=== PATIENT | female | born 1955 | race Caucasian/White ===

== ENCOUNTER 2019-05-09 07:06 | Emergency (ER) | payer MEDICARE, MEDICAID, SELFPAY ==
[2019-05-09 07:07] VITALS: BP 166/85; PULSE 83; RESP 18; TEMP 36.4; O2SAT 100; BMI 28.1
--- NOTE | 2019-05-09 07:08 | W.ED.DIZZY ---
HPI - Dizziness General: Chief Complaint: Abdominal Pain Stated Complaint: NAUSEA, VOMITING VERTIGO Time Seen by Provider: 05/09/19 07:08 Source: patient Mode of arrival: ambulatory Limitations: no limitations History of Present Illness: HPI Narrative: Patient is a 64-year-old female who presents to ED today with complaints of dizziness/vertigo that began this morning when she awoke; patient tells me that she has had intermittent vertigo since the age of 10 when she was accidentally dropped on her head; patient states she does not take any medications for the vertigo due to unwanted side effects and normally just suffers through it ; patient tells me it is not uncommon for her vertigo to cause her to fall; patient tells me this morning she also awoke with right upper quadrant pain and nausea; she states this is not abnormal for her as she is currently undergoing evaluation for possible gallbladder issue; she has a HIDA scan scheduled at 10 AM today; patient reports she sought emergency evaluation this morning because she felt like her vertigo was somehow different in nature-reports when she stood up this morning she about ran into a door and was glued there ; she states she laid back down in bed, closed her eyes, and felt weightless MD elicited complaint: dizziness and vertigo Pertinent past history: other (reports vertigo since the age of 10) Onset (ago): hour(s) Timing: awoke with symptoms Description: sense of movement, room spinning , off-balance and difficulty walking Exacerbating factors: movement/ambulation, change in body position and standing Relieving factors: remaining still and keeping eyes closed Associated symptoms: Reports nausea; Denies chest pain, chills, headache(s), palpitations, syncope or vomiting Associated neuro symptoms: Deny confusion or numbness in extremities Review of Systems Const: Denies: fever, chills or body aches Eyes: Denies: change in vision, blurry vision, blind spots or photophobia ENMT: Denies: enlarged tonsils or painful swallowing Card: Denies: chest pain, palpitations, irregular heart rhythm, lightheadedness, syncope or shortness of breath on exertion Resp: Denies: shortness of breath, productive cough or pain on inspiration GI: Reports: abdominal pain (earlier this AM but this has subsided now) and nausea; Denies: vomiting, heartburn/indigestion or diarrhea : Denies: flank pain, difficulty urinating, painful urination, urinary frequency or urinary urgency Musc: Denies: neck pain, back pain, extremity pain, extremity swelling or joint pain Skin/Breast: Denies: rash Neuro: Reports: difficulty walking (secondary to vertigo this AM), dizziness and vertigo; Denies: headache, numbness in extremities, weakness in extremities, changes in sensation, confusion, slurred speech, difficulty communicating thoughts, seizure-like activity or involuntary movements PFSH ED PFSH: Statuses (acute, chronic, etc) shown below reflect problem list status as previously entered and may not be historically accurate Social History Smoking and tobacco status: former smoker Physical Exam Const: COMMON NORMALS: no apparent distress, oriented x3, no limitations, alert and well nourished GENERAL APPEARANCE: cooperative NUTRITIONAL APPEARANCE: obese ORIENTATION/CONSCIOUSNESS: Yes oriented to person, Yes oriented to place and Yes oriented to time HENMT: COMMON NORMALS: normocephalic, head/scalp atraumatic, EAC's normal and TM's normal bilaterally HEAD & SCALP: normocephalic and atraumatic FACE & SINUS: normal facial exam and face symmetric EXTERNAL AUDITORY CANAL: EAC's normal TYMPANIC MEMBRANE: TM's normal bilaterally Eye: COMMON NORMALS: PERRL, EOMs intact bilaterally and conjunctivae normal GENERAL EYE: normal appearance of both eyes and normal light reflex VISUAL R[place]: No peripheral vision loss and No central vision loss CONJUNCTIVA: Yes conjunctivae normal PUPIL: Yes PERRL and Yes accommodation reflex normal DIRECT OPHTHALMOSCOPY: Yes normal light reflex OTHER: no nystagmus noted; neg head thrust test Neck/C-Spine: COMMON NORMALS: full ROM, no lymphadenopathy, supple and no meningeal signs Chest: COMMONS NORMALS: inspection of chest normal Resp: COMMON NORMALS: normal respiratory effort and clear to auscultation bilaterally AUSCULTATION: clear to auscultation bilaterally Cardio: COMMON NORMALS: regular rate and regular rhythm RATE: regular rate RHYTHM: regular rhythm GI: COMMON NORMALS: normal to inspection, nondistended, normoactive bowel sounds, soft to palpation, non-tender, no hepatosplenomegaly and no masses PALPATION: Yes soft and Yes no hepatosplenomegaly : COMMON NORMALS: Yes no CVA tenderness BLADDER/KIDNEY EXAM: Yes no CVA tenderness Back/Pelvis: COMMON NORMALS: no CVA tenderness and thoracic and lumbar spine normal to inspection Extremity: COMMON NORMALS: normal to inspection Neuro: TRUONG COMA SCALE: document GCS findings Truong coma scale eye opening: Spontaneous Truong coma scale verbal response: Orientated Truong coma scale motor response: Obey commands Truong coma scale total score: 15 COMMON NORMALS: oriented x3, CN's II-XII intact bilaterally, moves all extremities, no focal motor deficits and no sensory deficits noted SENSORIUM/ORIENTATION: Yes alert, Yes oriented to person, Yes oriented to place and Yes oriented to time MENINGEAL SIGNS: Yes no meningeal signs CRANIAL NERVES: Yes CN normal except as noted and Yes HiNTS SPEECH: speech normal MOTOR EXAM: no pronator drift Skin: COMMON NORMALS: no rashes or lesions noted GENERAL SKIN EXAM: no rashes or lesions noted Course Vital Signs: Vital signs: Vital Signs Temperature 97.5 F L 05/09/19 07:07 Pulse Rate 73 05/09/19 09:53 Respiratory Rate 16 05/09/19 09:53 Blood Pressure 124/97 05/09/19 09:53 Pulse Oximetry 96 05/09/19 09:53 MDM - Dizziness MDM Narrative: Medical decision making narrative: Patient is a 64-year-old female who presents to ED today with a variant of her chronic intermittent vertigo; on exam she has no nystagmus, slurred speech, sensory or motor abnormalities, limb ataxia, ocular/pupil abnormalities, and has a normal head thrust test; she does not report any dysphagia, headache; she was able to get up within her room and ambulate to a bedside commode without difficulties; at this point I have no concern for a cerebellar infarct/hemorrhage based on her history and physical examination; return to ED precautions given; labs did show elevated LFTs-I did not have previous so gallbladder US was ordered and found to be negative; after speaking to pt she does tell me she has had this finding previously. Lab Data: Labs: Lab Results 05/09/19 05/09/19 Range/Units 07:35 07:35 WBC 4.7 (4.0-10.0) 10^3/ uL RBC 4.26 (4.1-5.3) 10^6/u L Hgb 12.9 (11.5-15.3) g/dL Hct 39.3 (37.0-47.0) % MCV 92.3 (81-99) fL MCH 30.3 (28.0-34.0) pg MCHC 32.8 (30.0-36.0) g/dL RDW 12.2 (12.1-15.1) % Plt Count 304 (130-400) 10^3/c mm MPV 8.8 (7.4-10.4) fL Neut % (Auto) 48.0 % Lymph % (Auto) 40.6 % [place] % (Auto) 6.6 % Eos % (Auto) 3.8 % Baso % (Auto) 0.6 % Neut # (Auto) 2.3 (1.8-7.7) 10^3/u L Lymph # (Auto) 1.9 (0.8-4.8) 10^3/u L [place] # (Auto) 0.3 (0.2-0.9) 10^3/u L Eos # (Auto) 0.2 (0.0-0.8) 10^3/u L Baso # (Auto) 0.0 (0.0-0.1) 10^3/u L Nucleated RBC % (a uto) 0 % Nucleated RBCs # 0.0 /100WBC Sodium 137 (136-145) mmol/L Potassium 4.2 (3.5-5.1) mmol/L Chloride 100 (98-107) mmol/L Carbon Dioxide 25 (22-29) mmol/L Anion Gap 16.2 (5-19) BUN 13 (8-23) mg/dL Creatinine 0.8 (0.5-0.9) mg/dL GFR Calculation 72.7 L (90-130) mL/min Glucose 131 H (74-106) mg/dL Calcium 9.9 (8.8-10.2) mg/Dl Total Bilirubin 0.2 (0.15-1.2) mg/dL AST 42 H (0-32) U/L ALT 62 H (0-33) U/L Alkaline Phosphata se 186 H (35-105) IU/L Total Protein 7.9 (6.6-8.7) g/dL Albumin 4.4 (3.5-5.2) g/dL Globulin 3.5 (1.3-4.6) g/dL Discharge Plan Discharge Patient Disposition: Home, Self-Care Clinical Impression: Vertigo Condition: Stable Prescriptions: New meclizine 25 mg tablet 25 mg PO TID PRN (Reason: vertigo) Qty: 20 RF: 0 Zofran 4 mg tablet 4 mg PO Q8H PRN (Reason: nausea and vomiting) Qty: 14 RF: 0 No Action Vitamin C 1,000 mg Tablet 2,000 mg PO DAILY RF: 0 pantoprazole 20 mg tablet,delayed release (DR/EC) 20 mg PO DAILY RF: 0 albuterol sulfate 90 mcg/actuation HFA aerosol inhaler 2 puff INHALATION Q4H PRN (Reason: Shortness Of Breath) RF: 0 Vitamin D3 1,000 unit Capsule 2,000 unit PO DAILY RF: 0 Discharge Orders: Discharge Order (Routine); Ordered 05/09/19 Ordered By: Latesha Walters Referrals: Aditi Hankins [Primary Care Provider] - Discharge Diet: Advance as tolerated Discharge Activity: Increase activity as tolerated Activity Restrictions/Additional Instructions: Return to the emergency department for worsening or prolonged vertigo, headache, numbness or altered sensation to your face or extremities, inability to ambulate, slurred speech, difficulty swallowing, or any other concerns she may have. Discharge Date/Time: 05/09/19 10:04 Coding Level of Care Code ED Lockstitch Hemmer for Lizetteg Fwd Exam Problem Focused
[2019-05-09] MEDS: meclizine 25 mg tablet PO ×2 (07:44→09:04)
[2019-05-09] MEDS: metoclopramide 5 mg/mL SDV 2 mL IVP (07:44)
[2019-05-09 07:45] LABS: Basophils % 0.6 %; Eosinophils # 0.2 10^3/uL (0.0-0.8); Eosinophils % 3.8 %; Hematocrit 39.3 % (37.0-47.0); Hemoglobin 12.9 g/dL (11.5-15.3); Lymphocytes # 1.9 10^3/uL (0.8-4.8); Lymphocytes % 40.6 %; Mean Corpuscular HGB Conc 32.8 g/dL (30.0-36.0); Mean Corpuscular Hemoglobin 30.3 pg (28.0-34.0); Mean Corpuscular Volume 92.3 fL (81-99); Mean Platelet Volume 8.8 fL (7.4-10.4); Monocytes # 0.3 10^3/uL (0.2-0.9); Monocytes % 6.6 %; Neutrophils # 2.3 10^3/uL (1.8-7.7); Nucleated Red Blood Cells % 0 %; Platelet Count 304 10^3/cmm (130-400); Red Blood Count 4.26 10^6/uL (4.1-5.3); Red Cell Distribution Width 12.2 % (12.1-15.1); White Blood Count 4.7 10^3/uL (4.0-10.0)
[2019-05-09] MEDS: sodium chloride 0.9% 1,000 ML 999 ML IV (07:45)
[2019-05-09 08:00] LABS: Alanine Aminotransferase 62 U/L (0-33); Albumin Level 4.4 g/dL (3.5-5.2); Alkaline Phosphatase 186 IU/L (35-105); Anion Gap 16.2 (5-19); Aspartate Amino Transferase 42 U/L (0-32); Blood Urea Nitrogen 13 mg/dL (8-23); Calcium 9.9 mg/Dl (8.8-10.2); Carbon Dioxide 25 mmol/L (22-29); Chloride 100 mmol/L (98-107); Globulin 3.5 g/dL (1.3-4.6); Glomerular Filtration Rate 72.7 mL/min (90-130); Glucose 131 mg/dL (74-106); Potassium 4.2 mmol/L (3.5-5.1); Sodium 137 mmol/L (136-145); Total Bilirubin 0.2 mg/dL (0.15-1.2); Total Protein 7.9 g/dL (6.6-8.7)
--- NOTE | 2019-05-09 08:14 | US_ITS ---
WS: [id number] ULTRASOUND ABDOMEN LIMITED CLINICAL INFORMATION: pain, elevated LFTs COMPARISON: None. FINDINGS: Liver Size: Enlarged Craniocaudal length: 16.2 cm. Echogenicity: Coarse with fatty infiltration Surface nodularity: None. Mass (size and location): None. Bile ducts Intrahepatic ducts: Normal. Common bile duct diameter: 4.2 mm. Gallbladder Normal. Gallstones: None. Gallbladder sludge: None. Gallbladder wall thickening: None. Pericholecystic fluid: None. Sonographic More sign: Absent. Pancreas Normal as visualized. Right kidney: Normal. Hydronephrosis: None. Size: 10.8 cm x 4.5 cm x 4.5 cm. Abdominal aorta and IVC Visualized portions are normal. Ascites: None. US/US gall bladder [id number] IMPRESSION: 1. Hepatomegaly with diffuse fatty infiltration. 2. Normal gallbladder. 3. No hydronephrosis in right kidney.
[2019-05-09 09:45] VITALS: BP 124/97; PULSE 71; RESP 16; O2SAT 98
[2019-05-09 09:53] VITALS: BP 124/97; PULSE 73; RESP 16; O2SAT 96
== END 2019-05-09 10:04 | disposition home or self-care (01) ==
PROVIDERS: Emergency Provider Physician Assistant; Family Provider Nurse Practitioner Family; PCP Nurse Practitioner Family
DX: R42 Dizziness and giddiness (principal); Z87.891 Personal history of nicotine dependence
CPT/HCPCS: 36415; 76705; 80053; 85025; 96360; 96374; 99281; G8984; J2765; J7030; J8597

== ENCOUNTER 2019-05-21 09:50 | Outpatient (CLI) | payer MEDICARE, MEDICAID, SELFPAY ==
--- NOTE | 2019-05-21 09:55 | NM_ITS ---
WS: [id number] NUCLEAR MEDICINE HIDA SCAN CLINICAL INFORMATION: R UPPER QUADRANT PAIN TECHNIQUE: Following intravenous administration of 7.6 mCi of technetium 99m mebrofenin, images of th e abdomen were obtained over the course of 60 minutes. Next, gallbladder ejection fraction was determ ined by obtaining preprandial and one-hour postprandial images of the gallbladder following oral anya stion of Ensure. COMPARISON: Ultrasound gallbladder May 09, 2019 FINDINGS: Normal hepatic uptake at 5 minutes. Normal common bile duct. Gallbladder is visualized by 15 to 20 mi nutes. No evidence of acute cholecystitis. No evidence of choledocholithiasis. Normal small bowel act ivity. Normal gallbladder ejection fraction 74% within normal limits. No evidence of chronic cholecystitis. NM/NM hepatobiliary w phar* [id number] IMPRESSION: 1. No evidence of acute or chronic cholecystitis. 2. Normal ejection fraction 74%.
== END 2019-05-21 09:51 | disposition home or self-care (01) ==
LOC: RAD 09:53
PROVIDERS: Family Provider Nurse Practitioner Family; PCP Nurse Practitioner Family; Visit Provider Nurse Practitioner Family
DX: R10.11 Right upper quadrant pain (principal)
CPT/HCPCS: 78227; A9537

== ENCOUNTER 2020-05-23 10:21 | Outpatient (CLI) | payer MEDICARE, MEDICAID, SELFPAY ==
--- NOTE | 2020-05-23 10:31 | XR_ITS ---
WS: [id number] Temporal mandibular joints, open and closed position bilaterally, AP mandible open and closed, 05/23/19 Clinical Data: OTALGIA RIGHT EAR Comparison: None. Findings: The patient is edentulous. Normal movement is seen of the temporomandibular joints on opening and olimpia sing. No erosion, sclerosis or fracture is noted. XR/[place] [id number] Impression: Negative bilateral temporal mandibular joints.
== END 2020-05-23 10:22 | disposition home or self-care (01) ==
LOC: RAD 10:25
PROVIDERS: PCP Nurse Practitioner Family; Visit Provider Otolaryngology
DX: H92.01 Otalgia, right ear (principal)
CPT/HCPCS: 70330

== ENCOUNTER → 2020-08-07 12:20 | Outpatient (BNVA) | payer MEDICARE, MEDICAID, SELFPAY | PROVIDERS: PCP Nurse Practitioner Family; Visit Provider Obstetrics & Gynecology | DX: N90.89 Other specified noninflammatory disorders of vulva and perineum (principal) | CPT/HCPCS: 88305 ==

== ENCOUNTER 2020-11-11 09:53 | Outpatient (CLI) | payer MEDICARE, MEDICAID, SELFPAY ==
--- NOTE | 2020-11-11 10:08 | CT_ITS ---
WS: [id number] LDCT LUNG CANCER SCREENING TECHNIQUE: Noncontrast CT of the chest with coronal and sagittal reformatted images. CLINICAL INFORMATION: HX OF TOBACCO USE COMPARISON: CT chest 7 29,016 DLP: 54.19 mGy.cm DIvol: 1.[address] scans at [facility] use at least one of these dose optimization techniques: automat ed exposure control; mA and/or kV adjustment per patient size (includes targeted exams where dose is matched to clinical indication); or iterative reconstruction. FINDINGS: Mild chronic emphysematous changes. No acute pulmonary infiltrates. Slight atelectasis in the lung ba ses. No suspicious pulmonary parenchymal abnormalities. Normal caliber thoracic aorta. No mediastinal or hilar lymphadenopathy. Aortic calcification. Small esophageal hiatal hernia. Adrenal glands are n ormal. Normal thoracic spine. CT/CT lung screening [id number] IMPRESSION: LUNG-RADS: 1-Negative FOLLOW UP: 12 Month: Continue annual screening with LDCT
== END 2020-11-11 09:54 | disposition home or self-care (01) ==
LOC: CT 09:56
PROVIDERS: PCP Nurse Practitioner Family; Visit Provider Nurse Practitioner Family
DX: Z12.2 Encounter for screening for malignant neoplasm of respiratory organs (principal); Z87.891 Personal history of nicotine dependence; J98.11 Atelectasis
CPT/HCPCS: 71271

== ENCOUNTER 2020-11-14 10:13 | Outpatient (CLI) | payer MEDICARE, MEDICAID, SELFPAY ==
[2020-11-14 10:45] LABS: Basophils # 0.1 10^3/uL (0.0-0.1); Basophils % 0.9 %; Eosinophils # 0.3 10^3/uL (0.0-0.8); Eosinophils % 3.8 %; Hematocrit 42.9 % (37.0-47.0); Hemoglobin 13.9 g/dL (11.5-15.3); Lymphocytes # 2.1 10^3/uL (0.8-4.8); Lymphocytes % 31.9 %; Mean Corpuscular HGB Conc 32.4 g/dL (30.0-36.0); Mean Corpuscular Hemoglobin 30.3 pg (28.0-34.0); Mean Corpuscular Volume 93.5 fL (81-99); Mean Platelet Volume 8.9 fL (7.4-10.4); Monocytes # 0.5 10^3/uL (0.2-0.9); Monocytes % 6.8 %; Neutrophils # 3.72 10^3/uL (1.8-7.7); Neutrophils % 56.4 %; Nucleated Red Blood Cells % 0 %; Platelet Count 367 10^3/cmm (130-400); Red Blood Count 4.59 10^6/uL (4.1-5.3); Red Cell Distribution Width 12.4 % (12.1-15.1); White Blood Count 6.6 10^3/uL (4.0-10.0)
[2020-11-17 16:32] LABS: Alternaria Alternata (M6) Ige <0.10 kU/L; Alternaria Class 0; Bermuda Class 0; Bermuda Grass (G2) Ige <0.10 kU/L; Cat Dander (E1) Ige <0.10 kU/L; Cat Dander Class 0; Common Ragweed (Short) (W1) Ig <0.10 kU/L; D. Farinae Class 0/1; Dermatophagoides Class 0/1; Dermatophagoides Farinae (D2) 0.11 kU/L; Dermatophagoides Pteronyssinus 0.15 kU/L; Dog Dander (E5) Ige <0.10 kU/L; Dog Dander Class 0; Elm (T8) Ige <0.10 kU/L; Elm Class 0; English Plantain (W9) Ige <0.10 kU/L; English Plantain Class 0; House Dust (Greer) (H1) Ige <0.10 kU/L; House Dust (Hollister- Stier) <0.10 kU/L; House Dust Class 0; Johnson Grass (G10) Ige <0.10 kU/L; Johnson Grass Cl 0; June Grass Class 0; June Grass(Kentucky Blue) (G8) <0.10 kU/L; Lamb'S Quarters (Goose Foot) <0.10 kU/L; Lamb'S Quarters Class 0; Maple (Box Elder) (T1) Ige <0.10 kU/L; Maple Class 0; Meadow Fescue (G4) Ige <0.10 kU/L; Meadow Fescue Class 0; Mucor Racemosus Class 0; Oak (T7) Ige <0.10 kU/L; Oak Class 0; Orchard Grass (Cocksfoot) (G3) <0.10 kU/L; Penicillium Class 0; Penicillium Notatum (M1) Ige <0.10 kU/L; Perennial Rye Grass (G5) Ige <0.10 kU/L; Perennial Rye Grass Class 0; Ragweeed Class 0; Rough Marsh Elder (W16) Ige <0.10 kU/L; Rough Marsh Elder Class 0; Sweet Vernal Class 0; Sweet Vernal Grass (G1) Ige <0.10 kU/L; Timothy Grass (G6) Ige <0.10 kU/L; Timothy Grass Class 0
[2020-11-18 16:17] LABS: Immunoglobulin E 92 kU/L (<OR=114)
[2020-11-19 15:17] LABS: Aspergillus Fumigatus, Igg Ab, 33.1 mg/L (<=102)
[2020-11-20 16:57] LABS: Immunoglobulin E 89 kU/L (<OR=114)
== END 2020-11-14 10:14 | disposition home or self-care (01) ==
PROVIDERS: PCP Nurse Practitioner Family; Visit Provider Internal Medicine Critical Care Medicine
DX: J45.909 Unspecified asthma, uncomplicated (principal); R06.02 Shortness of breath
CPT/HCPCS: 82785; 85025; 86003

== ENCOUNTER → 2020-12-31 11:20 | Outpatient (BNVA) | payer MEDICARE, MEDICAID, SELFPAY | PROVIDERS: PCP Nurse Practitioner Family; Visit Provider Internal Medicine Critical Care Medicine | DX: J45.909 Unspecified asthma, uncomplicated (principal) | CPT/HCPCS: 87635 ==

== ENCOUNTER → 2021-01-04 11:36 | Outpatient (BNVA) | payer MEDICARE, MEDICAID, SELFPAY | PROVIDERS: PCP Nurse Practitioner Family; Visit Provider Registered Nurse Neonatal Intensive Care | DX: Z20.822 Contact with and (suspected) exposure to COVID-19 (principal) | CPT/HCPCS: 87635 ==

== ENCOUNTER → 2021-01-07 11:00 | Outpatient (BNVA) | payer MEDICARE, MEDICAID, SELFPAY | PROVIDERS: PCP Nurse Practitioner Family; Visit Provider Surgery | DX: Z01.812 Encounter for preprocedural laboratory examination (principal); Z20.822 Contact with and (suspected) exposure to COVID-19 | CPT/HCPCS: 87635 ==

== ENCOUNTER 2021-01-13 09:00 | Outpatient (CLI) | payer MEDICARE, MEDICAID, SELFPAY ==
--- NOTE | 2021-01-13 13:01 | PFTS_ITS ---
Date of Study:01/13/21 Date of Dictation: 01/14/2021 MECHANICS: Postbronchodilator forced vital capacity (FVC) is normal. Postbronchodilator forced expiratory volume in one second (FEV1) is normal. FEV1/FVC is normal. There is no significant broncho-dilator response FLOW VOLUME LOOP: Normal . LUNG VOLUMES: Total lung capacity (TLC) is normal. Residual volume (RV) is normal . DIFFUSING CAPACITY FOR CARBON MONOXIDE: Normal . INTERPRETATION: The pulmonary function tests are normal. MTDD
== END 2021-01-13 09:01 | disposition home or self-care (01) ==
LOC: RT 09:03
PROVIDERS: PCP Nurse Practitioner Family; Visit Provider Internal Medicine Critical Care Medicine
DX: J45.909 Unspecified asthma, uncomplicated (principal)
CPT/HCPCS: 94060; 94726; 94729; J7611

== ENCOUNTER 2021-04-13 07:16 | Outpatient (CLI) | payer MEDICARE, MEDICAID, SELFPAY ==
--- NOTE | 2021-04-13 | MM_ITS ---
WS: [id number] Bilateral screening digital mammogram, 04/13/2021 Clinical Data: SCREEN Comparison: None. Findings: The breast parenchymal pattern shows fat replacement. No spiculated masses or clustered calcification s are seen. There are no secondary signs of carcinoma. MM/[place] [id number] Impression: 1. Negative bilateral mammogram with no prior exam for review. 2. Recommend annual screening mammograms. BIRADS: 1-Negative FOLLOW UP: 1 Year Follow-up The CAD stock checker was used.
== END 2021-04-13 07:17 | disposition home or self-care (01) ==
LOC: RADSHAW 07:19
PROVIDERS: PCP Nurse Practitioner Family; Visit Provider Nurse Practitioner Family
DX: Z12.31 Encounter for screening mammogram for malignant neoplasm of breast (principal)
CPT/HCPCS: 77067

== ENCOUNTER → 2021-06-19 08:58 | Outpatient (BNVA) | payer MEDICARE, MEDICAID, SELFPAY | PROVIDERS: PCP Nurse Practitioner Family; Visit Provider Surgery | DX: Z11.52 Encounter for screening for COVID-19 (principal) | CPT/HCPCS: 87635 ==

== ENCOUNTER 2021-06-24 06:44 | Day surgery (SDC) | payer MEDICARE, MEDICAID, SELFPAY ==
[2021-06-22 12:32] VITALS: BMI 30.7
--- NOTE | 2021-06-24 07:02 | P.ANESASSM_ITS ---
Pre-Anesthetic Assessment Height/Weight: Height 1.7 m Weight 88.904 kg Preop Diagnosis: diagnostic Operation Date: 06/24/21 08:00 Proposed Procedures p Colonoscopy [id number]/k21.9/r10.9(Not Applicable) - Lukas Reina MD s EGD(Not Applicable) - Lukas Reina MD Familial anesthetic complications: None Last intake: 06/23/2021 Social No alcohol and No tobacco Exam alert, oriented x 3, clear to auscultation bilaterally and regular rate & rhythm Airway Submandibular: within normal limits Cervical ROM: within normal limits Mallampati: Class I Dentition: false Pulmonary Asthma, Exertional Dyspnea and Shortness of Breath Recent increase in SOB patient associates with GERD and GERD medication CV/HEM None reported Hepatic None reported GI GERD symptomatic on empty stomach Metabolic None reported Musc/skel None reported Neuropsych None reported Anesthetic Plan ASA status: 2 Anesthesia: Anesthesia Evaluation, General and MAC Other: I discussed with the patient risks, goals, and benefits of MAC and general anesthesia. We discussed spectrum of MAC anesthesia including conversion to general as well as possibility of recall of intraoperative stimuli including discomfort/pain. Patient agrees to proceed with MAC. Risk of > 500 ml blood loss (7ml/kg in children): No Medications/Allergies Home Medications Medication Instructions Recorded Confirmed Last Taken Type cholecalciferol (vitamin D3) 25 10,000 unit PO DAILY 05/09/19 06/22/21 05/08/19 History mcg (1,000 unit) capsule (Vitamin D3) pantoprazole 20 mg tablet,delayed 20 mg PO DAILY 05/09/19 06/22/21 05/08/19 History release Lactobacillus combo no.23 14 14 cell PO DAILY cap 12/18/20 06/22/21 Unknown H istory billion cell capsule (Surya Probiotic) zinc sulfate [Zinc-15] 1 cap PO .WEEKLY 12/30/20 06/22/21 Unknown History vitamin [id number] B1 oral liquid 0.5 ea PO DAILY 06/22/21 06/22/21 Unknown History Allergies Allergy/AdvReac Type Severity Reaction Status Date / Time ibuprofen Allergy Hives Verified 05/25/21 11:18 codeine AdvReac ADR-Vomitin Verified 05/25/21 11:18 g PFSH Anesthesia Medical History Asthma Vertigo Vulvar cancer Surgical History H/O esophagogastroduodenoscopy Dilation History of bladder surgery 2007-had bladder lift surgery performed and states that about 3 months after surgery her bladder fell down again and she has not done anything about this. S/P hysterectomy 1991----?vaginal hysterectomy for heavy bleeding and pain. Status post laparotomy X 2 Thinks that she has had 2 open surgeries for cysts and problems with cysts and feels that this was before her hysterectomy but does not remember. Status post surgery partial vulvectomy Family History Family/Other Breast cancer maternal aunt, diagnosed in her 50s or 60s Mother Hypertension Aortic aneurysm Hyperlipidemia Father Hypertension Brother Hypertension Sister Hypertension Denies family history of Colon cancer Ovarian cancer Diabetes Heart disease Uterine cancer Thyroid condition Stroke Social History Smoking and tobacco status: former smoker Quit status (tobacco): has quit using tobacco Year quit tobacco: 1997 Former quit date comment: Hx of 0.5 PPD x 8 Years Second hand smoke exposure: No Smoking risk assessment/counseling performed?: No Alcohol intake: never Counseling given: No Counseling given: No Lives independently: Yes Household members: none Marital status: Current occupational status: disabled History of recent travel: No Current gender identity: Female Data Anesthesia Cardiac Studies: No Data to Display
[2021-06-24 07:10] VITALS: BP 150/88; PULSE 88; RESP 18; TEMP 36.1; O2SAT 96
[2021-06-24] MEDS: sodium chloride 0.9% 1,000 ML 30 ML IV (07:19)
--- NOTE | 2021-06-24 07:34 | W.PM.OPSFHP ---
Same Day Surgery H&P Indication for Procedure/HPI DATE OF PROCEDURE: June 24, 2021 CHIEF COMPLAINT/INDICATIONFOR SURGICAL PROCEDURE: egd/colon PREOP DIAGNOSIS: diagnostic PLANNED PROCEDURE: Operation Date: 06/24/21 08:00 Proposed Procedures p Colonoscopy [id number]/k21.9/r10.9(Not Applicable) - Lukas Reina MD s EGD(Not Applicable) - Lukas Reina MD Medications/Allergies* Home Medications Medication Instructions Recorded Confirmed Type cholecalciferol (vitamin D3) 25 10,000 unit PO DAILY 05/09/19 06/24/21 History mcg (1,000 unit) capsule (Vitamin D3) pantoprazole 20 mg tablet,delayed 20 mg PO DAILY 05/09/19 06/24/21 History release Lactobacillus combo no.23 14 14 cell PO DAILY cap 12/18/20 06/24/21 History billion cell capsule (Surya Probiotic) zinc sulfate [Zinc-15] 1 cap PO .WEEKLY 12/30/20 06/24/21 History vitamin Z49-qiympbl B1 oral liquid 0.5 ea PO DAILY 06/22/21 06/24/21 History Allergies/Adverse Reactions Allergy/AdvReac Type Severity Reaction Status Date / Time ibuprofen Allergy Hives Verified 06/24/21 07:08 codeine AdvReac ADR-Vomitin Verified 06/24/21 07:08 g Current Medications: Generic Name Dose Route Start Last Admin Trade Name Freq PRN Reason Stop Dose Admin Sodium Chloride 1,000 mls @ 30 mls/hr 06/24/21 07:15 06/24/21 07:19 Sodium Chloride 0.9% IV 06/25/21 07:14 30 mls/hr .Q24H JULEE Administration Pertinent History/Comorbid Conditions* Medical History (Updated 12/30/20 @ 12:05 by Lukas Reina MD) Asthma Vertigo Vulvar cancer Surgical History (Updated 12/30/20 @ 17:34 by Lukas Reina MD) H/O esophagogastroduodenoscopy Dilation History of bladder surgery 2007-had bladder lift surgery performed and states that about 3 months after surgery her bladder fell down again and she has not done anything about this. S/P hysterectomy 1991----?vaginal hysterectomy for heavy bleeding and pain. Status post laparotomy X 2 Thinks that she has had 2 open surgeries for cysts and problems with cysts and feels that this was before her hysterectomy but does not remember. Status post surgery partial vulvectomy Family History (Updated 08/06/20 @ 15:19 by Lala Moran RN) Aortic aneurysm Mother Hyperlipidemia Mother Breast cancer Family/Other maternal aunt, diagnosed in her 50s or 60s Hypertension Mother Father Brother Sister Denies family history of Colon cancer Ovarian cancer Diabetes Heart disease Uterine cancer Thyroid condition Stroke Social History Smoking and tobacco status: former smoker Quit status (tobacco): has quit using tobacco Year quit tobacco: 1997 Former quit date comment: Hx of 0.5 PPD x 8 Years Second hand smoke exposure: No Smoking risk assessment/counseling performed?: No Alcohol intake: never Counseling given: No Counseling given: No Lives independently: Yes Household members: none Marital status: Current occupational status: disabled History of recent travel: No Current gender identity: Female Pertinent Exam Findings alert, oriented x 3 and regular rate & rhythm Recommendations Surgery/Procedure today Coding Level of Care Code Acute Sld Teacher for Angeyl López
[2021-06-24 08:14] VITALS: BP 120/69; PULSE 81; RESP 16; TEMP 36.6; O2SAT 97
--- NOTE | 2021-06-24 08:17 | ANE.PACU2 ---
Inpatient post-anesthesia follow up: Airway intact: Yes Vital signs: Temperature 97.0 F Pulse Rate 88 Respiratory Rate 18 Blood Pressure 150/88 Pulse Oximetry 96 Oxygen Delivery Me thod Room Air Oxygen Flow Rate Fraction of Inspir ed Oxygen Hydration adequate: Yes Nausea and vomiting: No Pain level: 1 Mental status: Baseline
[2021-06-24 08:30] VITALS: BP 136/78; PULSE 76; RESP 16; O2SAT 96
[2021-06-24 08:45] VITALS: BP 153/84; PULSE 80; RESP 18; TEMP 36.6; O2SAT 99
== END 2021-06-24 08:50 | disposition home or self-care (01) ==
PROVIDERS: PCP Nurse Practitioner Family; Visit Provider Surgery
PROC: 0DJD8ZZ Inspection of Lower Intestinal Tract, Via Natural or Artificial Opening Endoscopic (ICD-10-PCS; CPT 45378; principal; 2021-06-24 08:00)
PROC: 0DJ08ZZ Inspection of Upper Intestinal Tract, Via Natural or Artificial Opening Endoscopic (ICD-10-PCS; CPT 43235; 2021-06-24 08:00)
DX: R10.9 Unspecified abdominal pain (principal); K21.9 Gastro-esophageal reflux disease without esophagitis; K44.9 Diaphragmatic hernia without obstruction or gangrene; K29.70 Gastritis, unspecified, without bleeding; K22.2 Esophageal obstruction; J45.909 Unspecified asthma, uncomplicated; Z87.891 Personal history of nicotine dependence; K64.8 Other hemorrhoids; D12.4 Benign neoplasm of descending colon; D12.5 Benign neoplasm of sigmoid colon
CPT/HCPCS: 43239; 45380; 88305; 88342; J2704; J7030

== ENCOUNTER → 2021-06-26 09:09 | Outpatient (BNVA) | payer MEDICARE, MEDICAID, SELFPAY | PROVIDERS: PCP Nurse Practitioner Family; Visit Provider Internal Medicine Critical Care Medicine | DX: J45.909 Unspecified asthma, uncomplicated (principal); K21.9 Gastro-esophageal reflux disease without esophagitis; J43.9 Emphysema, unspecified; R07.9 Chest pain, unspecified | CPT/HCPCS: 99214 ==

== ENCOUNTER → 2021-07-01 10:26 | Outpatient (BNVA) | payer MEDICARE, MEDICAID, SELFPAY | PROVIDERS: PCP Nurse Practitioner Family; Visit Provider Podiatrist Foot & Ankle Surgery | DX: M79.671 Pain in right foot (principal); M79.672 Pain in left foot; M19.071 Primary osteoarthritis, right ankle and foot | CPT/HCPCS: 73630 ==

== ENCOUNTER → 2021-08-20 15:17 | Outpatient (BNVA) | payer MEDICARE, MEDICAID, SELFPAY | PROVIDERS: PCP Nurse Practitioner Family; Visit Provider Internal Medicine Cardiovascular Disease | DX: R07.9 Chest pain, unspecified (principal); R06.02 Shortness of breath; I10 Essential (primary) hypertension; G47.33 Obstructive sleep apnea (adult) (pediatric); Z87.891 Personal history of nicotine dependence | CPT/HCPCS: 93005; 99204 ==

== ENCOUNTER 2021-09-10 09:07 | Outpatient (CLI) | payer MEDICARE, MEDICAID, SELFPAY ==
--- NOTE | 2021-09-10 09:15 | USCV_ITS ---
Chelsey Adams Age: 66 Gender: F : 1955 Exam Date: 09/10/2021 09:25 Ordering Phys: Jada Jimenez MD ([email or web address]) Technologist: Exam Location: [facility] [place] Indication: new murmur BP: 130 / 80 HR: 75 Rhythm: Sinus Technical Quality: Adequate MEASUREMENTS (Male / Female) Normal Values 2D ECHO LV Diastolic Diameter PLAX 4.1 cm 4.2 - 5.9 / 3.9 - 5.3 cm LV Systolic Diameter PLAX 2.2 cm IVS Diastolic Thickness 1.1 cm 0.6 - 1.0 / 0.6 - 0.9 cm IVS Systolic Thickness 1.2 cm LVPW Diastolic Thickness 1.0 cm 0.6 - 1.0 / 0.6 - 0.9 cm LVPW Systolic Thickness 1.3 cm LVOT Diameter 2.0 cm LV Ejection Fraction 2D Teich 77.8 % LV Ejection Fraction MOD 2C 74.4 % LV Ejection Fraction 2C AL 75.5 % LA Diameter 3.8 cm IVC Diameter 1.8 cm M-MODE Aortic Annulus Diameter 2.9 cm LA Ao Ratio MM 1.5 MV E Point Septal Separation 0.5 cm DOPPLER AV Peak Velocity 158.7 cm/s LVOT Peak Velocity 106.0 cm/s AV Area Cont Eq vti 2.0 cm squared AV Area Cont Eq pk 2.1 cm squared MV Area PHT 2.7 cm squared Mitral E to A Ratio 0.8 MV E' Velocity 51.0 cm/s Mitral E to MV E' Ratio 16.0 Mitral E to LV E' Lateral Ratio 13.9 Mitral E to LV E' Septal Ratio 18.9 TR Peak Velocity 139.7 cm/s TR Peak Gradient 7.8 mmHg TV Peak E Velocity 101.0 cm/s Right Atrial Pressure 3.0 mmHg Pulmonary Artery Systolic Pressu 10.8 mmHg PV Peak Velocity 103.0 cm/s FINDINGS Left Ventricle Normal left ventricular size and systolic function, EF 72 %. Grade I/IV diastolic dysfunction (abnormal relaxation filling pattern), normal to mildly elevated filling pressures. Mild left ventricular hypertrophy. Right Ventricle The right ventricle is normal in size and function. Right Atrium The right atrium is normal in size. Left Atrium Mildly increased left atrial size. Mitral Valve Thickened mitral valve. Aortic Valve Thickened aortic valve. Tricuspid Valve No gross abnormalities noted Pulmonic Valve Pulmonic valve not well visualized. Pericardium Normal pericardium without effusion. Aorta Normal ascending aorta dimension. IVC Normal IVC size CONCLUSIONS Normal left ventricular size and systolic function, EF 72 %. Grade I/IV diastolic dysfunction (abnormal relaxation filling pattern), normal to mildly elevated filling pressures. Mild left ventricular hypertrophy. Mildly increased left atrial size. Minimally thickened aortic and mitral valves. There is no pericardial effusion. There are no intracardiac masses. Compared to the study from 03/12/2016, there is development of LV diastolic dysfunction. Dr Jada Jimenez MD FACC (Electronically Signed) Final Date: 10 Sep 2021 21:18 S
== END 2021-09-10 09:08 | disposition home or self-care (01) ==
LOC: RAD 09:08
PROVIDERS: PCP Nurse Practitioner Family; Visit Provider Internal Medicine Cardiovascular Disease
DX: R06.00 Dyspnea, unspecified (principal); R06.02 Shortness of breath
CPT/HCPCS: 93306

== ENCOUNTER 2021-09-15 07:34 | Outpatient (CLI) | payer MEDICARE, MEDICAID, SELFPAY ==
[2021-09-15 08:10] VITALS: BMI 31.3
--- NOTE | 2021-09-15 08:12 | ECG_ITS ---
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 Interpretive Statements NAME OF STUDY: LEXISCAN SESTAMIBI STRESS TEST INDICATION: Chest Pain, PROCEDURE: At the baseline, the EKG revealed normal sinus rhythm with normal ST Ts. The baseline blood pressure was 148/84 mm Hg with a heart rate of 71 beats/min. Lexiscan was infused over a period of 20 seconds. A total of 0.4 milligrams of Lexiscan was infused. The stress phase was continued for a total of 5 minutes. Heart rate at the end of the stress phase was 96 with a blood pressure 157/74. The EKG at the peak infusion revealed no significant changes. Sestamibi was injected 20 seconds after the Lexiscan infusion. Blood pressure at the end of the recovery phase was 140/68 with a heart rate of 93 per minute. CONCLUSION: 1. No significant EKG changes with the LexiScan infusion 2. No LexiScan induced no significant changes Chest Pain,chest pain or cardiac arrhythmia 3. Normal blood pressure and heart rate response 4. Sestamibi/sestamibi perfusion scan pending; see separate report. Electronically Signed On 09-18-2021 12:10:19 CDT by Jada Jimenez M.D. [email or web address]
--- NOTE | 2021-09-15 08:12 | NMCV_ITS ---
NM [place] perf SPECT r/s* [id number] Chelsey Adams Age: 66 Gender: F : 1955 Exam Date: 09/15/2021 08:12 Ordering Phys: Celia Fields MD Technologist: PATRICK Mo Exam Location: [facility] Indications: CHEST PAIN STRESS TEST Please see separate stress test report in [facility] for full findings IMAGE PROTOCOL Rest/Stress 1 Lexiscan Day Radiopharmaceutical Dose (mCi) Administration Site Administered by Rest: Tc-99m 10.7 IV PATRICK Lynne Sestamibi Stress:Tc-99m 32.6 IV PATRICK Mo Sestamimalgorzata Rest: 15-Sep-2021 60 Discovery 630 Stress: 15-Sep-2021 30 Discovery 630 0.4mg Lexiscan. Images obtained in supine and prone position. SPECT RESULTS Technical Quality: Excellent Raw Data Analysis: Normal Image Corrections: No attenuation or motion correction applied Summed Stress Score: 0 Summed Rest Score: 0 Summed Difference Score: 0 PERFUSION FINDINGS Fairly uniform myocardial tracer uptake. No significant perfusion abnormalities. FUNCTIONAL RESULTS (calculated via Gated SPECT) Stress Image LV EF (%): 80 Stress EDV (mL):65 TID: 1.1 Stress ESV (mL):13 FUNCTIONAL FINDINGS: Segmental wall motion analysis revealing no gross wall motion abnormalities IMPRESSIONS 1. Myocardial perfusion imaging revealing no significant perfusion normalities. 2. Normal LV ejection fraction of 80%. 3. LV wall motion analysis revealing no gross wall motion abnormalities. 4. Normal LV volume 5. Low probability for coronary ischemia, based on the above findings Dr Jada Jimenez MD FAC (Electronically Signed) Final Date: 15 Sep 2021 13:24 S
[2021-09-15] MEDS: regadenoson 0.4 Mg/5 ml Syringe IVP (09:50)
[2021-09-15 09:59] VITALS: BP 140/68; PULSE 95
== END 2021-09-15 07:35 | disposition home or self-care (01) ==
LOC: CDL 07:35
PROVIDERS: PCP Nurse Practitioner Family; Visit Provider Internal Medicine Critical Care Medicine
DX: R07.9 Chest pain, unspecified (principal)
CPT/HCPCS: 78452; 93017; A9500; J2785

== ENCOUNTER → 2021-09-25 08:19 | Outpatient (BNVA) | payer MEDICARE, MEDICAID, SELFPAY | PROVIDERS: PCP Nurse Practitioner Family; Visit Provider Surgery | DX: Z09 Encounter for follow-up examination after completed treatment for conditions other than malignant neoplasm (principal); R10.10 Upper abdominal pain, unspecified; R10.9 Unspecified abdominal pain | CPT/HCPCS: 99214 ==

== ENCOUNTER 2021-11-06 07:22 | Outpatient (CLI) | payer MEDICARE, MEDICAID, SELFPAY ==
[2021-11-06] MEDS: barium sulfate 450 mL Oral Susp PO (08:31)
[2021-11-06 08:54] LABS: Blood Urea Nitrogen 12 mg/dL (8-23); Glomerular Filtration Rate 55.8 mL/min (90-130)
--- NOTE | 2021-11-06 09:00 | CT_ITS ---
WS: [id number] CT ABDOMEN PELVIS TECHNIQUE: Contrast-enhanced CT of the abdomen and pelvis with coronal and sagittal reformatted image s. CLINICAL INFORMATION: upper abd pain COMPARISON: None. DLP: 1188.[address] scans at [facility] use at least one of these dose optimization techniques: automated e xposure control; mA and/or kV adjustment per patient size (includes targeted exams where dose is matc hed to clinical indication); or iterative reconstruction. FINDINGS: Heterogeneously enhancing suspicious RIGHT inguinal lymph nodes the largest measuring 3.0 x 2.5 x 1.7 cm. These are suspicious appearance and recommend further evaluation with ultrasound-guided biopsy. Partially evaluated diffuse enhancing soft tissue thickening at the base of the bladder involving th e lower one third of the urethra just posterior to the pubic bone. This measures approximately 3.2 x 3.5 cm suspicious for residual or recurrent disease. Recommend correlation with clinical history. Thi s can be further evaluated with PET/CT Slight atelectasis in the lung bases. Fibrosis or small nodule in the lingula unchanged since October measuring 6 mm. Diffuse fatty infiltration liver. Hepatomegaly. Moderate esophageal hiatal her carol. Normal portal vein and splenic vein. Normal spleen. Gallbladder is contracted. Normal pancreatic parenchymal enhancement. Adrenal glands are normal. Normal renal parenchymal enhancement. No hydronephrosis. Tiny bilateral re nal cysts. Celiac and SMA are patent. Normal caliber abdominal aorta. Mild aortic calcification. No p eriaortic lymphadenopathy. Normal sigmoid colon. No evidence of high-grade small or large bowel obstr uction. CT/CT abdomen pelvis w con* [id number] IMPRESSION: 1. Heterogeneously enhancing suspicious enlarged RIGHT inguinal nodes suspicio us for metastatic disease. The largest measures 2.4 x 1.7 x 3.0 CM. This can be further evaluated ultrasound guided biopsy. 2. Diffuse enhancing soft tissue thickening involving the base of the bladder and lower one third of the urethra at the edge of the [id number] just boarding specialist ior to the pubic bone. Findings suspicious for residual or recurrent disease. R ecommend correlation with clinical history. Consider PET CT in further evaluati on. 3. Diffuse fatty infiltration of the liver. 4. Moderate esophageal hiatal hernia. 5. Gallbladder is contracted but otherwise appears normal. 6. Small cystocele. 7. Prior hysterectomy. 8. No other acute findings.
[2021-11-06] MEDS: iohexol 350 mg/mL 100 mL Btl IV (09:13)
== END 2021-11-06 07:23 | disposition home or self-care (01) ==
PROVIDERS: PCP Nurse Practitioner Family; Visit Provider Surgery
DX: R10.10 Upper abdominal pain, unspecified (principal); K44.9 Diaphragmatic hernia without obstruction or gangrene; N81.10 Cystocele, unspecified; R59.0 Localized enlarged lymph nodes
CPT/HCPCS: 74177; 82565; 84520

== ENCOUNTER → 2021-11-24 10:03 | Outpatient (BNVA) | payer MEDICARE, MEDICAID, SELFPAY | PROVIDERS: PCP Nurse Practitioner Family; Visit Provider Surgery | DX: R59.0 Localized enlarged lymph nodes (principal) | CPT/HCPCS: 99213 ==

== ENCOUNTER → 2021-12-24 11:21 | Outpatient (BNVA) | payer MEDICARE, MEDICAID, SELFPAY | PROVIDERS: PCP Nurse Practitioner Family; Visit Provider Internal Medicine Critical Care Medicine | DX: J45.909 Unspecified asthma, uncomplicated (principal); K21.9 Gastro-esophageal reflux disease without esophagitis; R07.9 Chest pain, unspecified; J43.9 Emphysema, unspecified; R68.84 Jaw pain; Z87.891 Personal history of nicotine dependence | CPT/HCPCS: 99214 ==

== ENCOUNTER 2022-01-26 07:53 | Oncology outpatient (recurring) (ONCR) | payer MEDICARE, MEDICAID, SELFPAY | END 2022-02-15 23:59 | disposition home or self-care (01) | PROVIDERS: PCP Nurse Practitioner Family; Visit Provider Internal Medicine Medical Oncology | DX: C51.9 Malignant neoplasm of vulva, unspecified (principal); C77.5 Secondary and unspecified malignant neoplasm of intrapelvic lymph nodes; Z90.79 Acquired absence of other genital organ(s); Z90.89 Acquired absence of other organs; Z87.891 Personal history of nicotine dependence | CPT/HCPCS: 99205 ==

== ENCOUNTER 2022-02-11 22:11 | Emergency (ER) | payer MEDICARE, MEDICAID, SELFPAY ==
[2022-02-11 22:13] VITALS: BP 126/100; PULSE 78; RESP 18; TEMP 36.7; O2SAT 96; BMI 29.7
[2022-02-11 22:18] VITALS: BP 140/73; PULSE 79; RESP 17; O2SAT 94
[2022-02-11] MEDS: ondansetron 2 mg/ML SDV 2 mL 4 MG IVP (22:25)
[2022-02-11 22:26] VITALS: RESP 17; O2SAT 95
[2022-02-11] MEDS: morphine 4 mg/mL SDV 1 mL IVP (22:26)
[2022-02-11 22:37] LABS: Basophils % 0.7 %; Eosinophils # 0.3 10^3/uL (0.0-0.8); Eosinophils % 4.9 %; Hematocrit 38.6 % (37.0-47.0); Hemoglobin 12.5 g/dL (11.5-15.3); Lymphocytes # 2.7 10^3/uL (0.8-4.8); Lymphocytes % 44.2 %; Mean Corpuscular HGB Conc 32.4 g/dL (30.0-36.0); Mean Corpuscular Hemoglobin 31.1 pg (28.0-34.0); Monocytes # 0.6 10^3/uL (0.2-0.9); Monocytes % 9.6 %; Neutrophils # 2.46 10^3/uL (1.8-7.7); Neutrophils % 40.4 %; Nucleated Red Blood Cells % 0 %; Platelet Count 361 10^3/cmm (130-400); Red Blood Count 4.02 10^6/uL (4.1-5.3); Red Cell Distribution Width 13.2 % (12.1-15.1); White Blood Count 6.1 10^3/uL (4.0-10.0)
--- NOTE | 2022-02-11 22:53 | ED_ITS ---
HPI - Female Genitourinary General: Chief complaint: Vaginal Bleeding Stated complaint: HEMORRHAGE Time Seen by Provider: 02/11/22 22:13 Source: patient and EMS Mode of arrival: EMS Limitations: no limitations History of Present Illness: 66-year-old female. Had a vulvectomy at [place] last week. She states today when she was getting off the toilet started having bleeding from her vulva and was concerned that she had ripped a stitch. She has been having pain to since the surgery she rates her pain a 5 out of 10 denies any worsening proving factors denies any vomiting or diarrhea. Associated symptoms: Deny abdominal pain, headache(s) or nausea Review of Systems Const: Denies: fever(s), chills, body aches or change in appetite Eyes: Denies: blurry vision or eye discomfort ENMT: Denies: throat pain or dental pain Card: Denies: chest pain Resp: Denies: dyspnea GI: Denies: abdominal pain, nausea, vomiting or diarrhea : Denies: dysuria Musc: Denies: neck pain or back pain Skin/Breast: Denies: rash Neuro: Denies: headache(s) Psych: Denies: depression José Luis/Lymph: Denies: easy bruising All/Imm: Denies: urticaria PFSH ED PFSH: Medical History Asthma Chronic migraine GERD (gastroesophageal reflux disease) HTN (hypertension) Lichen sclerosus of female genitalia Diagnosed in 2017 or 2018-states she was told that she just needs to use the clobetasol if needed so she uses it very rarely. Obstructive sleep apnea Rosacea Vertigo Vulvar cancer Surgical History H/O esophagogastroduodenoscopy Dilation H/O esophagogastroduodenoscopy (06/24/21) History of bladder surgery 2007-had bladder lift surgery performed and states that about 3 months after surgery her bladder fell down again and she has not done anything about this. S/P hysterectomy 1991----?vaginal hysterectomy for heavy bleeding and pain. Status post arthroscopic surgery of left knee Status post colonoscopy with polypectomy (06/24/21) Status post laparotomy X 2 Thinks that she has had 2 open surgeries for cysts and problems with cysts and feels that this was before her hysterectomy but does not remember. Status post surgery (09/10/20) radical partial vulvectomy, right inguinofemoral lymphadenectomy, and left inguinofemoral sentinel lymph node biopsy Status post surgical removal of malignant neoplasm of skin (07/15/21) Squamous cell carcinoma in situ Family History Family/Other Breast cancer maternal aunt, diagnosed in her 50s or 60s Mother Hypertension Aortic aneurysm Hyperlipidemia Lung disease Father Hypertension Cancer Brother Hypertension Anesthesia complication during surgery d/t too much anesthesia Sister Hypertension Denies family history of Colon cancer Ovarian cancer Diabetes CAD (coronary artery disease) Clotting disorder Dementia Heart disease Chronic kidney disease (CKD) Suicide Bleeding disorder Uterine cancer Thyroid condition Stroke Social History Smoking and tobacco status: former smoker (smoked x 11 years) Quit status (tobacco): has quit using tobacco Year quit tobacco: 1997 Former quit date comment: Hx of 0.5 PPD x 8 Years Second hand smoke exposure: No Smoking risk assessment/counseling performed?: No Alcohol intake: never Counseling given: No Counseling given: No Lives independently: Yes Household members: none Marital status: Current occupational status: disabled History of recent travel: No Current gender identity: Female Physical Exam Const: COMMON NORMALS: no acute distress, patient oriented x3 and healthy appearing HENMT: COMMON NORMALS: normocephalic and atraumatic HEAD & SCALP: normocephalic and atraumatic Eye: COMMON NORMALS: Equal, round and reactive pupils present and EOMs intact bilaterally PUPIL: Yes Equal, round and reactive pupils present Neck/C-Spine: COMMON NORMALS: full ROM and supple Chest: COMMONS NORMALS: normal inspection of the chest and normal palpation of entire chest wall Resp: COMMON NORMALS: normal respiratory effort, No retractions, No use of accessory muscles and clear to auscultation bilaterally AUSCULTATION: clear to auscultation bilaterally Cardio: COMMON NORMALS: regular rate, regular rhythm and No murmurs present (Cardio) RATE: regular rate RHYTHM: regular rhythm GI: COMMON NORMALS: Normal to inspection, nondistended, normoactive bowel sounds present, Soft to palpation, non-tender and no masses PALPATION: Yes Soft to palpation : OTHER: Stitches are intact clean dry no signs of infection she has no bleeding at all at this time. Extremity: COMMON NORMALS: normal to inspection and full ROM Neuro: COMMON NORMALS: patient oriented x3, moves all extremities and no focal motor deficits Psych: COMMON NORMALS: mental status grossly normal, Normal thought process present and cooperative THOUGHT PROCESS: Normal thought process present Skin: COMMON NORMALS: no rashes or lesions noted and no wounds GENERAL SKIN EXAM: no rashes or lesions noted Course Vital Signs: Vital signs: Vital Signs Temperature 98.1 F 02/11/22 22:13 Pulse Rate 74 02/11/22 23:25 Respiratory Rate 17 02/11/22 23:25 Blood Pressure 128/66 02/11/22 23:25 Pulse Oximetry 95 02/11/22 23:25 Oxygen Delivery Me thod 02/11/22 22:18 MDM - Female Medical Decision Making Patient presents with postop bleeding from her vulvectomy. Exam here shows no bleeding at this time incisions are clean dry and intact she has no blood light dried blood she is well-appearing here. Blood works normal hemoglobin is normal she is stable for discharge she is to follow-up with her surgeon in 2 to 4 days return if worsening she understands agrees to plan. Lab Data : 02/11/22 22:32 02/11/22 22:32 Laboratory Results WBC 6.1 10^3/uL (4.0-10.0) 02/11/22 22: RBC 4.02 10^6/uL (4.1-5.3) L 02/11/22 22: Hgb 12.5 g/dL (11.5-15.3) 02/11/22 22:32 Hct 38.6 % (37.0-47.0) 02/11/22 22: MCV 96.0 fl (81-99) 02/11/22 22: MCH 31.1 pg (28.0-34.0) 02/11/22 22: MCHC 32.4 g/dL (30.0-36.0) 02/11/22 22: RDW 13.2 % (12.1-15.1) 02/11/22 22: Plt Count 361 10^3/cmm (130-400) 02/11/22 22: MPV 9.0 fL (7.4-10.4) 02/11/22 22: Neut % (Auto) 40.4 % 02/11/22 22: Lymph % (Auto) 44.2 % 02/11/22 22: Burt % (Auto) 9.6 % 02/11/22: Eos % (Auto) 4.9 % 02/11/22: Baso % (Auto) 0.7 % 02/11/22: Neut # (Auto) 2.46 10^3/uL (1.8-7.7) 02/11/22: Lymph # (Auto) 2.7 10^3/uL (0.8-4.8) 02/11/22: Burt # (Auto) 0.6 10^3/uL (0.2-0.9) 02/11/22: Eos # (Auto) 0.3 10^3/uL (0.0-0.8) 02/11/22: Baso # (Auto) 0.0 10^3/uL (0.0-0.1) 02/11/22: Nucleated RBC % (auto) 0 % 02/11/22: Nucleated RBCs # 0.0 /100WBC 02/11/22 22:32 Sodium 137 mmol/L (136-145) 02/11/22 22: Potassium 3.7 mmol/L (3.5-5.1) 02/11/22: Chloride 100 mmol/L (98-107) 02/11/22: Carbon Dioxide 26 mmol/L (22-29) 02/11/22 22: Anion Gap 14.7 (5-19) 02/11/22 22:32 BUN 13 mg/dL (8-23) 02/11/22: Creatinine 0.8 mg/dL (0.5-0.9) 02/11/22 22: GFR Calculation 72.2 mL/min (90-130) L 02/11/22 22: Glucose 106 mg/dL (65-115) 02/11/22 22: Calculated Osmolality 285 mOsm/kg (285-295) 10/27/22 22:32 Calcium 9.3 mg/dL (8.5-10.5) 02/11/22 22:32 Total Bilirubin 0.4 mg/dL (0.15-1.2) 02/11/22 22:32 AST 69 U/L (0-32) H 02/11/22 22:32 ALT 78 U/L (0-33) H 02/11/22 22:32 Alkaline Phosphatase 137 U/L (35-105) H 02/11/22 22:32 Total Protein 7.2 g/dL (6.6-8.7) 02/11/22 22:32 Albumin 4.1 g/dL (3.5-5.2) 02/11/22 22:32 Globulin 3.1 g/dL (1.3-4.6) 02/11/22 22:32 Discharge Plan Discharge Patient Disposition: Home Clinical Impression: Post-op bleeding Condition: Stable Prescriptions: No Action metronidazole 0.75 % gel 1 applic topical BID Qty: 45 6RF Rx Instructions: Apply thin layer to entire face twice daily. imiquimod 5 % cream in packet 1 applic topical ONCE Qty: 24 1RF Rx Instructions: Apply thin film to Tuesday-Tuesday (off weekends) for 6 weeks ipratropium-albuterol 0.5 mg-3 mg(2.5 mg base)/3 mL solution for nebulization 3 ml inhalation .every 12 hours Qty: 180 3RF budesonide 0.5 mg/2 mL suspension for nebulization 0.5 mg inhalation BID Qty: 120 3RF albuterol sulfate 90 mcg/actuation HFA aerosol inhaler 2 puff INHALATION Q4H PRN (Reason: Shortness Of Breath) Qty: 8.5 0RF pantoprazole 40 mg tablet,delayed release (DR/EC) 20 mg PO DAILY montelukast 10 mg tablet 10 mg PO DAILY Qty: 30 6RF Pulmicort Flexhaler 90 mcg/actuation aerosol powdr breath activated 1 inh inhalation BID Qty: 1 3RF cholecalciferol (vitamin D3) [Vitamin D3] 1,000 unit Capsule 10,000 unit PO DAILY vitamin [id number] B1 Liquid 0.5 ea PO DAILY Discharge Orders: Discharge ED (Routine); Ordered 02/11/22 Ordered By: Beau Marquez Referrals: Aditi Hankins FNP [Primary Care Provider] - Discharge Diet: Advance as tolerated Discharge Activity: Resume usual activity Patient Instructions: Post Operative Pain Coding Level of Care Code ED Sales Representative Groceries for Angely Fwd Exam Comprehensive
[2022-02-11 23:03] LABS: Alanine Aminotransferase 78 U/L (0-33); Albumin Level 4.1 g/dL (3.5-5.2); Alkaline Phosphatase 137 U/L (35-105); Anion Gap 14.7 (5-19); Aspartate Amino Transferase 69 U/L (0-32); Blood Urea Nitrogen 13 mg/dL (8-23); Calcium 9.3 mg/dL (8.5-10.5); Carbon Dioxide 26 mmol/L (22-29); Chloride 100 mmol/L (98-107); Globulin 3.1 g/dL (1.3-4.6); Glomerular Filtration Rate 72.2 mL/min (90-130); Glucose 106 mg/dL (65-115); Osmolality Calculated 285 mOsm/kg (285-295); Potassium 3.7 mmol/L (3.5-5.1); Sodium 137 mmol/L (136-145); Total Bilirubin 0.4 mg/dL (0.15-1.2); Total Protein 7.2 g/dL (6.6-8.7)
[2022-02-11 23:25] VITALS: BP 128/66; PULSE 74; RESP 17; O2SAT 95
== END 2022-02-11 23:28 | disposition home or self-care (01) ==
PROVIDERS: Emergency Provider Emergency Medicine; PCP Nurse Practitioner Family
DX: L76.22 Postprocedural hemorrhage of skin and subcutaneous tissue following other procedure (principal); Z87.891 Personal history of nicotine dependence; Z98.890 Other specified postprocedural states; I10 Essential (primary) hypertension; Z85.89 Personal history of malignant neoplasm of other organs and systems
CPT/HCPCS: 80053; 85025; 96374; 96375; 99284; J2270; J2405

== ENCOUNTER 2022-04-16 09:56 | Oncology outpatient (recurring) (ONCR) | payer MEDICARE, MEDICAID, SELFPAY ==
--- NOTE | 2022-04-01 10:02 | N.ONRAD NP_ITS ---
Radiation Oncology Consultation Patient Name: Chelsey Adams Date of : 1955 Date of Service: 04/01/2022 Attending Physician: Vasiliy Ko M.D. Chelsey Adams was seen in consultation this morning at the request of the patient for transferal of care in the management of recurrent vulvar cancer. She was evaluated by her roof service technician in July of 2020 for a vulvar lesion. An examination described lichen sclerosus and a 1 cm raised abnormality with central ulceration located on the right labia majora at the 11 o'clock position. A vulvar punch biopsy diagnosed a moderately-differentiated squamous cell carcinoma. A partial vulvectomy with right inguinofemoral lymphadenectomy and left inguinofemoral sentinel lymph node biopsy was performed by Lacy Yanez M.D. September 10, 2020. A 2 cm well-differentiated keratinizing squamous cell carcinoma was resected with a depth of invasion of 3.3 mm. All surgical margins were negative for invasive carcinoma. There was no lymphovascular invasion present. The lymphadenectomy specimens did not contain lymph nodes (FIGO IB). During routine follow-up, a vulvar abnormality was noted. A punch biopsy obtained on July 21, 2021 revealed high-grade squamous intraepithelial lesion (VIN2). She was assessed at the [facility]'s General Surgery Department in September for abdominal pain. An abdominopelvic CT scan (independently reviewed in [facility]) obtained on November 06, 2021 identified a 3 cm x 2.5 cm x 1.7 cm enhancing right inguinal lymph node and soft tissue thickening at the bladder base. A cystoscopy completed on December 07, 2021 did not identify any bladder mucosal abnormalities. An ultrasound-guided biopsy of the right inguinal lymph node was completed on January 08, 2022. The pathology report confirmed a moderately-differentiated keratinizing squamous cell carcinoma. A PET scan ordered on January 18, 2022 revealed enlarged right inguinal and external iliac lymph nodes (SUV 14.5). A partial vulvectomy with advancement flap and right inguinofemoral lymphadenectomy was completed February 03, [address] Yanez. The histological analysis did not identify visual squamous cell carcinoma in the vulvectomy specimen. A total of 3 right inguinofemoral and 1 right femoral lymph nodes were harvested. All lymph nodes harbored malignancy demonstrated extracapsular extension. The largest lymph node measured 4 cm. The patient requested transferal of treatment for pelvic radiotherapy. I discussed The National Comprehensive Cancer Network Guidelines recommending surgical resection and pelvic external beam radiotherapy with or without concurrent chemotherapy for isolated inguinofemoral or pelvic lymph node recurrence in patients who are na???ve to external beam radiotherapy I would endorse a 6 week course of pelvic radiotherapy .prior to implementing treatment, A computed tomographic radiotherapy planning scan with contrast in the treatment position will be acquired to identify the clinical target volumes. The potential toxicities of pelvic radiation therapy were reviewed. The patient has verbalized understanding would like to proceed as recommended. The patient's medical treatment plan was discussed with Ja Mackay M.D. Signed by: Dr. Vasiliy Ko 04/01/2022 10:32:13 AM
[2022-04-01 11:27] LABS: Basophils % 0.4 %; Eosinophils # 0.2 10^3/uL (0.0-0.8); Eosinophils % 3.1 %; Hematocrit 39.6 % (37.0-47.0); Hemoglobin 12.7 g/dL (11.5-15.3); Lymphocytes # 2.1 10^3/uL (0.8-4.8); Lymphocytes % 39.7 %; Mean Corpuscular HGB Conc 32.1 g/dL (30.0-36.0); Mean Corpuscular Hemoglobin 30.5 pg (28.0-34.0); Mean Corpuscular Volume 95.2 fl (81-99); Mean Platelet Volume 8.8 fL (7.4-10.4); Monocytes # 0.6 10^3/uL (0.2-0.9); Monocytes % 10.6 %; Nucleated Red Blood Cells % 0 %; Platelet Count 263 10^3/cmm (130-400); Red Blood Count 4.16 10^6/uL (4.1-5.3); Red Cell Distribution Width 12.7 % (12.1-15.1); White Blood Count 5.2 10^3/uL (4.0-10.0)
[2022-04-01 11:34] LABS: Bilirubin Urine Neg (Negative); Blood Urine Neg (Negative); Glucose Urine UA Norm (Normal); Ketones Urine Negative (Negative); Leukocyte Esterase Urine Negative (Negative); Nitrate Urine Negative (Negative); Protein Urine Neg (Negative); Specific Gravity, Urine 1.015 (1.005-1.030); Urine Appearance Clear (CLEAR); Urine Color Yellow (Yellow); Urobilinogen Urine Neg (Negative); pH Urine 7 (5-7)
[2022-04-01 11:47] LABS: Add Urine Culture? No; Amorphous Sediment Urine 1+ /hpf; Bacteria Urine TRACE /hpf; Mucus Urine 1+ /hpf; RBC Urine RARE /hpf (0-2); WBC Urine RARE /hpf (0-5)
[2022-04-01 12:03] LABS: 25 Hydroxy Vitamin D 48 ng/mL (30-100); Alanine Aminotransferase 61 U/L (0-33); Albumin Level 3.9 g/dL (3.5-5.2); Alkaline Phosphatase 174 U/L (35-105); Aspartate Amino Transferase 53 U/L (0-32); Blood Urea Nitrogen 12 mg/dL (8-23); Calcium 9.2 mg/dL (8.5-10.5); Carbon Dioxide 28 mmol/L (22-29); Chloride 104 mmol/L (98-107); Globulin 3.4 g/dL (1.3-4.6); Glucose 105 mg/dL (65-115); Osmolality Calculated 290 mOsm/kg (285-295); Sodium 140 mmol/L (136-145); Thyroid Stimulating Hormone 2.69 uIU/mL (0.27-4.20); Total Bilirubin 0.3 mg/dL (0.15-1.2); Total Protein 7.3 g/dL (6.6-8.7); Vitamin B12 1328 pg/mL (232-1245)
--- NOTE | 2022-04-06 | CT_ITS ---
Radiation Therapy Planning CT images; total exam DLP: 1618.90 mGy-cm MTDD
[2022-04-06] MEDS: iohexol 350 mg/mL 100 mL Btl IV (08:43)
[2022-04-14 08:58] LABS: Basophils % 0.5 %; Eosinophils # 0.1 10^3/uL (0.0-0.8); Eosinophils % 2.5 %; Hemoglobin 12.7 g/dL (11.5-15.3); Lymphocytes # 2.2 10^3/uL (0.8-4.8); Lymphocytes % 39.7 %; Mean Corpuscular HGB Conc 32.6 g/dL (30.0-36.0); Mean Corpuscular Hemoglobin 30.7 pg (28.0-34.0); Mean Corpuscular Volume 94.2 fl (81-99); Mean Platelet Volume 8.7 fL (7.4-10.4); Monocytes # 0.5 10^3/uL (0.2-0.9); Monocytes % 8.3 %; Neutrophils # 2.72 10^3/uL (1.8-7.7); Neutrophils % 48.8 %; Nucleated Red Blood Cells % 0 %; Platelet Count 289 10^3/cmm (130-400); Red Blood Count 4.14 10^6/uL (4.1-5.3); Red Cell Distribution Width 12.6 % (12.1-15.1); White Blood Count 5.6 10^3/uL (4.0-10.0)
[2022-04-14 09:15] LABS: Alanine Aminotransferase 71 U/L (0-33); Albumin Level 4.2 g/dL (3.5-5.2); Alkaline Phosphatase 166 U/L (35-105); Anion Gap 13.7 (5-19); Aspartate Amino Transferase 56 U/L (0-32); Blood Urea Nitrogen 14 mg/dL (8-23); Calcium 8.8 mg/dL (8.5-10.5); Carbon Dioxide 23 mmol/L (22-29); Chloride 102 mmol/L (98-107); Globulin 2.9 g/dL (1.3-4.6); Glomerular Filtration Rate 84.2 mL/min (90-130); Glucose 137 mg/dL (65-115); Osmolality Calculated 283 mOsm/kg (285-295); Potassium 3.7 mmol/L (3.5-5.1); Sodium 135 mmol/L (136-145); Total Bilirubin 0.3 mg/dL (0.15-1.2); Total Protein 7.1 g/dL (6.6-8.7)
[2022-04-14] MEDS: famotidine 20 mg/2 mL INJ IVP (11:00)
[2022-04-14] MEDS: diphenhydrAMINE 50 mg/mL SDV 1mL 25 MG IVP (11:02)
[2022-04-14] MEDS: OLANZapine 5 mg TABLET PO (11:06)
[2022-04-14] MEDS: fosaprepitant 150 MG in sodium chloride 0.9% 150 ML 300 MG IV (11:07)
[2022-04-14] MEDS: potassium chloride 20 MEQ in sodium chloride 0.9% 500 ML 500 MEQ IV (13:24)
[2022-04-14] MEDS: FUROsemide 10 mg/mL SDV 2mL 20 MG IVP (13:24)
[2022-04-14 14:21] VITALS: BP 141/82; PULSE 78; RESP 16; TEMP 36.8; O2SAT 95
== END 2022-04-17 23:59 | disposition home or self-care (01) ==
PROVIDERS: PCP Nurse Practitioner Family; Visit Provider Internal Medicine Medical Oncology
DX: Z51.0 Encounter for antineoplastic radiation therapy (principal); C51.8 Malignant neoplasm of overlapping sites of vulva; C77.8 Secondary and unspecified malignant neoplasm of lymph nodes of multiple regions
CPT/HCPCS: 36415; 77300; 77301; 77334; 77338; 77386; 77470; 80053; 81001; 82306; 82607; 84443; 85025; 96367; 96375; 96413; 99205; 99215; J1100; J1200; J1453; J1940; J3480; J3490; J7040; J9060; Q9967

== ENCOUNTER → 2022-04-28 09:20 | Outpatient (BNVA) | payer MEDICARE, MEDICAID, SELFPAY | PROVIDERS: PCP Nurse Practitioner Family; Visit Provider Nurse Practitioner | DX: C51.8 Malignant neoplasm of overlapping sites of vulva (principal) | CPT/HCPCS: 99214 ==

== ENCOUNTER 2022-05-10 08:00 | Oncology outpatient (recurring) (ONCR) | payer MEDICARE, MEDICAID, SELFPAY ==
[2022-04-21 08:27] VITALS: BMI 31.6
[2022-04-21 08:35] LABS: Basophils % 0.4 %; Eosinophils # 0.1 10^3/uL (0.0-0.8); Eosinophils % 2.5 %; Hematocrit 38.2 % (37.0-47.0); Hemoglobin 12.2 g/dL (11.5-15.3); Lymphocytes # 1.2 10^3/uL (0.8-4.8); Lymphocytes % 25.3 %; Mean Corpuscular HGB Conc 31.9 g/dL (30.0-36.0); Mean Corpuscular Hemoglobin 30.2 pg (28.0-34.0); Mean Corpuscular Volume 94.6 fl (81-99); Mean Platelet Volume 8.6 fL (7.4-10.4); Monocytes # 0.5 10^3/uL (0.2-0.9); Monocytes % 10.6 %; Neutrophils # 2.92 10^3/uL (1.8-7.7); Neutrophils % 60.4 %; Nucleated Red Blood Cells % 0 %; Platelet Count 282 10^3/cmm (130-400); Red Blood Count 4.04 10^6/uL (4.1-5.3); Red Cell Distribution Width 12.3 % (12.1-15.1); White Blood Count 4.8 10^3/uL (4.0-10.0)
[2022-04-21 08:54] LABS: Alanine Aminotransferase 70 U/L (0-33); Albumin Level 4.1 g/dL (3.5-5.2); Alkaline Phosphatase 172 U/L (35-105); Anion Gap 16.2 (5-19); Aspartate Amino Transferase 59 U/L (0-32); Blood Urea Nitrogen 14 mg/dL (8-23); Carbon Dioxide 24 mmol/L (22-29); Chloride 100 mmol/L (98-107); Glomerular Filtration Rate 100.3 mL/min (90-130); Glucose 118 mg/dL (65-115); Osmolality Calculated 284 mOsm/kg (285-295); Potassium 4.2 mmol/L (3.5-5.1); Sodium 136 mmol/L (136-145); Total Bilirubin 0.3 mg/dL (0.15-1.2); Total Protein 7.1 g/dL (6.6-8.7)
--- NOTE | 2022-04-21 09:57 | ONCRAD TMN_ITS ---
Radiation Oncology Treatment Management Note Patient Name: Chelsey Adams Date of : 1955 Date of Service: 04/21/2022 Attending Physician: Vasiliy Ko M.D. Chelsey Adams is a 66 year old white female diagnosed with a recurrent vulvar cancer. She was evaluated by her rolling mill operator helper in July of 2020 for a vulvar lesion. An examination described lichen sclerosus and a 1 cm raised abnormality with central ulceration located on the right labia majora at the 11 o'clock position. A vulvar punch biopsy diagnosed a moderately-differentiated squamous cell carcinoma. A partial vulvectomy with right inguinofemoral lymphadenectomy and left inguinofemoral sentinel lymph node biopsy was performed by Lacy Yanez M.D. September 10, 2020. A 2 cm well-differentiated keratinizing squamous cell carcinoma was resected with a depth of invasion of 3.3 mm. All surgical margins were negative for invasive carcinoma. There was no lymphovascular invasion present. The lymphadenectomy specimens did not contain lymph nodes (FIGO IB). During routine follow-up, a vulvar abnormality was noted. A punch biopsy obtained on July 21, 2021 revealed high-grade squamous intraepithelial lesion (VIN2). She was assessed at the [facility]'s General Surgery Department in September for abdominal pain. An abdominopelvic CT scan obtained on November 06, 2021 identified a 3 cm x 2.5 cm x 1.7 cm enhancing right inguinal lymph node and soft tissue thickening at the bladder base. A cystoscopy completed on December 07, 2021 did not identify any bladder mucosal abnormalities. An ultrasound-guided biopsy of the right inguinal lymph node was completed on January 08, 2022. The pathology report confirmed a moderately-differentiated keratinizing squamous cell carcinoma. A PET scan ordered on January 18, 2022 revealed enlarged right inguinal and external iliac lymph nodes (SUV 14.5). A partial vulvectomy with advancement flap and right inguinofemoral lymphadenectomy was completed February 03, [address] Yanez. The histological analysis did not identify visual squamous cell carcinoma in the vulvectomy specimen. A total of 3 right inguinofemoral and 1 right femoral lymph nodes were harvested. All lymph nodes harbored malignancy demonstrated extracapsular extension. The largest lymph node measured 4 cm. The patient has received 10 Gy of a prescribed 50 Flores with an intensity modulated radiotherapy plan utilizing a step and shoot treatment technique. An additional 10 Gy will be delivered to the high-risk inguinal lymph nodes subsequent to the initial treatment plan. She has been prescribed cisplatin (40 mg/m2) weekly during radiotherapy. Upon review of systems, she denied any gastrointestinal complaints related to radiotherapy. On physical examination, the patient weighed 202 lbs. Her temperature was 97.9 ???F and the blood pressure was 164/88 mmHg. Her pulse was 88 bpm and her respiratory rate was 16. No erythema within the treatment [place]. Continue pelvic radiotherapy as prescribed. Signed by: Dr. Vasiliy Ko 04/21/2022 9:56:05 AM
[2022-04-21] MEDS: sodium chloride 0.9% 250 ML 100 ML IV (10:38)
[2022-04-21] MEDS: OLANZapine 5 mg TABLET PO (10:39)
[2022-04-21] MEDS: famotidine 20 mg/2 mL INJ IVP (10:45)
[2022-04-21] MEDS: diphenhydrAMINE 50 mg/mL SDV 1mL 12.5 MG IVP (10:45)
[2022-04-21] MEDS: fosaprepitant 150 MG in sodium chloride 0.9% 150 ML 300 MG IV (10:52)
[2022-04-21] MEDS: palonosetron 0.25 mg/5 mL SDV IVP (11:26)
[2022-04-21] MEDS: FUROsemide 10 mg/mL SDV 2mL 20 MG IVP (13:08)
[2022-04-21] MEDS: potassium chloride 20 MEQ in sodium chloride 0.9% 500 ML 500 MEQ IV (13:11)
[2022-04-21 13:53] VITALS: RESP 18
[2022-04-21] MEDS: oxyCODONE 5 mg IR Tab/Cap PO (13:53)
[2022-04-21 14:46] VITALS: BP 132/79; PULSE 87; TEMP 36.6; O2SAT 97
[2022-04-27 12:11] VITALS: BP 150/84; PULSE 89; RESP 16; TEMP 36.4; O2SAT 95
[2022-04-27 12:36] LABS: Basophils % 0.2 %; Eosinophils # 0.1 10^3/uL (0.0-0.8); Eosinophils % 2.2 %; Hematocrit 36.9 % (37.0-47.0); Hemoglobin 11.9 g/dL (11.5-15.3); Lymphocytes # 0.9 10^3/uL (0.8-4.8); Lymphocytes % 18.6 %; Mean Corpuscular HGB Conc 32.2 g/dL (30.0-36.0); Mean Corpuscular Volume 92.9 fl (81-99); Mean Platelet Volume 8.6 fL (7.4-10.4); Monocytes # 0.5 10^3/uL (0.2-0.9); Monocytes % 9.8 %; Neutrophils # 3.16 10^3/uL (1.8-7.7); Nucleated Red Blood Cells % 0 %; Platelet Count 190 10^3/cmm (130-400); Red Blood Count 3.97 10^6/uL (4.1-5.3); Red Cell Distribution Width 12.3 % (12.1-15.1); White Blood Count 4.6 10^3/uL (4.0-10.0)
[2022-04-27 13:20] LABS: Alanine Aminotransferase 82 U/L (0-33); Albumin Level 4.3 g/dL (3.5-5.2); Alkaline Phosphatase 163 U/L (35-105); Aspartate Amino Transferase 72 U/L (0-32); Blood Urea Nitrogen 8 mg/dL (8-23); Calcium 8.8 mg/dL (8.5-10.5); Carbon Dioxide 23 mmol/L (22-29); Chloride 98 mmol/L (98-107); Glomerular Filtration Rate 123.8 mL/min (90-130); Glucose 99 mg/dL (65-115); Osmolality Calculated 276 mOsm/kg (285-295); Sodium 134 mmol/L (136-145); Total Bilirubin 0.4 mg/dL (0.15-1.2); Total Protein 7.3 g/dL (6.6-8.7)
--- NOTE | 2022-04-27 13:34 | ONCRAD TMN_ITS ---
Radiation Oncology Treatment Management Note Patient Name: Chelsey Adams Date of : 1955 Date of Service: 04/27/2022 Attending Physician: Vasiliy Ko M.D. Chelsey Adams is a 66 year old white female diagnosed with a recurrent vulvar cancer. She was evaluated by her temporary staff accountant in July of 2020 for a vulvar lesion. An examination described lichen sclerosus and a 1 cm raised abnormality with central ulceration located on the right labia majora at the 11 o'clock position. A vulvar punch biopsy diagnosed a moderately-differentiated squamous cell carcinoma. A partial vulvectomy with right inguinofemoral lymphadenectomy and left inguinofemoral sentinel lymph node biopsy was performed by Lacy Yanez M.D. September 10, 2020. A 2 cm well-differentiated keratinizing squamous cell carcinoma was resected with a depth of invasion of 3.3 mm. All surgical margins were negative for invasive carcinoma. There was no lymphovascular invasion present. The lymphadenectomy specimens did not contain lymph nodes (FIGO IB). During routine follow-up, a vulvar abnormality was noted. A punch biopsy obtained on July 21, 2021 revealed high-grade squamous intraepithelial lesion (VIN2). She was assessed at the [facility]'s General Surgery Department in September for abdominal pain. An abdominopelvic CT scan obtained on November 06, 2021 identified a 3 cm x 2.5 cm x 1.7 cm enhancing right inguinal lymph node and soft tissue thickening at the bladder base. A cystoscopy completed on December 07, 2021 did not identify any bladder mucosal abnormalities. An ultrasound-guided biopsy of the right inguinal lymph node was completed on January 08, 2022. The pathology report confirmed a moderately-differentiated keratinizing squamous cell carcinoma. A PET scan ordered on January 18, 2022 revealed enlarged right inguinal and external iliac lymph nodes (SUV 14.5). A partial vulvectomy with advancement flap and right inguinofemoral lymphadenectomy was completed February 03, [address] Yanez. The histological analysis did not identify visual squamous cell carcinoma in the vulvectomy specimen. A total of 3 right inguinofemoral and 1 right femoral lymph nodes were harvested. All lymph nodes harbored malignancy demonstrated extracapsular extension. The largest lymph node measured 4 cm. The patient has received 16 Gy of a prescribed 50 Flores with an intensity modulated radiotherapy plan utilizing a step and shoot treatment technique. An additional 10 Gy will be delivered to the high-risk inguinal lymph nodes subsequent to the initial treatment plan. She has been prescribed cisplatin (40 mg/m2) weekly during radiotherapy. Upon review of systems, she described diarrhea. On physical examination, the patient weighed 202 lbs. Her temperature was 98.7 ???F and the blood pressure was 168/77 mmHg. Her pulse was 80 bpm and her respiratory rate was 16. No erythema within the treatment [place]. Continue pelvic radiotherapy as planned. I will prescribe Lomotil for her GI symptoms. Signed by: Dr. Vasiliy Ko 04/27/2022 1:33:08 PM
--- NOTE | 2022-04-27 14:43 | PC.NURSE ---
Pt stated she has been having several loose stools and is taking Immodium. Pt denies having loose stools today.
[2022-04-28] MEDS: pantoprazole 40 mg SDV IVP (11:00)
[2022-04-28] MEDS: OLANZapine 5 mg TABLET PO (11:02)
[2022-04-28] MEDS: diphenhydrAMINE 50 mg/mL SDV 1mL 25 MG IVP (11:06)
[2022-04-28] MEDS: sodium chloride 0.9% 250 ML 75 ML IV (11:13)
[2022-04-28] MEDS: famotidine 20 mg/2 mL INJ IVP (11:33)
[2022-04-28] MEDS: palonosetron 0.25 mg/5 mL SDV IVP (11:39)
[2022-04-28] MEDS: fosaprepitant 150 MG in sodium chloride 0.9% 150 ML 300 MG IV (11:55)
[2022-04-28] MEDS: FUROsemide 10 mg/mL SDV 2mL 20 MG IVP (13:39)
[2022-04-28] MEDS: potassium chloride 20 MEQ in sodium chloride 0.9% 500 ML 500 MEQ IV (13:44)
[2022-04-28 15:33] VITALS: BP 133/83; PULSE 79; TEMP 36.8; O2SAT 95
[2022-04-30 08:14] LABS: Immunoglobulin A 335 mg/dL (70-320); Tissue Transglutaminase AB IGA <1.0 U/mL
[2022-05-05 12:40] LABS: Basophils % 0.3 %; Eosinophils # 0.1 10^3/uL (0.0-0.8); Eosinophils % 1.7 %; Hematocrit 37.3 % (37.0-47.0); Hemoglobin 12.1 g/dL (11.5-15.3); Lymphocytes # 0.7 10^3/uL (0.8-4.8); Lymphocytes % 23.8 %; Mean Corpuscular HGB Conc 32.4 g/dL (30.0-36.0); Mean Corpuscular Volume 92.6 fl (81-99); Mean Platelet Volume 8.3 fL (7.4-10.4); Monocytes # 0.3 10^3/uL (0.2-0.9); Monocytes % 11.6 %; Neutrophils # 1.82 10^3/uL (1.8-7.7); Neutrophils % 61.9 %; Nucleated Red Blood Cells % 0 %; Platelet Count 195 10^3/cmm (130-400); Red Blood Count 4.03 10^6/uL (4.1-5.3); Red Cell Distribution Width 12.7 % (12.1-15.1); White Blood Count 2.9 10^3/uL (4.0-10.0)
[2022-05-05 13:11] LABS: Alanine Aminotransferase 91 U/L (0-33); Albumin Level 4.2 g/dL (3.5-5.2); Alkaline Phosphatase 164 U/L (35-105); Anion Gap 13.1 (5-19); Aspartate Amino Transferase 87 U/L (0-32); Blood Urea Nitrogen 9 mg/dL (8-23); Calcium 9.5 mg/dL (8.5-10.5); Carbon Dioxide 26 mmol/L (22-29); Chloride 99 mmol/L (98-107); Glucose 96 mg/dL (65-115); Osmolality Calculated 277 mOsm/kg (285-295); Potassium 4.1 mmol/L (3.5-5.1); Sodium 134 mmol/L (136-145); Total Bilirubin 0.3 mg/dL (0.15-1.2); Total Protein 7.2 g/dL (6.6-8.7)
[2022-05-05] MEDS: sodium chloride 0.9% 1,000 ML 999 ML IV (13:25)
[2022-05-05 14:54] VITALS: BP 147/76; PULSE 94; RESP 16; TEMP 36.2; O2SAT 96
[2022-05-10 08:34] LABS: Basophils % 0.4 %; Eosinophils # 0.1 10^3/uL (0.0-0.8); Hematocrit 35.6 % (37.0-47.0); Hemoglobin 11.5 g/dL (11.5-15.3); Lymphocytes # 0.5 10^3/uL (0.8-4.8); Lymphocytes % 21.1 %; Mean Corpuscular HGB Conc 32.3 g/dL (30.0-36.0); Mean Corpuscular Hemoglobin 30.3 pg (28.0-34.0); Mean Corpuscular Volume 93.7 fl (81-99); Mean Platelet Volume 7.8 fL (7.4-10.4); Monocytes # 0.4 10^3/uL (0.2-0.9); Neutrophils # 1.51 10^3/uL (1.8-7.7); Neutrophils % 61.1 %; Nucleated Red Blood Cells % 0 %; Platelet Count 152 10^3/cmm (130-400); Red Cell Distribution Width 13.4 % (12.1-15.1); White Blood Count 2.5 10^3/uL (4.0-10.0)
[2022-05-10 08:54] LABS: Alanine Aminotransferase 72 U/L (0-33); Albumin Level 3.9 g/dL (3.5-5.2); Alkaline Phosphatase 160 U/L (35-105); Anion Gap 10.8 (5-19); Aspartate Amino Transferase 53 U/L (0-32); Blood Urea Nitrogen 7 mg/dL (8-23); Carbon Dioxide 28 mmol/L (22-29); Chloride 97 mmol/L (98-107); Glomerular Filtration Rate 100.3 mL/min (90-130); Glucose 101 mg/dL (65-115); Osmolality Calculated 272 mOsm/kg (285-295); Potassium 3.8 mmol/L (3.5-5.1); Sodium 132 mmol/L (136-145); Total Bilirubin 0.2 mg/dL (0.15-1.2); Total Protein 6.9 g/dL (6.6-8.7)
[2022-05-10] MEDS: sodium chloride 0.9% 1,000 ML 999 ML IV (09:12)
== END 2022-05-18 23:59 | disposition home or self-care (01) ==
PROVIDERS: Nurse Practitioner; PCP Nurse Practitioner Family; Visit Provider Internal Medicine Medical Oncology
DX: C51.8 Malignant neoplasm of overlapping sites of vulva; C77.8 Secondary and unspecified malignant neoplasm of lymph nodes of multiple regions; K52.89 Other specified noninfective gastroenteritis and colitis; Z79.899 Other long term (current) drug therapy; Z87.891 Personal history of nicotine dependence; Z90.79 Acquired absence of other genital organ(s); Z92.3 Personal history of irradiation
CPT/HCPCS: 36591; 77336; 77386; 80053; 82784; 83516; 83630; 85025; 87177; 87209; 87493; 87506; 96365; 96366; 96367; 96375; 96413; 99024; 99213; 99214; C9113; J1100; J1200; J1453; J1940; J2469; J3475; J3480; J3490; J7030; J7040; J7050; J9060

== ENCOUNTER → 2022-05-19 08:09 | Outpatient (BNVA) | payer MEDICARE, MEDICAID, SELFPAY ==
--- NOTE | 2022-06-09 13:11 | ONCRAD TMN_ITS ---
Radiation Oncology Weekly Treatment Management Patient: Bryan Solis MR#: [id number] : 1955> Attending Physician: Rajesh Jensen Date of Service: 06/09/2022 Referring Physician(s) : Diagnosis: C51.9 - Malignant neoplasm of vulva, unspecified, Diagnosed 01/08/2022 (Active) Radiotherapy to date: Course: Vulvar 2021, Treatment Site: Vulvar Ca, Ref. ID: [id number], Energy: 15X, Dose/Fx (cGy): 200, #Fx: 20 / 25, Dose Correction (cGy): 0, Total Dose (cGy): 4,000, Start Date: 04/14/2022, Elapsed Days: 47 Reason for visit: The patient is being seen today as part of their regularly scheduled weekly on treatment visits to assess for acute toxicities from radiotherapy. She has continued to have sporadic, unpredictable diarrhea. She has had variable results from low-dose Imodium A-D and Lomotil. She has no bladder complaints. Performance status is stable. No skin complaints. Review of Systems: Diarrhea has been the main problem throughout treatment. She has taken both Imodium A-D and Lomotil 4 times a day individually. The diarrhea persists and is unpredictable. Vital Signs: Performed on 06/09/2022 8:53 AM Height - 67 in, Weight - 194.5 lbs, Temperature - 96.6 f, Pulse - 76 /min, Respiration - 16 /min, O2 Sat - 98 %, Pain - 0, Fatigue - 0 and BP - 135/ 63 mm(hg)(/low). Physical Exam: Alert, oriented, no acute distress. Ambulatory without assistance. Breathing unlabored. Imaging: Radiation therapy imaging related to accurate target localization (i.e. KV, MV and CBCT) was reviewed. Appropriate changes, if any, were made to ensure treatment accuracy. Plan: Resume radiation. Although a bland diet has not been helpful in the patient's judgment, I recommended that she try to stick with a bland diet for at least a few days. Also discussed alternating Imodium A-D and Lomotil. I told her she could go above the maximum doses that are recommended. I discussed that I have had patients who have taken up to 16/day before. For now I am recommending that she alternate the Imodium A-D and Lomotil as she develops diarrhea Signed by: Rajesh Jensen 06/09/2022 1:10:23 PM
== END ==
PROVIDERS: PCP Nurse Practitioner Family; Visit Provider Nurse Practitioner
DX: C51.8 Malignant neoplasm of overlapping sites of vulva (principal)
CPT/HCPCS: 77336; 99214

== ENCOUNTER 2022-05-22 04:40 | Emergency (ER) | payer MEDICARE, MEDICAID, SELFPAY ==
[2022-05-22 04:42] VITALS: BP 161/83; PULSE 82; RESP 18; TEMP 36.8; O2SAT 97; BMI 30.5
--- NOTE | 2022-05-22 04:48 | ED_ITS ---
HPI - Back Pain/Injury General: Chief Complaint: Back Pain/Injury Stated Complaint: BACK PAIN Time Seen by Provider: 05/22/22 04:41 Source: patient and EMS Mode of arrival: EMS Limitations: no limitations History of Present Illness: 67-year-old female with a history of vulvar cancer she is currently on radiation states her white count was getting low so she received a dose of Neupogen and Tuesday states that she did woke up tonight with some pain in her neck and her back said it was a throbbing type pain states originally it was 7 out of 10 she states it is worsened currently to 3 out of 10 she denies any fever denies any injuries. Associated symptoms: Deny abdominal pain, chills, dysuria, fever(s), nausea or vomiting Review of Systems Const: Denies: fever(s), chills, body aches or change in appetite Eyes: Denies: blurry vision or eye discomfort ENMT: Denies: throat pain or dental pain Card: Denies: chest pain Resp: Denies: dyspnea GI: Denies: abdominal pain, nausea, vomiting or diarrhea : Denies: dysuria Musc: Reports: neck pain and back pain Skin/Breast: Denies: rash Neuro: Denies: headache(s) Psych: Denies: depression José Luis/Lymph: Denies: easy bruising All/Imm: Denies: urticaria PFSH ED PFSH: Medical History Asthma Chronic migraine GERD (gastroesophageal reflux disease) HTN (hypertension) Lichen sclerosus of female genitalia Diagnosed in 2017 or 2018-states she was told that she just needs to use the clobetasol if needed so she uses it very rarely. Obstructive sleep apnea Rosacea Vertigo Vitamin D deficiency Vulvar cancer Surgical History H/O esophagogastroduodenoscopy Dilation H/O esophagogastroduodenoscopy (06/24/21) History of bladder surgery 2007-had bladder lift surgery performed and states that about 3 months after surgery her bladder fell down again and she has not done anything about this. S/P hysterectomy 1991----?vaginal hysterectomy for heavy bleeding and pain. Status post arthroscopic surgery of left knee Status post colonoscopy with polypectomy (06/24/21) Status post laparotomy X 2 Thinks that she has had 2 open surgeries for cysts and problems with cysts and feels that this was before her hysterectomy but does not remember. Status post surgery (09/10/20) radical partial vulvectomy, right inguinofemoral lymphadenectomy, and left inguinofemoral sentinel lymph node biopsy Status post surgical removal of malignant neoplasm of skin (07/15/21) Squamous cell carcinoma in situ Family History Family/Other Breast cancer maternal aunt, diagnosed in her 50s or 60s Mother Hypertension Aortic aneurysm Hyperlipidemia Lung disease Father Hypertension Cancer Brother Hypertension Anesthesia complication during surgery d/t too much anesthesia Sister Hypertension Denies family history of Colon cancer Ovarian cancer Diabetes CAD (coronary artery disease) Clotting disorder Dementia Heart disease Chronic kidney disease (CKD) Suicide Bleeding disorder Uterine cancer Thyroid condition Stroke Social History Smoking and tobacco status: former smoker (smoked x 11 years) Quit status (tobacco): has quit using tobacco Year quit tobacco: 1997 Former quit date comment: Hx of 0.5 PPD x 8 Years Second hand smoke exposure: No Smoking risk assessment/counseling performed?: No Alcohol intake: never Counseling given: No Counseling given: No Lives independently: Yes Household members: none Marital status: Current occupational status: disabled History of recent travel: No Current gender identity: Female Physical Exam Const: COMMON NORMALS: no acute distress, patient oriented x3 and healthy appearing HENMT: COMMON NORMALS: normocephalic and atraumatic HEAD & SCALP: normocephalic and atraumatic Eye: COMMON NORMALS: Equal, round and reactive pupils present and EOMs intact bilaterally PUPIL: Yes Equal, round and reactive pupils present Neck/C-Spine: COMMON NORMALS: full ROM and supple Chest: COMMONS NORMALS: normal inspection of the chest and normal palpation of entire chest wall Resp: COMMON NORMALS: normal respiratory effort, No retractions, No use of accessory muscles and clear to auscultation bilaterally AUSCULTATION: clear to auscultation bilaterally Cardio: COMMON NORMALS: regular rate, regular rhythm and No murmurs present (Cardio) RATE: regular rate RHYTHM: regular rhythm GI: COMMON NORMALS: Normal to inspection, nondistended, normoactive bowel sounds present, Soft to palpation, non-tender and no masses PALPATION: Yes Soft to palpation Extremity: COMMON NORMALS: normal to inspection and full ROM Neuro: COMMON NORMALS: patient oriented x3, moves all extremities and no focal motor deficits Psych: COMMON NORMALS: mental status grossly normal, Normal thought process present and cooperative THOUGHT PROCESS: Normal thought process present Skin: COMMON NORMALS: no rashes or lesions noted and no wounds GENERAL SKIN EXAM: no rashes or lesions noted Course Vital Signs: Vital signs: Vital Signs Temperature 98.3 F 05/22/22 04:42 Pulse Rate 82 05/22/22 04:42 Respiratory Rate 18 05/22/22 04:42 Blood Pressure 161/83 05/22/22 04:42 Pulse Oximetry 97 05/22/22 04:42 Oxygen Delivery Me thod 05/22/22 04:42 MDM - Back Pain/Injury Medical Decision Making Patient presents with neck and back pain is likely caused from her Neupogen pain is improved here no injuries patient's blood work is normal she is stable for discharge she is to follow-up with PCP and return if worsening. Labs 05/22/22 04:47 05/22/22 04:47 Laboratory Results WBC 8.1 10^3/uL (4.0-10.0) 05/22/22 04:47 RBC 4.19 10^6/uL (4.1-5.3) 05/22/22 04:47 Hgb 12.6 g/dL (11.5-15.3) 05/22/22 04:47 Hct 39.1 % (37.0-47.0) 05/22/22 04:47 MCV 93.3 fl (81-99) 05/22/22 04:47 MCH 30.1 pg (28.0-34.0) 05/22/22 04:47 MCHC 32.2 g/dL (30.0-36.0) 05/22/22 04:47 RDW 15.2 % (12.1-15.1) H 05/22/22 04:47 Plt Count 298 10^3/cmm (130-400) 05/22/22 04:47 MPV 8.4 fL (7.4-10.4) 05/22/22 04:47 Neut % (Auto) 61.1 % 05/22/22 04:47 Lymph % (Auto) 16.5 % 05/22/22 04:47 [place] % (Auto) 11.0 % 05/22/22 04:47 Eos % (Auto) 1.6 % 05/22/22 04:47 Baso % (Auto) 0.7 % 05/22/22 04:47 Neut # (Auto) 4.94 10^3/uL (1.8-7.7) 05/22/22 04:47 Lymph # (Auto) 1.3 10^3/uL (0.8-4.8) 05/22/22 04:47 [place] # (Auto) 0.9 10^3/uL (0.2-0.9) 05/22/22 04:47 Eos # (Auto) 0.1 10^3/uL (0.0-0.8) 05/22/22 04:47 Baso # (Auto) 0.1 10^3/uL (0.0-0.1) 05/22/22 04:47 Nucleated RBC % (auto) 0 % 05/22/22 04:47 Nucleated RBCs # 0.0 /100WBC 05/22/22 04:47 Sodium 139 mmol/L (136-145) 05/22/22 04:47 Potassium 3.8 mmol/L (3.5-5.1) 05/22/22 04:47 Chloride 102 mmol/L (98-107) 05/22/22 04:47 Carbon Dioxide 22 mmol/L (22-29) 05/22/22 04:47 Anion Gap 18.8 (5-19) 05/22/22 04:47 BUN 21 mg/dL (8-23) 05/22/22 04:47 Creatinine 0.8 mg/dL (0.5-0.9) 05/22/22 04:47 GFR Calculation 72.0 mL/min (90-130) L 05/22/22 04:47 Glucose 95 mg/dL (65-115) 05/22/22 04:47 Calculated Osmolality 291 mOsm/kg (285-295) 05/22/22 04:47 Calcium 9.0 mg/dL (8.5-10.5) 05/22/22 04:47 Total Bilirubin 0.3 mg/dL (0.15-1.2) 05/22/22 04:47 AST 30 U/L (0-32) 05/22/22 04:47 ALT 47 U/L (0-33) H 05/22/22 04:47 Alkaline Phosphatase 199 U/L (35-105) H 05/22/22 04:47 Total Protein 7.2 g/dL (6.6-8.7) 05/22/22 04:47 Albumin 4.4 g/dL (3.5-5.2) 05/22/22 04:47 Globulin 2.8 g/dL (1.3-4.6) 05/22/22 04:47 Discharge Plan Discharge Patient Disposition: Home Clinical Impression: Neck pain, Back pain Condition: Stable Prescriptions: New hydrocodone-acetaminophen 5-325 mg tablet 1 tab PO Q6H PRN (Reason: pain) Qty: 14 0RF No Action multivitamin Tablet 1 tab PO DAILY colestipol 1 gram tablet 1 g PO .COMPLEX MDD 4 tablets PRN (Reason: diarrhea) Qty: 120 0RF Rx Instructions: 1 g orally 2-4 tablets PRN; pantoprazole 40 mg tablet,delayed release (DR/EC) 20 mg PO DAILY Hold Instructions: Medication Not Effective gabapentin 300 mg capsule 300 mg PO BID PRN diphenoxylate-atropine [Lomotil] 2.5-0.025 mg tablet 1 tab PO QID PRN (Reason: diarrhea) Qty: 60 2RF Rx Instructions: 1 tab every 1-2 hrs until diarrhea stops, call Dr if use more than 8 tablets per day prochlorperazine maleate [Compazine] 10 mg tablet 10 mg PO Q4H PRN (Reason: Mild Nausea) Qty: 30 3RF lidocaine-prilocaine 2.5-2.5 % Cream See Rx Instructions .ROUTE .COMPLEX Qty: 60 6RF Rx Instructions: Place quarter size amount over port area 1 hour prior to being accessed. Cover with plastic dressing Discharge Orders: Discharge ED (Routine); Ordered 05/22/22 Ordered By: Beau Marquez Referrals: Aditi Hankins, ASSOCIATE VETERINARIAN [Primary Care Provider] - 1-3 days Discharge Diet: Advance as tolerated Discharge Activity: Resume usual activity Patient Instructions: Back Pain (ED), Neck Pain (ED), Opioid Safety Coding Level of Care Code ED Range Ecologist for Chg Fwd Exam Comprehensive
[2022-05-22] MEDS: morphine 4 mg/mL SDV 1 mL IM (04:49)
[2022-05-22] MEDS: ondansetron 2 mg/ML SDV 2 mL 4 MG IVP (04:49)
[2022-05-22 04:54] LABS: Basophils # 0.1 10^3/uL (0.0-0.1); Basophils % 0.7 %; Eosinophils # 0.1 10^3/uL (0.0-0.8); Eosinophils % 1.6 %; Hematocrit 39.1 % (37.0-47.0); Hemoglobin 12.6 g/dL (11.5-15.3); Lymphocytes # 1.3 10^3/uL (0.8-4.8); Lymphocytes % 16.5 %; Mean Corpuscular HGB Conc 32.2 g/dL (30.0-36.0); Mean Corpuscular Hemoglobin 30.1 pg (28.0-34.0); Mean Corpuscular Volume 93.3 fl (81-99); Mean Platelet Volume 8.4 fL (7.4-10.4); Monocytes # 0.9 10^3/uL (0.2-0.9); Neutrophils # 4.94 10^3/uL (1.8-7.7); Neutrophils % 61.1 %; Nucleated Red Blood Cells % 0 %; Platelet Count 298 10^3/cmm (130-400); Red Blood Count 4.19 10^6/uL (4.1-5.3); Red Cell Distribution Width 15.2 % (12.1-15.1); White Blood Count 8.1 10^3/uL (4.0-10.0)
[2022-05-22 05:16] LABS: Alanine Aminotransferase 47 U/L (0-33); Albumin Level 4.4 g/dL (3.5-5.2); Alkaline Phosphatase 199 U/L (35-105); Anion Gap 18.8 (5-19); Aspartate Amino Transferase 30 U/L (0-32); Blood Urea Nitrogen 21 mg/dL (8-23); Carbon Dioxide 22 mmol/L (22-29); Chloride 102 mmol/L (98-107); Creatinine Clr Calc Pharmacy 80.0642; Globulin 2.8 g/dL (1.3-4.6); Glucose 95 mg/dL (65-115); Osmolality Calculated 291 mOsm/kg (285-295); Potassium 3.8 mmol/L (3.5-5.1); Sodium 139 mmol/L (136-145); Total Bilirubin 0.3 mg/dL (0.15-1.2); Total Protein 7.2 g/dL (6.6-8.7)
[2022-05-22 05:32] LABS: Slide Review Slide Review Perform
[2022-05-22] MEDS: HYDROcodone-acetaminophen 5-325 mg Tablet 1 TAB PO (06:09)
== END 2022-05-22 06:39 | disposition home or self-care (01) ==
PROVIDERS: Emergency Provider Emergency Medicine; PCP Nurse Practitioner Family
DX: M54.9 Dorsalgia, unspecified (principal); M54.2 Cervicalgia; Z87.891 Personal history of nicotine dependence; I10 Essential (primary) hypertension; Z85.89 Personal history of malignant neoplasm of other organs and systems
CPT/HCPCS: 80053; 85025; 96372; 96374; 99284; J2270; J2405

== ENCOUNTER → 2022-05-26 07:44 | Outpatient (BNVA) | payer MEDICARE, MEDICAID, SELFPAY | PROVIDERS: PCP Nurse Practitioner Family; Visit Provider Nurse Practitioner | DX: Z51.0 Encounter for antineoplastic radiation therapy (principal); C51.8 Malignant neoplasm of overlapping sites of vulva; C77.8 Secondary and unspecified malignant neoplasm of lymph nodes of multiple regions | CPT/HCPCS: 77014; 77386; 99214 ==

== ENCOUNTER → 2022-06-09 07:48 | Outpatient (BNVA) | payer MEDICARE, MEDICAID, SELFPAY | PROVIDERS: PCP Nurse Practitioner Family; Visit Provider Internal Medicine Medical Oncology | DX: C51.8 Malignant neoplasm of overlapping sites of vulva (principal) | CPT/HCPCS: 99214 ==

== ENCOUNTER 2022-06-15 08:50 | Oncology outpatient (recurring) (ONCR) | payer MEDICARE, MEDICAID, SELFPAY ==
[2022-05-19 08:38] LABS: Basophils % 0.7 %; Eosinophils # 0.2 10^3/uL (0.0-0.8); Eosinophils % 5.2 %; Hematocrit 37.7 % (37.0-47.0); Hemoglobin 12.3 g/dL (11.5-15.3); Lymphocytes # 0.9 10^3/uL (0.8-4.8); Lymphocytes % 30.3 %; Mean Corpuscular HGB Conc 32.6 g/dL (30.0-36.0); Mean Corpuscular Hemoglobin 30.2 pg (28.0-34.0); Mean Corpuscular Volume 92.6 fl (81-99); Mean Platelet Volume 8.1 fL (7.4-10.4); Monocytes # 0.6 10^3/uL (0.2-0.9); Monocytes % 18.6 %; Neutrophils # 1.38 10^3/uL (1.8-7.7); Neutrophils % 44.9 %; Nucleated Red Blood Cells % 0 %; Platelet Count 202 10^3/cmm (130-400); Red Blood Count 4.07 10^6/uL (4.1-5.3); Red Cell Distribution Width 14.6 % (12.1-15.1); White Blood Count 3.1 10^3/uL (4.0-10.0)
[2022-05-19 09:01] LABS: Alanine Aminotransferase 66 U/L (0-33); Albumin Level 4.2 g/dL (3.5-5.2); Alkaline Phosphatase 193 U/L (35-105); Anion Gap 15.2 (5-19); Aspartate Amino Transferase 72 U/L (0-32); Blood Urea Nitrogen 11 mg/dL (8-23); Calcium 9.4 mg/dL (8.5-10.5); Carbon Dioxide 25 mmol/L (22-29); Chloride 100 mmol/L (98-107); Globulin 3.2 g/dL (1.3-4.6); Glomerular Filtration Rate 100.3 mL/min (90-130); Glucose 110 mg/dL (65-115); Osmolality Calculated 282 mOsm/kg (285-295); Potassium 4.2 mmol/L (3.5-5.1); Sodium 136 mmol/L (136-145); Total Bilirubin 0.3 mg/dL (0.15-1.2); Total Protein 7.4 g/dL (6.6-8.7)
--- NOTE | 2022-05-19 10:04 | ONCRAD TMN_ITS ---
Radiation Oncology Treatment Management Note Patient Name: Chelsey Adams Date of : 1955 Date of Service: 05/19/2022 Attending Physician: Vasiliy Ko M.D. Chelsey Adams is a 66 year old white female diagnosed with a recurrent vulvar cancer. She was evaluated by her resident assistant in July of 2020 for a vulvar lesion. An examination described lichen sclerosus and a 1 cm raised abnormality with central ulceration located on the right labia majora at the 11 o'clock position. A vulvar punch biopsy diagnosed a moderately-differentiated squamous cell carcinoma. A partial vulvectomy with right inguinofemoral lymphadenectomy and left inguinofemoral sentinel lymph node biopsy was performed by Lacy Yanez M.D. September 10, 2020. A 2 cm well-differentiated keratinizing squamous cell carcinoma was resected with a depth of invasion of 3.3 mm. All surgical margins were negative for invasive carcinoma. There was no lymphovascular invasion present. The lymphadenectomy specimens did not contain lymph nodes (FIGO IB). During routine follow-up, a vulvar abnormality was noted. A punch biopsy obtained on July 21, 2021 revealed high-grade squamous intraepithelial lesion (VIN2). She was assessed at the [facility]'s General Surgery Department in September for abdominal pain. An abdominopelvic CT scan obtained on November 06, 2021 identified a 3 cm x 2.5 cm x 1.7 cm enhancing right inguinal lymph node and soft tissue thickening at the bladder base. A cystoscopy completed on December 07, 2021 did not identify any bladder mucosal abnormalities. An ultrasound-guided biopsy of the right inguinal lymph node was completed on January 08, 2022. The pathology report confirmed a moderately-differentiated keratinizing squamous cell carcinoma. A PET scan ordered on January 18, 2022 revealed enlarged right inguinal and external iliac lymph nodes (SUV 14.5). A partial vulvectomy with advancement flap and right inguinofemoral lymphadenectomy was completed February 03, [address] Yanez. The histological analysis did not identify visual squamous cell carcinoma in the vulvectomy specimen. A total of 3 right inguinofemoral and 1 right femoral lymph nodes were harvested. All lymph nodes harbored malignancy demonstrated extracapsular extension. The largest lymph node measured 4 cm. The patient has received 24 Gy of a prescribed 50 Flores with an intensity modulated radiotherapy plan utilizing a step and shoot treatment technique. An additional 10 Gy will be delivered to the high-risk inguinal lymph nodes subsequent to the initial treatment plan. She has been prescribed cisplatin (40 mg/m2) weekly during radiotherapy. Upon review of systems, the diarrhea has improved. She described tenderness in her left labia majora. On physical examination, the patient weighed 197 lbs. Her temperature was 97.7 ???F and the blood pressure was 142/84 mmHg. Her pulse was 84 bpm and her respiratory rate was 16. A vaginal exam revealed mild edema of the labia majora (left). There were no palpable nodules. A speculum examination was unremarkable. There was no erythema within the treatment [place]. Continue pelvic radiotherapy as prescribed. She will contact her gynecologic oncologist for additional assessment. Signed by: Dr. Vasiliy Ko 05/19/2022 10:03:17 AM
[2022-05-19] MEDS: sodium chloride 0.9% 250 ML 100 ML IV (12:16)
[2022-05-19] MEDS: diphenhydrAMINE 50 mg/mL SDV 1mL 25 MG IVP (12:16)
[2022-05-19] MEDS: ondansetron 2 mg/ML SDV 2 mL 8 MG IVP (12:17)
[2022-05-19] MEDS: famotidine 20 mg/2 mL INJ IVP (12:17)
[2022-05-19] MEDS: fosaprepitant 150 MG in sodium chloride 0.9% 150 ML 300 MG IV (12:23)
[2022-05-19] MEDS: OLANZapine 5 mg TABLET PO (12:56)
[2022-05-19] MEDS: pantoprazole 40 mg SDV IVP (12:57)
[2022-05-19] MEDS: FUROsemide 10 mg/mL SDV 2mL 20 MG IVP (15:00)
[2022-05-19] MEDS: potassium chloride 20 MEQ in sodium chloride 0.9% 500 ML 500 MEQ IV (15:00)
[2022-05-19 16:16] VITALS: BP 119/64; PULSE 73; TEMP 36.4; O2SAT 95
[2022-05-20] MEDS: filgrastim-sndz 480 mcg/0.8 mL Syringe SUBCUT (14:13)
[2022-05-20 14:21] VITALS: BP 145/81; PULSE 76; RESP 18; TEMP 36.7; O2SAT 98
[2022-05-21] MEDS: filgrastim-sndz 480 mcg/0.8 mL Syringe SUBCUT (09:07)
--- NOTE | 2022-05-25 13:58 | ONCRAD TMN_ITS ---
Radiation Oncology Treatment Management Note Patient Name: Chelsey Adams Date of : 1955 Date of Service: 05/25/2022 Attending Physician: Vasiliy Ko M.D. Chelsey Adams is a 66 year old white female diagnosed with a recurrent vulvar cancer. She was evaluated by her administrative medical director in July of 2020 for a vulvar lesion. An examination described lichen sclerosus and a 1 cm raised abnormality with central ulceration located on the right labia majora at the 11 o'clock position. A vulvar punch biopsy diagnosed a moderately-differentiated squamous cell carcinoma. A partial vulvectomy with right inguinofemoral lymphadenectomy and left inguinofemoral sentinel lymph node biopsy was performed by Lacy Yanez M.D. September 10, 2020. A 2 cm well-differentiated keratinizing squamous cell carcinoma was resected with a depth of invasion of 3.3 mm. All surgical margins were negative for invasive carcinoma. There was no lymphovascular invasion present. The lymphadenectomy specimens did not contain lymph nodes (FIGO IB). During routine follow-up, a vulvar abnormality was noted. A punch biopsy obtained on July 21, 2021 revealed high-grade squamous intraepithelial lesion (VIN2). She was assessed at the [facility]'s General Surgery Department in September for abdominal pain. An abdominopelvic CT scan obtained on November 06, 2021 identified a 3 cm x 2.5 cm x 1.7 cm enhancing right inguinal lymph node and soft tissue thickening at the bladder base. A cystoscopy completed on December 07, 2021 did not identify any bladder mucosal abnormalities. An ultrasound-guided biopsy of the right inguinal lymph node was completed on January 08, 2022. The pathology report confirmed a moderately-differentiated keratinizing squamous cell carcinoma. A PET scan ordered on January 18, 2022 revealed enlarged right inguinal and external iliac lymph nodes (SUV 14.5). A partial vulvectomy with advancement flap and right inguinofemoral lymphadenectomy was completed February 03, [address] Yanez. The histological analysis did not identify visual squamous cell carcinoma in the vulvectomy specimen. A total of 3 right inguinofemoral and 1 right femoral lymph nodes were harvested. All lymph nodes harbored malignancy demonstrated extracapsular extension. The largest lymph node measured 4 cm. The patient has received 32 Gy of a prescribed 50 Flores with an intensity modulated radiotherapy plan utilizing a step and shoot treatment technique. An additional 10 Gy will be delivered to the high-risk inguinal lymph nodes subsequent to the initial treatment plan. She has been prescribed cisplatin (40 mg/m2) weekly during radiotherapy. Upon review of systems, she did not report any complaints. On physical examination, the patient weighed 196 lbs. Her temperature was 97.4 ???F and the blood pressure was 134/84 mmHg. Her pulse was 90 bpm and her respiratory rate was 16. There was no erythema within the treatment [place]. Continue pelvic radiotherapy as planned. Signed by: Dr. Vasiliy Ko 05/25/2022 1:57:37 PM
[2022-05-26 08:45] LABS: Basophils # 0.1 10^3/uL (0.0-0.1); Basophils % 0.9 %; Eosinophils # 0.1 10^3/uL (0.0-0.8); Eosinophils % 1.7 %; Hematocrit 34.5 % (37.0-47.0); Hemoglobin 11.5 g/dL (11.5-15.3); Lymphocytes # 0.8 10^3/uL (0.8-4.8); Lymphocytes % 15.7 %; Mean Corpuscular HGB Conc 33.3 g/dL (30.0-36.0); Mean Corpuscular Hemoglobin 30.7 pg (28.0-34.0); Mean Corpuscular Volume 92.2 fl (81-99); Mean Platelet Volume 8.6 fL (7.4-10.4); Monocytes % 18.3 %; Neutrophils # 3.19 10^3/uL (1.8-7.7); Neutrophils % 59.5 %; Nucleated Red Blood Cells % 0 %; Platelet Count 237 10^3/cmm (130-400); Red Blood Count 3.74 10^6/uL (4.1-5.3); Red Cell Distribution Width 14.8 % (12.1-15.1); White Blood Count 5.4 10^3/uL (4.0-10.0)
[2022-05-26 09:04] LABS: Alanine Aminotransferase 54 U/L (0-33); Albumin Level 4.2 g/dL (3.5-5.2); Alkaline Phosphatase 194 U/L (35-105); Anion Gap 15.9 (5-19); Aspartate Amino Transferase 43 U/L (0-32); Blood Urea Nitrogen 9 mg/dL (8-23); Carbon Dioxide 24 mmol/L (22-29); Chloride 102 mmol/L (98-107); Globulin 2.7 g/dL (1.3-4.6); Glomerular Filtration Rate 100.3 mL/min (90-130); Glucose 119 mg/dL (65-115); Osmolality Calculated 286 mOsm/kg (285-295); Potassium 3.9 mmol/L (3.5-5.1); Sodium 138 mmol/L (136-145); Total Bilirubin 0.2 mg/dL (0.15-1.2); Total Protein 6.9 g/dL (6.6-8.7)
[2022-05-26] MEDS: sodium chloride 0.9% 250 ML 100 ML IV (09:11)
[2022-05-26] MEDS: famotidine 20 mg/2 mL INJ IVP (09:12)
[2022-05-26] MEDS: ondansetron 2 mg/ML SDV 2 mL 8 MG IVP (09:12)
[2022-05-26] MEDS: pantoprazole 40 mg SDV IVP (09:12)
[2022-05-26] MEDS: diphenhydrAMINE 50 mg/mL SDV 1mL 12.5 MG IVP (09:13)
[2022-05-26] MEDS: OLANZapine 5 mg TABLET PO (09:14)
[2022-05-26] MEDS: fosaprepitant 150 MG in sodium chloride 0.9% 150 ML 300 MG IV (10:21)
[2022-05-26] MEDS: HYDROcodone-acetaminophen 5-325 mg Tablet 1 TAB PO (10:28)
[2022-05-26] MEDS: potassium chloride 20 MEQ in sodium chloride 0.9% 500 ML 500 MEQ IV (13:43)
[2022-05-26] MEDS: FUROsemide 10 mg/mL SDV 2mL 20 MG IVP (13:43)
[2022-05-26 14:58] VITALS: BP 120/77; PULSE 71; TEMP 35.9; O2SAT 95
--- NOTE | 2022-05-31 09:16 | PC.NURSE ---
lab drawn via LAC x1 attempt tolerated well, pressure dressing applied.
[2022-05-31 09:23] LABS: Basophils % 0.3 %; Eosinophils % 1.1 %; Hematocrit 36.2 % (37.0-47.0); Hemoglobin 11.6 g/dL (11.5-15.3); Lymphocytes # 0.5 10^3/uL (0.8-4.8); Lymphocytes % 15.5 %; Mean Corpuscular Hemoglobin 29.8 pg (28.0-34.0); Mean Corpuscular Volume 93.1 fl (81-99); Mean Platelet Volume 8.2 fL (7.4-10.4); Monocytes # 0.4 10^3/uL (0.2-0.9); Monocytes % 10.9 %; Neutrophils % 71.9 %; Nucleated Red Blood Cells % 0 %; Platelet Count 197 10^3/cmm (130-400); Red Blood Count 3.89 10^6/uL (4.1-5.3); Red Cell Distribution Width 15.2 % (12.1-15.1); White Blood Count 3.5 10^3/uL (4.0-10.0)
[2022-05-31 09:40] LABS: Alanine Aminotransferase 49 U/L (0-33); Albumin Level 4.2 g/dL (3.5-5.2); Alkaline Phosphatase 181 U/L (35-105); Aspartate Amino Transferase 48 U/L (0-32); Blood Urea Nitrogen 13 mg/dL (8-23); Calcium 9.4 mg/dL (8.5-10.5); Carbon Dioxide 26 mmol/L (22-29); Chloride 97 mmol/L (98-107); Globulin 2.6 g/dL (1.3-4.6); Glucose 112 mg/dL (65-115); Osmolality Calculated 279 mOsm/kg (285-295); Sodium 134 mmol/L (136-145); Total Bilirubin 0.5 mg/dL (0.15-1.2); Total Protein 6.8 g/dL (6.6-8.7)
--- NOTE | 2022-05-31 09:52 | ONCRAD TMN_ITS ---
Radiation Oncology Treatment Management Note Patient Name: Chelsey Adams Date of : 1955 Date of Service: 05/31/2022 Attending Physician: Vasiliy Ko M.D. Chelsey Adams is a 66 year old white female diagnosed with a recurrent vulvar cancer. She was evaluated by her car painter in July of 2020 for a vulvar lesion. An examination described lichen sclerosus and a 1 cm raised abnormality with central ulceration located on the right labia majora at the 11 o'clock position. A vulvar punch biopsy diagnosed a moderately-differentiated squamous cell carcinoma. A partial vulvectomy with right inguinofemoral lymphadenectomy and left inguinofemoral sentinel lymph node biopsy was performed by Lacy Yanez M.D. September 10, 2020. A 2 cm well-differentiated keratinizing squamous cell carcinoma was resected with a depth of invasion of 3.3 mm. All surgical margins were negative for invasive carcinoma. There was no lymphovascular invasion present. The lymphadenectomy specimens did not contain lymph nodes (FIGO IB). During routine follow-up, a vulvar abnormality was noted. A punch biopsy obtained on July 21, 2021 revealed high-grade squamous intraepithelial lesion (VIN2). She was assessed at the [facility]'s General Surgery Department in September for abdominal pain. An abdominopelvic CT scan obtained on November 06, 2021 identified a 3 cm x 2.5 cm x 1.7 cm enhancing right inguinal lymph node and soft tissue thickening at the bladder base. A cystoscopy completed on December 07, 2021 did not identify any bladder mucosal abnormalities. An ultrasound-guided biopsy of the right inguinal lymph node was completed on January 08, 2022. The pathology report confirmed a moderately-differentiated keratinizing squamous cell carcinoma. A PET scan ordered on January 18, 2022 revealed enlarged right inguinal and external iliac lymph nodes (SUV 14.5). A partial vulvectomy with advancement flap and right inguinofemoral lymphadenectomy was completed February 03, [address] Yanez. The histological analysis did not identify visual squamous cell carcinoma in the vulvectomy specimen. A total of 3 right inguinofemoral and 1 right femoral lymph nodes were harvested. All lymph nodes harbored malignancy demonstrated extracapsular extension. The largest lymph node measured 4 cm. The patient has received 40 Gy of a prescribed 50 Flores with an intensity modulated radiotherapy plan utilizing a step and shoot treatment technique. An additional 10 Gy will be delivered to the high-risk inguinal lymph nodes subsequent to the initial treatment plan. She has been prescribed cisplatin (40 mg/m2) weekly during radiotherapy. Upon review of systems, she described diarrhea this past weekend. On physical examination, the patient weighed 195 lbs. Her temperature was 97 ???F and the blood pressure was 142/79 mmHg. Her pulse was 86 bpm and her respiratory rate was 18. There was no erythema within the treatment [place]. Continue pelvic radiotherapy as prescribed. Signed by: Dr. Vasiliy Ko 05/31/2022 9:51:37 AM
[2022-05-31] MEDS: filgrastim-sndz 480 mcg/0.8 mL Syringe SUBCUT (10:03)
[2022-06-01] MEDS: sodium chloride 0.9% 1,000 ML 999 ML IV (09:13)
[2022-06-01 09:23] LABS: Basophils # 0.1 10^3/uL (0.0-0.1); Basophils % 0.3 %; Eosinophils % 0.1 %; Hematocrit 33.1 % (37.0-47.0); Hemoglobin 10.8 g/dL (11.5-15.3); Lymphocytes # 0.8 10^3/uL (0.8-4.8); Lymphocytes % 5.6 %; Mean Corpuscular HGB Conc 32.6 g/dL (30.0-36.0); Mean Corpuscular Hemoglobin 30.3 pg (28.0-34.0); Mean Platelet Volume 8.7 fL (7.4-10.4); Monocytes # 0.7 10^3/uL (0.2-0.9); Monocytes % 4.6 %; Neutrophils # 12.35 10^3/uL (1.8-7.7); Neutrophils % 85.2 %; Nucleated Red Blood Cells % 0 %; Platelet Count 187 10^3/cmm (130-400); Red Blood Count 3.56 10^6/uL (4.1-5.3); Red Cell Distribution Width 15.1 % (12.1-15.1); White Blood Count 14.5 10^3/uL (4.0-10.0)
[2022-06-01 09:52] LABS: Alanine Aminotransferase 54 U/L (0-33); Albumin Level 4.1 g/dL (3.5-5.2); Alkaline Phosphatase 181 U/L (35-105); Anion Gap 17.9 (5-19); Aspartate Amino Transferase 43 U/L (0-32); Blood Urea Nitrogen 9 mg/dL (8-23); Calcium 8.9 mg/dL (8.5-10.5); Carbon Dioxide 22 mmol/L (22-29); Chloride 101 mmol/L (98-107); Globulin 2.7 g/dL (1.3-4.6); Glomerular Filtration Rate 100.3 mL/min (90-130); Glucose 97 mg/dL (65-115); Osmolality Calculated 283 mOsm/kg (285-295); Potassium 3.9 mmol/L (3.5-5.1); Sodium 137 mmol/L (136-145); Total Bilirubin 0.3 mg/dL (0.15-1.2); Total Protein 6.8 g/dL (6.6-8.7)
[2022-06-01 10:28] VITALS: BP 129/69; PULSE 80; TEMP 36.7; O2SAT 99
[2022-06-09 08:39] LABS: Basophils % 0.7 %; Hematocrit 33.5 % (37.0-47.0); Lymphocytes % 31.1 %; Mean Corpuscular HGB Conc 32.8 g/dL (30.0-36.0); Mean Corpuscular Volume 94.4 fl (81-99); Mean Platelet Volume 8.2 fL (7.4-10.4); Monocytes # 0.6 10^3/uL (0.2-0.9); Monocytes % 18.4 %; Neutrophils # 1.47 10^3/uL (1.8-7.7); Neutrophils % 48.1 %; Nucleated Red Blood Cells % 0 %; Platelet Count 171 10^3/cmm (130-400); Red Blood Count 3.55 10^6/uL (4.1-5.3); Red Cell Distribution Width 16.3 % (12.1-15.1); White Blood Count 3.1 10^3/uL (4.0-10.0)
[2022-06-09 09:03] LABS: Alanine Aminotransferase 50 U/L (0-33); Albumin Level 3.8 g/dL (3.5-5.2); Alkaline Phosphatase 180 U/L (35-105); Aspartate Amino Transferase 49 U/L (0-32); Blood Urea Nitrogen 11 mg/dL (8-23); Calcium 9.1 mg/dL (8.5-10.5); Carbon Dioxide 25 mmol/L (22-29); Chloride 100 mmol/L (98-107); Globulin 2.9 g/dL (1.3-4.6); Glomerular Filtration Rate 100.3 mL/min (90-130); Glucose 101 mg/dL (65-115); Osmolality Calculated 280 mOsm/kg (285-295); Sodium 135 mmol/L (136-145); Total Bilirubin 0.4 mg/dL (0.15-1.2); Total Protein 6.7 g/dL (6.6-8.7)
[2022-06-09] MEDS: sodium chloride 0.9% 250 ML 100 ML IV (10:28)
[2022-06-09] MEDS: pantoprazole 40 mg SDV IVP (10:29)
[2022-06-09] MEDS: ondansetron 2 mg/ML SDV 2 mL 8 MG IVP (10:31)
[2022-06-09] MEDS: diphenhydrAMINE 50 mg/mL SDV 1mL 12.5 MG IVP (10:39)
[2022-06-09] MEDS: OLANZapine 5 mg TABLET PO (10:40)
[2022-06-09] MEDS: famotidine 20 mg/2 mL INJ IVP (10:40)
[2022-06-09] MEDS: fosaprepitant 150 MG in sodium chloride 0.9% 150 ML 300 MG IV (11:12)
[2022-06-09] MEDS: FUROsemide 10 mg/mL SDV 2mL 20 MG IVP (13:46)
[2022-06-09] MEDS: potassium chloride 20 MEQ in sodium chloride 0.9% 500 ML 500 MEQ IV (13:50)
[2022-06-09 14:51] VITALS: BP 144/72; PULSE 68; TEMP 36.5; O2SAT 94
--- NOTE | 2022-06-14 09:41 | ONCRAD TMN_ITS ---
Radiation Oncology Treatment Management Note Patient Name: Chelsey Adams Date of : 1955 Date of Service: 06/14/2022 Attending Physician: Vasiliy Ko M.D. Chelsey Adams is a 66 year old white female diagnosed with a recurrent vulvar cancer. She was evaluated by her seating and mobility technologist in July of 2020 for a vulvar lesion. An examination described lichen sclerosus and a 1 cm raised abnormality with central ulceration located on the right labia majora at the 11 o'clock position. A vulvar punch biopsy diagnosed a moderately-differentiated squamous cell carcinoma. A partial vulvectomy with right inguinofemoral lymphadenectomy and left inguinofemoral sentinel lymph node biopsy was performed by Lacy Yanez M.D. September 10, 2020. A 2 cm well-differentiated keratinizing squamous cell carcinoma was resected with a depth of invasion of 3.3 mm. All surgical margins were negative for invasive carcinoma. There was no lymphovascular invasion present. The lymphadenectomy specimens did not contain lymph nodes (FIGO IB). During routine follow-up, a vulvar abnormality was noted. A punch biopsy obtained on July 21, 2021 revealed high-grade squamous intraepithelial lesion (VIN2). She was assessed at the [facility]'s General Surgery Department in September for abdominal pain. An abdominopelvic CT scan obtained on November 06, 2021 identified a 3 cm x 2.5 cm x 1.7 cm enhancing right inguinal lymph node and soft tissue thickening at the bladder base. A cystoscopy completed on December 07, 2021 did not identify any bladder mucosal abnormalities. An ultrasound-guided biopsy of the right inguinal lymph node was completed on January 08, 2022. The pathology report confirmed a moderately-differentiated keratinizing squamous cell carcinoma. A PET scan ordered on January 18, 2022 revealed enlarged right inguinal and external iliac lymph nodes (SUV 14.5). A partial vulvectomy with advancement flap and right inguinofemoral lymphadenectomy was completed February 03, [address] Yanez. The histological analysis did not identify visual squamous cell carcinoma in the vulvectomy specimen. A total of 3 right inguinofemoral and 1 right femoral lymph nodes were harvested. All lymph nodes harbored malignancy demonstrated extracapsular extension. The largest lymph node measured 4 cm. The patient has received 48 Gy of a prescribed 50 Flores with an intensity modulated radiotherapy plan utilizing a step and shoot treatment technique. An additional 10 Gy will be delivered to the high-risk inguinal lymph nodes subsequent to the initial treatment plan. She has been prescribed cisplatin (40 mg/m2) weekly during radiotherapy. Upon review of systems, she continues to have relapsing diarrhea. On physical examination, the patient weighed 194 lbs. Her temperature was 96.7 ???F and the blood pressure was 142/74 mmHg. Her pulse was 80 bpm and her respiratory rate was 16. There was no erythema within the treatment [place]. Continue pelvic radiotherapy as planned. Signed by: Vasiliy Ko 06/14/2022 9:40:02 AM
== END 2022-06-15 23:59 | disposition home or self-care (01) ==
PROVIDERS: Internal Medicine Medical Oncology; Nurse Practitioner; PCP Nurse Practitioner Family; Visit Provider Nurse Practitioner Family
DX: C51.8 Malignant neoplasm of overlapping sites of vulva (principal)
CPT/HCPCS: 36415; 77014; 77300; 77336; 77338; 77386; 80053; 85025; 87493; 96366; 96367; 96372; 96375; 96401; 96413; 99024; 99213; 99214; C9113; J1100; J1200; J1453; J1940; J2405; J3475; J3480; J3490; J7030; J7040; J7050; J9060; Q5101

== ENCOUNTER → 2022-06-16 07:49 | Outpatient (BNVA) | payer MEDICARE, MEDICAID, SELFPAY | PROVIDERS: PCP Nurse Practitioner Family; Visit Provider Nurse Practitioner Family | DX: C51.8 Malignant neoplasm of overlapping sites of vulva (principal) | CPT/HCPCS: 99214 ==

== ENCOUNTER 2022-06-30 11:00 | Oncology outpatient (recurring) (ONCR) | payer MEDICARE, MEDICAID, SELFPAY ==
[2022-06-16 08:19] LABS: Basophils % 0.4 %; Eosinophils % 0.8 %; Hematocrit 31.5 % (37.0-47.0); Hemoglobin 10.5 g/dL (11.5-15.3); Lymphocytes # 0.6 10^3/uL (0.8-4.8); Lymphocytes % 24.6 %; Mean Corpuscular HGB Conc 33.3 g/dL (30.0-36.0); Mean Corpuscular Hemoglobin 31.1 pg (28.0-34.0); Mean Corpuscular Volume 93.2 fl (81-99); Monocytes # 0.4 10^3/uL (0.2-0.9); Monocytes % 16.4 %; Neutrophils % 57.4 %; Nucleated Red Blood Cells % 0 %; Platelet Count 126 10^3/cmm (130-400); Red Blood Count 3.38 10^6/uL (4.1-5.3); Red Cell Distribution Width 16.5 % (12.1-15.1); White Blood Count 2.4 10^3/uL (4.0-10.0)
[2022-06-16 08:40] LABS: Alanine Aminotransferase 50 U/L (0-33); Albumin Level 4.2 g/dL (3.5-5.2); Alkaline Phosphatase 174 U/L (35-105); Aspartate Amino Transferase 44 U/L (0-32); Blood Urea Nitrogen 11 mg/dL (8-23); Carbon Dioxide 25 mmol/L (22-29); Chloride 100 mmol/L (98-107); Globulin 2.7 g/dL (1.3-4.6); Glomerular Filtration Rate 100.3 mL/min (90-130); Glucose 110 mg/dL (65-115); Osmolality Calculated 284 mOsm/kg (285-295); Sodium 137 mmol/L (136-145); Total Bilirubin 0.4 mg/dL (0.15-1.2); Total Protein 6.9 g/dL (6.6-8.7)
--- NOTE | 2022-06-16 09:27 | PC.PHAR ---
spoke with [facility] and Dr.M. Mackay wants to add one more cycle (received 6 cycles, wants one more). Tx plan limited to 6 treatments, therefore stopped current plan then added new tx plan limiting to one cycle. [facility] to approve.
[2022-06-16] MEDS: OLANZapine 5 mg TABLET PO (11:03)
[2022-06-16] MEDS: sodium chloride 0.9% 250 ML 100 ML IV (11:04)
[2022-06-16] MEDS: diphenhydrAMINE 50 mg/mL SDV 1mL 12.5 MG IVP (11:10)
[2022-06-16] MEDS: famotidine 20 mg/2 mL INJ IVP (11:11)
[2022-06-16] MEDS: fosaprepitant 150 MG in sodium chloride 0.9% 150 ML 300 MG IV (11:16)
[2022-06-16] MEDS: palonosetron 0.25 mg/5 mL SDV IVP (11:57)
[2022-06-16] MEDS: FUROsemide 10 mg/mL SDV 2mL 20 MG IVP (13:35)
[2022-06-16] MEDS: potassium chloride 20 MEQ in sodium chloride 0.9% 500 ML 500 MEQ IV (13:36)
[2022-06-16 15:25] VITALS: BP 120/68; PULSE 74; TEMP 36.4; O2SAT 96
--- NOTE | 2022-06-21 09:42 | ONCRAD TMN_ITS ---
Radiation Oncology Treatment Management Note Patient Name: Chelsey Adams Date of : 1955 Date of Service: 06/21/2022 Attending Physician: Vasiliy Ko M.D. Chelsey Adams is a 66 year old white female diagnosed with a recurrent vulvar cancer. She was evaluated by her ordnance truck installation supervisor in July of 2020 for a vulvar lesion. An examination described lichen sclerosus and a 1 cm raised abnormality with central ulceration located on the right labia majora at the 11 o'clock position. A vulvar punch biopsy diagnosed a moderately-differentiated squamous cell carcinoma. A partial vulvectomy with right inguinofemoral lymphadenectomy and left inguinofemoral sentinel lymph node biopsy was performed by Lacy Yanez M.D. September 10, 2020. A 2 cm well-differentiated keratinizing squamous cell carcinoma was resected with a depth of invasion of 3.3 mm. All surgical margins were negative for invasive carcinoma. There was no lymphovascular invasion present. The lymphadenectomy specimens did not contain lymph nodes (FIGO IB). During routine follow-up, a vulvar abnormality was noted. A punch biopsy obtained on July 21, 2021 revealed high-grade squamous intraepithelial lesion (VIN2). She was assessed at the [facility]'s General Surgery Department in September for abdominal pain. An abdominopelvic CT scan obtained on November 06, 2021 identified a 3 cm x 2.5 cm x 1.7 cm enhancing right inguinal lymph node and soft tissue thickening at the bladder base. A cystoscopy completed on December 07, 2021 did not identify any bladder mucosal abnormalities. An ultrasound-guided biopsy of the right inguinal lymph node was completed on January 08, 2022. The pathology report confirmed a moderately-differentiated keratinizing squamous cell carcinoma. A PET scan ordered on January 18, 2022 revealed enlarged right inguinal and external iliac lymph nodes (SUV 14.5). A partial vulvectomy with advancement flap and right inguinofemoral lymphadenectomy was completed February 03, [address] Yanez. The histological analysis did not identify visual squamous cell carcinoma in the vulvectomy specimen. A total of 3 right inguinofemoral and 1 right femoral lymph nodes were harvested. All lymph nodes harbored malignancy demonstrated extracapsular extension. The largest lymph node measured 4 cm. The patient has received 58 Gy of a prescribed 60 Flores with an intensity modulated radiotherapy plan utilizing a step and shoot treatment technique. She has been prescribed cisplatin (40 mg/m2) weekly during radiotherapy. Upon review of systems, she continues to have diarrhea. On physical examination, the patient weighed 195 lbs. Her temperature was 97.2 ???F and the blood pressure was 152/92 mmHg. Her pulse was 83 bpm and her respiratory rate was 18. Continue pelvic radiotherapy as prescribed. Signed by: Vasiliy Ko 06/21/2022 9:41:33 AM
--- NOTE | 2022-06-21 09:42 | ONCRAD TMN_ITS ---
Radiation Oncology Treatment Management Note Patient Name: Chelsey Adams Date of : 1955 Date of Service: 06/21/2022 Attending Physician: Vasiliy Ko M.D. Chelsey Adams is a 66 year old white female diagnosed with a recurrent vulvar cancer. 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 An examination described lichen sclerosus and a 1 cm raised abnormality with central ulceration located on the right labia majora at the 11 o'clock position. A vulvar punch biopsy diagnosed a moderately-differentiated squamous cell carcinoma. A partial vulvectomy with right inguinofemoral lymphadenectomy and left inguinofemoral sentinel lymph node biopsy was performed by Lacy Yanez M.D. September 10, 2020. A 2 cm well-differentiated keratinizing squamous cell carcinoma was resected with a depth of invasion of 3.3 mm. All surgical margins were negative for invasive carcinoma. There was no lymphovascular invasion present. The lymphadenectomy specimens did not contain lymph nodes (FIGO IB). During routine follow-up, a vulvar abnormality was noted. A punch biopsy obtained on July 21, 2021 revealed high-grade squamous intraepithelial lesion (VIN2). She was assessed at the [facility]'s General Surgery Department in September for abdominal pain. An abdominopelvic CT scan obtained on November 06, 2021 identified a 3 cm x 2.5 cm x 1.7 cm enhancing right inguinal lymph node and soft tissue thickening at the bladder base. A cystoscopy completed on December 07, 2021 did not identify any bladder mucosal abnormalities. An ultrasound-guided biopsy of the right inguinal lymph node was completed on January 08, 2022. The pathology report confirmed a moderately-differentiated keratinizing squamous cell carcinoma. A PET scan ordered on January 18, 2022 revealed enlarged right inguinal and external iliac lymph nodes (SUV 14.5). A partial vulvectomy with advancement flap and right inguinofemoral lymphadenectomy was completed February 03, [address] Yanez. The histological analysis did not identify visual squamous cell carcinoma in the vulvectomy specimen. A total of 3 right inguinofemoral and 1 right femoral lymph nodes were harvested. All lymph nodes harbored malignancy demonstrated extracapsular extension. The largest lymph node measured 4 cm. The patient has received 58 Gy of a prescribed 60 Flores with an intensity modulated radiotherapy plan utilizing a step and shoot treatment technique. She has been prescribed cisplatin (40 mg/m2) weekly during radiotherapy. Upon review of systems, she continues to have diarrhea. On physical examination, the patient weighed 194 lbs. Her temperature was 96.7 ???F and the blood pressure was 142/74 mmHg. Her pulse was 80 bpm and her respiratory rate was 16. Continue pelvic radiotherapy as prescribed. Signed by: Vasiliy Ko 06/21/2022 9:40:59 AM
--- NOTE | 2022-06-22 09:13 | N.ONRD TS_ITS ---
Radiation OncologyTreatment Summary Patient Name: Chelsey Adams Date of : 1955 Date of Service: 06/22/2022 Attending Physician: Vasiliy Ko M.D. Chelsey Adams has completed pelvic radiotherapy for the management of a recurrent vulvar cancer. She was evaluated by her home health aide caregiver in July of 2020 for a vulvar lesion. An examination described lichen sclerosus and a 1 cm raised abnormality with central ulceration located on the right labia majora at the 11 o'clock position. A vulvar punch biopsy diagnosed a moderately-differentiated squamous cell carcinoma. A partial vulvectomy with right inguinofemoral lymphadenectomy and left inguinofemoral sentinel lymph node biopsy was performed by Lacy Yanez M.D. September 10, 2020. A 2 cm well-differentiated keratinizing squamous cell carcinoma was resected with a depth of invasion of 3.3 mm. All surgical margins were negative for invasive carcinoma. There was no lymphovascular invasion present. The lymphadenectomy specimens did not contain lymph nodes (FIGO IB). During routine follow-up, a vulvar abnormality was noted. A punch biopsy obtained on July 21, 2021 revealed high-grade squamous intraepithelial lesion (VIN2). She was assessed at the [facility]'s General Surgery Department in September for abdominal pain. An abdominopelvic CT scan obtained on November 06, 2021 identified a 3 cm x 2.5 cm x 1.7 cm enhancing right inguinal lymph node and soft tissue thickening at the bladder base. A cystoscopy completed on December 07, 2021 did not identify any bladder mucosal abnormalities. An ultrasound-guided biopsy of the right inguinal lymph node was completed on January 08, 2022. The pathology report confirmed a moderately-differentiated keratinizing squamous cell carcinoma. A PET scan ordered on January 18, 2022 revealed enlarged right inguinal and external iliac lymph nodes (SUV 14.5). A partial vulvectomy with advancement flap and right inguinofemoral lymphadenectomy was completed February 03, [address] Yanez. The histological analysis did not identify visual squamous cell carcinoma in the vulvectomy specimen. A total of 3 right inguinofemoral and 1 right femoral lymph nodes were harvested. All lymph nodes harbored malignancy demonstrated extracapsular extension. The largest lymph node measured 4 cm. Pelvic radiation therapy was delivered between the dates of April 14, 2022 through June 22, 2022. A prescribed dose of 60 Gy was delivered in 30 fractions encompassing 70 elapsed days. The pelvic regional lymph node stations were treated utilizing an intensity modulated radiotherapy plan with a step and shoot treatment technique. The plan arranged eleven gantry angles (0???, 30???, 60???, 80???, 150???, 182???, 210???, 280???, 300???, 330???, and 345???) replicating an arc. The collimator rotation was between 0??? and 340??? to minimize MLC excursion. The field sizes spanned between 14 cm x 17.6 cm to 29.3 cm x 26.3 cm. The SSD measured a minimum of 81 cm to a maximum of 86.5 cm. The ports delivered 421 MU, 347 MU, 338 MU, 170 MU, 314 MU, 143 MU, 340 MU, 185 MU, 286 MU, 335 MU, and 167 MU corresponding to the gantry angles described. High energy photons were prescribed. The initial [place] began on April 14 2022 and continued through June 15, 2022. A prescribed dose of 50 Flores was administered 25 fractions over 63 elapsed days. The right inguinal surgical bed was treated incorporating an intensity modulated radiotherapy plan with a step and shoot treatment technique. The plan designed eight gantry angles (0???, 30???, 60???, 170???, 190???, 280???, 300???, and 330???) replicating an arc. The collimator rotation ranged between 0??? and 130??? to minimize MLC movement. The [place] measured between 12.3 cm x 15.5 cm to 14.1 cm x 10.5 cm. The measured SSD were 81.5 cm to 93.5 cm. The ports allocated 141 MU, 160 MU, 120 MU, 92 MU, 99 MU, 135 MU, 150 MU, and 172 MU corresponding to the gantry angles described. The photon energy selected was 15 MV. The reduced ports started on June 16, 2022 and concluded on June 22, 2022. An additional 10 Gy was allocated in 5 fractions over 7 elapsed days. All treatments were performed with the [employer] linear accelerator and an isocentric technique. High energy photons were prescribed. The dose was calculated by Anisotropic Analytic Algorithm with the plan normalized to deliver 100% of the prescription dose to 95% of the planning target volume. Signed by: Vasiliy Ko 06/22/2022 9:12:59 AM
[2022-06-23 08:24] LABS: Eosinophils % 0.9 %; Hematocrit 29.1 % (37.0-47.0); Hemoglobin 9.5 g/dL (11.5-15.3); Lymphocytes # 0.5 10^3/uL (0.8-4.8); Mean Corpuscular HGB Conc 32.6 g/dL (30.0-36.0); Mean Corpuscular Hemoglobin 31.1 pg (28.0-34.0); Mean Corpuscular Volume 95.4 fl (81-99); Mean Platelet Volume 8.3 fL (7.4-10.4); Monocytes # 0.4 10^3/uL (0.2-0.9); Monocytes % 16.4 %; Neutrophils # 1.34 10^3/uL (1.8-7.7); Neutrophils % 61.2 %; Nucleated Red Blood Cells % 0 %; Platelet Count 92 10^3/cmm (130-400); Red Blood Count 3.05 10^6/uL (4.1-5.3); White Blood Count 2.2 10^3/uL (4.0-10.0)
[2022-06-23 08:48] LABS: Alanine Aminotransferase 50 U/L (0-33); Albumin Level 3.9 g/dL (3.5-5.2); Alkaline Phosphatase 149 U/L (35-105); Anion Gap 15.8 (5-19); Aspartate Amino Transferase 43 U/L (0-32); Blood Urea Nitrogen 10 mg/dL (8-23); Calcium 8.9 mg/dL (8.5-10.5); Carbon Dioxide 25 mmol/L (22-29); Chloride 100 mmol/L (98-107); Globulin 2.5 g/dL (1.3-4.6); Glomerular Filtration Rate 100.3 mL/min (90-130); Glucose 103 mg/dL (65-115); Osmolality Calculated 283 mOsm/kg (285-295); Potassium 3.8 mmol/L (3.5-5.1); Sodium 137 mmol/L (136-145); Total Bilirubin 0.4 mg/dL (0.15-1.2); Total Protein 6.4 g/dL (6.6-8.7)
[2022-06-30 11:30] LABS: Eosinophils % 1.3 %; Hematocrit 30.7 % (37.0-47.0); Hemoglobin 10.2 g/dL (11.5-15.3); Lymphocytes # 0.7 10^3/uL (0.8-4.8); Lymphocytes % 31.5 %; Mean Corpuscular HGB Conc 33.2 g/dL (30.0-36.0); Mean Corpuscular Hemoglobin 32.4 pg (28.0-34.0); Mean Corpuscular Volume 97.5 fl (81-99); Mean Platelet Volume 8.4 fL (7.4-10.4); Monocytes # 0.5 10^3/uL (0.2-0.9); Monocytes % 20.3 %; Neutrophils # 1.09 10^3/uL (1.8-7.7); Neutrophils % 46.9 %; Nucleated Red Blood Cells % 0 %; Platelet Count 119 10^3/cmm (130-400); Red Blood Count 3.15 10^6/uL (4.1-5.3); Red Cell Distribution Width 18.7 % (12.1-15.1); White Blood Count 2.3 10^3/uL (4.0-10.0)
[2022-06-30 11:51] LABS: Alanine Aminotransferase 37 U/L (0-33); Alkaline Phosphatase 156 U/L (35-105); Anion Gap 18.6 (5-19); Aspartate Amino Transferase 36 U/L (0-32); Blood Urea Nitrogen 11 mg/dL (8-23); Calcium 8.6 mg/dL (8.5-10.5); Carbon Dioxide 22 mmol/L (22-29); Chloride 103 mmol/L (98-107); Globulin 2.6 g/dL (1.3-4.6); Glucose 122 mg/dL (65-115); Osmolality Calculated 291 mOsm/kg (285-295); Potassium 3.6 mmol/L (3.5-5.1); Sodium 140 mmol/L (136-145); Total Bilirubin 0.4 mg/dL (0.15-1.2); Total Protein 6.6 g/dL (6.6-8.7)
== END 2022-07-16 23:59 | disposition home or self-care (01) ==
PROVIDERS: Nurse Practitioner Family; PCP Nurse Practitioner Family; Visit Provider Internal Medicine Medical Oncology
DX: C51.9 Malignant neoplasm of vulva, unspecified
CPT/HCPCS: 36591; 77014; 77336; 77386; 80053; 85025; 96360; 96366; 96367; 96375; 96413; 99213; J1100; J1200; J1453; J1940; J2469; J3475; J3480; J3490; J7030; J7040; J7050; J9060

== ENCOUNTER 2022-07-30 09:44 | Emergency (ER) | payer MEDICARE, MEDICAID, SELFPAY ==
--- NOTE | 2022-07-30 | CT_ITS ---
WS: [id number] NONCONTRAST CT BONY PELVIS TECHNIQUE: Noncontrast CT pelvis with coronal and sagittal reformatted images. CLINICAL INFORMATION: pain/injury COMPARISON: CT 11/06 and PET/CT January 18, 2022 DLP: 1530.[address] scans at [facility] use at least one of these dose optimization techniques: automated e xposure control; mA and/or kV adjustment per patient size (includes targeted exams where dose is matc hed to clinical indication); or iterative reconstruction. FINDINGS: Prior hysterectomy. Small bladder cystocele. Soft tissue thickening involving the base of the bladder and periurethral soft tissues unchanged since the prior exams. History of prior treated Vulva neopla sm Surgical clips RIGHT inguinal region. No inguinal lymphadenopathy. Normal visualized pubic rami. Mild degenerative narrowing both hips. No visualized LEFT hip fractures . Normal visualized sacrum. CT/CT bony pelvis [id number] IMPRESSION: No acute pelvic findings.
[2022-07-30 09:51] VITALS: BP 137/79; PULSE 84; RESP 16; TEMP 36; O2SAT 97; BMI 29.7
--- NOTE | 2022-07-30 10:03 | XR_ITS ---
WS: [id number] EXAMINATION: XR hip LT 2-3V wo/w pel* [id number] REASON FOR EXAM: pain/injury; one view pelvis too please COMPARISON: 05/13/2021. ORDER DATE: 07/30/2022 10:12 AM TECHNIQUE: Frontal internal/external rotation views of the left hip were obtained. X-RAY FINDINGS: There are no fractures or dislocations. Normal motion with internal/external rotation is present. Minor degenerative changes. XR/XR hip LT 2-3V wo/w pel* [id number] IMPRESSION: 1. No fractures or dislocations of the left hip. 2. Normal motion with internal/external rotation.
--- NOTE | 2022-07-30 10:04 | ED_ITS ---
HPI - Extremity Injury (Lower) General: Chief Complaint: Extremity Injury, Lower Stated Complaint: left hip pain Time Seen by Provider: 07/30/22 09:49 Source: patient Mode of arrival: wheelchair Limitations: no limitations History of Present Illness: Patient is a nice 67-year-old female who presents to ED today with a complaint of left hip pain. Patient states approximately 1.5-2 weeks ago she went to catch another individual who was about to fall and feels like maybe she strained something in her back and left hip. She states the following day she began having some discomfort to the area that she initially described as mild however over the course of the last week or so the pain has progressively worsened to the point where it is now interfering with ambulation. 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 She has also been using lidocaine patches as well as chiropractor services without relief. She has been ambulatory since the event but can only walk for small amount of time before the pain limits her. She states today she was not able to walk much at all. She is not having any radicular or nervelike sensations into her left lower leg. She has not noticed any color or temperature changes to the extremity. She states she is concerned for a lytic lesion given her cancer history and extensive radiation to her pelvis. complaint: hip injury and other (back) Onset (ago): week(s) Injury: Left: hip Place: street/outdoors Severity: severe Severity scale (1-10): 10 Relieving factors: nothing Exacerbating factors: weight bearing, movement and palpation Associated symptoms: Reports inability to bear weight (today has had trouble) Other symptoms: none Review of Systems Const: Denies: fever(s), chills, body aches, fatigue or malaise GI: Denies: abdominal pain : Denies: flank pain, dysuria or hematuria Musc: Reports: back pain and joint pain (L hip); Denies: neck pain, extremity pain, extremity swelling, joint swelling, joint redness or joint warmth Neuro: Reports: difficulty walking (secondary to pain); Denies: numbness in extremities, weakness in extremities or sensory changes [facility] PFSH: Medical History Asthma Chronic migraine GERD (gastroesophageal reflux disease) HTN (hypertension) Lichen sclerosus of female genitalia Diagnosed in 2017 or 2018-states she was told that she just needs to use the clobetasol if needed so she uses it very rarely. Obstructive sleep apnea Rosacea Vertigo Vitamin D deficiency Vulvar cancer Surgical History H/O esophagogastroduodenoscopy Dilation H/O esophagogastroduodenoscopy (06/24/21) History of bladder surgery 2007-had bladder lift surgery performed and states that about 3 months after surgery her bladder fell down again and she has not done anything about this. S/P hysterectomy 1991----?vaginal hysterectomy for heavy bleeding and pain. Status post arthroscopic surgery of left knee Status post colonoscopy with polypectomy (06/24/21) Status post laparotomy X 2 Thinks that she has had 2 open surgeries for cysts and problems with cysts and feels that this was before her hysterectomy but does not remember. Status post surgery (09/10/20) radical partial vulvectomy, right inguinofemoral lymphadenectomy, and left i nguinofemoral sentinel lymph node biopsy Status post surgical removal of malignant neoplasm of skin (07/15/21) Squamous cell carcinoma in situ Family History Family/Other Breast cancer maternal aunt, diagnosed in her 50s or 60s Mother Hypertension Aortic aneurysm Hyperlipidemia Lung disease Father Hypertension Cancer Brother Hypertension Anesthesia complication during surgery d/t too much anesthesia Sister Hypertension Denies family history of Colon cancer Ovarian cancer Diabetes CAD (coronary artery disease) Clotting disorder Dementia Heart disease Chronic kidney disease (CKD) Suicide Bleeding disorder Uterine cancer Thyroid condition Stroke Social History Smoking and tobacco status: former smoker (smoked x 11 years) Quit status (tobacco): has quit using tobacco Year quit tobacco: 1997 Former quit date comment: Hx of 0.5 PPD x 8 Years Second hand smoke exposure: No Smoking risk assessment/counseling performed?: No Alcohol intake: never Counseling given: No Counseling given: No Lives independently: Yes Household members: none Marital status: Current occupational status: disabled Current gender identity: Female Physical Exam Const: COMMON NORMALS: no acute distress, average body habitus, patient oriented x3, no limitations, healthy appearing, alert and well nourished Resp: COMMON NORMALS: normal respiratory effort and clear to auscultation bilaterally AUSCULTATION: clear to auscultation bilaterally Cardio: COMMON NORMALS: regular rate and regular rhythm RATE: regular rate RHYTHM: regular rhythm : COMMON NORMALS: Yes no CVA tenderness BLADDER/KIDNEY EXAM: Yes no CVA tenderness Back/Pelvis: COMMON NORMALS: no CVA tenderness THORACIC SPINE/UPPER BACK: No thoracic spinal tenderness, No paraspinal muscle tenderness and No paraspinal muscle spasm LUMBAR SPINE/LOWER BACK: Yes lumbar spinal tenderness, Yes pa raspinal muscle tenderness, No paraspinal muscle spasm and No mass present PELVIS: Yes buttock abnormal SACROILIAC JOINTS: Yes SI joint(s) abnormal SACRUM: tenderness COCCYX: no tenderness BACK IMAGE (FEMALE): 1. area of discomfort; states it feels deep ; pain is worsened with any ROM of the left hip/lower extremity rather than with direct palpation Extremity: COMMON NORMALS: normal to inspection GENERAL: Yes normal exam except as noted LEFT LOWER EXTREMITY: Yes hip joint (significant pain with ROM) Left hip: Yes neurovascular exam (normal-distal pulses/cap refill normal; normal color/temp to extremity) Neuro: COMMON NORMALS: patient oriented x3, moves all extremities, no focal motor deficits and no sensory deficits noted SENSORIUM/ORIENTATION: Yes alert GAIT: Yes Unable to assess gait Skin: COMMON NORMALS: no rashes or lesions noted GENERAL SKIN EXAM: no rashes or lesions noted Course Vital Signs: Vital signs: Vital Signs Temperature 96.8 F L 07/30/22 09:51 Pulse Rate 84 07/30/22 09:51 Respiratory Rate 14 07/30/22 12:08 Blood Pressure 137/79 07/30/22 09:51 Pulse Oximetry 95 07/30/22 12:08 Oxygen Delivery Me thod Room Air 07/30/22 09:51 MDM - Extremity Injury (Lower) Medical Decision Making XR/CTs negative for acute fracture/lytic lesions. Will be placed on NSAIDs and anti-inflammatories to treat an inflammatory component for her discomfort. Recommend follow-up with primary care. She also states she has an appointment with Dr. Mackay next week that she could use for follow-up as needed. Patient states she has pain medications at home. Return ED precautions given. Lab Data Radiology Impressions Pelvis CT 07/30/22 00:00 IMPRESSION: No acute pelvic findings. Hip/Pelvis X-Ray 07/30/22 10:03 IMPRESSION: 1. No fractures or dislocations of the left hip. 2. Normal motion with internal/external rotation. Lumbar Spine CT 07/30/22 10:35 IMPRESSION: 1. Mild lumbar curve convex LEFT. No acute compression fractures. 2. No high-grade central canal stenosis. 3. Mild annular bulging L3-L4 and L4-L5. 4. Mild LEFT L2-L3 and L3-L4 foraminal narrowing. Discharge Plan Discharge Patient Disposition: Home Clinical Impression: Acute pain of left hip Condition: Stable Prescriptions: New prednisone 10 mg tablet 10 mg PO DAILY 10 Days Qty: 27 0RF Rx Instructions: 6 tabs on days 1-2, 5 tabs on days 3, 4 tabs on day 4, 3 tabs on day 5, 2 tabs on day 6, 1 tab on day 7 diclofenac sodium 50 mg tablet,delayed release (DR/EC) 50 mg PO Q12H PRN (Reason: pain) Qty: 20 0RF No Action multivitamin Tablet 1 tab PO DAILY colestipol 1 gram tablet 1 g PO .COMPLEX MDD 4 tablets PRN (Reason: diarrhea) Qty: 120 0RF Rx Instructions: 1 g orally 2-4 tablets PRN; pantoprazole 40 mg tablet,delayed release (DR/EC) 20 mg PO DAILY Hold Instructions: Medication Not Effective gabapentin 300 mg capsule 300 mg PO BID PRN Senior Probiotic 15 billion cell capsule 30,000 mmu cells PO DAILY Rx Instructions: administer with a meal diphenoxylate-atropine [Lomotil] 2.5-0.025 mg tablet 1 tab PO QID PRN (Reason: diarrhea) Qty: 60 2RF Rx Instructions: 1 tab every 1-2 hrs until diarrhea stops, call Dr if use more than 8 tablets per day lidocaine-prilocaine 2.5-2.5 % Cream See Rx Instructions .ROUTE .COMPLEX Qty: 60 6RF Rx Instructions: Place quarter size amount over port area 1 hour prior to being accessed. Cover with plastic dressing hydrocodone-acetaminophen 5-325 mg tablet 1 tab PO Q6H PRN (Reason: pain) Qty: 14 0RF Discharge Orders: Discharge ED (Routine); Ordered 07/30/22 Ordered By: Latesha Walters Referrals: Ja Mackay MD [Primary Care Provider] - Activity Restrictions/Additional Instructions: As we discussed we will place you on anti-inflammatories and steroids to help with an inflammatory component for your left hip pain. Your XRs/CT scans today showing no acute fractures or bony lesions. Please follow-up with your primary care provider or Dr. Mackay as you have indicated you have an appointment with him next week. Coding Level of Care Code ED Crystal Finisher for Angely López
--- NOTE | 2022-07-30 10:35 | CT_ITS ---
WS: [id number] CT LUMBAR SPINE TECHNIQUE: Noncontrast CT of the lumbar spine with coronal and sagittal reformatted images. CLINICAL INFORMATION: pain/injury COMPARISON: None. DLP: 1530.[address] scans at [facility] use at least one of these dose optimization techniques: automated e xposure control; mA and/or kV adjustment per patient size (includes targeted exams where dose is matc hed to clinical indication); or iterative reconstruction. FINDINGS: Mild lumbar curve convex LEFT. No acute compression fractures. Normal visualized pelvic bony structur es. No high-grade central canal stenosis. Adrenal glands are normal. L1-L2: Normal. L2-L3: Mild annular bulging. Slight narrowing of the LEFT subarticular recess. Mild LEFT foraminal na rrowing. Mild facet arthropathy. L3-L4: Mild annular bulging. Mild facet arthropathy. Tiny LEFT lateral protrusion with mild LEFT fora marisol narrowing. Slight contact of the far exiting LEFT L3 nerve root. Mild narrowing of the subartic ular recess bilaterally. L4-L5: Mild annular bulging. Mild narrowing of the subarticular recess bilaterally. Spinal canal and foramen are patent. Mild facet arthropathy. L5-S1: Mild annular bulging. Slight contact of the S1 nerve roots. Spinal canal and foramen are paten t. Moderate facet arthropathy. Visualized pelvic bony structures: Normal. Paravertebral soft tissues: Normal. CT/CT lumbar spine wo con* [id number] IMPRESSION: 1. Mild lumbar curve convex LEFT. No acute compression fractures. 2. No high-grade central canal stenosis. 3. Mild annular bulging L3-L4 and L4-L5. 4. Mild LEFT L2-L3 and L3-L4 foraminal narrowing.
[2022-07-30] MEDS: ondansetron 2 mg/ML SDV 2 mL 4 MG IM (11:36)
[2022-07-30 11:37] VITALS: RESP 14; O2SAT 95
[2022-07-30] MEDS: morphine 4 mg/mL SDV 1 mL IM (11:37)
[2022-07-30] MEDS: dexamethasone 10 mg/mL INJ 8 MG IM (11:54)
[2022-07-30 12:08] VITALS: RESP 14; O2SAT 95
== END 2022-07-30 12:09 | disposition home or self-care (01) ==
PROVIDERS: Emergency Provider Physician Assistant; PCP Internal Medicine Medical Oncology
DX: G89.11 Acute pain due to trauma (principal); M25.552 Pain in left hip
CPT/HCPCS: 72131; 72192; 73502; 96372; 99284; J1100; J2270; J2405

== ENCOUNTER 2022-08-09 11:00 | Oncology outpatient (recurring) (ONCR) | payer MEDICARE, MEDICAID, SELFPAY ==
--- NOTE | 2022-08-05 09:30 | ONCRAD EPV_ITS ---
Radiation Oncology Follow-Up Note Patient Name: Chelsey Adams Date of : 1955 Date of Service: 08/05/2022 Attending Physician: Vasiliy Ko M.D. Chelsey Adams returned to my office this morning for a routinely scheduled follow-up appointment. She completed pelvic radiotherapy in June for the management of a recurrent vulvar cancer. She was evaluated by her family court counsellor in July of 2020 for a vulvar lesion. An examination described lichen sclerosus and a 1 cm raised abnormality with central ulceration located on the right labia majora at the 11 o'clock position. A vulvar punch biopsy diagnosed a moderately-differentiated squamous cell carcinoma. A partial vulvectomy with right inguinofemoral lymphadenectomy and left inguinofemoral sentinel lymph node biopsy was performed by Lacy Yanez M.D. September 10, 2020. A 2 cm well-differentiated keratinizing squamous cell carcinoma was resected with a depth of invasion of 3.3 mm. All surgical margins were negative for invasive carcinoma. There was no lymphovascular invasion present. The lymphadenectomy specimens did not contain lymph nodes (FIGO IB). During routine follow-up, a vulvar abnormality was noted. A punch biopsy obtained on July 21, 2021 revealed high-grade squamous intraepithelial lesion (VIN2). She was assessed at the [facility] General Surgery Department in September for abdominal pain. An abdominopelvic CT scan obtained on November 06, 2021 identified a 3 cm x 2.5 cm x 1.7 cm enhancing right inguinal lymph node and soft tissue thickening at the bladder base. A cystoscopy completed on December 07, 2021 did not identify any bladder mucosal abnormalities. An ultrasound-guided biopsy of the right inguinal lymph node was completed on January 08, 2022. The pathology report confirmed a moderately-differentiated keratinizing squamous cell carcinoma. A PET scan ordered on January 18, 2022 revealed enlarged right inguinal and external iliac lymph nodes (SUV 14.5). A partial vulvectomy with advancement flap and right inguinofemoral lymphadenectomy was completed February 03, [address] Yanez. The histological analysis did not identify visual squamous cell carcinoma in the vulvectomy specimen. A total of 3 right inguinofemoral and 1 right femoral lymph nodes were harvested. All lymph nodes harbored malignancy demonstrated extracapsular extension. The largest lymph node measured 4 cm. Pelvic radiation therapy was delivered between the dates of April 14, 2022 through June 22, 2022. A prescribed dose of 60 Gy was delivered in 30 fractions encompassing 70 elapsed days. Upon review of systems, she described left hip pain. She was evaluated at the ED last week. CT of the pelvis and lumbar spine were negative for fractures. On physical examination, the patient weighed 190 lbs. Her temperature was 96.8 ???F and the blood pressure was 147/75 mmHg. The pulse was 67 bpm and her respiratory rate was 18 breaths per minute. In summary, Ms. Adams returned for a routine post-radiotherapy follow-up. There are no residual adverse effects from radiotherapy. I will prescribe a trial of morphine 15 mg t.i,d for pain. She is aware to discontinue her other pain medications. She will continue close observation with her gynecologic oncologist. Signed by: Vasiliy Ko 08/05/2022 10:11:35 AM
[2022-08-09 11:34] LABS: Basophils % 0.3 %; Eosinophils # 0.6 10^3/uL (0.0-0.8); Eosinophils % 9.4 %; Hematocrit 34.9 % (37.0-47.0); Hemoglobin 11.3 g/dL (11.5-15.3); Lymphocytes # 1.4 10^3/uL (0.8-4.8); Lymphocytes % 23.6 %; Mean Corpuscular HGB Conc 32.4 g/dL (30.0-36.0); Mean Corpuscular Hemoglobin 34.2 pg (28.0-34.0); Mean Corpuscular Volume 105.8 fl (81-99); Mean Platelet Volume 8.6 fL (7.4-10.4); Monocytes # 0.6 10^3/uL (0.2-0.9); Monocytes % 10.8 %; Neutrophils # 3.23 10^3/uL (1.8-7.7); Neutrophils % 55.2 %; Nucleated Red Blood Cells % 0 %; Platelet Count 280 10^3/cmm (130-400); Red Cell Distribution Width 14.6 % (12.1-15.1); White Blood Count 5.9 10^3/uL (4.0-10.0)
[2022-08-09 11:53] LABS: Alanine Aminotransferase 57 U/L (0-33); Albumin Level 4.2 g/dL (3.5-5.2); Alkaline Phosphatase 154 U/L (35-105); Anion Gap 14.3 (5-19); Aspartate Amino Transferase 40 U/L (0-32); Blood Urea Nitrogen 15 mg/dL (8-23); Carbon Dioxide 26 mmol/L (22-29); Chloride 100 mmol/L (98-107); Globulin 2.7 g/dL (1.3-4.6); Glucose 104 mg/dL (65-115); Osmolality Calculated 283 mOsm/kg (285-295); Potassium 4.3 mmol/L (3.5-5.1); Sodium 136 mmol/L (136-145); Total Bilirubin 0.4 mg/dL (0.15-1.2); Total Protein 6.9 g/dL (6.6-8.7)
[2022-08-09 14:56] LABS: 25 Hydroxy Vitamin D 42 ng/mL (30-100); Vitamin B12 830 pg/mL (232-1245)
== END 2022-08-15 23:59 | disposition home or self-care (01) ==
PROVIDERS: Nurse Practitioner Family; PCP Internal Medicine Medical Oncology; Visit Provider Radiology Radiation Oncology
DX: C51.8 Malignant neoplasm of overlapping sites of vulva (principal); C77.8 Secondary and unspecified malignant neoplasm of lymph nodes of multiple regions; Z90.79 Acquired absence of other genital organ(s); Z90.89 Acquired absence of other organs; R19.7 Diarrhea, unspecified; R10.84 Generalized abdominal pain; M54.32 Sciatica, left side; Z79.899 Other long term (current) drug therapy; Z87.891 Personal history of nicotine dependence
CPT/HCPCS: 36591; 80053; 82306; 82607; 85025; 99213; 99214

== ENCOUNTER 2022-08-17 08:00 | Outpatient (CLI) | payer MEDICARE, MEDICAID, SELFPAY ==
--- NOTE | 2022-08-17 08:11 | US_ITS ---
WS: [id number] RIGHT UPPER QUADRANT ULTRASOUND HISTORY: POSTPRANDIAL EPIGASTRIC PAIN COMPARISON: None available. Liver: 16.3 cm in length. Mild hepatic steatosis. Coarse echotexture with no mass. No bile duct dilat ation. Portal Vein: Normal hepatopetal flow with monophasic waveform. Gallbladder: Normally distended gallbladder with no stones or wall thickening. CBD: 0.3 cm Pancreas: Normal size and echogenicity. Right kidney: 9.8 cm in length. Normal size and echogenicity. No hydronephrosis or mass. Aorta and IVC: Unremarkable abdominal aorta and IVC. No ascites. US/US abdomen limited [id number] IMPRESSION: 1. Normal gallbladder. 2. No bile duct dilatation. 3. Mild hepatic steatosis.
== END 2022-08-17 08:01 | disposition home or self-care (01) ==
PROVIDERS: PCP Nurse Practitioner Family; Visit Provider Internal Medicine
DX: R10.13 Epigastric pain (principal)
CPT/HCPCS: 76705

== ENCOUNTER 2022-08-24 07:41 | Outpatient (CLI) | payer MEDICARE, MEDICAID, SELFPAY ==
--- NOTE | 2022-08-24 07:46 | NM_ITS ---
WS: [id number] NUCLEAR MEDICINE HIDA SCAN WITH GALLBLADDER EJECTION FRACTION HISTORY: POSTPRANDIAL EPIGASTRIC PAIN COMPARISON: 05/21/2019 and prior ultrasound 08/17/2022 TECHNIQUE: The patient was intravenously injected with 7. mCi of TC99m Mebrofenin. Immediate imaging over the right upper quadrant was followed by 5 minute image and additional images for a total of 60 minutes. Normal uptake of radiotracer throughout the liver. Activity identified in the gallbladder at 60 minutes and well distended by 60 minutes. Activity in the proximal small bowel was seen by 15 minutes. Good washout of the radiotracer from the liver by 60 minutes. The patient then drank 8 ounces of Ensure Plus. Ejection fraction at 60 minutes was 65%. Normal GB ej ection fraction is 35-75%. Post fatty meal symptoms: None. NM/NM hepatobiliary w phar* [id number] IMPRESSION: 1. Normal HIDA scan. 2. Normal gallbladder ejection fraction.
== END 2022-08-24 07:42 | disposition home or self-care (01) ==
LOC: RAD 07:43
PROVIDERS: PCP Nurse Practitioner Family; Visit Provider Internal Medicine
DX: R10.13 Epigastric pain (principal)
CPT/HCPCS: 78227; A9537

== ENCOUNTER → 2022-08-31 14:05 | Outpatient (BNVA) | payer MEDICARE, MEDICAID, SELFPAY | PROVIDERS: PCP Nurse Practitioner Family; Visit Provider Internal Medicine Pulmonary Disease | DX: J45.909 Unspecified asthma, uncomplicated (principal); J43.9 Emphysema, unspecified; R07.9 Chest pain, unspecified; R68.84 Jaw pain; Z87.891 Personal history of nicotine dependence | CPT/HCPCS: 99214 ==

== ENCOUNTER 2022-09-06 12:53 | Oncology outpatient (recurring) (ONCR) | payer MEDICARE, MEDICAID, SELFPAY ==
[2022-09-06 13:35] VITALS: BP 124/69; PULSE 76; RESP 18; TEMP 35.9; O2SAT 99
== END 2022-09-15 23:59 | disposition home or self-care (01) ==
PROVIDERS: PCP Internal Medicine Cardiovascular Disease; Visit Provider Radiology Radiation Oncology
DX: Z45.2 Encounter for adjustment and management of vascular access device (principal); C51.8 Malignant neoplasm of overlapping sites of vulva
CPT/HCPCS: 96523; J1642

== ENCOUNTER 2022-10-04 12:40 | Oncology outpatient (recurring) (ONCR) | payer MEDICARE, MEDICAID, SELFPAY ==
[2022-10-04 12:41] VITALS: BP 135/81; PULSE 96; RESP 18; TEMP 36.4; O2SAT 96
== END 2022-10-15 23:59 | disposition home or self-care (01) ==
PROVIDERS: PCP Internal Medicine Cardiovascular Disease; Visit Provider Radiology Radiation Oncology
DX: Z45.2 Encounter for adjustment and management of vascular access device
CPT/HCPCS: 96523; J1642

== ENCOUNTER 2022-10-23 05:47 | Outpatient (CLI) | payer MEDICARE, MEDICAID, SELFPAY ==
--- NOTE | 2022-10-23 | PETR_ITS ---
PROCEDURE INFORMATION: Exam: PET/CT Skull Base to Mid-thigh Exam date and time: 10/23/2022 10:33 AM Age: 67 years old Clinical indication: Condition or disease; Primary cancer: Vulvar cancer; Follow-up oncological assessment LABS AND CLINICAL REPORTS: Glucose: 102 mg/dl Treatment strategy for malignancy (PET staging): Restaging (PS) TECHNIQUE: Imaging protocol: Following at least four-hour fasting and following the injection of radiopharmaceutical, low dose CT images were obtained. Then, PET images were obtained. Attenuation corrected images were constructed using the CT scan. Fused images of PET and CT were reviewed. The standardized uptake values (SUV) reported below are maximum values within a region of interest, expressed in gm/ml. Exam includes orbital meatal line to mid-thigh. Radiopharmaceutical: 15.25 mCi F-18 FDG (Fluorodeoxyglucose), IV. Time of imaging post radiopharmaceutical administration: 1 hour Injection site: Left antecubital COMPARISON: CT lumbar spine 07/30/2022, CT pelvis 07/30/2022, PT PET Scan 01/18/2022 3:29 PM FINDINGS: Tubes, catheters and devices: A left subclavian central venous port catheter terminates in the distal SVC. Brain: Visualized brain has normal physiologic uptake. Pharynx: No abnormal uptake. Larynx: No abnormal uptake. Lungs, pleura and trachea: No abnormal uptake. Heart: Normal physiologic uptake. Mediastinal space: No abnormal uptake. Diaphragm: There is a moderate hiatal hernia. No abnormal uptake. Liver: No abnormal uptake. Gallbladder and bile ducts: No abnormal uptake. Pancreas: No abnormal uptake. Spleen: No abnormal uptake. Adrenal glands: No abnormal uptake. Kidneys and ureters: Normal physiologic uptake. Stomach and bowel: No abnormal uptake. Reproductive: The uterus is not identified, likely surgically absent. No abnormal uptake in the region of the vulva. Vasculature: No abnormal uptake. There are diffuse atherosclerotic changes. Lymph nodes: Please refer to Soft tissues findings below. Bones/joints: Elevated uptake is noted in a region of vertically oriented mixed lucency and sclerosis consistent with a healing stress fracture that is new compared with 07/30/2022 involving the lateral left sacrum best demonstrated on series 3, image 120 through 129, SUV max 6.0. Vertically oriented elevated uptake in the lateral right sacrum is also noted without a well-defined fracture line on the CT images, SUV max 4.0. This abnormal uptake in the sacrum is new since the prior PET-CT. There is mild diffuse vertebral body spondylosis. Soft tissues: A soft tissue ovoid density nodule in the superior right inguinal region on series 3, image 133 possibly representing a lymph node is identified measuring 1.9 x 1.0 cm, SUV max 15.4. This structure lies superior to right inguinal region surgical clips and is new since the prior PET-CT. Mild streaky density in this region was noted on the comparison CT of 07/30/2022. [id number] IMPRESSION: 1. A new ovoid region of soft tissue density possibly representing a lymph node in the superior right inguinal region is noted which is new since the prior PET-CT and significantly more conspicuous compared with 07/30/2022. This region demonstrates abnormal uptake (SUV max 15.4) compatible with malignancy. 2. New abnormal uptake in the left sacrum is identified, related to a benign healing stress fracture. New uptake in the right sacrum is also noted and although no well-defined fracture line is noted on the CT images, this uptake is also compatible with a stress fracture, likely acute to subacute. 3. Additional nonurgent findings as detailed above.
== END 2022-10-23 05:48 | disposition home or self-care (01) ==
LOC: RAD 10-25 05:48
PROVIDERS: PCP Internal Medicine Cardiovascular Disease; Visit Provider Nurse Practitioner Family
DX: C51.9 Malignant neoplasm of vulva, unspecified (principal); R10.31 Right lower quadrant pain; R59.9 Enlarged lymph nodes, unspecified; R19.09 Other intra-abdominal and pelvic swelling, mass and lump; R10.2 Pelvic and perineal pain; Z92.3 Personal history of irradiation; Z99.3 Dependence on wheelchair; M84.38XA Stress fracture, other site, initial encounter for fracture; T14.8XXA Other injury of unspecified body region, initial encounter; X58.XXXA Exposure to other specified factors, initial encounter; Y93.9 Activity, unspecified; Y92.9 Unspecified place or not applicable; Y99.9 Unspecified external cause status
CPT/HCPCS: 78815; A9552

== ENCOUNTER 2022-10-26 15:04 | Inpatient (IN) | payer MEDICARE, MEDICAID, SELFPAY ==
[2022-10-26 15:21] VITALS: BP 169/104; PULSE 79; RESP 16; TEMP 36.5; O2SAT 97; BMI 29.7
--- NOTE | 2022-10-26 16:30 | W.ED.EXTPRO ---
HPI - Extremity Problem General: Chief complaint: Extremity Problem,Nontraumatic Stated complaint: Leg pain Time Seen by Provider: 10/26/22 16:06 Source: patient Mode of arrival: ambulatory History of Present Illness: 67-year-old female with a known history of vulvar squamous cell CA. She presents to the emergency room with complaint of pelvic pain. She has undergone chemo and radiation she had a very difficult course. Now she has a recurrent lymph node that they are considering biopsying. Recently she has been having low back and hip pain seems to be radiating from the sacral area on October 23 she had a PET scan which shows bilateral sacral insufficiency fractures. When her pain first began was initially on the left and now is on the right as well. 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 She denies any dysuria urgency or frequency chest pain or shortness of breath. She has not had any fevers sweats or chills. Discussed the case with Dr. Mackay during the course of her chemo and radiation treatment she did receive very high-dose radiation Dr. Mackay's opinion was that these fractures are most likely as a result of insufficiency due to the radiation exposure not spread of her cancer. MD Complaint: extremity pain Onset (ago): hour(s) Radiation: none Relieving factors: nothing Exacerbating factors: nothing Associated symptoms: Deny arthralgias, chest pain, fever(s), myalgias, rash or short of breath Review of Systems Const: Denies: fever(s) ENMT: Denies: throat pain, ear or mastoid pain, nasal discharge or nasal congestion Card: Denies: chest pain Resp: Denies: dyspnea, productive cough or non-productive cough GI: Denies: abdominal pain, nausea, vomiting, hematemesis, coffee ground emesis, diarrhea, constipation, bloating, hematochezia or melena : Denies: flank pain, difficulty voiding, dysuria, urinary frequency or urinary urgency Skin/Breast: Denies: rash PFSH ED PFSH: Medical History Asthma Chronic migraine GERD (gastroesophageal reflux disease) HTN (hypertension) Lichen sclerosus of female genitalia Diagnosed in 2017 or 2018-states she was told that she just needs to use the clobetasol if needed so she uses it very rarely. Obstructive sleep apnea Rosacea Vertigo Vitamin D deficiency Vulvar cancer Surgical History H/O esophagogastroduodenoscopy Dilation H/O esophagogastroduodenoscopy (06/24/21) History of bladder surgery 2007-had bladder lift surgery performed and states that about 3 months after surgery her bladder fell down again and she has not done anything about this. S/P hysterectomy 1991----?vaginal hysterectomy for heavy bleeding and pain. Status post arthroscopic surgery of left knee Status post colonoscopy with polypectomy (06/24/21) Status post laparotomy X 2 Thinks that she has had 2 open surgeries for cysts and problems with cysts and feels that this was before her hysterectomy but does not remember. Status post surgery (09/10/20) radical partial vulvectomy, right inguinofemoral lymphadenectomy, and left inguinofemoral sentinel lymph node biopsy Status post surgical removal of malignant neoplasm of skin (07/15/21) Squamous cell carcinoma in situ Family History Family/Other Breast cancer maternal aunt, diagnosed in her 50s or 60s Mother Hypertension Aortic aneurysm Hyperlipidemia Lung disease Father Hypertension Cancer Brother Hypertension Anesthesia complication during surgery d/t too much anesthesia Sister Hypertension Denies family history of Colon cancer Ovarian cancer Diabetes CAD (coronary artery disease) Clotting disorder Dementia Heart disease Chronic kidney disease (CKD) Suicide Bleeding disorder Uterine cancer Thyroid condition Stroke Social History Smoking and tobacco status: former smoker (smoked x 11 years) Quit status (tobacco): has quit using tobacco Year quit tobacco: 1997 Former quit date comment: Hx of 0.5 PPD x 8 Years Second hand smoke exposure: No Smoking risk assessment/counseling performed?: No Alcohol intake: never Counseling given: No Substance/Drug Use: never Counseling given: No Lives independently: Yes Household members: none Marital status: Current occupational status: disabled Do you think of yourself as: Straight/Heterosexual Current gender identity: Female Physical Exam Const: COMMON NORMALS: no acute distress GENERAL APPEARANCE: cooperative and comfortable ORIENTATION/CONSCIOUSNESS: Yes awake, Yes oriented to person, Yes oriented to place and Yes oriented to time HENMT: COMMON NORMALS: normocephalic, atraumatic and hearing grossly normal bilaterally HEAD & SCALP: normocephalic and atraumatic Resp: COMMON NORMALS: normal respiratory effort, No retractions, No use of accessory muscles and clear to auscultation bilaterally AUSCULTATION: clear to auscultation bilaterally Cardio: COMMON NORMALS: regular rate, regular rhythm and No murmurs present (Cardio) RATE: regular rate RHYTHM: regular rhythm GI: COMMON NORMALS: Soft to palpation and No hepatosplenomegaly present AUSCULTATION: Yes normoactive bowel sounds PALPATION: Yes Soft to palpation, No Tenderness to palpation present (GI), No Guarding due to palpation present (GI) and Yes No hepatosplenomegaly present Extremity: COMMON NORMALS: normal to inspection, capillary refill normal, no clubbing, cyanosis or edema, no calf tenderness and no pedal edema Neuro: SENSORIUM/ORIENTATION: Yes oriented to person, Yes oriented to place and Yes oriented to time Skin: COMMON NORMALS: no rashes or lesions noted GENERAL SKIN EXAM: no rashes or lesions noted Course Vital Signs: Vital signs: Vital Signs Temperature 98.6 F 10/28/22 04:24 Pulse Rate 69 10/28/22 04:24 Respiratory Rate 16 10/28/22 04:24 Blood Pressure 113/68 10/28/22 04:24 Pulse Oximetry 99 10/28/22 04:24 Oxygen Delivery Me thod Room Air 10/27/22 16:00 MDM - Extremity (Nontraumatic) Medical Decision Making Bilateral sacral alae fractures due to insufficiency likely from radiation exposure for treatment previously. She is unable to ambulate she is in a difficult time sitting due to extreme pain. She does not have adequate social support to manage at home with family or friends. She will likely need to be admitted to the retirement discussed this with her at this point I do not believe home health would be adequate to meet her needs. She is in agreement will admit for pain control and placement. Medical Records I reviewed the patient's medical records. Lab Data I reviewed the patient's lab results. 10/28/22 04:26 10/28/22 04:26 Laboratory Results WBC 5.1 10^3/uL (4.0-10.0) 10/26/22 16:47 RBC 4.18 10^6/uL (4.1-5.3) 10/26/22 16:47 Hgb 13.0 g/dL (11.5-15.3) 10/26/22 16:47 Hct 41.5 % (37.0-47.0) 10/26/22 16:47 MCV 99.3 fl (81-99) H 10/26/22 16:47 MCH 31.1 pg (28.0-34.0) 10/26/22 16:47 MCHC 31.3 g/dL (30.0-36.0) 10/26/22 16:47 RDW 12.2 % (12.1-15.1) 10/26/22 16:47 Plt Count 295 10^3/cmm (130-400) 10/26/22 16:47 MPV 8.9 fL (7.4-10.4) 10/26/22 16:47 Neut % (Auto) 62.1 % 10/26/22 16:47 Lymph % (Auto) 23.8 % 10/26/22 16:47 Navarro % (Auto) 9.8 % 10/26/22 16:47 Eos % (Auto) 3.3 % 10/26/22 16:47 Baso % (Auto) 0.6 % 10/26/22 16:47 Neut # (Auto) 3.16 10^3/uL (1.8-7.7) 10/26/22 16:47 Lymph # (Auto) 1.2 10^3/uL (0.8-4.8) 10/26/22 16:47 Navarro # (Auto) 0.5 10^3/uL (0.2-0.9) 10/26/22 16:47 Eos # (Auto) 0.2 10^3/uL (0.0-0.8) 10/26/22 16:47 Baso # (Auto) 0.0 10^3/uL (0.0-0.1) 10/26/22 16:47 Nucleated RBC % (auto) 0 % 10/26/22 16:47 Nucleated RBCs # 0.0 /100WBC 10/26/22 16:47 Sodium 140 mmol/L (136-145) 10/26/22 16:47 Potassium 3.8 mmol/L (3.5-5.1) 10/26/22 16:47 Chloride 100 mmol/L (98-107) 10/26/22 16:47 Carbon Dioxide 28 mmol/L (22-29) 10/26/22 16:47 Anion Gap 15.8 (5-19) 10/26/22 16:47 BUN 16 mg/dL (8-23) 10/26/22 16:47 Creatinine 0.7 mg/dL (0.5-0.9) 10/26/22 16:47 GFR Calculation 84.0 mL/min (90-130) L 10/26/22 16:47 Glucose 89 mg/dL (65-115) 10/26/22 16:47 Calculated Osmolality 291 mOsm/kg (285-295) 10/26/22 16:47 Calcium 9.6 mg/dL (8.5-10.5) 10/26/22 16:47 Total Bilirubin 0.3 mg/dL (0.15-1.2) 10/26/22 16:47 AST 46 U/L (0-32) H 10/26/22 16:47 ALT 75 U/L (0-33) H 10/26/22 16:47 Alkaline Phosphatase 270 U/L (35-105) H 10/26/22 16:47 Total Protein 8.6 g/dL (6.6-8.7) 10/26/22 16:47 Albumin 4.7 g/dL (3.5-5.2) 10/26/22 16:47 Globulin 3.9 g/dL (1.3-4.6) 10/26/22 16:47 25-OH Vitamin D Total 46 ng/mL (30-100) 10/26/22 16:45 TSH 2.29 uIU/mL (0.27-4.20) 10/26/22 16:47 Discharge Plan Discharge Patient Disposition: Admitted As Inpatient Admit Provider: Farrukh Meyer Clinical Impression: Sacral fracture, closed, Left sciatic nerve pain, Intractable pain, Primary vulvar squamous cell carcinoma Condition: Stable Coding Level of Care Code ED Sewage Reticulation Drafting Officer for Angely López
[2022-10-26] MEDS: HYDROmorphone 1 mg/mL INJ 1 mL 0.5 MG IVP (17:08)
[2022-10-26] MEDS: ondansetron 2 mg/ML SDV 2 mL 4 MG IVP ×2 (17:08→19:42)
[2022-10-26 17:10] VITALS: BP 175/98; PULSE 71; RESP 16; O2SAT 96
[2022-10-26 18:00] VITALS: BP 159/85
[2022-10-26 20:08] VITALS: BP 153/79; PULSE 72; RESP 18; TEMP 36.1; O2SAT 94
[2022-10-26 22:17] LABS: Basophils % 0.6 %; Eosinophils # 0.2 10^3/uL (0.0-0.8); Eosinophils % 3.3 %; Hematocrit 41.5 % (37.0-47.0); Lymphocytes # 1.2 10^3/uL (0.8-4.8); Lymphocytes % 23.8 %; Mean Corpuscular HGB Conc 31.3 g/dL (30.0-36.0); Mean Corpuscular Hemoglobin 31.1 pg (28.0-34.0); Mean Corpuscular Volume 99.3 fl (81-99); Mean Platelet Volume 8.9 fL (7.4-10.4); Monocytes # 0.5 10^3/uL (0.2-0.9); Monocytes % 9.8 %; Neutrophils # 3.16 10^3/uL (1.8-7.7); Neutrophils % 62.1 %; Nucleated Red Blood Cells % 0 %; Platelet Count 295 10^3/cmm (130-400); Red Blood Count 4.18 10^6/uL (4.1-5.3); Red Cell Distribution Width 12.2 % (12.1-15.1); White Blood Count 5.1 10^3/uL (4.0-10.0)
--- NOTE | 2022-10-26 22:17 | P.HP_ITS ---
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 There was involvement in 1 femoral node and in 3/3 inguinofemoral nodes.? She received radiation treatment with cisplatin chemotherapy. She has been experiencing persisting back ache , initially worse on the left side then also involved her right side since her surgery in January. Most recently she received local steroid injections with her PCP to the left hip which improved symptoms mildly. Over the past few weeks, pain is worse on the right inguinla, right hip and right side of he pelvis. She reports numbness in all her toes which developed during the course of chemotherapy. With the worsening back pain it has been very difficult for her to ambulate and she now has to use a walker. She has radiating pain on the rigth thigh intermittently. She has been taking po hydocodone at home which does no help. Ibuprofen used to alleviate her smptoms but is no longer working either. She tried gabapentin but then discontinued it due to sevre nausea. Most recently her PET/CT on october showed sacral insufficiency fractures, new since 07/2022. Incidentally also noted right inguinal lymph node with SUV 15 suspicious for malignancy. No fever, chills, urinary or bowel retention or incontinence. H/o UTI 2 weeks ago treated with po abx with PCP. No current dysuria. She received morphine and Dilaudid in [facility] ER today which resulted in vomiting. N ow also c/o headcahe which is similar to her known migraine episodes. Review of Systems General: Reports: 10 or more systems reviewed and unremarkable except in HPI and below Const: Denies: fever(s), chills or body aches Eyes: Denies: change in vision, blurry vision or photophobia ENMT: Reports: hoarseness; Denies: throat pain, enlarged tonsils, odynophagia or nasal congestion Card: Denies: chest pain, palpitations, irregular heart rhythm, edema, swelling of feet/ankles, lightheadedness, pre-syncope, dyspnea on exertion or orthopnea Resp: Denies: dyspnea, productive cough, non-productive cough, wheezing, stridor, pain on inspiration, change in phlegm color, hemoptysis or chest congestion GI: Denies: abdominal pain, nausea, vomiting, hematemesis, coffee ground emesis, dysphagia, heartburn, diarrhea, constipation, GI cramping, change in stool character, hematochezia or melena : Denies: flank pain, difficulty voiding, dysuria, urinary frequency, urinary urgency, urinary hesitancy or hematuria Musc: Denies: neck pain, back pain, extremity pain, joint swelling, joint warmth or deformity Neuro: Denies: headache(s), numbness in extremities, weakness in extremities, sensory changes, difficulty walking, frequent falls, dizziness, vertigo, behavioral changes, Slurred speech present or seizure-like activity Psych: Denies: anxiety, depression, suicidal ideation or homicidal ideation Endo: Denies: polyuria, polydipsia, tired all the time, cold intolerance or hot flashes José Luis/Lymph: Denies: easy bruising or easy bleeding Medications/Allergies Home Medications Medication Instructions Recorded Confirmed Last Taken Type pantoprazole 40 mg tablet,delayed 20 mg PO DAILY 08/20/21 06/23/22 Unknown History release multivitamin 1 tab PO DAILY 04/01/22 08/09/22 Unknown History lidocaine-prilocaine 2.5 %-2.5 % See Rx Instructions .Route 04/14/22 08/09/22 Unknown Rx topical cream .COMPLEX #60 grams gabapentin 300 mg capsule 300 mg PO BID PRN 04/21/22 08/09/22 Unknown History diphenoxylate-atropine 2.5 1 tab PO QID PRN diarrhea #60 tabs 05/04/22 08/09/22 Unknown Rx mg-0.025 mg tablet (Lomotil) colestipol 1 gram tablet 1 g PO .COMPLEX PRN diarrhea #120 05/10/22 08/31/22 Unknown Rx tabs hydrocodone 5 mg-acetaminophen 325 1 tab PO Q6H PRN pain #14 tabs 05/22/22 08/09/22 Unknown Rx mg tablet lactobacillus combination no.4 15 30,000 mmu cells PO DAILY 06/09/22 08/09/22 Unknown History billion cell capsule (Senior Probiotic) diclofenac sodium 50 mg 50 mg PO Q12H PRN pain #20 tabs 07/30/22 08/09/22 Unknown Rx tablet,delayed release Allergies Allergy/AdvReac Type Severity Reaction Status Date / Time milk Allergy Severe coughing Verified 08/09/22 12:39 egg Allergy ADR-Abdominal Verified 08/09/22 12:39 Pain ibuprofen Allergy Hives Verified 08/09/22 12:39 codeine AdvReac ADR-Vomitin Verified 08/09/22 12:39 g PFSH Acute PFSH: Medical History Asthma Chronic migraine GERD (gastroesophageal reflux disease) HTN (hypertension) Lichen sclerosus of female genitalia Diagnosed in 2017 or 2018-states she was told that she just needs to use the clobetasol if needed so she uses it very rarely. Obstructive sleep apnea Rosacea Vertigo Vitamin D deficiency Vulvar cancer Surgical History H/O esophagogastroduodenoscopy Dilation H/O esophagogastroduodenoscopy (06/24/21) History of bladder surgery 2007-had bladder lift surgery performed and states that about 3 months after surgery her bladder fell down again and she has not done anything about this. S/P hysterectomy 1991----?vaginal hysterectomy for heavy bleeding and pain. Status post arthroscopic surgery of left knee Status post colonoscopy with polypectomy (06/24/21) Status post laparotomy X 2 Thinks that she has had 2 open surgeries for cysts and problems with cysts and feels that this was before her hysterectomy but does not remember. Status post surgery (09/10/20) radical partial vulvectomy, right inguinofemoral lymphadenectomy, and left inguinofemoral sentinel lymph node biopsy Status post surgical removal of malignant neoplasm of skin (07/15/21) Squamous cell carcinoma in situ Family History Family/Other Breast cancer maternal aunt, diagnosed in her 50s or 60s Mother Hypertension Aortic aneurysm Hyperlipidemia Lung disease Father Hypertension Cancer Brother Hypertension Anesthesia complication during surgery d/t too much anesthesia Sister Hypertension Denies family history of Colon cancer Ovarian cancer Diabetes CAD (coronary artery disease) Clotting disorder Dementia Heart disease Chronic kidney disease (CKD) Suicide Bleeding disorder Uterine cancer Thyroid condition Stroke Social History Smoking and tobacco status: former smoker (smoked x 11 years) Quit status (tobacco): has quit using tobacco Year quit tobacco: 1997 Former quit date comment: Hx of 0.5 PPD x 8 Years Second hand smoke exposure: No Smoking risk assessment/counseling performed?: No Alcohol intake: never Counseling given: No Substance/Drug Use: never Counseling given: No Lives independently: Yes Household members: none Marital status: Current occupational status: disabled Do you think of yourself as: Straight/Heterosexual Current gender identity: Female Vitals/I&O/Wt Last Vital Signs Temp 96.9 F L 10/26/22 20:08 Pulse 72 10/26/22 20:08 Resp 18 10/26/22 20:08 BP 153/79 10/26/22 20:08 Pulse Ox 94 10/26/22 20:08 O2 Del Method Room Air 10/26/22 18:15 Weight last 48 hrs Weight 86.183 kg Physical Exam Narrative: General: No acute distress, AO x3 HEENT: PERRLA, pupils bilaterally equal and reactive, pallors not present Chest: Normal vesicular breath sounds, no added sounds, equal good air entry bilaterally CVS: S1-S2 regular, no murmurs, no tachycardia, no gallops, no rubs Abdomen: Soft, nontender, no organomegaly, bowel sounds present Neuro: No focal deficits, no facial deformity, AO x3, power 5/5 in all limbs Extremities: no edema clubing or cyanosis. Palpable lymph node in right inguinal area. Data 10/26/22 16:47 10/26/22 16:47 Other data: [address] [address] PET Scan Report Signed Patient: Chelsey Adams Unit #: [id number] : 1955 Age/Sex: 67 / F ADM Date: 10/23/22 Loc: RAD Room/Bed: Attending Dr: Elina Corcoran RN, JAKE, JULIO Ordering Provider/Ordering MD: Elina Corcoran RN, JAKE, JULIO Date of Service: 10/23/22 Procedure(s): PET skulltothigh SUBSEQ [id number] Accession Number(s): [id number] Report Number: [id number] PROCEDURE INFORMATION: Exam: PET/CT Skull Base to Mid-thigh Exam date and time: 10/23/2022 10:33 AM Age: 67 years old Clinical indication: Condition or disease; Primary cancer: Vulvar cancer; Follow-up oncological assessment LABS AND CLINICAL REPORTS: Glucose: 102 mg/dl Treatment strategy for malignancy (PET staging): Restaging (PS) TECHNIQUE: Imaging protocol: Following at least four-hour fasting and following the injection of radiopharmaceutical, low dose CT images were obtained. Then, PET images were obtained. Attenuation corrected images were constructed using the CT scan. Fused images of PET and CT were reviewed. The standardized uptake values (SUV) reported below are maximum values within a region of interest, expressed in gm/ml. Exam includes orbital meatal line to mid-thigh. Radiopharmaceutical: 15.25 mCi F-18 FDG (Fluorodeoxyglucose), IV. Time of imaging post radiopharmaceutical administration: 1 hour Injection site: Left antecubital COMPARISON: CT lumbar spine 07/30/2022, CT pelvis 07/30/2022, PT PET Scan 01/18/2022 3:29 PM FINDINGS: Tubes, catheters and devices: A left subclavian central venous port catheter terminates in the distal SVC. Brain: Visualized brain has normal physiologic uptake. Pharynx: No abnormal uptake. Larynx: No abnormal uptake. Lungs, pleura and trachea: No abnormal uptake. Heart: Normal physiologic uptake. Mediastinal space: No abnormal uptake. Diaphragm: There is a moderate hiatal hernia. No abnormal uptake. Liver: No abnormal uptake. Gallbladder and bile ducts: No abnormal uptake. Pancreas: No abnormal uptake. Spleen: No abnormal uptake. Adrenal glands: No abnormal uptake. Kidneys and ureters: Normal physiologic uptake. Stomach and bowel: No abnormal uptake. Reproductive: The uterus is not identified, likely surgically absent.? No abnormal uptake in the region of the vulva. Vasculature: No abnormal uptake. There are diffuse atherosclerotic changes. Lymph nodes: Please refer to Soft tissues findings below. Bones/joints: Elevated uptake is noted in a region of vertically oriented mixed lucency and sclerosis consistent with a healing stress fracture that is new compared with 07/30/2022 involving the lateral left sacrum best demonstrated on series 3, image 120 through 129, SUV max 6.0. Vertically oriented elevated uptake in the lateral right sacrum is also noted without a well-defined fracture line on the CT images, SUV max 4.0. This abnormal uptake in the sacrum is new since the prior PET-CT. There is mild diffuse vertebral body spondylosis. Soft tissues: A soft tissue ovoid density nodule in the superior right inguinal region on series 3, image 133 possibly representing a lymph node is identified measuring 1.9 x 1.0 cm, SUV max 15.4. This structure lies superior to right inguinal region surgical clips and is new since the prior PET-CT. Mild streaky density in this region was noted on the comparison CT of 07/30/2022. [id number] IMPRESSION: 1. ? A new ovoid region of soft tissue density possibly representing a lymph node in the superior right inguinal region is noted which is new since the prior PET-CT and significantly more conspicuous compared with 07/30/2022. This region demonstrates abnormal uptake (SUV max 15.4) compatible with malignancy. 2. ? New abnormal uptake in the left sacrum is identified, related to a benign healing stress fracture. New uptake in the right sacrum is also noted and although no well-defined fracture line is noted on the CT images, this uptake is also compatible with a stress fracture, likely acute to subacute. 3. ? Additional nonurgent findings as detailed above. A&P Assessment and plan (1) Sacral fracture, closed: sacral fractures identified in the left sacrum and new uptake in the right sacrum which may be help desk representative of acute to subacute fracture. uncertain timeline, patient does not recall any obvious trauma She has needed to use a walker for stability and has had more frequent falls Likely pathologic fracture Check vi D level per ER discussion with oncology, may be related to radiation effect on bon e no lumbar fractures on recent PET PT/OT assessment (2) Intractable pain: related to sacral fractures, painful LAD in inguinal canal Has tried po opiates , gabapentin and NSAIDs at home withotu relief Currently using walker to ambulate dur to pain Pain is more acutely worsened ove rthe past week Will start iv toradol, tylenol, fentanyl patch 25 mcg for pain management along with locally placed lidocaine patch patient wishes to avoid iv opiates due to severe nausea and vomiting States that she has previosuly used fentanyl patch for post op pain and tolerates it well (3) Squamous cell carcinoma of vulva: (4) Lymphadenopathy: suspected recurrence based on PET appearace will need biopsy to further assess Plan DVT ppx: lovenox Full code Attestations Medical Necessity Statement*: intractable pain, needing iv NSAIDs, start fentanl patch, inability to walk with frequent falls, needs therapy assessments and dispsition planning Coding Level of Care Code Acute Code for Chg Fwd Moderate MDM includes number and complexity of problems actively addressed be bob encounter, amount and/or complexity of data reviewed/ordered and described risk of complication, morbidity or mortality of management as documented Diagnoses Sacral fracture, closed S32.10XA Intractable pain R52 Squamous cell carcinoma of vulva C51.9 Lymphadenopathy R59.1
[2022-10-26 22:51] LABS: Alanine Aminotransferase 75 U/L (0-33); Albumin Level 4.7 g/dL (3.5-5.2); Alkaline Phosphatase 270 U/L (35-105); Anion Gap 15.8 (5-19); Aspartate Amino Transferase 46 U/L (0-32); Blood Urea Nitrogen 16 mg/dL (8-23); Calcium 9.6 mg/dL (8.5-10.5); Carbon Dioxide 28 mmol/L (22-29); Chloride 100 mmol/L (98-107); Creatinine Clr Calc Pharmacy 79.0602; Globulin 3.9 g/dL (1.3-4.6); Glucose 89 mg/dL (65-115); Osmolality Calculated 291 mOsm/kg (285-295); Potassium 3.8 mmol/L (3.5-5.1); Sodium 140 mmol/L (136-145); Thyroid Stimulating Hormone 2.29 uIU/mL (0.27-4.20); Total Bilirubin 0.3 mg/dL (0.15-1.2); Total Protein 8.6 g/dL (6.6-8.7)
[2022-10-26] MEDS: fentaNYL 25 mcg Patch 1 PATCH TRANSDERMA (23:02)
[2022-10-26] MEDS: enoxaparin 40 mg/0.4 mL Syringe SUBCUT (23:04)
[2022-10-26 23:07] LABS: 25 Hydroxy Vitamin D 46 ng/mL (30-100)
[2022-10-26] MEDS: ketorolac 30 mg/mL INJ 15 MG IVP (23:19)
[2022-10-26 23:58] VITALS: BP 133/81; PULSE 80; RESP 18; TEMP 36; O2SAT 94
[2022-10-27 04:53] VITALS: BP 124/75; PULSE 61; RESP 16; TEMP 36.4; O2SAT 97
[2022-10-27 07:25] VITALS: BP 151/77; PULSE 62; RESP 20; TEMP 36.1; O2SAT 97
--- NOTE | 2022-10-27 07:58 | PC.PHAR ---
pt states she takes care of her own medications-pt states she is no longer taking chemo or radiation -notes are made in the pharmacy comments
[2022-10-27] MEDS: ondansetron 2 mg/ML SDV 2 mL 4 MG IVP (09:10)
[2022-10-27] MEDS: sodium chloride 0.9% 1,000 ML 75 ML IV (11:52)
[2022-10-27 12:00] VITALS: BP 161/88; PULSE 67; RESP 17; TEMP 36.2; O2SAT 97
[2022-10-27 13:33] LABS: Iron 63 ug/dL (37-145); Percent Saturation 18.5 % (20-50); Total Iron Binding Capacity 339 mcg/dl; Unsaturated Iron Binding 276 ug/dL (112-347); Vitamin B12 566 pg/mL (232-1245)
--- NOTE | 2022-10-27 15:43 | PM.PN ---
Subjective Subjective: Today morning patient seen with sister at bedside. Patient is able to ambulate better as per sister and patient herself after the fentanyl patch. She denies any chest pain but complaining of nausea and vertigo along with migrainous headache which is chronic for her. She thinks it is triggered by IV Dilaudid which she received in the ER. States usually she gets nausea and dizziness with narcotic pain medications. Vitals/I&O/Wt Last Vital Signs Temp 97.2 F L 10/27/22 12:00 Pulse 67 10/27/22 12:00 Resp 17 10/27/22 12:00 BP 161/88 10/27/22 12:00 Pulse Ox 97 10/27/22 12:00 O2 Del Method Room Air 10/27/22 12:00 10/27/22 10/27/22 10/27/22 06:59 14:59 22:59 Intake Total 240 / 240 Balance 240 / 240 Weight last 48 hrs Weight 86.183 kg Physical Exam Narrative: General: No acute distress, AO x3 HEENT: PERRLA, pupils bilaterally equal and reactive, pallors not present Chest: Normal vesicular breath sounds, no added sounds, equal good air entry bilaterally CVS: S1-S2 regular, no murmurs, no tachycardia, no gallops, no rubs Abdomen: Soft, nontender, no organomegaly, bowel sounds present Neuro: No focal deficits, no facial deformity, AO x3, power 5/5 in all limbs Extremities: no edema clubing or cyanosis. Palpable lymph node in right inguinal area. Straight leg test positive. Data 10/26/22 16:47 10/26/22 16:47 A&P Assessment and plan (1) Sacral fracture, closed: Sacral fractures identified in the left sacrum and new uptake in the right sacrum which may be outbound sales representative of acute to subacute fracture. Appreciate vitamin D levels. Appreciate PT evaluation. Check CT scan of hip and lumbar spine to rule out sciatica. Patient does not want to use narcotic as becomes nauseous and has vertigo with the meds. Continue with fentanyl patch along with trial of tramadol 50 mg PO Q6h PRN. (2) Intractable pain: Most likely related to sacral fractures, painful LAD in inguinal canal Has tried oral opiates , gabapentin and NSAIDs at home without relief. Patient states she becomes nauseous and has vertigo with opiates. Trial of fentanyl patch and tramadol as above. Improving with physical therapy and fentanyl patch. (3) Squamous cell carcinoma of vulva: (4) Lymphadenopathy: suspected recurrence based on PET appearace will need biopsy to further assess Plan Intractable headache with nausea: Patient has history of migraine. Has not had a migraine attack for a long time. Thinks triggered by vomiting after getting IV Dilaudid. Check CT head without contrast. Patient wants to hold off on any other medication for headache for now. Tramadol as needed. Gentle IV hydration with normal saline at 75 cc/h. Lovenox for DVT prophylaxis Regular diet Full code Discharge planning: Plan to discharge home with caregiver with possible outpatient PT within next 24 hours if patient continues to tolerate pain medications. Attestations Medical Necessity Statement*: Requires further hospitalization for management of intractable pain with failure of outpatient oral medication in setting of sacral fracture from chronic insufficiency related to radiation therapy Diagnoses Sacral fracture, closed S32.10XA Intractable pain R52 Squamous cell carcinoma of vulva C51.9 Lymphadenopathy R59.1
[2022-10-27 16:00] VITALS: BP 154/93; PULSE 72; RESP 17; TEMP 36.1; O2SAT 97
[2022-10-27 19:48] VITALS: BP 146/79; PULSE 75; RESP 18; TEMP 36.4; O2SAT 97
--- NOTE | 2022-10-27 20:30 | PC.NURSE ---
Spoke with regarding patient complaints of migraines causing nausea and vomiting. The patient has zofran ordered but it does not help. Every time the patient moves around she gets nauseous. The patient states at a previous hospitalization she was prescribed a scopalamine patch and it help. ordered IV reglan, wanting to try that first and see if it helps.
[2022-10-27] MEDS: metoclopramide 5 mg/mL SDV 2 mL IVP (21:22)
[2022-10-27] MEDS: enoxaparin 40 mg/0.4 mL Syringe SUBCUT (21:24)
--- NOTE | 2022-10-27 21:30 | PC.NURSE ---
The patient has Ct scans ordered but the patient states she does not feel she will be able to go downstairs for them due to the dizziness and nausea with movement. The nurse has administered IV Reglan but patient says she will let the nurse know if she feels up to going for test, as of right now she cant tolerate getting OOB.
[2022-10-28] VITALS (7 sets, daily range): BP systolic 111–154; BP diastolic 63–77; PULSE 64–75; RESP 14–16; TEMP 35.9–37; O2SAT 95–99
[2022-10-28] MEDS: acetaminophen 325 mg Tablet 650 MG PO (00:21)
[2022-10-28] MEDS: sodium chloride 0.9% 1,000 ML 75 ML IV ×2 (00:22→16:12)
[2022-10-28 05:08] LABS: Basophils % 0.5 %; Eosinophils # 0.1 10^3/uL (0.0-0.8); Eosinophils % 1.4 %; Hematocrit 37.4 % (37.0-47.0); Hemoglobin 11.8 g/dL (11.5-15.3); Lymphocytes # 1.1 10^3/uL (0.8-4.8); Lymphocytes % 26.2 %; Mean Corpuscular HGB Conc 31.6 g/dL (30.0-36.0); Mean Corpuscular Hemoglobin 31.4 pg (28.0-34.0); Mean Corpuscular Volume 99.5 fl (81-99); Mean Platelet Volume 8.3 fL (7.4-10.4); Monocytes # 0.4 10^3/uL (0.2-0.9); Monocytes % 8.5 %; Neutrophils # 2.66 10^3/uL (1.8-7.7); Neutrophils % 62.9 %; Nucleated Red Blood Cells % 0 %; Platelet Count 234 10^3/cmm (130-400); Red Blood Count 3.76 10^6/uL (4.1-5.3); Red Cell Distribution Width 12.1 % (12.1-15.1); White Blood Count 4.2 10^3/uL (4.0-10.0)
[2022-10-28] MEDS: metoclopramide 5 mg/mL SDV 2 mL IVP ×2 (05:14→20:44)
[2022-10-28 05:33] LABS: Alanine Aminotransferase 58 U/L (0-33); Albumin Level 3.9 g/dL (3.5-5.2); Alkaline Phosphatase 230 U/L (35-105); Aspartate Amino Transferase 41 U/L (0-32); Blood Urea Nitrogen 15 mg/dL (8-23); Calcium 9.1 mg/dL (8.5-10.5); Carbon Dioxide 26 mmol/L (22-29); Chloride 102 mmol/L (98-107); Creatinine Clr Calc Pharmacy 79.0602; Globulin 3.6 g/dL (1.3-4.6); Glucose 81 mg/dL (65-115); Osmolality Calculated 286 mOsm/kg (285-295); Sodium 138 mmol/L (136-145); Total Bilirubin 0.4 mg/dL (0.15-1.2); Total Protein 7.5 g/dL (6.6-8.7)
[2022-10-28 05:34] LABS: Chol HDL Ratio 2.79 mg/dL (0.0-4.40); Cholesterol 212 mg/dL (0-200); HDL Cholesterol 76 mg/dL (60-100); LDL Cholesterol Calculated 99 mg/dL (50-129); Triglycerides 187 mg/dL (0-150); VLDL Cholestrol Calculation 37 mg/dL (0-30)
[2022-10-28 05:36] LABS: Estmated Average Glucose 111; Hemoglobin A1C 5.5 % (4.0-6.0)
[2022-10-28 05:53] LABS: Folate Level 14.6 ng/mL (4.8-37.3)
--- NOTE | 2022-10-28 09:58 | US_ITS ---
WS: [id number] Gallbladder and right upper quadrant ultrasound, 10/28/2022 Clinical Data: Liver dysfunction Comparison: None. Findings: The gallbladder shows no sludge or stone. The wall measures 0.3 cm with no pericholecystic fluid. The common bile duct is 0.3 cm and there are no intrahepatic ductal abnormalities. Liver shows no cysts, masses or dilated intrahepatic ducts. The pancreas is not obscured by overlying bowel gas and no cyst, pseudocyst, or evidence of pancreati tis is noted. Right kidney measures 9.4 cm and no cyst, masses or hydronephrosis can be seen. The aorta and inferior vena cava show no vascular abnormalities. US/US gall bladder [id number] Impression: Negative gallbladder and right upper quadrant ultrasound.
[2022-10-28] MEDS: scopolamine 1.5 Patch 1 PATCH TRANSDERMA (10:09)
--- NOTE | 2022-10-28 13:28 | P.PN_ITS ---
Subjective Subjective: Today morning patient seen with sister at bedside. She continues to complain of nausea getting exacerbated on minimal movement of head to standing up. Not able to keep oral intake. Patient has not had CT head done yet because of nausea. Discussed in detail with the patient that there is concern for a possible posterior stroke for which CT head or even MRI is needed. Also discussed further etiologies of nausea and vomiting including BPPV, or related to cholelithiasis in setting of liver function abnormalities, related to medication versus central like stroke. Patient is agreeable for CT scan today. Denies any abdominal pain. Pain in the back is controllable. Blood work today shows a stable CBC, CMP, AST/ALT elevated 41/58 with elevated alkaline phosphatase which seems to be stable. Vitals/I&O/Wt Last Vital Signs Temp 97.8 F 10/28/22 11:34 Pulse 72 10/28/22 11:34 Resp 16 10/28/22 11:34 BP 145/69 10/28/22 11:34 Pulse Ox 97 10/28/22 11:34 O2 Del Method Room Air 10/28/22 11:34 10/27/22 10/28/22 10/28/22 22:59 06:59 14:59 Intake Total 360 / 600 937.5 / 1537.5 Balance 360 / 600 937.5 / 1537.5 Weight last 48 hrs Weight 86.183 kg Physical Exam Narrative: General: No acute distress, AO x3 HEENT: PERRLA, pupils bilaterally equal and reactive, pallors not present Chest: Normal vesicular breath sounds, no added sounds, equal good air entry bilaterally CVS: S1-S2 regular, no murmurs, no tachycardia, no gallops, no rubs Abdomen: Soft, nontender, no organomegaly, bowel sounds present Neuro: No focal deficits, no facial deformity, AO x3, power 5/5 in all limbs Extremities: no edema clubing or cyanosis. Palpable lymph node in right inguinal area. Straight leg test positive. Data 10/28/22 04:26 10/28/22 04:26 A&P Assessment and plan (1) Sacral fracture, closed: Sacral fractures identified in the left sacrum and new uptake in the right sacrum which may be public health representative of acute to subacute fracture. Appreciate vitamin D levels. Appreciate PT evaluation. Check CT scan of hip and lumbar spine to rule out sciatica. Patient does not want to use narcotic as becomes nauseous and has vertigo with the meds. Continue with fentanyl patch along with trial of tramadol 50 mg PO Q6h PRN. (2) Intractable pain: Most likely related to sacral fractures, painful LAD in inguinal canal Has tried oral opiates , gabapentin and NSAIDs at home without relief. Patient states she becomes nauseous and has vertigo with opiates. Trial of fentanyl patch and tramadol as above. Improving with physical therapy and fentanyl patch. (3) Nausea and vomiting: Patient relates the nausea and vomiting to IV Dilaudid which she received on admission in the ER. States in the past as well narcotic has caused her to have dizziness along with nausea and vomiting. Getting exacerbated on minimal movement or movement of head. Gives history of migraine in the past. Coupled with vertigo. LFTs are deranged but chronically stable. HIDA scan last month negative. We will repeat gallbladder ultrasound. Scopolamine patch. Ativan 1 mg IV 1 time if needed. We will request PT for Sula-Hallpike procedure. CT head to rule out posterior circulation stroke. Might need to do MRI brain. Patient is agreeable. (4) Vertigo: In past as per patient meclizine has not been helpful. Central versus BPPV. Work-up as above. (5) Headache: (6) Squamous cell carcinoma of vulva: (7) Lymphadenopathy: suspected recurrence based on PET appearace will need biopsy to further assess Plan Continue with IV hydration. Patient unable to maintain oral hydration for now. Lovenox for DVT prophylaxis Regular diet Full code Discharge planning: Plan to discharge home with caregiver with possible outpatient PT within next 24 hours if patient continues to tolerate pain medicat ions. Attestations Medical Necessity Statement*: Requires further hospitalization for management of intractable nausea and vomiting limiting oral intake along with vertigo in a patient who was admitted for bilateral sacral fractures. Switch to inpatient. Diagnoses Sacral fracture, closed S32.10XA Intractable pain R52 Nausea and vomiting R11.2 Vertigo R42 Headache R51.9 Squamous cell carcinoma of vulva C51.9 Lymphadenopathy R59.1
--- NOTE | 2022-10-28 16:24 | PC.NURSE ---
Nurse removed fentanyl patch per doctors order. Nurse Javi Noel witnessed this nurse dispose of patch in sharps container.
[2022-10-28] MEDS: ondansetron 2 mg/ML SDV 2 mL 4 MG IVP (16:29)
--- NOTE | 2022-10-28 16:53 | PC.NURSE ---
Pt has refused several meds today due to nausea. Meds were explained and still refused. Physician aware. Nurse explained nausea meds available again and zofran was administered at 1629 by Mily Gallegos RN.
--- NOTE | 2022-10-28 18:00 | CT_ITS ---
WS: [email or web address] CT hip RT wo con* [id number] REASON FOR EXAM: Pain, insufficiency IV CONTRAST ADMINISTERED: None. TOTAL EXAM DLP: 1875.[address] scans at [facility] use at least one of these dose optimization techniques: automat ed exposure control; mA and/or kV adjustment per patient size (includes targeted exams where dose is matched to clinical indication); or iterative reconstruction. FINDINGS: No fracture or focal bone lesion. Moderate narrowing of the joint space. Moderate subchondral sclerosis/cystic change and osteophytosis of the acetabulum. Moderate osteophytosis of the femoral head. No soft tissue abnormality. CT/CT hip RT wo con* [id number] IMPRESSION: Moderate osteoarthritis of the right hip otherwise no significant abnormality.
--- NOTE | 2022-10-28 18:00 | CT_ITS ---
WS: [email or web address] CT hip LT wo con* [id number] REASON FOR EXAM: Pain, insufficiency IV CONTRAST ADMINISTERED: None. TOTAL EXAM DLP: 1875.[address] scans at [facility] use at least one of these dose optimization techniques: automat ed exposure control; mA and/or kV adjustment per patient size (includes targeted exams where dose is matched to clinical indication); or iterative reconstruction. FINDINGS: No fracture or focal bone lesion. Mild joint space narrowing with subchondral sclerosis and osteophytosis of the acetabulum. Moderate osteophytosis of the femoral head. No soft tissue abnormality. CT/CT hip LT wo con* [id number] IMPRESSION: Moderate osteoarthritis otherwise no significant abnormality.
--- NOTE | 2022-10-28 18:00 | CT_ITS ---
WS: [email or web address] CT head wo con* [id number] REASON FOR EXAM: Persistent headache IV CONTRAST ADMINISTERED: None. TOTAL EXAM DLP: 998.[address] scans at [facility] use at least one of these dose optimization techniques: automat ed exposure control; mA and/or kV adjustment per patient size (includes targeted exams where dose is matched to clinical indication); or iterative reconstruction. FINDINGS: No midline shift or other significant mass effect. No brain parenchymal or extra-axial hemorrhage. No focal brain parenchymal abnormality. Normal extra-axial CSF spaces. Ventricles are normal volume and configuration. Normal calvarium and base of skull. CT/CT head wo con* [id number] IMPRESSION: No significant intracranial abnormality.
--- NOTE | 2022-10-28 18:00 | CT_ITS ---
WS: [email or web address] CT lumbar spine wo con* [id number] REASON FOR EXAM: Sciatica IV CONTRAST ADMINISTERED: None. TOTAL EXAM DLP: 1875.[address] scans at [facility] use at least one of these dose optimization techniques: automat ed exposure control; mA and/or kV adjustment per patient size (includes targeted exams where dose is matched to clinical indication); or iterative reconstruction. FINDINGS: Mild rotatory scoliosis convex left. Normal lumbar lordosis. No focal vertebral body abnormality. No spondylolysis or significant spondylolisthesis. Left sacral insufficiency fracture, subacute. Not present on CT of the bony pelvis 07/30/2022. CT/CT lumbar spine wo con* [id number] IMPRESSION: No sacral insufficiency fracture.
[2022-10-28] MEDS: ketorolac 30 mg/mL INJ 15 MG IVP (20:13)
[2022-10-28] MEDS: meclizine 25 mg tablet PO (20:35)
[2022-10-28] MEDS: enoxaparin 40 mg/0.4 mL Syringe SUBCUT (23:03)
--- NOTE | 2022-10-28 23:59 | PC.NURSE ---
Pt finally got relief tonight from headache with combination of reglan, toradol and meclizineas well as icepack at base of skull/neck. Was finally seen resting as she has had trouble since admission.
[2022-10-29] VITALS: BP 130/68; PULSE 66; RESP 18; TEMP 37; O2SAT 99
[2022-10-29] MEDS: sodium chloride 0.9% 1,000 ML 75 ML IV (02:23)
[2022-10-29 04:00] VITALS: BP 121/75; PULSE 65; RESP 17; TEMP 36.7; O2SAT 97
[2022-10-29] MEDS: pantoprazole DR 40 mg Tablet PO (06:07)
[2022-10-29 07:50] VITALS: BP 131/78; PULSE 58; RESP 16; TEMP 36.6; O2SAT 98
[2022-10-29] MEDS: meclizine 25 mg tablet PO (10:06)
[2022-10-29] MEDS: lidocaine 5% Patch 1 PATCH TOPICAL (10:06)
--- NOTE | 2022-10-29 10:55 | P.DS_ITS ---
Discharge Providers Date of Admission: 10/26/22 18:06 Date of Discharge: October 29, 2022 Attending Provider at Admission: Farrukh Meyer MD Attending Provider at Discharge: Farrukh Meyer MD Primary Care Provider: MARIA C LAZO Diagnoses at Discharge Discharge Diagnosis (1) Sacral fracture, closed: Status: Acute (2) Intractable pain: Status: Acute (3) Nausea and vomiting: Status: Acute (4) Vertigo: Status: Acute (5) Headache: Status: Acute (6) Squamous cell carcinoma of vulva: Status: Acute (7) Lymphadenopathy: Status: Acute Reason for Visit Reason for Visit: Leg pain Brief History: Chelsey Adams is a 67 year old female with 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 There was involvement in 1 femoral node and in 3/3 inguinofemoral nodes.? She received radiation treatment with cisplatin chemotherapy. She has been experiencing persisting back ache , initially worse on the left side then also involved her right side since her surgery in January. Most recently she received local steroid injections with her PCP to the left hip which improved symptoms mildly. Over the past few weeks, pain is worse on the right inguinal, right hip and right side of he pelvis. She reports numbness in all her toes which developed during the course of chemotherapy. With the worsening back pain it has been very difficult for her to ambulate and she now has to use a walker. She has radiating pain on the right thigh intermittently. She has been taking po hydocodone at home which does no help. Ibuprofen used to alleviate her symptoms but is no longer working either. She tried gabapentin but then discontinued it due to severe nausea. Most recently her PET/CT on October showed sacral insufficiency fractures, new since 07/2022. Incidentally also noted right inguinal lymph node with SUV 15 suspicious for malignancy. No fever, chills, urinary or bowel retention or incontinence. H/o UTI 2 weeks ago treated with po abx with PCP. No current dysuria. She received morphine and Dilaudid in the ER today which resulted in vomiting. Now also c/o headache which is similar to her known migraine episodes. Hospital Course Hospital Course Patient was admitted to the hospital further evaluation and management of bilateral hip pain with concerns for bilateral sacral fractures. Orthopedic team was consulted who advised patient for physical therapy and pain management. CT of the hip and lumbar spine were done which were consistent with left-sided sacral fracture with right-sided sacral osteoarthritis. She was started on fentanyl patch for pain. Patient did get IV Dilaudid on admission. Patient gives personal history of nausea, vertigo along with vomiting with narcotic oral and IV medication. Patient's hospitalization was complicated by severe nausea and vomiting and vertigo which is getting aggravated by minimal movement of head and herself. As the symptoms persisted for more than 24 hours further work-up was done. Stroke was ruled out with negative CT head. Patient did have persistent transaminitis with elevation in alkaline phosphatase for which gallbladder ultrasound was done which was essentially negative. Fentanyl patch was removed after which p atient's nausea also resolved. Patient's pain remained stable she worked well with physical therapy. Safe discharge plan was discussed in detail with patient and patient's sister at bedside. Option discussed with home with outpatient PT as per physical therapy evaluation and recommendation versus SNF placement. Patient opted for home with outpatient PT. She has been discharged hemodynamically stable condition at home with caregiver on lidocaine patch. Low-dose fentanyl patch is also prescribed for as needed basis. She is to follow-up with Dr. Mackay who is her outpatient oncologist for further work-up and possible biopsy of lymphadenopathy. Physical Exam Narrative: General: No acute distress, AO x3 HEENT: PERRLA, pupils bilaterally equal and reactive, pallors not present Chest: Normal vesicular breath sounds, no added sounds, equal good air entry bilaterally CVS: S1-S2 regular, no murmurs, no tachycardia, no gallops, no rubs Abdomen: Soft, nontender, no organomegaly, bowel sounds present Neuro: No focal deficits, no facial deformity, AO x3, power 5/5 in all limbs Extremities: no edema clubing or cyanosis. Palpable lymph node in right inguinal area. Straight leg test positive. Discharge Data Studies Completed and Pending Completed Studies During Hospitalization Category Date Time Status CT head wo con* [id number] Routine Cat Scan 10/28/22 18:[address] hip LT wo con* [id number] Routine Cat Scan 10/28/22 18:[address] hip RT wo con* [id number] Routine Cat Scan 10/28/22 18:[address] lumbar spine wo con* [id number] Routine Cat Scan 10/28/22 18:00 Completed US gall bladder [id number] Routine Ultrasound 10/28/22 09:58 Completed Radiology Impressions Gallbladder Ultrasound 10/28/22 09:58 Impression: Negative gallbladder and right upper quadrant ultrasound. Head CT 10/28/22 18:00 IMPRESSION: No significant intracranial abnormality. Hip CT 10/28/22 18:00 IMPRESSION: Moderate osteoarthritis of the right hip otherwise no significant abnormality. Lumbar Spine CT 10/28/22 18:00 IMPRESSION: No sacral insufficiency fracture. Laboratory Results WBC 4.2 10^3/uL (4.0-10.0) 10/28/22 04:26 RBC 3.76 10^6/uL (4.1-5.3) L 10/28/22 04:26 Hgb 11.8 g/dL (11.5-15.3) 10/28/22 04:26 Hct 37.4 % (37.0-47.0) 10/28/22 04:26 MCV 99.5 fl (81-99) H 10/28/22 04:26 MCH 31.4 pg (28.0-34.0) 10/28/22 04:26 MCHC 31.6 g/dL (30.0-36.0) 10/28/22 04:26 RDW 12.1 % (12.1-15.1) 10/28/22 04:26 Plt Count 234 10^3/cmm (130-400) 10/28/22 04:26 MPV 8.3 fL (7.4-10.4) 10/28/22 04:26 Neut % (Auto) 62.9 % 10/28/22 04:26 Lymph % (Auto) 26.2 % 10/28/22 04:26 [place] % (Auto) 8.5 % 10/28/22 04:26 Eos % (Auto) 1.4 % 10/28/22 04:26 Baso % (Auto) 0.5 % 10/28/22 04:26 Neut # (Auto) 2.66 10^3/uL (1.8-7.7) 10/28/22 04:26 Lymph # (Auto) 1.1 10^3/uL (0.8-4.8) 10/28/22 04:26 [place] # (Auto) 0.4 10^3/uL (0.2-0.9) 10/28/22 04:26 Eos # (Auto) 0.1 10^3/uL (0.0-0.8) 10/28/22 04:26 Baso # (Auto) 0.0 10^3/uL (0.0-0.1) 10/28/22 04:26 Nucleated RBC % (auto) 0 % 10/28/22 04:26 Nucleated RBCs # 0.0 /100WBC 10/28/22 04:26 Sodium 138 mmol/L (136-145) 10/28/22 04:26 Potassium 4.0 mmol/L (3.5-5.1) 10/28/22 04:26 Chloride 102 mmol/L (98-107) 10/28/22 04:26 Carbon Dioxide 26 mmol/L (22-29) 10/28/22 04:26 Anion Gap 14.0 (5-19) 10/28/22 04:26 BUN 15 mg/dL (8-23) 10/28/22 04:26 Creatinine 0.7 mg/dL (0.5-0.9) 10/28/22 04:26 GFR Calculation 84.0 mL/min (90-130) L 10/28/22 04:26 Glucose 81 mg/dL (65-115) 10/28/22 04:26 Estimat Average Glucose 111 10/28/22 04:26 Hemoglobin A1c 5.5 % (4.0-6.0) 10/28/22 04:26 Calculated Osmolality 286 mOsm/kg (285-295) 10/28/22 04:26 Calcium 9.1 mg/dL (8.5-10.5) 10/28/22 04:26 Iron 63 ug/dL (37-145) 10/27/22 12:48 TIBC 339 mcg/dl 10/27/22 12:48 % Saturation 18.5 % (20-50) L 10/27/22 12:48 Unsat Iron Binding 276 ug/dL (112-347) 10/27/22 12:48 Total Bilirubin 0.4 mg/dL (0.15-1.2) 10/28/22 04:26 AST 41 U/L (0-32) H 10/28/22 04:26 ALT 58 U/L (0-33) H 10/28/22 04:26 Alkaline Phosphatase 230 U/L (35-105) H 10/28/22 04:26 Total Protein 7.5 g/dL (6.6-8.7) 10/28/22 04:26 Albumin 3.9 g/dL (3.5-5.2) 10/28/22 04:26 Globulin 3.6 g/dL (1.3-4.6) 10/28/22 04:26 Triglycerides 187 mg/dL (0-150) H 10/28/22 04:26 Cholesterol 212 mg/dL (0-200) H 10/28/22 04:26 LDL Cholesterol, Calc 99 mg/dL (50-129) 10/28/22 04:26 Total VLDL Cholesterol 37 mg/dL (0-30) H 10/28/22 04:26 HDL Cholesterol 76 mg/dL (60-100) 10/28/22 04:26 Cholesterol/HDL Ratio 2.79 mg/dL (0.0-4.40) 10/28/22 04:26 Vitamin B12 566 pg/mL (232-1245) 10/27/22 12:48 25-OH Vitamin D Total 46 ng/mL (30-100) 10/26/22 16:45 Folate 14.6 ng/mL (4.8-37.3) 10/28/22 04:26 TSH 2.29 uIU/mL (0.27-4.20) 10/26/22 16:47 Vitals Last Vital Signs Temp 97.9 F 10/29/22 07:50 Pulse 58 L 10/29/22 07:50 Resp 16 10/29/22 07:50 BP 131/78 10/29/22 07:50 Pulse Ox 98 10/29/22 07:50 O2 Del Method Room Air 10/29/22 07:50 Discharge Plan Discharge Patient Disposition: Home Condition: Stable Prescriptions: New meclizine 25 mg Tablet 25 mg PO TID PRN (Reason: Abdominal Pain) Qty: 14 0RF lidocaine 5 % Adhesive Patch,Medicated 1 patch topical [id number] Qty: 10 0RF fentanyl 12 mcg/hr patch 72 hour 1 patch transdermal Q72H Qty: 5 0RF Continued multivitamin Tablet 1 tab PO QAM lidocaine-prilocaine 2.5-2.5 % Cream See Rx Instructions .ROUTE .COMPLEX Qty: 60 6RF Rx Instructions: Place quarter size amount over port area 1 hour prior to being accessed. Cover with plastic dressing ipratropium-albuterol 0.5 mg-3 mg(2.5 mg base)/3 mL solution for nebulization 3 ml INHALATION Q12H PRN (Reason: Shortness Of Breath) pantoprazole 20 mg tablet,delayed release (DR/EC) 20 mg PO DAILY PRN (Reason: Acid Reflux) Pulmicort Flexhaler 90 mcg/actuation aerosol powdr breath activated 1 inh INHALATION BID PRN (Reason: unknown) Probiotic Blend 2 billion cell-50 mg Capsule 2 cap PO QAM ibuprofen 200 mg Tablet 200 - 800 mg PO Q6H PRN (Reason: Pain) Discharge Orders: Discharge Order (Routine); Ordered 10/29/22 Ordered By: Farrukh Meyer Other Ambulatory Orders: DME: Wheelchair (Order) Location: None Selected Ordered By: Farrukh Meyer Physical Therapy Eval and Treat Outpatient (Order) Timeframe: 3 Days Facility: [facility] - Location: Physical Therapy Ordered By: Farrukh Meyer Referrals: Ayden Sheikh DO [Physician] - 11/16/22 11:15 am (Appointment with Hank (Dr. Sheikh's PA)) Les Lazo MD [Physician] - 11/04/22 2:20 pm Discharge Diet: Regular Discharge Activity: Resume usual activity and Increase activity as tolerated Patient Instructions: Meclizine (By mouth), Fentanyl (Absorbed through the skin), Lidocaine (On the skin), Opioid Safety Activity Restrictions/Additional Instructions: Please follow-up with your oncology team onsite appointment. Please follow-up with Dr. Sheikh from orthopedics on November 16. You can use lidocaine patch for pain relief. If lidocaine patch is not working you can use the lowest dose of fentanyl patch. Please use meclizine for vertigo. Please continue with full liquid diet for 3 days followed by mechanical soft diet for 1 week. Discharge Attestations Time Spent in Discharge Care*: greater than 30 min Specific Discharge Activities: educating patient, educating and/or supporting family/caregiver, discussing with pcp/other providers, discussing with field nurse case manager/social workers/dc planners, documenting/other paperwork and evaluating patient/reviewing data Status at Discharge: Cognitive status at discharge: cognitively intact , Behavioral status at discharge: cooperative , Functional status at discharge: uses cane/walker , Overall status at discharge: patient is back to baseline Quality Metrics Clinical Quality Measures [ No reported AMI, CVA or VTE this stay] Coding Level of Care Code Acute Code for Chg Fwd Diagnoses Sacral fracture, closed S32.10XA Intractable pain R52 Nausea and vomiting R11.2 Vertigo R42 Headache R51.9 Squamous cell carcinoma of vulva C51.9 Lymphadenopathy R59.1
[2022-10-29 11:41] VITALS: BP 144/80; PULSE 71; RESP 15; O2SAT 95
[2022-10-29 17:05] VITALS: BP 144/80; PULSE 71; RESP 15; O2SAT 95
== END 2022-10-29 16:50 | disposition home or self-care (01) | DRG 543 ==
LOC: ER 17:21 → MEDSURG 18:06
PROVIDERS: Student in an Organized Health Care Education/Training Program; Admitting Provider Student in an Organized Health Care Education/Training Program; Emergency Provider Family Medicine; PCP Internal Medicine Cardiovascular Disease; Visit Provider Student in an Organized Health Care Education/Training Program
DX: M84.48XA Pathological fracture, other site, initial encounter for fracture (principal); C77.4 Secondary and unspecified malignant neoplasm of inguinal and lower limb lymph nodes; M47.898 Other spondylosis, sacral and sacrococcygeal region; C51.9 Malignant neoplasm of vulva, unspecified; Z92.3 Personal history of irradiation; Z92.21 Personal history of antineoplastic chemotherapy; G62.9 Polyneuropathy, unspecified; Z87.440 Personal history of urinary (tract) infections; R59.0 Localized enlarged lymph nodes; J45.909 Unspecified asthma, uncomplicated; K21.9 Gastro-esophageal reflux disease without esophagitis; I10 Essential (primary) hypertension; G47.33 Obstructive sleep apnea (adult) (pediatric); Z85.828 Personal history of other malignant neoplasm of skin; Z87.891 Personal history of nicotine dependence; Z95.828 Presence of other vascular implants and grafts; R11.0 Nausea; R42 Dizziness and giddiness; M25.751 Osteophyte, right hip
CPT/HCPCS: 36415; 70450; 72131; 73700; 76705; 78815; 80053; 80061; 82306; 82607; 82746; 83036; 83540; 83550; 84443; 85025; 96372; 96374; 96375; 97110; 97161; 97530; 99285; A9552; J1170; J1650; J1885; J2405; J2765; J7030; J8597

== ENCOUNTER 2022-11-08 11:21 | Oncology outpatient (recurring) (ONCR) | payer MEDICARE, MEDICAID, SELFPAY ==
[2022-11-08 11:27] VITALS: BP 150/76; PULSE 90; RESP 18; TEMP 36; O2SAT 98
[2022-11-08 11:50] LABS: Basophils % 0.3 %; Eosinophils # 0.2 10^3/uL (0.0-0.8); Eosinophils % 2.7 %; Hematocrit 36.6 % (37.0-47.0); Lymphocytes # 0.9 10^3/uL (0.8-4.8); Lymphocytes % 15.1 %; Mean Corpuscular HGB Conc 32.8 g/dL (30.0-36.0); Mean Corpuscular Hemoglobin 32.3 pg (28.0-34.0); Mean Corpuscular Volume 98.7 fl (81-99); Mean Platelet Volume 8.2 fL (7.4-10.4); Monocytes # 0.6 10^3/uL (0.2-0.9); Monocytes % 9.5 %; Neutrophils % 71.9 %; Nucleated Red Blood Cells % 0 %; Platelet Count 252 10^3/cmm (130-400); Red Blood Count 3.71 10^6/uL (4.1-5.3); Red Cell Distribution Width 12.5 % (12.1-15.1)
[2022-11-08 12:13] LABS: Alanine Aminotransferase 93 U/L (0-33); Albumin Level 4.2 g/dL (3.5-5.2); Alkaline Phosphatase 251 U/L (35-105); Anion Gap 13.1 (5-19); Aspartate Amino Transferase 64 U/L (0-32); Blood Urea Nitrogen 17 mg/dL (8-23); Calcium 9.4 mg/dL (8.5-10.5); Carbon Dioxide 27 mmol/L (22-29); Chloride 100 mmol/L (98-107); Creatinine Clr Calc Pharmacy 78.0561; Globulin 3.1 g/dL (1.3-4.6); Glucose 94 mg/dL (65-115); Osmolality Calculated 283 mOsm/kg (285-295); Potassium 4.1 mmol/L (3.5-5.1); Sodium 136 mmol/L (136-145); Total Bilirubin 0.4 mg/dL (0.15-1.2); Total Protein 7.3 g/dL (6.6-8.7)
== END 2022-11-15 23:59 | disposition home or self-care (01) ==
LOC: ONCMED 11:22
PROVIDERS: Internal Medicine Medical Oncology; PCP Internal Medicine Cardiovascular Disease; Visit Provider Radiology Radiation Oncology
DX: S32.10XA Unspecified fracture of sacrum, initial encounter for closed fracture; R11.0 Nausea; M25.551 Pain in right hip; X58.XXXA Exposure to other specified factors, initial encounter; C51.9 Malignant neoplasm of vulva, unspecified
CPT/HCPCS: 36591; 80053; 85025; 99213; J1642

== ENCOUNTER 2022-11-10 08:14 | Outpatient (CLI) | payer MEDICARE, MEDICAID, SELFPAY ==
--- NOTE | 2022-11-10 09:45 | US_ITS ---
WS: [email or web address] ULTRASOUND GUIDED BIOPSY RIGHT INGUINAL LYMPH NODE. HISTORY: abnormal PET, superior right inguinal region lymph node Procedure, risks, and complications are explained to the patient. Consent was obtained. Skin is clean sed with ChloraPrep and anesthetized with 1% buffered lidocaine. Abnormal lymph node which is PET/CT positive is identified within the RIGHT inguinal canal. This is a hypoechoic mass measuring 2.0 x 1.1 x 1.4 cm without significant increased vascularity. Mass is localized and skin anesthetized. Through a small dermatome multiple core biopsies are perfor med with 20 and 18 gauge Temno needles. Specimen is placed in formalin. US/US biopsy lymph node [id number] IMPRESSION: Uncomplicated ultrasound-guided biopsy RIGHT inguinal lymph node.
[2022-11-17 10:46] LABS: PD-L1 (Clone 22C3) by IHC BBPL See Report
== END 2022-11-10 08:15 | disposition home or self-care (01) ==
LOC: RAD 08:14
PROVIDERS: PCP Internal Medicine Cardiovascular Disease; Visit Provider Internal Medicine Medical Oncology
DX: R59.1 Generalized enlarged lymph nodes (principal); C77.4 Secondary and unspecified malignant neoplasm of inguinal and lower limb lymph nodes
CPT/HCPCS: 38505; 76942; 88305; 88341; 88342

== ENCOUNTER → 2022-11-16 11:09 | Outpatient (BNVA) | payer MEDICARE, MEDICAID, SELFPAY | PROVIDERS: PCP Internal Medicine Cardiovascular Disease; Visit Provider Physician Assistant | DX: M84.48XA Pathological fracture, other site, initial encounter for fracture; M16.11 Unilateral primary osteoarthritis, right hip; Z92.21 Personal history of antineoplastic chemotherapy | CPT/HCPCS: 72170; 72220 ==

== ENCOUNTER → 2022-11-22 09:17 | Outpatient (BNVA) | payer MEDICARE, MEDICAID, SELFPAY | PROVIDERS: PCP Internal Medicine Cardiovascular Disease; Visit Provider Surgery | DX: C51.9 Malignant neoplasm of vulva, unspecified (principal) | CPT/HCPCS: 99203; 99214 ==

== ENCOUNTER 2022-12-02 07:57 | Outpatient (CLI) | payer MEDICARE, MEDICAID, SELFPAY ==
--- NOTE | 2022-12-02 08:00 | MR_ITS ---
WS: [email or web address] MRI PELVIS WITHOUT GADOLINIUM ENHANCEMENT INDICATION: Right hip pain TECHNIQUE: Coronal T1-T2 and STIR imaging axial T1 and T2 imaging sagittal T2 imaging FINDINGS: Bilateral sacral insufficiency fractures with diffuse edema as described on the hip MRI. Th is appears progressed since the prior recent studies. Visualized fracture lines. Nondisplaced fractur e involving the right ilium extending anterior to posterior just above the right acetabulum. Addition al fracture involving the right superior pubic ramus with edema extending to the pubic symphysis. Sta ble previously described and biopsied right superior inguinal lymph node. Normal bone marrow signal i n the femoral heads and proximal femoral shafts. No evidence of avascular necrosis. Small amount of p resacral soft tissue edema and fluid. IMPRESSION: 1. Acute bilateral sacral insufficiency fractures with diffuse edema visualized fracture lines. 2. Nondisplaced fracture involving the right ilium with edema just above the acetabulum extending an terior to posterior 3. Right superior pubic ramus fracture with edema extending to the pubic symphysis. 4. Moderate degenerative narrowing both hips. No evidence femoral head edema or avascular necrosis. 5. Stable previously described and biopsied right superior inguinal lymph node.
--- NOTE | 2022-12-02 08:45 | MR_ITS ---
WS: [email or web address] EXAMINATION: MR hip RT wo con* [id number] ORDER DATE: 12/02/2022 8:55 AM COMPARISON: None. HISTORY: pain CONTRAST: PET/CT 11/07 TECHNIQUE: Coronal STIR of the Pelvis. Coronal proton density, coronal T1, axial T2 fat sat, axial T1 , sagittal T2 fat sat, and sagittal T1 performed of the hip. FINDINGS: Bilateral diffuse edema involving the sacral ala bilaterally with visualized fracture lines compatib le with bilateral sacral insufficiency fractures. This appears progressed since the prior PET/CT 2022. Again seen is the right superior inguinal lymph node with prior recent biopsy. This appears unchanged . Moderate degenerative narrowing both hips. No bone marrow edema in the femoral heads or femoral nec k. No evidence of avascular necrosis. Proximal femoral shafts appear normal. Additional fracture line involving the ilium along the superior acetabulum extending from anterior to posterior. This is nondisplaced may represent posttraumatic or insufficiency fracture. Recommend cor relation with prior trauma. Articular surface of the acetabulum appears intact. Additional fracture i nvolving the right superior pubic ramus with diffuse edema and mild cortical overlap. This appears ac [place] to subacute subacute and likely partially healing. Left pubic rami are normal in appearance. No significant joint effusions. IMPRESSION: 1. Acute bilateral sacral insufficiency fractures with diffuse edema in the sacral ala bilaterally. 2. Additional nondisplaced fracture involving the ilium just above the right superior acetabulum ext ending anterior to posterior may be posttraumatic or additional insufficiency fracture. Associated ed uri. 3. Additional fracture with edema involving the right superior pubic ramus with mild displacement an d suggestion of some healing. Although this appears new since the prior recent CT and PET/CT. 4. Stable right superior inguinal lymph node previously biopsied.
== END 2022-12-02 07:58 | disposition home or self-care (01) ==
LOC: RAD 07:58
PROVIDERS: PCP Internal Medicine Cardiovascular Disease; Visit Provider Physician Assistant
DX: S32.10XA Unspecified fracture of sacrum, initial encounter for closed fracture (principal); S32.301A Unspecified fracture of right ilium, initial encounter for closed fracture; S32.591A Other specified fracture of right pubis, initial encounter for closed fracture; X58.XXXA Exposure to other specified factors, initial encounter
CPT/HCPCS: 72195; 73721

== ENCOUNTER 2022-12-10 09:34 | Outpatient (CLI) | payer MEDICARE, MEDICAID, SELFPAY ==
--- NOTE | 2022-12-10 09:45 | US_ITS ---
WS: [email or web address] ULTRASOUND SOFT TISSUES RIGHT groin. HISTORY: right inguinal mass COMPARISON: 11/10/2022 biopsy. TECHNIQUE: 2-D and color Doppler imaging is submitted. New irregular shaped collection in the RIGHT groin. There is mobile debris present. Some of these cody nges may be due to the recent biopsy. There is a tract with a thick wall and irregular margins extend ing through the soft tissues. There is low-level mobile debris within this tract measuring 3.6 x 1.2 cm. There is no significant increased vascularity. May be a small postprocedural seroma or posttreatm ent seroma. There is no obvious increased vascularity. The mass in the RIGHT groin that was biopsied measures 2.1 x 2.1 x 2.0 cm. No change IMPRESSION: 1. Slight increase size of the irregular shaped collection in the RIGHT groin since the prior study. This may be the site of the prior biopsy. There is no increased vascularity. Differential does includ e abscess but thought less likely versus a post procedure seroma or improving hematoma. 2. No significant change in size of the solid mass in the RIGHT groin that was biopsied.
== END 2022-12-10 09:35 | disposition home or self-care (01) ==
PROVIDERS: PCP Internal Medicine Cardiovascular Disease; Visit Provider Internal Medicine Medical Oncology
DX: R19.09 Other intra-abdominal and pelvic swelling, mass and lump (principal)
CPT/HCPCS: 76882

== ENCOUNTER 2022-12-14 09:30 | Oncology outpatient (recurring) (ONCR) | payer MEDICARE, MEDICAID, SELFPAY ==
[2022-12-14 09:53] VITALS: BMI 29.7
[2022-12-14 09:56] VITALS: BP 129/65; PULSE 83; RESP 18; TEMP 36.5; O2SAT 96
[2022-12-14 09:57] LABS: Basophils % 0.4 %; Eosinophils # 0.1 10^3/uL (0.0-0.8); Eosinophils % 2.6 %; Hematocrit 32.1 % (36-47); Lymphocytes # 0.8 10^3/uL (0.8-4.8); Lymphocytes % 17.4 %; Mean Corpuscular HGB Conc 32.1 g/dL (30-55); Mean Corpuscular Volume 96.7 fl (85-98); Mean Platelet Volume 8.1 fL (7.4-10.4); Monocytes # 0.5 10^3/uL (0.2-0.9); Monocytes % 10.8 %; Neutrophils # 3.11 10^3/uL (1.8-7.7); Neutrophils % 68.4 %; Nucleated Red Blood Cells % 0 %; Platelet Count 290 10^3/cmm (157-399); Red Blood Count 3.32 10^6/uL (3.85-5.65); Red Cell Distribution Width 13.2 % (12.1-15.1); White Blood Count 4.55 10^3/uL (3.29-11.43)
[2022-12-14 10:33] LABS: Alanine Aminotransferase 45 U/L (0-33); Alkaline Phosphatase 286 U/L (35-105); Anion Gap 11.6 (5-19); Aspartate Amino Transferase 40 U/L (0-32); Blood Urea Nitrogen 15 mg/dL (8-23); Calcium 8.7 mg/dL (8.5-10.5); Carbon Dioxide 26 mmol/L (22-29); Chloride 102 mmol/L (98-107); Cortisol Random 9.85 ug/dL (2.47-19.5); Globulin 3.7 g/dL (1.3-4.6); Glucose 120 mg/dL (65-115); Immunoglobulin IGG 1598 mg/dL (700-1600); Osmolality Calculated 284 mOsm/kg (285-295); Potassium 3.6 mmol/L (3.5-5.1); Sodium 136 mmol/L (136-145); Thyroid Stimulating Hormone 2.69 uIU/mL (0.27-4.20); Total Bilirubin 0.3 mg/dL (0.15-1.2); Total Protein 7.7 g/dL (6.6-8.7)
[2022-12-14 10:39] LABS: Hepatitis A Antibody IgM Non-Reactive (Nonreactive); Hepatitis B Core AB, Total Non-Reactive (Nonreactive); Hepatitis B Surface Antigen Non-Reactive (Nonreactive); Hepatitis C Virus Antibody Non-Reactive (Nonreactive)
[2022-12-14 10:42] LABS: Hepatitis B Surface AB < 3.5 (11.5-1000)
== END 2022-12-16 23:59 | disposition home or self-care (01) ==
PROVIDERS: Nurse Practitioner Family; PCP Internal Medicine Cardiovascular Disease; Visit Provider Internal Medicine Medical Oncology
DX: C51.8 Malignant neoplasm of overlapping sites of vulva (principal); C77.8 Secondary and unspecified malignant neoplasm of lymph nodes of multiple regions; Z79.899 Other long term (current) drug therapy; C51.9 Malignant neoplasm of vulva, unspecified
CPT/HCPCS: 72170; 72220; 80053; 82533; 82784; 84443; 85025; 86705; 86706; 86709; 86803; 87340; 99203; 99204; 99214; J1642

== ENCOUNTER → 2022-12-16 08:22 | Outpatient (BNVA) | payer MEDICARE, MEDICAID, SELFPAY | PROVIDERS: PCP Internal Medicine Cardiovascular Disease; Visit Provider Physician Assistant | DX: M84.454A Pathological fracture, pelvis, initial encounter for fracture (principal); M84.48XA Pathological fracture, other site, initial encounter for fracture | CPT/HCPCS: 99213 ==

== ENCOUNTER 2022-12-17 09:55 | Emergency (ER) | payer MEDICARE, MEDICAID, SELFPAY ==
[2022-12-17 10:34] VITALS: BMI 29.7
[2022-12-17 10:40] VITALS: BP 130/82; PULSE 75; RESP 18; TEMP 36.6; O2SAT 98
--- NOTE | 2022-12-17 10:45 | W.ED.SKABFB ---
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 She previously has had a right inguinal lymphadenectomy back in Jan 2022. A PET scan performed later showed uptake around that site thus a right inguinal lymph node biopsy was performed around the end of October 2022 which showed metastatic keratinizing squamous cell carcinoma. She states since then she has had this mass that has continued to enlarge and become painful. It has never drained before. She has been put on Keflex by oncology about a month ago without much improvement. She spoke to her oncology surgeon in [place] who did not feel the mass itself was malignant. She states she was stepping out of the shower this morning when it busted open and started draining. She states she soaked two wash clothes and a maxi pad. complaint: abscess/boil Onset (ago): week(s) Tetanus up to date: yes Location: RLE Severity: mild Relieving factors: none Exacerbating factors: none Context: other (biopsied lymph node) Associated symptoms: Reports no associated symptoms; Deny chills, fever(s) or vomiting Treatments prior to arrival: bandages Review of Systems Const: Denies: fever(s) or chills Card: Denies: chest pain Resp: Denies: dyspnea GI: Denies: abdominal pain, vomiting or diarrhea : Denies: flank pain, dysuria or hematuria Skin/Breast: Reports: other (draining lesion to R groin) PFSH ED PFSH: Medical History Asthma Chronic migraine GERD (gastroesophageal reflux disease) HTN (hypertension) Lichen sclerosus of female genitalia Diagnosed in 2017 or 2018-states she was told that she just needs to use the clobetasol if needed so she uses it very rarely. Obstructive sleep apnea Osteoarthritis of right hip Rosacea Sacral insufficiency fracture Squamous cell carcinoma of vulva Vertigo Vitamin D deficiency Surgical History H/O esophagogastroduodenoscopy Dilation H/O esophagogastroduodenoscopy (06/24/21) History of bladder surgery 2007-had bladder lift surgery performed and states that about 3 months after surgery her bladder fell down again and she has not done anything about this. S/P hysterectomy 1991----?vaginal hysterectomy for heavy bleeding and pain. Status post arthroscopic surgery of left knee Status post colonoscopy with polypectomy (06/24/21) Status post laparotomy X 2 Thinks that she has had 2 open surgeries for cysts and problems with cysts and feels that this was before her hysterectomy but does not remember. Status post surgery (09/10/20) radical partial vulvectomy, right inguinofemoral lymphadenectomy, and left inguinofemoral sentinel lymph node biopsy Status post surgical removal of malignant neoplasm of skin (07/15/21) Squamous cell carcinoma in situ Family History Family/Other Breast cancer maternal aunt, diagnosed in her 50s or 60s Mother Hypertension Aortic aneurysm Hyperlipidemia Lung disease Father Hypertension Cancer Brother Hypertension Anesthesia complication during surgery d/t too much anesthesia Sister Hypertension Denies family history of Colon cancer Ovarian cancer Diabetes CAD (coronary artery disease) Clotting disorder Dementia Heart disease Chronic kidney disease (CKD) Suicide Bleeding disorder Uterine cancer Thyroid condition Stroke Social History Smoking and tobacco status: former smoker (smoked x 11 years) Quit status (tobacco): has quit using tobacco Year quit tobacco: 1997 Former quit date comment: Hx of 0.5 PPD x 8 Years Second hand smoke exposure: No Smoking risk assessment/counseling performed?: No Alcohol intake: never Counseling given: No Substance/Drug Use: never Counseling given: No Lives independently: Yes Household members: none Marital status: Current occupational status: disabled Do you think of yourself as: Straight/Heterosexual Current gender identity: Female Physical Exam Const: COMMON NORMALS: no acute distress, average body habitus, patient oriented x3, no limitations, alert and well nourished ORIENTATION/CONSCIOUSNESS: Yes awake, Yes oriented to person, Yes oriented to place and Yes oriented to time Extremity: OTHER: pt a large area of induration present to R inguinal region with central hemorrhagic abscess appearing like lesion; no drainage noted at this time but patient states it busted open earlier today after getting out of the shower; no significant erythema or warmth to the area; no odor needle aspiration yielded thin bloody serosanguineous fluid-this was sent for culture Neuro: COMMON NORMALS: patient oriented x3, moves all extremities, no focal motor deficits and no sensory deficits noted SENSORIUM/ORIENTATION: Yes alert, Yes oriented to person, Yes oriented to place and Yes oriented to time Course Vital Signs: Vital signs: Vital Signs Temperature 97.8 F 12/17/22 10:40 Pulse Rate 75 12/17/22 10:40 Respiratory Rate 18 12/17/22 10:40 Blood Pressure 130/82 12/17/22 10:40 Pulse Oximetry 98 12/17/22 10:40 Oxygen Delivery Me thod Room Air 12/17/22 10:40 MDM - Skin/Abscess/Foreign Bdy Medicial Decision Making Patient is a nice 67-year-old female here with concerns of a draining lesion to her right inguinal region. She has a known tumor in this location. She has a history of a right inguinal lymphadenectomy back in Jan 2022 and in October 2022 had a right inguinal lymph node biopsy that confirmed metastatic keratinizing squamous cell carcinoma. She was told lesion initially could be secondary to a seroma from the lymph node biopsy site however she is now 5 weeks out and states the lesion busted open this morning. Ultrasound of the area shows: IMPRESSION: 1. Adjacent to the neoplastic mass is a complex fluid collection with low-level echoes measuring 1.1 x 1.6 x 1.3 cm. May be a small seroma. Less likely abscess. There are low-level echoes throughout and debris present. 2. Solid mass at the RIGHT groin is reidentified. I spoke to Dr. Reeder who feared area could be an extension of her known tumor to that area, She did not feel based on ultrasound that an I&D would be overly helpful as fluid was complex. Patient states she has addressed this complaint with her surgical corporate trust officer in [place] Dr. Yanez who did not feel mass itself was malignant. She has been placed on Keflex by Dr. Mackay without any improvement. At this time I did needle aspirate lesion with bloody serosanguineous fluid expressed. This was cultured. I will place patient on Bactrim while we await cultures. I don't think blood work at this time would ultimately change my management. Dr. Reeder stated CT imaging would not really yield much more detail. She just had MRI of her pelvis performed. She is clinically non-ill/non-toxic with normal vital signs. Patient has also seen our general surgeon Dr. Banks for consult for possible additional lymphadenectomy to which he deferred to [facility] oncology. At this point I am not sure the best step going forward as patient has been evaluated by our oncology department, her [facility] surgical oncologist Dr. Yanez in [place], as well as our general surgeon Dr. Banks. I think awaiting cultures is at least a good starting point but I do think ultimately this is going to have to be managed by her surgical oncologist. We discussed this in great detail and she seems satisfied with this plan and stated she will contact their office for an appointment. Return to ED precautions given. Discharge Plan Discharge Patient Disposition: Home Clinical Impression: Right groin mass Condition: Stable Prescriptions: New Bactrim DS 800-160 mg tablet 1 tab PO BID 7 Days Qty: 14 0RF No Action multivitamin Tablet 1 tab PO QAM ipratropium-albuterol 0.5 mg-3 mg(2.5 mg base)/3 mL solution for nebulization 3 ml INHALATION Q12H PRN (Reason: Shortness Of Breath) pantoprazole 20 mg tablet,delayed release (DR/EC) 20 mg PO DAILY PRN (Reason: Acid Reflux) Pulmicort Flexhaler 90 mcg/actuation aerosol powdr breath activated 1 inh INHALATION BID PRN (Reason: unknown) Probiotic Blend 2 billion cell-50 mg Capsule 2 cap PO QAM ibuprofen 200 mg Tablet 200 - 800 mg PO Q6H PRN (Reason: Pain) acetaminophen 500 mg Tablet 500 mg PO Q6H PRN (Reason: Pain) Discharge Orders: Discharge ED (Routine); Ordered 12/17/22 Ordered By: Latesha Walters Referrals: MARIA C LAZO [Primary Care Provider] - Activity Restrictions/Additional Instructions: As we discussed we should have your groin mass culture results in a few days. We are placing you antibiotics in the meantime. As we discussed please follow up with your surgical oncologist as soon as possible. Coding Level of Care Code ED [employer] for Angely López
--- NOTE | 2022-12-17 11:09 | US_ITS ---
WS: [id number] ULTRASOUND SOFT TISSUES RIGHT groin HISTORY: R groin mass/drainage COMPARISON: 12/10/2022 TECHNIQUE: 2-D and color Doppler imaging is submitted. Again identified is a neoplastic mass in the RIGHT groin measuring 3.6 x 2.7 x 2.9 cm. Adjacent to th e mass is a small complex fluid collection measuring 1.1 x 1.6 x 1.3 cm. Low-level echoes throughout. No increased vascularity. There is mobile debris present. IMPRESSION: 1. Adjacent to the neoplastic mass is a complex fluid collection with low-level echoes measuring 1.1 x 1.6 x 1.3 cm. May be a small seroma. Less likely abscess. There are low-level echoes throughout and debris present. 2. Solid mass at the RIGHT groin is reidentified.
== END 2022-12-17 13:08 | disposition home or self-care (01) ==
PROVIDERS: Emergency Provider Physician Assistant; PCP Internal Medicine Cardiovascular Disease
DX: R22.41 Localized swelling, mass and lump, right lower limb (principal); Z87.891 Personal history of nicotine dependence; I10 Essential (primary) hypertension; Z85.44 Personal history of malignant neoplasm of other female genital organs
CPT/HCPCS: 76882; 87070; 87075; 87205; 99284

== ENCOUNTER 2022-12-23 07:58 | Oncology outpatient (recurring) (ONCR) | payer MEDICARE, MEDICAID, SELFPAY ==
[2022-12-23 08:39] VITALS: BP 131/63; PULSE 79; RESP 17; TEMP 36.6; O2SAT 96
[2022-12-23] MEDS: sodium chloride 0.9% 250 ML 75 ML IV (08:52)
[2022-12-23] MEDS: ondansetron 2 mg/ML SDV 2 mL 4 MG IVP (08:52)
[2022-12-23] MEDS: pembrolizumab 200 MG in sodium chloride 0.9% 250 ML 516 MG IV (09:12)
[2022-12-23 10:17] VITALS: BP 124/68; PULSE 81; RESP 18; TEMP 36.3; O2SAT 96
== END 2022-12-23 23:59 | disposition home or self-care (01) ==
LOC: ONCMED 08:00
PROVIDERS: PCP Internal Medicine Cardiovascular Disease; Visit Provider Internal Medicine Medical Oncology
DX: C51.9 Malignant neoplasm of vulva, unspecified (principal); Z51.12 Encounter for antineoplastic immunotherapy
CPT/HCPCS: 96375; 96413; J1642; J2405; J7050; J9271

== ENCOUNTER → 2022-12-27 08:56 | Outpatient (BNVA) | payer MEDICARE, MEDICAID, SELFPAY | PROVIDERS: PCP Internal Medicine Cardiovascular Disease; Visit Provider Thoracic Surgery (Cardiothoracic Vascular Surgery) | DX: I96 Gangrene, not elsewhere classified (principal); L97.112 Non-pressure chronic ulcer of right thigh with fat layer exposed | CPT/HCPCS: 10060; 99213 ==

== ENCOUNTER 2022-12-27 21:32 | Inpatient (IN) | payer MEDICARE, MEDICAID, SELFPAY ==
[2022-12-27 21:48] VITALS: BP 149/82; PULSE 88; RESP 18; TEMP 36.7; O2SAT 99; BMI 29.2
--- NOTE | 2022-12-27 23:20 | CTR_ITS ---
PROCEDURE INFORMATION: Exam: CT Pelvis Without Contrast; Skeletal Exam date and time: 12/27/2022 11:32 PM Age: 67 years old Clinical indication: Hip pain; Right hip; Additional info: Sudden increase in pain right side, recent pelvic fractures TECHNIQUE: Imaging protocol: Computed tomography of the pelvis without contrast. Exam focused on the skeleton. Radiation optimization: All CT scans at this facility use at least one of these dose optimization techniques: automated exposure control; mA and/or kV adjustment per patient size (includes targeted exams where dose is matched to clinical indication); or iterative reconstruction. REPORTING DATA: Count of CT and Cardiac NM exams in prior 12 months: This patient has received 9 known CTs and 0 known cardiac nuclear medicine studies in the 12 months prior to the current study. COMPARISON: MR pelvis wo con* [id number] 12/02/2022 8:22 AM RADIATION DOSE METRICS: Total DLP (mGy-cm): 641 FINDINGS: Bones/joints: L4 vertebral body superior endplate compression deformity without retropulsion of bony fragments, not seen with certainty on prior exam, potentially acute. Bilateral sacral insufficiency fractures, similar to prior exam. Right pubic symphysis fracture again seen with involvement of the right pubic symphysis, similar to prior exam. Right ilium fracture just superior to the acetabulum, not as well visualized as on recent MRI exam. Soft tissues: Unremarkable. CT/CT bony pelvis [id number] IMPRESSION: 1. L4 vertebral body superior endplate compression deformity without retropulsion of bony fragments, not seen with certainty on prior exam, potentially acute. 2. Bilateral sacral insufficiency fractures, similar to prior exam. 3. Right pubic symphysis fracture again seen with involvement of the right pubic symphysis, similar to prior exam. 4. Right ilium fracture just superior to the acetabulum, not as well visualized as on recent MRI exam.
--- NOTE | 2022-12-27 23:22 | ED_ITS ---
HPI - Extremity Problem General: Chief complaint: Extremity Injury, Lower Stated complaint: Fractures Pelvis Pain Time Seen by Provider: 12/27/22 23:16 History of Present Illness: Patient presents to the ER with complaints of sudden worsening of right pelvic pain. Patient has a history of multiple pelvic fractures and this afternoon when she was doing a dressing change she states she felt a pop and as she cannot get up without excruciating pain. Patient is afraid she meant when these fractures may have moved or and/or be displaced. Patient is a cancer patient Review of Systems General: Reports: 10 or more systems reviewed and unremarkable except in HPI and below PFSH ED PFS: Medical History Asthma Chronic migraine GERD (gastroesophageal reflux disease) HTN (hypertension) Lichen sclerosus of female genitalia Diagnosed in 2017 or 2018-states she was told that she just needs to use the clobetasol if needed so she uses it very rarely. Obstructive sleep apnea Osteoarthritis of right hip Rosacea Sacral insufficiency fracture Squamous cell carcinoma of vulva Vertigo Vitamin D deficiency Surgical History H/O esophagogastroduodenoscopy Dilation H/O esophagogastroduodenoscopy (06/24/21) History of bladder surgery 2007-had bladder lift surgery performed and states that about 3 months after surgery her bladder fell down again and she has not done anything about this. S/P hysterectomy 1991----?vaginal hysterectomy for heavy bleeding and pain. Status post arthroscopic surgery of left knee Status post colonoscopy with polypectomy (06/24/21) Status post laparotomy X 2 Thinks that she has had 2 open surgeries for cysts and problems with cysts and feels that this was before her hysterectomy but does not remember. Status post surgery (09/10/20) radical partial vulvectomy, right inguinofemoral lymphadenectomy, and left inguinofemoral sentinel lymph node biopsy Status post surgical removal of malignant neoplasm of skin (07/15/21) Squamous cell carcinoma in situ Family History Family/Other Breast cancer maternal aunt, diagnosed in her 50s or 60s Mother Hypertension Aortic aneurysm Hyperlipidemia Lung disease Father Hypertension Cancer Brother Hypertension Anesthesia complication during surgery d/t too much anesthesia Sister Hypertension Denies family history of Colon cancer Ovarian cancer Diabetes CAD (coronary artery disease) Clotting disorder Dementia Heart disease Chronic kidney disease (CKD) Suicide Bleeding disorder Uterine cancer Thyroid condition Stroke Social History Smoking and tobacco status: former smoker (smoked x 11 years) Quit status (tobacco): has quit using tobacco Year quit tobacco: 1997 Former quit date comment: Hx of 0.5 PPD x 8 Years Second hand smoke exposure: No Smoking risk assessment/counseling performed?: No Alcohol intake: never Counseling given: No Substance/Drug Use: never Counseling given: No Lives independently: Yes Household members: none Marital status: Current occupational status: disabled Do you think of yourself as: Straight/Heterosexual Current gender identity: Female Physical Exam HENMT: COMMON NORMALS: normocephalic, atraumatic, hearing grossly normal bilaterally, external ears normal, Normal external nose present and moist oral mucous membranes HEAD & SCALP: normocephalic and atraumatic NOSE: Normal external nose present EXTERNAL EAR: Yes external ears normal Neck/C-Spine: COMMON NORMALS: full ROM, no lymphadenopathy, supple, no meningeal signs, no JVD and Thyroid normal THYROID: Thyroid normal Chest: COMMONS NORMALS: normal inspection of the chest and normal palpation of entire chest wall Resp: COMMON NORMALS: normal respiratory effort, No retractions, No use of accessory muscles and clear to auscultation bilaterally AUSCULTATION: clear to auscultation bilaterally Cardio: COMMON NORMALS: no JVD, regular rate, regular rhythm, S1 normal heart sound present, S2 normal heart sound present, No gallops present (Cardio), No clicks present (Cardio), No murmurs present (Cardio) and No rub (Cardio) RATE: regular rate RHYTHM: regular rhythm HEART SOUNDS: S1 normal heart sound present and S2 normal heart sound present GI: COMMON NORMALS: Normal to inspection, nondistended, normoactive bowel sounds present, Soft to palpation, non-tender, No hepatosplenomegaly present and no masses PALPATION: Yes Soft to palpation and Yes No hepatosplenomegaly present : COMMON NORMALS: Yes no CVA tenderness BLADDER/KIDNEY EXAM: Yes no CVA tenderness Back/Pelvis: COMMON NORMALS: no CVA tenderness Neuro: MENINGEAL SIGNS: Yes no meningeal signs Course Vital Signs: Vital signs: Vital Signs Temperature 98.1 F 12/27/22 21:48 Pulse Rate 87 12/28/22 00:04 Respiratory Rate 16 12/28/22 00:04 Blood Pressure 134/76 12/28/22 00:04 Pulse Oximetry 95 12/28/22 00:04 Oxygen Delivery Me thod Room Air 12/28/22 00:04 MDM - Extremity (Nontraumatic) Medical Decision Making Patient presents ER with complaints of worsening pelvic pain since rolling over for dressing changes and feeling a pop. Patient states his pain is way more intense than her normal pain. She rates pain a 10 out of 10 and this is new compared to her normal pain. Patient does possibly have bone cancer and has multiple sacral and pubic rami fractures that are previously known. Patient currently sees Dr. Mackay. A pelvis CT without contrast was obtained which showed a L4 vertebral compression fracture not seen on prior exam as well as bilateral sacral insufficiency fractures, right pubic symphysis fracture, right ilium fracture, all seen on prior exam. Patient was given 4 mg morphine and 4 mg Zofran for pain control. Patient will be admitted for pain control. Patient lives home alone Differential Diagnosis Unlikely herpes zoster, gout, cellulitis, superficial thrombophlebitis, deep venous thrombosis of upper extremity, lower extremity edema or deep vein thrombosis of lower extremity Medical Records I reviewed the patient's medical records. Lab Data I reviewed the patient's lab results. Radiology Impressions Pelvis CT 12/27/22 23:20 IMPRESSION: 1. L4 vertebral body superior endplate compression deformity without retropulsion of bony fragments, not seen with certainty on prior exam, potentially acute. 2. Bilateral sacral insufficiency fractures, similar to prior exam. 3. Right pubic symphysis fracture again seen with involvement of the right pubic symphysis, similar to prior exam. 4. Right ilium fracture just superior to the acetabulum, not as well visualized as on recent MRI exam. Discharge Plan Discharge Patient Disposition: Placed in Observation Clinical Impression: Inadequate pain control Closed compression fracture of L4 vertebra Qualifiers: Encounter type: initial encounter Qualified Code(s): S32.040A - Wedge compression fracture of fourth lumbar vertebra, initial encounter for closed fracture Multiple pelvic fractures Qualifiers: Encounter type: subsequent encounter Fracture type: closed Fracture alignment: without disruption of pelvic ring Fracture healing: with routine healing Qualified Code(s): S32.82XD - Multiple fractures of pelvis without disruption of pelvic ring, subsequent encounter for fracture with routine healing Coding Level of Care Code ED [employer] for Angely López
[2022-12-27 23:45] VITALS: RESP 16
[2022-12-27] MEDS: morphine 4 mg/mL SDV 1 mL IM (23:45)
[2022-12-28] VITALS (15 sets, daily range): BP systolic 117–136; BP diastolic 67–80; PULSE 69–87; RESP 14–19; TEMP 36.7–37.3; O2SAT 90–99
[2022-12-28] MEDS: ondansetron 2 mg/ML SDV 2 mL 4 MG IVP ×2 (00:41→14:56)
[2022-12-28 00:42] LABS: Basophils % 0.2 %; Eosinophils # 0.1 10^3/uL (0.0-0.8); Eosinophils % 1.5 %; Hematocrit 34.7 % (36-47); Lymphocytes # 0.9 10^3/uL (0.8-4.8); Lymphocytes % 18.3 %; Mean Corpuscular HGB Conc 32.3 g/dL (30-55); Mean Corpuscular Volume 96.1 fl (85-98); Mean Platelet Volume 8.2 fL (7.4-10.4); Monocytes # 0.5 10^3/uL (0.2-0.9); Monocytes % 9.8 %; Neutrophils # 3.28 10^3/uL (1.8-7.7); Neutrophils % 69.8 %; Nucleated Red Blood Cells % 0 %; Platelet Count 272 10^3/cmm (157-399); Red Blood Count 3.61 10^6/uL (3.85-5.65); Red Cell Distribution Width 13.5 % (12.1-15.1)
--- NOTE | 2022-12-28 00:46 | PC.NURSE ---
pt is being treated at wound care for a wound on her right lower abdomen. wound is covered and not bleeding at this time.
[2022-12-28 01:03] LABS: Alanine Aminotransferase 33 U/L (0-33); Albumin Level 4.6 g/dL (3.5-5.2); Alkaline Phosphatase 269 U/L (35-105); Anion Gap 14.4 (5-19); Aspartate Amino Transferase 35 U/L (0-32); Blood Urea Nitrogen 17 mg/dL (8-23); Calcium 9.8 mg/dL (8.5-10.5); Carbon Dioxide 27 mmol/L (22-29); Chloride 103 mmol/L (98-107); Globulin 3.9 g/dL (1.3-4.6); Glucose 110 mg/dL (65-115); Osmolality Calculated 292 mOsm/kg (285-295); Potassium 4.4 mmol/L (3.5-5.1); Sodium 140 mmol/L (136-145); Total Bilirubin 0.3 mg/dL (0.15-1.2); Total Protein 8.5 g/dL (6.6-8.7)
--- NOTE | 2022-12-28 01:28 | PM.HP ---
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 She recently had a right groin abscess which was drained outpatient. As per the patient her sister was doing dressing and when she tried to move her she heard a pop in her back. Following that she started having pain in her lower back. She moves around in the house with a walker. She denies any fever cough cold shortness of breath urinary or bowel complaints or history of fall. She is currently on fentanyl patch 25 mcg every 72 hours for pain control Review of Systems Narrative: As per HPI Medications/Allergies Home Medications Medication Instructions Recorded Confirmed Last Taken Type multivitamin 1 tab PO QAM 04/01/22 12/28/22 1 Day Ago History ~12/27/22 L.acidophil-L.casei-B.bifid-B.longum-FOS 2 cap PO QAM 10/27/22 12/28/22 1 Day Ago History 2 billion cell-50 mg capsule ~12/27/22 (Probiotic Blend) budesonide 90 mcg/actuation breath 1 inh inhalation BID PRN unknown 10/27/22 12/28/22 Unknown History activated powder inhaler (Pulmicort Flexhaler) ibuprofen 200 mg tablet 200 - 800 mg PO Q6H PRN Pain 10/27/22 12/28/22 Unknown History ipratropium 0.5 mg-albuterol 3 mg 3 ml inhalation Q12H PRN Shortness 10/27/22 12/28/22 Unknown History (2.5 mg base)/3 mL nebulization Of Breath soln pantoprazole 20 mg tablet,delayed 20 mg PO DAILY PRN Acid Reflux 10/27/22 12/28/22 1 Day Ago History release ~12/27/22 acetaminophen 500 mg tablet 500 mg PO Q6H PRN Pain 12/17/22 12/28/22 Unknown History ondansetron HCl 4 mg tablet 4 mg PO Q6H PRN nausea and 12/23/22 12/28/22 3 Days Ago Rx vomiting #30 tabs ~12/25/22 ascorbic acid (vitamin C) 1,000 mg 500 mg PO DAILY 12/28/22 12/28/22 1 Day Ago History tablet (Vitamin C) ~12/27/22 cholecalciferol (vitamin D3) 25 25 mcg PO DAILY 12/28/22 12/28/22 1 Day Ago History mcg (1,000 unit) tablet (Vitamin ~12/27/22 D3) clobetasol 0.05 % topical cream 1 applic topical BID PRN Skin 12/28/22 12/28/22 Unknown History Irritation fentanyl See Rx Instructions .Route .COMPLEX 12/28/22 12/28/22 3 Days Ago History ~12/25/22 lidocaine See Rx Instructions .Route .COMPLEX 12/28/22 12/28/22 Unknown History milk thistle See Rx Instructions .Route .COMPLEX 12/28/22 12/28/22 1 Day Ago History ~12/27/22 Allergies Allergy/AdvReac Type Severity Reaction Status Date / Time milk Allergy Severe coughing Verified 12/27/22 21:51 egg Allergy ADR-Abdominal Verified 12/27/22 21:51 Pain codeine AdvReac ADR-Vomitin Verified 12/27/22 21:51 g keflex Allergy Intermediate rash Uncoded 12/27/22 21:51 PFSH Acute PFSH: Medical History Asthma Chronic migraine GERD (gastroesophageal reflux disease) HTN (hypertension) Lichen sclerosus of female genitalia Diagnosed in 2017 or 2018-states she was told that she just needs to use the clobetasol if needed so she uses it very rarely. Obstructive sleep apnea Osteoarthritis of right hip Rosacea Sacral insufficiency fracture Squamous cell carcinoma of vulva Vertigo Vitamin D deficiency Surgical History H/O esophagogastroduodenoscopy Dilation H/O esophagogastroduodenoscopy (06/24/21) History of bladder surgery 2007-had bladder lift surgery performed and states that about 3 months after surgery her bladder fell down again and she has not done anything about this. S/P hysterectomy 1991----?vaginal hysterectomy for heavy bleeding and pain. Status post arthroscopic surgery of left knee Status post colonoscopy with polypectomy (06/24/21) Status post laparotomy X 2 Thinks that she has had 2 open surgeries for cysts and problems with cysts and feels that this was before her hysterectomy but does not remember. Status post surgery (09/10/20) radical partial vulvectomy, right inguinofemoral lymphadenectomy, and left inguinofemoral sentinel lymph node biopsy Status post surgical removal of malignant neoplasm of skin (07/15/21) Squamous cell carcinoma in situ Family History Family/Other Breast cancer maternal aunt, diagnosed in her 50s or 60s Mother Hypertension Aortic aneurysm Hyperlipidemia Lung disease Father Hypertension Cancer Brother Hypertension Anesthesia complication during surgery d/t too much anesthesia Sister Hypertension Denies family history of Colon cancer Ovarian cancer Diabetes CAD (coronary artery disease) Clotting disorder Dementia Heart disease Chronic kidney disease (CKD) Suicide Bleeding disorder Uterine cancer Thyroid condition Stroke Social History Smoking and tobacco status: former smoker (smoked x 11 years) Quit status (tobacco): has quit using tobacco Year quit tobacco: 1997 Former quit date comment: Hx of 0.5 PPD x 8 Years Second hand smoke exposure: No Smoking risk assessment/counseling performed?: No Alcohol intake: never Counseling given: No Substance/Drug Use: never Counseling given: No Lives independently: Yes Household members: none Marital status: Current occupational status: disabled Do you think of yourself as: Straight/Heterosexual Current gender identity: Female Vitals/I&O/Wt Last Vital Signs Temp 98.1 F 12/27/22 21:48 Pulse 87 12/28/22 00:04 Resp 16 12/28/22 00:04 BP 134/76 12/28/22 00:04 Pulse Ox 95 12/28/22 00:04 O2 Del Method Room Air 12/28/22 00:04 Weight last 48 hrs Weight 84.822 kg Physical Exam Narrative: She is alert awake oriented x3 not in acute distress Chest is clear to auscultation bilaterally Cardiovascular normal heart sounds normal rhythm Abdomen NAD Extremities no pedal edema noted Right groin abscess dressing present Data 12/28/22 00:35 12/28/22 00:35 CT Abd/Pel: Radiologist's impression: IMPRESSION: 1. ? L4 vertebral body superior endplate compression deformity without retropulsion of bony fragments, not seen with certainty on prior exam, potentially acute. 2. ? Bilateral sacral insufficiency fractures, similar to prior exam. 3. ? Right pubic symphysis fracture again seen with involvement of the right pubic symphysis, similar to prior exam. 4. ? Right ilium fracture just superior to the acetabulum, not as well visualized as on recent MRI exam. ? A&P Assessment and plan (1) Closed compression fracture of L4 vertebra: Qualifiers: Encounter type: initial encounter Qualified Code(s): S32.040A - Wedge compression fracture of fourth lumbar vertebra, initial encounter for closed fracture (2) Inadequate pain control: Plan 67-year-old female with history of metastatic squamous cell cancer of vulva and history of multiple pelvic fracture presented with complaint of low back pain and found to have L4 vertebral fracture on CT pelvis. She did not complain of increased pain hence we will continue with the fentanyl patch 25mcg for now Probable orthopedic consultation in a.m. Resume home medications IV Pepcid 20 mg every 12 hours for stress ulcer prophylaxis Subcutaneous Lovenox 40 mg daily for DVT prophylaxis Wound care for right groin abscess She is full code for now Social work consult for home health aide/rehab placement. Attestations Medical Necessity Statement*: She is here for observation for acute pain secondary to L4 vertebral fracture and needs social work for home health aide/placement Time Spent in Patient Care: 30 minutes Coding Level of Care Code Acute Code for Chg Fwd Diagnoses Closed compression fracture of L4 vertebra S32.040A Encounter type: initial encounter Inadequate pain control R52 Time Spent (min) 30
[2022-12-28] MEDS: morphine 4 mg/mL SDV 1 mL IVP (04:16)
--- NOTE | 2022-12-28 04:56 | PC.NURSE ---
Patient currently rates her pain a 3/10. Patient states it only hurts when I move.
--- NOTE | 2022-12-28 05:28 | PC.NURSE ---
Patient has Fentanyl patch from home to left abdomen. Dr. Daily notified. Ordered okay to leave patch on.
--- NOTE | 2022-12-28 06:01 | PC.NURSE ---
Patient has dressing to right groin from wound care that we do not currently have. Dr. Daily ordered Maxorb for right groin.
[2022-12-28] MEDS: multivitamin therapeutic Tablet 1 TAB PO (06:03)
[2022-12-28] MEDS: enoxaparin 40 mg/0.4 mL Syringe SUBCUT (06:03)
[2022-12-28] MEDS: famotidine 20 mg/2 mL INJ IVP ×2 (06:03→17:42)
--- NOTE | 2022-12-28 06:33 | ECG_ITS ---
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 Measurements Intervals [place] Rate: 69 P: 9 PA: 176 QRS: 52 QRSD: 89 T: 18 QT: 421 QTc: 452 Interpretive Statements SINUS RHYTHM No previous ECG available for comparison Electronically Signed On 12-28-2022 9:48:27 CDT by Jam Harris M.D. [id number]
[2022-12-28 07:01] LABS: Basophils % 0.3 %; Eosinophils # 0.1 10^3/uL (0.0-0.8); Eosinophils % 3.4 %; Hematocrit 30.9 % (36-47); Lymphocytes # 0.9 10^3/uL (0.8-4.8); Lymphocytes % 23.5 %; Mean Corpuscular HGB Conc 31.7 g/dL (30-55); Mean Corpuscular Hemoglobin 30.9 pg (27-33); Mean Corpuscular Volume 97.5 fl (85-98); Mean Platelet Volume 8.3 fL (7.4-10.4); Monocytes # 0.5 10^3/uL (0.2-0.9); Monocytes % 12.4 %; Neutrophils # 2.28 10^3/uL (1.8-7.7); Neutrophils % 60.1 %; Nucleated Red Blood Cells % 0 %; Platelet Count 259 10^3/cmm (157-399); Red Blood Count 3.17 10^6/uL (3.85-5.65); Red Cell Distribution Width 13.4 % (12.1-15.1); White Blood Count 3.79 10^3/uL (3.29-11.43)
[2022-12-28 07:26] LABS: Alanine Aminotransferase 28 U/L (0-33); Albumin Level 0.2 g/dL (3.5-5.2); Alkaline Phosphatase 215 U/L (35-105); Aspartate Amino Transferase 28 U/L (0-32); Blood Urea Nitrogen 16 mg/dL (8-23); Calcium 9.1 mg/dL (8.5-10.5); Carbon Dioxide 26 mmol/L (22-29); Globulin 6.6 g/dL (1.3-4.6); Glomerular Filtration Rate 100.3 mL/min (90-130); Glucose 92 mg/dL (65-115); Magnesium 2.1 mg/dL (1.7-2.3); Total Bilirubin 0.2 mg/dL (0.15-1.2); Total Protein 6.8 g/dL (6.6-8.7)
[2022-12-28 07:31] LABS: Anion Gap 13.7 (5-19); Chloride 104 mmol/L (98-107); Osmolality Calculated 291 mOsm/kg (285-295); Potassium 3.7 mmol/L (3.5-5.1); Sodium 140 mmol/L (136-145)
--- NOTE | 2022-12-28 08:40 | MR_ITS ---
WS: [id number] MRI LUMBAR SPINE WITH CONTRAST TECHNIQUE: Sagittal T1, T2 and STIR imaging. Axial T1 and T2 imaging. Post gadolinium imaging was obt ained. CLINICAL INFORMATION: Lumbar Fracture.. Ca Hx COMPARISON: CT 12/27/2022 and MRI 12/02/2022 FINDINGS: Mild lumbar curve. Mild recent appearing compression super endplate L4 with minimal loss vertebral jorge dy height. No retropulsion. No other acute compression fractures. L1-L2: Normal. L2-L3: Mild annular bulging. Tiny LEFT foraminal protrusion with mild LEFT proximal foraminal narrowi ng. Spinal canal and RIGHT foramen are patent. Mild facet arthropathy. L3-L4: Mild annular bulging. Slight impingement RIGHT subarticular recess. LEFT foraminal protrusion impinges the exiting LEFT L3 nerve root. Mild LEFT foraminal narrowing. Mild facet arthropathy. L4-L5: Mild annular bulging. Narrowing of the RIGHT subarticular recess. Mild facet arthropathy. Spin al canal and foramen are patent. L5-S1: No significant disc bulging. Spinal canal and foramen are patent. Mild facet arthropathy. Partially visualized bilateral sacral insufficiency fractures with diffuse edema and reactive enhance ment. This has an acute appearance. Incidental Tarlov cysts in the sacrum. Visualized pelvic bony structures: Normal. Paravertebral soft tissues: Normal. IMPRESSION: 1. Bilateral sacral insufficiency fractures with diffuse edema and associated reactive enhancement. Insufficiency fractures similar to 12/02/2022 2. Mild compression superior plate L4 with a small amount of edema has a recent appearance. No retro pulsion. 3. Small LEFT foraminal protrusions L2-3 and L3-4 with contact of the exiting L2 and L3 nerve roots respectively worse at L3. 4. Mild narrowing of the RIGHT L4-5 subarticular recess.
[2022-12-28] MEDS: morphine 4 mg/mL SDV 1 mL 2 MG IVP (09:34)
[2022-12-28] MEDS: gadobenate dimeglumine 20 mL vial IV (10:46)
--- NOTE | 2022-12-28 12:28 | P.CONIM_ITS ---
Providers/Reason For Consult Consulting Physician/Specialty*: Ortho Spine Reason for Consult*: Back Pain Attending Physician: Piero Obando MD Primary Care Provider: eLs Flores MD History of Present Illness History of Present Illness Chelsey Adams is a 67 year old female presents to the emergency room with increased back pain this been ongoing progressively getting worse over the last week. She has been weaning off of her fentanyl patch and has noticed increased back pain. She denies any specific fall or injury to her back. She does have known sacral insufficiency fractures. She states that any movement has made her back pain much worse which she describes as sharp stabbing constant in nature. She reports pain in the right groin she has had this pain for a number of months and has a history of metastatic squamous cell carcinoma of the vulva with complaints of a right inguinal mass/lesion. A PET scan performed showed uptake around that site thus a right inguinal lymph node biopsy was performed around the end of October 2022 which showed metastatic keratinizing squamous cell carcinoma. Her current back pain is described as sharp stabbing constant in efrain ure. Ranks it as 8 out of 10 on the pain scale with movement making it much worse. She has had numbness in both lower extremities for some time. She denies any changes with her leg pains or numbness. She denies any loss of bowel or bladder control. Currently her all of her pain is localized to her low back. Review of Systems Narrative: As per HPI Medications/Allergies Home Medications Medication Instructions Recorded Confirmed Last Taken Type multivitamin 1 tab PO QAM 04/01/22 12/28/22 1 Day Ago History ~12/27/22 L.acidophil-L.casei-B.bifid-B.longum-FOS 2 cap PO QAM 10/27/22 12/28/22 1 Day Ago History 2 billion cell-50 mg capsule ~12/27/22 (Probiotic Blend) budesonide 90 mcg/actuation breath 1 inh inhalation BID PRN unknown 10/27/22 12/28/22 Unknown History activated powder inhaler (Pulmicort Flexhaler) ibuprofen 200 mg tablet 200 - 800 mg PO Q6H PRN Pain 10/27/22 12/28/22 Unknown History ipratropium 0.5 mg-albuterol 3 mg 3 ml inhalation Q12H PRN Shortness 10/27/22 12/28/22 Unknown History (2.5 mg base)/3 mL nebulization Of Breath soln pantoprazole 20 mg tablet,delayed 20 mg PO DAILY PRN Acid Reflux 10/27/22 12/28/22 1 Day Ago History release ~12/27/22 acetaminophen 500 mg tablet 500 mg PO Q6H PRN Pain 12/17/22 12/28/22 Unknown History ondansetron HCl 4 mg tablet 4 mg PO Q6H PRN nausea and 12/23/22 12/28/22 3 Days Ago Rx vomiting #30 tabs ~12/25/22 ascorbic acid (vitamin C) 1,000 mg 500 mg PO DAILY 12/28/22 12/28/22 1 Day Ago History tablet (Vitamin C) ~12/27/22 cholecalciferol (vitamin D3) 25 25 mcg PO DAILY 12/28/22 12/28/22 1 Day Ago History mcg (1,000 unit) tablet (Vitamin ~12/27/22 D3) clobetasol 0.05 % topical cream 1 applic topical BID PRN Skin 12/28/22 12/28/22 Unknown History Irritation fentanyl See Rx Instructions .Route .COMPLEX 12/28/22 12/28/22 3 Days Ago History ~12/25/22 lidocaine See Rx Instructions .Route .COMPLEX 12/28/22 12/28/22 Unknown History milk thistle See Rx Instructions .Route .COMPLEX 12/28/22 12/28/22 1 Day Ago History ~12/27/22 Allergies Allergy/AdvReac Type Severity Reaction Status Date / Time milk Allergy Severe coughing Verified 12/27/22 21:51 egg Allergy ADR-Abdominal Verified 12/27/22 21:51 Pain codeine AdvReac ADR-Vomitin Verified 12/27/22 21:51 g keflex Allergy Intermediate rash Uncoded 12/27/22 21:51 Current Medications Generic Name Dose Route Start Last Admin Trade Name Freq PRN Reason Stop Dose Admin Enoxaparin Sodium 40 mg 12/28/22 06:00 12/28/22 06:03 Enoxaparin 40 Mg/0.4 Ml Syringe SUBCUT 40 mg Q24H JULEE Administration Famotidine 20 mg 12/28/22 05:15 12/28/22 06:03 Famotidine 20 Mg/2 Ml Inj IVP 20 mg Q12H JULEE Administration Morphine Sulfate 2 mg 12/28/22 08:31 12/28/22 09:34 Morphine 4 Mg/Ml Sdv 1 Ml IVP 2 mg Q4H PRN Administration SEVERE PAIN Multivitamins Therapeutic 1 tab 12/28/22 06:00 12/28/22 06:03 Multivitamin Therapeutic Tablet PO 1 tab QAM JULEE Administration Non-Formulary Medication 2 cap 12/28/22 06:00 12/28/22 06:00 L.Acid-L.Casei-B.Bif-B.Gregg-Fos [Probiotic Blend] PO Not Given QAM JULEE PFSH Acute PFSH: Medical History Asthma Chronic migraine GERD (gastroesophageal reflux disease) HTN (hypertension) Lichen sclerosus of female genitalia Diagnosed in 2017 or 2018-states she was told that she just needs to use the clobetasol if needed so she uses it very rarely. Obstructive sleep apnea Osteoarthritis of right hip Rosacea Sacral insufficiency fracture Squamous cell carcinoma of vulva Vertigo Vitamin D deficiency Surgical History H/O esophagogastroduodenoscopy Dilation H/O esophagogastroduodenoscopy (06/24/21) History of bladder surgery 2007-had bladder lift surgery performed and states that about 3 months after surgery her bladder fell down again and she has not done anything about this. S/P hysterectomy 1991----?vaginal hysterectomy for heavy bleeding and pain. Status post arthroscopic surgery of left knee Status post colonoscopy with polypectomy (06/24/21) Status post laparotomy X 2 Thinks that she has had 2 open surgeries for cysts and problems with cysts and feels that this was before her hysterectomy but does not remember. Status post surgery (09/10/20) radical partial vulvectomy, right inguinofemoral lymphadenectomy, and left inguinofemoral sentinel lymph node biopsy Status post surgical removal of malignant neoplasm of skin (07/15/21) Squamous cell carcinoma in situ Family History Family/Other Breast cancer maternal aunt, diagnosed in her 50s or 60s Mother Hypertension Aortic aneurysm Hyperlipidemia Lung disease Father Hypertension Cancer Brother Hypertension Anesthesia complication during surgery d/t too much anesthesia Sister Hypertension Denies family history of Colon cancer Ovarian cancer Diabetes CAD (coronary artery disease) Clotting disorder Dementia Heart disease Chronic kidney disease (CKD) Suicide Bleeding disorder Uterine cancer Thyroid condition Stroke Social History Smoking and tobacco status: former smoker (smoked x 11 years) Quit status (tobacco): has quit using tobacco Year quit tobacco: 1997 Former quit date comment: Hx of 0.5 PPD x 8 Years Second hand smoke exposure: No Smoking risk assessment/counseling performed?: No Alcohol intake: never Counseling given: No Substance/Drug Use: never Counseling given: No Lives independently: Yes Household members: none Marital status: Current occupational status: disabled Do you think of yourself as: Straight/Heterosexual Current gender identity: Female Vitals/I&O/Wt Last Vital Signs Temp 98.0 F 12/28/22 11:39 Pulse 69 12/28/22 11:39 Resp 15 12/28/22 11:39 BP 117/72 12/28/22 11:39 Pulse Ox 99 12/28/22 11:39 O2 Del Method Room Air 12/28/22 11:39 12/27/22 12/28/22 12/28/22 22:59 06:59 14:59 Intake Total 120 / 120 340 / 340 Balance 120 / 120 340 / 340 Weight last 48 hrs Weight 187 lb Physical Exam Narrative: Patient is alert orient x3 has a good general appearance normal mood and affect mild acute distress. Demonstrates dorsiflexion and plantarflexion without difficulty. Exhibits normal coordination and normal stability. Moderate palpatory and percussion pain throughout the paraspinous musculature of the lumbar spine. Normal sensation to light touch through all dermatomal layers. Normal sensation light touch down both lower extremities with 5/5 motor strength throughout all motor groups. Moderate palpable pain over the SI joints bilaterally. Negative straight leg raise bilaterally. Skin is clear warm with normal sensation to light touch, calves are supple with no medial thigh tenderness, negative Homans' sign. Dorsalis pedis and posterior tibial pulses are 2+. No palpable edema bilaterally. HENMT: COMMON NORMALS: normocephalic and atraumatic HEAD & SCALP: normocephalic and atraumatic Resp: COMMON NORMALS: normal respiratory effort Cardio: COMMON NORMALS: regular rate and regular rhythm RATE: regular rate RHYTHM: regular rhythm GI: COMMON NORMALS: Soft to palpation PALPATION: Yes Soft to palpation : COMMON NORMALS: Yes no CVA tenderness BLADDER/KIDNEY EXAM: Yes no CVA tenderness Back/Pelvis: COMMON NORMALS: no CVA tenderness Psych: COMMON NORMALS: mental status grossly normal and cooperative Data 12/28/22 06:50 12/28/22 06:[address]: Radiologist's impression: CT/CT bony pelvis 72140 IMPRESSION: 1. ? L4 vertebral body superior endplate compression deformity without retropulsion of bony fragments, not seen with certainty on prior exam, potentially acute. 2. ? Bilateral sacral insufficiency fractures, similar to prior exam. 3. ? Right pubic symphysis fracture again seen with involvement of the right pubic symphysis, similar to prior exam. 4. ? Right ilium fracture just superior to the acetabulum, not as well visualized as on recent MRI exam. MRI: Radiologist's impression: IMPRESSION: 1.? Acute bilateral sacral insufficiency fractures with diffuse edema visualized fracture lines. 2.? Nondisplaced fracture involving the right ilium with edema just above the acetabulum extending anterior to posterior 3.? Right superior pubic ramus fracture with edema extending to the pubic symphysis. 4.? Moderate degenerative narrowing both hips. No evidence femoral head edema or avascular necrosis. 5.? Stable previously described and biopsied right superior inguinal lymph node. A&P Assessment and plan (1) Closed compression fracture of L4 vertebra: Discussed at length with her would recommend an MRI scan of her lumbar spine with and without contrast given her carcinoma history. We will place her in an LSO brace to allow her to mobilize to the bathroom. No bending lifting or twisting. We will await the results of the MRI scan to discuss further treatment options. More than 50% of the time spent with the patient today involved coordination of care, counseling and discussion of conservative versus surgical treatment options. Total amount of time spent with the patient was 40 minutes. Qualifiers: Encounter type: initial encounter Qualified Code(s): S32.040A - Wedge compression fracture of fourth lumbar vertebra, initial encounter for closed fracture (2) Multiple pelvic fractures: Qualifiers: Encounter type: subsequent encounter Fracture alignment: without disruption of pelvic ring Fracture healing: with routine healing Fracture type: closed Qualified Code(s): S32.82XD - Multiple fractures of pelvis without disruption of pelvic ring, subsequent encounter for fracture with routine healing (3) Squamous cell carcinoma of vulva: Coding Level of Care Code Acute Code for g Fwd Diagnoses Closed compression fracture of L4 vertebra S32.040A Encounter type: initial encounter Multiple pelvic fractures S32.82XD Encounter type: subsequent encounter Fracture alignment: without disruption of pelvic ring Fracture healing: with routine healing Fracture type: closed Squamous cell carcinoma of vulva C51.9 Time Spent (min) 40
[2022-12-28] MEDS: HYDROmorphone 1 mg/mL INJ 1 mL IVP (13:29)
--- NOTE | 2022-12-28 14:21 | PM.PN ---
Subjective Subjective: Patient was seen this morning, she continues to complain of back pain, she has received morphine but tells me that the pain still persist, she is on 25 mcg fentanyl patch, she tells me that Dr. Rawls has been debriding her right inguinal region, she was debrided yesterday, currently having active drainage so she is on daily dressings, she is not exactly sure how she fractured her back she tells me that it just spontaneously happened, denies any fevers, no chills, no urine incontinence no bowel incontinence no saddle perianal anesthesia Vitals/I&O/Wt Last Vital Signs Temp 98.0 F 12/28/22 11:39 Pulse 69 12/28/22 11:39 Resp 15 12/28/22 13:29 BP 117/72 12/28/22 11:39 Pulse Ox 99 12/28/22 13:29 O2 Del Method Room Air 12/28/22 11:39 12/27/22 12/28/22 12/28/22 22:59 06:59 14:59 Intake Total 120 / 120 340 / 340 Balance 120 / 120 340 / 340 Weight last 48 hrs Weight 84.822 kg Physical Exam Const: COMMON NORMALS: no acute distress and patient oriented x3 Neck/C-Spine: COMMON NORMALS: no JVD Resp: COMMON NORMALS: normal respiratory effort, No retractions, No use of accessory muscles and clear to auscultation bilaterally AUSCULTATION: clear to auscultation bilaterally Cardio: COMMON NORMALS: no JVD, regular rate, regular rhythm, S1 normal heart sound present and S2 normal heart sound present RATE: regular rate RHYTHM: regular rhythm HEART SOUNDS: S1 normal heart sound present and S2 normal heart sound present GI: COMMON NORMALS: Normal to inspection, nondistended, normoactive bowel sounds present and non-tender : OTHER: Right inguinal region, active drainage, with nodular lesion, measuring 1 x 1 cm no significant surrounding erythema Extremity: COMMON NORMALS: no pedal edema Neuro: COMMON NORMALS: patient oriented x3 Psych: COMMON NORMALS: mental status grossly normal Data 12/28/22 06:50 12/28/22 06:50 A&P Assessment and plan (1) Closed compression fracture of L4 vertebra: Qualifiers: Encounter type: initial encounter Qualified Code(s): S32.040A - Wedge compression fracture of fourth lumbar vertebra, initial encounter for closed fracture (2) Inadequate pain control: (3) Intractable pain: (4) Sacral fracture, closed: (5) Multiple pelvic fractures: Qualifiers: Encounter type: subsequent encounter Fracture alignment: without disruption of pelvic ring Fracture healing: with routine healing Fracture type: closed Qualified Code(s): S32.82XD - Multiple fractures of pelvis without disruption of pelvic ring, subsequent encounter for fracture with routine healing (6) Fracture of superior ramus of right pubis: Qualifiers: Encounter type: subsequent encounter Fracture type: closed (7) Fracture of right ilium: Qualifiers: Encounter type: subsequent encounter Fracture type: closed Fracture alignment: nondisplaced Plan 67-year-old female with history of metastatic squamous cell cancer of vulva and history of multiple pelvic fracture presented with complaint of low back pain and found to have L4 vertebral fracture on CT pelvis. L4 vertebral fracture, with intractable pain Continue 25 mcg fentanyl patch Expand to Dilaudid 1 mg every 4 hours as needed for pain PT OT Right inguinal region, continue wet-to-dry dressings, Spoke to orthopedic service, consult for L4 vertebral fracture, expand pain medication to Dilaudid, PT OT Attestations Medical Necessity Statement*: Patient requires hospitalization for L4 vertebral fracture, with multiple sacral insufficiency fractures, requiring pain control, orthopedic consultation and High MDM includes number and complexity of problems actively addressed during encounter, amount and/or complexity of data reviewed/ordered and described risk of complication, morbidity or mortality of management as documented Diagnoses Closed compression fracture of L4 vertebra S32.040A Encounter type: initial encounter Inadequate pain control R52 Intractable pain R52 Sacral fracture, closed S32.10XA Multiple pelvic fractures S32.82XD Encounter type: subsequent encounter Fracture alignment: without disruption of pelvic ring Fracture healing: with routine healing Fracture type: closed Fracture of superior ramus of right pubis S32.511A Encounter type: subsequent encounter Fracture type: closed Fracture of right ilium S32.301A Encounter type: subsequent encounter Fracture type: closed Fracture alignment: nondisplaced
[2022-12-28] MEDS: metoclopramide 5 mg/mL SDV 2 mL IVP (15:57)
[2022-12-28] MEDS: fentaNYL 25 mcg Patch 1 PATCH TRANSDERMA (21:41)
[2022-12-29] VITALS (11 sets, daily range): BP systolic 114–153; BP diastolic 65–82; PULSE 76–82; RESP 13–18; TEMP 36.6–37; O2SAT 94–98
--- NOTE | 2022-12-29 00:42 | PC.NURSE ---
Removed fentanyl patch from left abdomen @ 203912/28/22. Disposed of witnessed by Everton Reyes LPN. Replaced patch per MD order.
[2022-12-29] MEDS: famotidine 20 mg/2 mL INJ IVP ×2 (04:59→17:38)
[2022-12-29] MEDS: enoxaparin 40 mg/0.4 mL Syringe SUBCUT (06:02)
[2022-12-29] MEDS: oxyCODONE 5 mg IR Tab/Cap PO ×3 (09:27→19:57)
[2022-12-29] MEDS: multivitamin therapeutic Tablet 1 TAB PO (09:27)
[2022-12-29] MEDS: ondansetron 2 mg/ML SDV 2 mL 4 MG IVP ×2 (09:27→15:42)
--- NOTE | 2022-12-29 09:34 | PC.CHAP ---
Pastoral Care Encounter/Spiritual Assessment Type of Contact [] Declined microbiology lab technician visit [] Patient/Family/Request visit [] Outpatient visit [] Follow-up visit [] Physician referral [] Code/Alert [x] Routine visit [] Staff referral [] Actively dying [] Patient sleeping [] Family support [] [] Out of room [] Palliative care [] [] Receiving care in room [] Pre-surgical visit [] Trauma [] Long length of stay [] ICU visit [] Other: Relational/Emotional Strength [x] Patient feels connected with others/family/visitors/staff [] Distress [] Loneliness/isolation [] Abandonment Spirituality of Patient [x] Person of Joanne [x] Attends Anabaptist of their Joanne [x] Believes in Prayer [x] Reads Bible or Restorationist materials [] There are Spiritual issues to be addressed Bridge Carpenter Interventions [x] Prayer [x] Active listening [x] Non-anxious presence [] Spiritual/emotional support [] Crisis/trauma care [] Spiritual counseling [] Bereavement support [] Provided bereavement packet [] Provided Bible/devotional materials [] Provided toy/stuffed animal, coloring book to patient or family member [] Provided Communion [] Anointing/[place] [] Salvation [x] Completed spiritual assessment [] Other: Impact on Illness or Injury [] Angry [x] Fearful [] Anxious [] Often cries [] Exhaustion [] Unable to work [] Unable to attend denominational [] Unable to walk/stand [] Unable to read [] Unable to drive [] Unable to eat/drink [] Unable to sleep [] Unable to be with family [] Patient intubated [] Other: Summary Patient in lots of pain Time spent with patient 10min
[2022-12-29] MEDS: fentaNYL 12 mcg Patch 1 PATCH TRANSDERMA (12:15)
[2022-12-29] MEDS: fentaNYL 25 mcg Patch 1 PATCH TRANSDERMA (12:17)
--- NOTE | 2022-12-29 14:58 | P.PN_ITS ---
Subjective Subjective: Patient was seen this morning she tells me that she continues to have pain and nausea, the oxycodone 5, does not seem to touch the pain, she has a fentanyl patch 25 on right now, she denies any fevers, no chills, no urinary or bowel incontinence, no saddle or perianal anesthesia Vitals/I&O/Wt Last Vital Signs Temp 98.1 F 12/29/22 12:00 Pulse 78 12/29/22 12:00 Resp 16 12/29/22 12:00 BP 150/82 12/29/22 12:00 Pulse Ox 98 12/29/22 12:00 O2 Del Method Room Air 12/29/22 12:00 12/28/22 12/29/22 12/29/22 22:59 06:59 14:59 Intake Total 120 / 460 960 / 960 Balance 120 / 460 960 / 960 Weight last 48 hrs Weight 84.822 kg Physical Exam Const: COMMON NORMALS: no acute distress and patient oriented x3 Resp: COMMON NORMALS: normal respiratory effort, No retractions, No use of accessory muscles and clear to auscultation bilaterally AUSCULTATION: clear to auscultation bilaterally Cardio: COMMON NORMALS: regular rate, regular rhythm, S1 normal heart sound present and S2 normal heart sound present RATE: regular rate RHYTHM: regular rhythm HEART SOUNDS: S1 normal heart sound present and S2 normal heart sound present GI: COMMON NORMALS: Normal to inspection, nondistended, normoactive bowel [place] nds present and non-tender Extremity: COMMON NORMALS: no pedal edema Neuro: COMMON NORMALS: patient oriented x3 Psych: COMMON NORMALS: mental status grossly normal Data 12/28/22 06:50 12/28/22 06:50 A&P Assessment and plan (1) Closed compression fracture of L4 vertebra: Qualifiers: Encounter type: initial encounter Qualified Code(s): S32.040A - Wedge compression fracture of fourth lumbar vertebra, initial encounter for closed fracture (2) Inadequate pain control: (3) Intractable pain: (4) Sacral fracture, closed: (5) Multiple pelvic fractures: Qualifiers: Encounter type: subsequent encounter Fracture alignment: without disruption of pelvic ring Fracture healing: with routine healing Fracture type: closed Qualified Code(s): S32.82XD - Multiple fractures of pelvis without disruption of pelvic ring, subsequent encounter for fracture with routine healing (6) Fracture of superior ramus of right pubis: Qualifiers: Encounter type: subsequent encounter Fracture type: closed (7) Fracture of right ilium: Qualifiers: Encounter type: subsequent encounter Fracture type: closed Fracture alignment: nondisplaced Plan 67-year-old female with history of metastatic squamous cell cancer of vulva and history of multiple pelvic fracture presented with complaint of low back pain and found to have L4 vertebral fracture on CT pelvis. L4 vertebral fracture, with intractable pain Continue 25 mcg fentanyl patch, will add on 12mcg fentanyl patch Oxycodone 5 every 6 hours. For breakthrough pain PT OT Right inguinal region, continue wet-to-dry dressings, for cellulitis I will add doxycycline and uncorrected planned for today add on 12 mcg fentanyl patch, add oral antibiotics for cellulitis of right inguinal region with Attestations Medical Necessity Statement*: Patient requires hospitalization at for intractable pain Diagnoses Closed compression fracture of L4 vertebra S32.040A Encounter type: initial encounter Inadequate pain control R52 Intractable pain R52 Sacral fracture, closed S32.10XA Multiple pelvic fractures S32.82XD Encounter type: subsequent encounter Fracture alignment: without disruption of pelvic ring Fracture healing: with routine healing Fracture type: closed Fracture of superior ramus of right pubis S32.511A Encounter type: subsequent encounter Fracture type: closed Fracture of right ilium S32.301A Encounter type: subsequent encounter Fracture type: closed Fracture alignment: nondisplaced
--- NOTE | 2022-12-29 17:06 | PM.PN ---
Subjective Subjective: Patient is continue to have pain this point I saw her she was sitting up in the chair working with physical therapy. She is still in severe pain. Discussed with her the possible doing a kyphoplasty. Vitals/I&O/Wt Last Vital Signs Temp 98.6 F 12/29/22 16:23 Pulse 77 12/29/22 16:23 Resp 17 12/29/22 16:23 BP 122/68 12/29/22 16:23 Pulse Ox 96 12/29/22 16:23 O2 Del Method Room Air 12/29/22 16:23 12/29/22 12/29/22 12/29/22 06:59 14:59 22:59 Intake Total 960 / 960 Balance 960 / 960 Weight last 48 hrs Weight 187 lb Physical Exam Narrative: Sitting comfortably in chair moving all extremities. Data 12/28/22 06:50 12/28/22 06:50 A&P Assessment and plan (1) Closed compression fracture of L4 vertebra: At this point patient has severe pain. We will plan on doing an L4 kyphoplasty on 12/31/2022. We will also plan on doing a biopsy with her history of tumor. I had an open and honest discussion with the patient about the risks, benefits and alternatives to both surgical and nonsurgical treatment. The patient verbalized understanding of the inherent unpredictability associated with surgery. Risk of surgery were discussed including, but not limited to, infection, bleeding, temporary and permanent nerve damage, continued pain, stiffness, incomplete healing, need for revision surgery, blood clot and other complications. The patient verbalized understanding that there is spine is elective in nature and if they find any of these risks to be unacceptable then they should choose not to have the surgery. The patient verbalized understanding of these risks and elected to proceed with the surgery. Qualifiers: Encounter type: initial encounter Qualified Code(s): S32.040A - Wedge compression fracture of fourth lumbar vertebra, initial encounter for closed fracture Attestations Medical Necessity Statement*: pain control Coding Level of Care Code Acute Code for Chg Fwd Diagnoses Closed compression fracture of L4 vertebra S32.040A Encounter type: initial encounter
[2022-12-29] MEDS: amoxicillin-clav 875-125 mg Tablet 1 TAB PO (17:38)
[2022-12-29] MEDS: doxycycline 100 mg Tablet PO (17:38)
[2022-12-29] MEDS: metoclopramide 5 mg/mL SDV 2 mL IVP (19:41)
[2022-12-30] VITALS (11 sets, daily range): BP systolic 107–144; BP diastolic 64–75; PULSE 69–86; RESP 14–18; TEMP 36.8–36.9; O2SAT 93–98
[2022-12-30] MEDS: enoxaparin 40 mg/0.4 mL Syringe SUBCUT (05:56)
[2022-12-30] MEDS: oxyCODONE 5 mg IR Tab/Cap PO ×3 (06:16→21:43)
[2022-12-30] MEDS: ondansetron 2 mg/ML SDV 2 mL 4 MG IVP ×2 (06:16→14:01)
[2022-12-30] MEDS: famotidine 20 mg/2 mL INJ IVP ×2 (06:16→17:28)
--- NOTE | 2022-12-30 07:32 | PM.PN ---
Subjective Subjective: Resting comfortably in bed. Continues to complain of low back pain. She has an LSO brace that gives her some temporary relief. Any moving with attempts to get up causes her intense low back pain. Vitals/I&O/Wt Last Vital Signs Temp 98.4 F 12/30/22 04:13 Pulse 69 12/30/22 04:13 Resp 18 12/30/22 06:16 BP 144/66 12/30/22 04:13 Pulse Ox 98 12/30/22 04:13 O2 Del Method Room Air 12/30/22 04:13 12/29/22 12/30/22 12/30/22 22:59 06:59 14:59 Intake Total 120 / 1080 Balance 120 / 1080 Physical Exam Narrative: Patient presents alert and oriented x3 with a good general appearance normal mood and affect. Normal coordination normal stability. Marked tenderness around the lower lumbar region. 4/5 motor strength both lower extremities with negative straight leg raise bilaterally. Calves are supple no medial thigh tenderness. Pulses are 2+ at the dorsalis pedis and posterior tibial region. Good capillary refill throughout normal sensation light touch both lower extremities. HENMT: COMMON NORMALS: normocephalic HEAD & SCALP: normocephalic Resp: COMMON NORMALS: normal respiratory effort Cardio: COMMON NORMALS: regular rate and regular rhythm RATE: regular rate RHYTHM: regular rhythm GI: COMMON NORMALS: Soft to palpation and non-tender PALPATION: Yes Soft to palpation : COMMON NORMALS: Yes no CVA tenderness BLADDER/KIDNEY EXAM: Yes no CVA tenderness Back/Pelvis: COMMON NORMALS: no CVA tenderness Psych: COMMON NORMALS: mental status grossly normal and cooperative Data 12/28/22 06:50 12/28/22 06:50 A&P Assessment and plan (1) Closed compression fracture of L4 vertebra: Answered additional questions that she had this morning following her conversation with Dr. Sheikh regarding proceeding with kyphoplasty at L4. She will continue the LSO brace when she is up. We will keep her n.p.o. after midnight and schedule her for L4 kyphoplasty with biopsy on 12/31/2022. Qualifiers: Encounter type: initial encounter Qualified Code(s): S32.040A - Wedge compression fracture of fourth lumbar vertebra, initial encounter for closed fracture (2) Multiple pelvic fractures: Qualifiers: Encounter type: subsequent encounter Fracture alignment: without disruption of pelvic ring Fracture healing: with routine healing Fracture type: closed Qualified Code(s): S32.82XD - Multiple fractures of pelvis without disruption of pelvic ring, subsequent encounter for fracture with routine healing Attestations Medical Necessity Statement*: Defer to medical team Coding Level of Care Code Acute Code for Chg Fwd Diagnoses Closed compression fracture of L4 vertebra S32.040A Encounter type: initial encounter Multiple pelvic fractures S32.82XD Encounter type: subsequent encounter Fracture alignment: without disruption of pelvic ring Fracture healing: with routine healing Fracture type: closed
--- NOTE | 2022-12-30 07:35 | SC_ITS ---
WS: [id number] Exam: C-arm FL for Kyphoplasty Date/Time of Exam: 12/30/2022 7:35 AM Reason For Exam: L4 kyphoplasty Intraoperative AP and lateral C-arm images of the lower lumbar spine are submitted. Images depict kyphoplasty involving a compression fracture of the upper plate of L4. No other signifi cant finding on this limited series.
[2022-12-30] MEDS: amoxicillin-clav 875-125 mg Tablet 1 TAB PO ×2 (10:09→17:28)
[2022-12-30] MEDS: doxycycline 100 mg Tablet PO ×2 (10:09→17:28)
[2022-12-30] MEDS: multivitamin therapeutic Tablet 1 TAB PO (10:10)
--- NOTE | 2022-12-30 16:37 | P.PN_ITS ---
Subjective Subjective: Patient was seen this morning, she continues to have have pain, despite higher dose of fentanyl patch, denies any fevers, no chills we discussed trying an additional medication to help with the pain she tells me that she has been on gabapentin before but it really has not helped, discussed trying low-dose Lyrica, she is agreeable, plans on surgery tomorrow Vitals/I&O/Wt Last Vital Signs Temp 98.3 F 12/30/22 15:59 Pulse 78 12/30/22 15:59 Resp 16 12/30/22 15:59 BP 114/69 12/30/22 15:59 Pulse Ox 96 12/30/22 15:59 O2 Del Method Room Air 12/30/22 15:59 12/30/22 12/30/22 12/30/22 06:59 14:59 22:59 Intake Total 360 / 360 Balance 360 / 360 Physical Exam Const: COMMON NORMALS: no acute distress and patient oriented x3 Resp: COMMON NORMALS: normal respiratory effort, No retractions, No use of accessory muscles and clear to auscultation bilaterally AUSCULTATION: clear to auscultation bilaterally Cardio: COMMON NORMALS: regular rate, regular rhythm, S1 normal heart sound present and S2 normal heart sound present RATE: regular rate RHYTHM: regu lar rhythm HEART SOUNDS: S1 normal heart sound present and S2 normal heart sound present GI: COMMON NORMALS: Normal to inspection, nondistended, normoactive bowel sounds present and non-tender Extremity: COMMON NORMALS: no pedal edema Neuro: COMMON NORMALS: patient oriented x3 Psych: COMMON NORMALS: mental status grossly normal Data 12/28/22 06:50 12/28/22 06:50 A&P Assessment and plan (1) Closed compression fracture of L4 vertebra: Qualifiers: Encounter type: initial encounter Qualified Code(s): S32.040A - Wedge compression fracture of fourth lumbar vertebra, initial encounter for closed fracture (2) Inadequate pain control: (3) Intractable pain: (4) Sacral fracture, closed: (5) Multiple pelvic fractures: Qualifiers: Encounter type: subsequent encounter Fracture alignment: without di sruption of pelvic ring Fracture healing: with routine healing Fracture type: closed Qualified Code(s): S32.82XD - Multiple fractures of pelvis without disruption of pelvic ring, subsequent encounter for fracture with routine healing (6) Fracture of superior ramus of right pubis: Qualifiers: Encounter type: subsequent encounter Fracture type: closed (7) Fracture of right ilium: Qualifiers: Encounter type: subsequent encounter Fracture type: closed Fracture alignment: nondisplaced Plan 67-year-old female with history of metastatic squamous cell cancer of vulva and history of multiple pelvic fracture presented with complaint of low back pain and found to have L4 vertebral fracture on CT pelvis. L4 vertebral fracture, with intractable pain Continue 25+13 mcg fentanyl patch, add on Lyrica 25 mg once daily Oxycodone 5 every 6 hours. For breakthrough pain PT OT Right inguinal region, continue wet-to-dry dressings, for cellulitis I will add doxycycline and uncorrected Plan PT OT, add Lyrica, orthopedic service will plan to do kyphoplasty with blood biopsy tomorrow Attestations Medical Necessity Statement*: Patient requires hospitalization for L4 vertebral fracture due to persistent pain, will proceed with surgical intervention with bone biopsy given underlying squamous cell carcinoma of the vulva Coding Level of Care Code 49347 Moderate MDM includes number and complexity of problems actively addressed during encounter, amount and/or complexity of data reviewed/ordered and described risk of complication, morbidity or mortality of management as docu mented Diagnoses Closed compression fracture of L4 vertebra S32.040A Encounter type: initial encounter Inadequate pain control R52 Intractable pain R52 Sacral fracture, closed S32.10XA Multiple pelvic fractures S32.82XD Encounter type: subsequent encounter Fracture alignment: without disruption of pelvic ring Fracture healing: with routine healing Fracture type: closed Fracture of superior ramus of right pubis S32.511A Encounter type: subsequent encounter Fracture type: closed Fracture of right ilium S32.301A Encounter type: subsequent encounter Fracture type: closed Fracture alignment: nondisplaced
[2022-12-30] MEDS: pregabalin 25 mg Capsule PO (16:53)
[2022-12-30] MEDS: metoclopramide 5 mg/mL SDV 2 mL IVP (21:38)
[2022-12-31] VITALS (21 sets, daily range): BP systolic 112–165; BP diastolic 55–90; PULSE 75–101; RESP 14–18; TEMP 36.2–37; O2SAT 76–100
--- NOTE | 2022-12-31 03:44 | PC.NURSE ---
patient's pain is constant, just varies in degree. patient has 2 fentanyl patches on equalling 37mcg currently and has been given prn PO oxycodone as well tonight. will continue to monitor.
--- NOTE | 2022-12-31 03:56 | PC.NURSE ---
patient has chronic pain. prn pain medications and scheduled PO and transdermal fentanyl on board and administered. will continue to monitor
[2022-12-31] MEDS: famotidine 20 mg/2 mL INJ IVP ×2 (05:55→16:16)
[2022-12-31] MEDS: oxyCODONE 5 mg IR Tab/Cap PO ×3 (05:56→20:45)
[2022-12-31] MEDS: multivitamin therapeutic Tablet 1 TAB PO (05:57)
--- NOTE | 2022-12-31 06:24 | W.PM.OPSUD ---
Surgery/Procedure H&P Update DATE OF PROCEDURE: December 31, 2022 DATE H&P PERFORMED: 12/30/22 H&P UPDATE INFORMATION: I have reviewed H&P completed within last 30 days, I have examined patient prior to procedure and No changes to prior documentation PREOP DIAGNOSIS: L4 compression fracture, sacral insufficiency fractures PLANNED PROCEDURE: Operation Date: 12/31/22 07:00 Proposed Procedures p L4 kyphoplast and biopsy(Not Applicable) - Ayden Sheikh DO
--- NOTE | 2022-12-31 07:01 | P.ANESASSM_ITS ---
Pre-Anesthetic Assessment Height/Weight: Height 1.7 m Weight 84.822 kg Temp Pulse Resp BP Pulse Ox O2 Del Method 98.1 F 77 16 112/73 95 Room Air 12/31/22 04:05 12/31/22 04:05 12/31/22 05:56 12/31/22 04:05 12/31/22 05:56 12/31/22 04:05 Preop Diagnosis: L4 compression fracture, sacral insufficiency fractures Operation Date: 12/31/22 07:00 Proposed Procedures p L4 kyphoplast and biopsy(Not Applicable) - Ayden Sheikh, DO Familial anesthetic complications: none Was Beta Tico taken within 24 hours: N/A Was Clonidine taken within 24 hours: N/A Last intake: Intake Last Liquid Date 12/30/22 Last Liquid Time 18:00 Last Solid Date 12/30/22 Last Solid Time 18:00 Social No alcohol and No tobacco Exam alert, oriented x 3, clear to auscultation bilaterally and regular rate & rhythm Airway Submandibular: within normal limits Cervical ROM: within normal limits Mallampati: Class II Dentition: false Pulmonary Sleep Apnea CV/HEM Anemia and Hypertension GI Gastroesophageal Reflux Disease [facility] [place] Osteoarthritis/DJD Anesthetic Plan ASA status: 3 Anesthesia: General Medications/Allergies Home Medications Medication Instructions Recorded Confirmed Last Taken Type multivitamin 1 tab PO QAM 04/01/22 12/28/22 1 Day Ago History ~12/27/22 L.acidophil-L.casei-B.bifid-B.longum-FOS 2 cap PO QAM 10/27/22 12/28/22 1 Day Ago History 2 billion cell-50 mg capsule ~12/27/22 (Probiotic Blend) budesonide 90 mcg/actuation breath 1 inh inhalation BID PRN unknown 10/27/22 12/28/22 Unknown History activated powder inhaler (Pulmicort Flexhaler) ibuprofen 200 mg tablet 200 - 800 mg PO Q6H PRN Pain 10/27/22 12/28/22 Unknown History ipratropium 0.5 mg-albuterol 3 mg 3 ml inhalation Q12H PRN Shortness 10/27/22 12/28/22 Unknown History (2.5 mg base)/3 mL nebulization Of Breath soln pantoprazole 20 mg tablet,delayed 20 mg PO DAILY PRN Acid Reflux 10/27/22 12/28/22 1 Day Ago History release ~12/27/22 acetaminophen 500 mg tablet 500 mg PO Q6H PRN Pain 12/17/22 12/28/22 Unknown History ondansetron HCl 4 mg tablet 4 mg PO Q6H PRN nausea and 12/23/22 12/28/22 3 Days Ago Rx vomiting #30 tabs ~12/25/22 ascorbic acid (vitamin C) 1,000 mg 500 mg PO DAILY 12/28/22 12/28/22 1 Day Ago History tablet (Vitamin C) ~12/27/22 cholecalciferol (vitamin D3) 25 25 mcg PO DAILY 12/28/22 12/28/22 1 Day Ago History mcg (1,000 unit) tablet (Vitamin ~12/27/22 D3) clobetasol 0.05 % topical cream 1 applic topical BID PRN Skin 12/28/22 12/28/22 Unknown History Irritation fentanyl See Rx Instructions .Route .COMPLEX 12/28/22 12/28/22 3 Days Ago History ~12/25/22 lidocaine See Rx Instructions .Route .COMPLEX 12/28/22 12/28/22 Unknown History milk thistle See Rx Instructions .Route .COMPLEX 12/28/22 12/28/22 1 Day Ago History ~12/27/22 Allergies Allergy/AdvReac Type Severity Reaction Status Date / Time milk Allergy Severe coughing Verified 12/27/22 21:51 egg Allergy ADR-Abdominal Verified 12/27/22 21:51 Pain codeine AdvReac ADR-Vomitin Verified 12/27/22 21:51 g keflex Allergy Intermediate rash Uncoded 12/27/22 21:51 Current Medications Generic Name Dose Route Start Last Admin Trade Name Freq PRN Reason Stop Dose Admin Amoxicillin/Clavulanate Potassium 1 tab 12/29/22 18:00 12/30/22 17:28 Amoxicillin-Clav 875-125 Mg Tablet PO 1 tab BID [facility] Administration Protocol Doxycycline Monohydrate 100 mg 12/29/22 18:00 12/30/22 17:28 Doxycycline 100 Mg Tablet PO 100 mg BID [facility] Administration Protocol Enoxaparin Sodium 40 mg 12/28/22 06:00 12/31/22 05:54 Enoxaparin 40 Mg/0.4 Ml Syringe SUBCUT Not Given Q24H [facility] Famotidine 20 mg 12/28/22 05:15 12/31/22 05:55 Famotidine 20 Mg/2 Ml Inj IVP 20 mg Q12H JULEE Administration Fentanyl 1 patch 12/29/22 11:45 12/29/22 12:15 Fentanyl 12 Mcg Patch TRANSDERMA 1 patch Q72H JULEE Administration Fentanyl 1 patch 12/29/22 11:45 12/29/22 12:17 Fentanyl 25 Mcg Patch TRANSDERMA 1 patch Q72H JULEE Administration Metoclopramide HCl 5 mg 12/28/22 14:45 12/30/22 21:38 Metoclopramide 5 Mg/Ml Sdv 2 Ml IVP 5 mg Q6H PRN Administration NAUSEA AND VOMITING Multivitamins Therapeutic 1 tab 12/28/22 06:00 12/31/22 05:57 Multivitamin Therapeutic Tablet PO 1 tab QAM JULEE Administration Non-Formulary Medication 2 cap 12/28/22 06:00 12/31/22 05:57 L.Acid-L.Casei-B.Bif-B.Gregg-Fos [Probiotic Blend] PO Not Given QAM JULEE Ondansetron HCl 4 mg 12/28/22 14:45 12/30/22 14:01 Ondansetron 2 Mg/Ml Sdv 2 Ml IVP 4 mg Q6H PRN Administration NAUSEA AND VOMITING Oxycodone HCl 5 mg 12/29/22 09:04 12/31/22 05:56 Oxycodone 5 Mg Ir Tab/Cap PO 5 mg Q6H PRN Administration MODERATE PAIN Pregabalin 25 mg 12/30/22 16:45 12/30/22 16:53 Pregabalin 25 Mg Capsule PO 25 mg Q24H JULEE Administration [facility] Anesthesia Medical History Asthma Chronic migraine GERD (gastroesophageal reflux disease) HTN (hypertension) Lichen sclerosus of female genitalia Diagnosed in 2017 or 2018-states she was told that she just needs to use the clobetasol if needed so she uses it very rarely. Obstructive sleep apnea Osteoarthritis of right hip Rosacea Sacral insufficiency fracture Squamous cell carcinoma of vulva Vertigo Vitamin D deficiency Surgical History H/O esophagogastroduodenoscopy Dilation H/O esophagogastroduodenoscopy (06/24/21) History of bladder surgery 2007-had bladder lift surgery performed and states that about 3 months after surgery her bladder fell down again and she has not done anything about this. S/P hysterectomy 1991----?vaginal hysterectomy for heavy bleeding and pain. Status post arthroscopic surgery of left knee Status post colonoscopy with polypectomy (06/24/21) Status post laparotomy X 2 Thinks that she has had 2 open surgeries for cysts and problems with cysts a nd feels that this was before her hysterectomy but does not remember. Status post surgery (09/10/20) radical partial vulvectomy, right inguinofemoral lymphadenectomy, and left inguinofemoral sentinel lymph node biopsy Status post surgical removal of malignant neoplasm of skin (07/15/21) Squamous cell carcinoma in situ Family History Family/Other Breast cancer maternal aunt, diagnosed in her 50s or 60s Mother Hypertension Aortic aneurysm Hyperlipidemia Lung disease Father Hypertension Cancer Brother Hypertension Anesthesia complication during surgery d/t too much anesthesia Sister Hypertension Denies family history of Colon cancer Ovarian cancer Diabetes CAD (coronary artery disease) Clotting disorder Dementia Heart disease Chronic kidney disease (CKD) Suicide Bleeding disorder Uterine cancer Thyroid condition Stroke Social History Smoking and tobacco status: former smoker (smoked x 11 years) Quit status (tobacco): has quit using tobacco Year quit tobacco: 1997 Former quit date comment: Hx of 0.5 PPD x 8 Years Second hand smoke exposure: No Smoking risk assessment/counseling performed?: No Alcohol intake: never Counseling given: No Substance/Drug Use: never Counseling given: No Lives independently: Yes Household members: none Marital status: Current occupational status: disabled Do you think of yourself as: Straight/Heterosexual Current gender identity: Female Data Anesthesia 12/28/22 06:50 12/28/22 06:50 Cardiac Studies: Echocardiogram 09/10/21 Sestamibi Stress Test (Cardiology) 09/15
[2022-12-31] MEDS: diphenhydrAMINE 50 mg/mL SDV 1mL 12.5 MG IVP (07:02)
[2022-12-31] MEDS: scopolamine 1.5 Patch 1 PATCH TRANSDERMA (07:02)
[2022-12-31] MEDS: sodium chloride 0.9% 1,000 ML 30 ML IV (07:02)
[2022-12-31] MEDS: ondansetron 2 mg/ML SDV 2 mL 4 MG IVP (07:09)
[2022-12-31] MEDS: ceFAZolin 2,000 MG in sodium chloride 0.9% (plus) 50 ML 100 MG IV ×3 (07:10→23:55)
[2022-12-31] MEDS: lidocaine-epi 1% 20 mL INJ 10 ML INJECTION (07:35)
--- NOTE | 2022-12-31 08:18 | SUR.OPER ---
OMNIPAQUE USED DURING PROCEDURE
--- NOTE | 2022-12-31 08:25 | PM.OP ---
Operative Report Date of procedure: December 31, 2022 Pre-op diagnosis: Pathologic wedge osteoporotic compression fracture of L4 Post-op diagnosis: same Procedure done: 1. L4 radiofrequency ablation of the metastatic lesion. 2. Biopsy of L4 vertebral body. 3. L4 kyphoplasty Surgeon: Ayden Sheikh DO Estimated blood loss (mL): 10 Procedure: 1. L4 radiofrequency ablation of the metastatic lesion. 2. Biopsy of L4 vertebral body. 3. L4 kyphoplasty Patient is brought to the operative suite after undergoing anesthesia placed in the prone position. All areas appear well-padded. Patient's primary muscle fashion. C-arm was brought in to identify the L4 vertebral body. Skin incision was made just lateral to the pedicle on both the right and left side. The awl's were inserted. And then this was confirmed under AP lateral fluoroscopy to be through the pedicle and into the vertebral body. Next the bone biopsy was taken. This was done using the hollow all the biopsies taken on both the right and left side of the L4 vertebral body. This was then placed in formalin and sent off to lab. Next tension was brought to doing the radiofrequency ablation. The radiofrequency ablation tubes and wires were inserted into the tubes. This was done for little over 6 minutes. This was the ossicle radiofrequency ablation system. Once this was completed attention was then brought to performing the kyphoplasty. The balloons were placed in the L4 the endplate was elevated. Balloons were then deflated this was done both the right and left side. And then cement was inserted into the left tube the cement tracked over to the right side and pulled the vertebral body. Tube was removed AP lateral fluoroscopy ensured that the cement was in good position. Wounds were irrigated and closed with nylon suture. Sterile dressings were applied and patient was transferred to the PACU in stable condition.
--- NOTE | 2022-12-31 08:25 | SUR.OPER ---
OMNIPAQUE LOT #[id number], EXP 02/26/25
[2022-12-31] MEDS: docusate sodium 100 mg Capsule PO ×2 (09:30→17:09)
[2022-12-31] MEDS: doxycycline 100 mg Tablet PO ×2 (09:30→17:09)
[2022-12-31] MEDS: lactated ringers 1,000 ML 90 ML IV ×2 (09:30→23:56)
[2022-12-31] MEDS: amoxicillin-clav 875-125 mg Tablet 1 TAB PO ×2 (09:30→17:09)
--- NOTE | 2022-12-31 12:49 | ANE.PACU2 ---
Inpatient post-anesthesia follow up: Airway intact: Yes Vital signs: Temperature 98.0 F Pulse Rate 97 Respiratory Rate 18 Blood Pressure 158/83 Pulse Oximetry 95 Oxygen Delivery Me thod Room Air Oxygen Flow Rate 6 Fraction of Inspir ed Oxygen Hydration adequate: Yes Nausea and vomiting: No Pain level: 2 Mental status: Baseline
--- NOTE | 2022-12-31 15:10 | P.PN_ITS ---
Subjective Subjective: Patient was seen this morning, postoperatively she feels nauseous, her pain has improved, but she is hesitant about going home, she has ambulated but does feel weak Vitals/I&O/Wt Last Vital Signs Temp 98.0 F 12/31/22 09:03 Pulse 97 12/31/22 12:03 Resp 18 12/31/22 12:03 BP 158/83 12/31/22 12:03 Pulse Ox 95 12/31/22 12:03 O2 Del Method Room Air 12/31/22 12:03 O2 Flow Rate 6 12/31/22 08:20 12/31/22 12/31/22 12/31/22 06:59 14:59 22:59 Intake Total 275 / 275 Output Total Balance 265 / 265 Physical Exam Const: COMMON NORMALS: no acute distress and patient oriented x3 Resp: COMMON NORMALS: normal respiratory effort, No retractions, No use of accessory muscles and clear to auscultation bilaterally AUSCULTATION: clear to auscultation bilaterally Cardio: COMMON NORMALS: regular rate, regular rhythm, S1 normal heart sound present and S2 normal heart sound present RATE: regular rate RHYTHM: regular rhythm HEART SOUNDS: S1 normal heart sound present and S2 normal heart sound present GI: COMMON NORMALS: Normal to inspection, nondistended, normoactive bowel sounds present and non-tender Extremity: COMMON NORMALS: no pedal edema Neuro: COMMON NORMALS: patient oriented x3 Psych: COMMON NORMALS: mental status grossly normal Data 12/28/22 06:50 12/28/22 06:50 A&P Assessment and plan (1) Closed compression fracture of L4 vertebra: Qualifiers: Encounter type: initial encounter Qualified Code(s): S32.040A - Wedge compression fracture of fourth lumbar vertebra, initial encounter for closed fracture (2) Inadequate pain control: (3) Intractable pain: (4) Sacral fracture, closed: (5) Multiple pelvic fractures: Qualifiers: Encounter type: subsequent encounter Fracture alignment: without disruption of pelvic ring Fracture healing: with routine healing Fracture type: closed Qualified Code(s): S32.82XD - Multiple fractures of pelvis without disruption of pelvic ring, subsequent encounter for fracture with routine healing (6) Fracture of superior ramus of right pubis: Qualifiers: Encounter type: subsequent encounter Fracture type: closed (7) Fracture of right ilium: Qualifiers: Encounter type: subsequent encounter Fracture type: closed Fracture alignment: nondisplaced Plan 67-year-old female with history of metastatic squamous cell cancer of vulva and history of multiple pelvic fracture presented with complaint of low back pain and found to have L4 vertebral fracture on CT pelvis. L4 vertebral fracture, with intractable pain Patient is status post Procedure done: 1.? L4 radiofrequency ablation of the metastatic lesion. 2.? Biopsy of L4 vertebral body. 3.? L4 kyphoplasty Surgeon: Dr. Sheikh Continue 25+13 mcg fentanyl patch, continue with Lyrica 25 mg once daily Oxycodone 5 every 6 hours. For breakthrough pain PT OT Right inguinal region, continue wet-to-dry dressings, for cellulitis I will add doxycycline and uncorrected Plan PT OT, Attestations Medical Necessity Statement*: Patient requires hospitalization for back pain, L4 fracture status post kyphoplasty Diagnoses Closed compression fracture of L4 vertebra S32.040A Encounter type: initial encounter Inadequate pain control R52 Intractable pain R52 Sacral fracture, closed S32.10XA Multiple pelvic fractures S32.82XD Encounter type: subsequent encounter Fracture alignment: without disruption of pelvic ring Fracture healing: with routine healing Fracture type: closed Fracture of superior ramus of right pubis S32.511A Encounter type: subsequent encounter Fracture type: closed Fracture of right ilium S32.301A Encounter type: subsequent encounter Fracture type: closed Fracture alignment: nondisplaced
[2022-12-31] MEDS: metoclopramide 5 mg/mL SDV 2 mL IVP (15:43)
[2022-12-31] MEDS: pregabalin 25 mg Capsule PO (16:16)
[2023-01-01] VITALS: BP 126/78; PULSE 70; RESP 14; TEMP 36.4; O2SAT 93
[2023-01-01 03:18] VITALS: BP 125/76; PULSE 74; RESP 13; TEMP 36.5; O2SAT 94
[2023-01-01 03:25] LABS: Basophils % 0.2 %; Eosinophils % 0.2 %; Hematocrit 32.2 % (36-47); Lymphocytes # 1.1 10^3/uL (0.8-4.8); Lymphocytes % 21.6 %; Mean Corpuscular HGB Conc 31.4 g/dL (30-55); Mean Corpuscular Hemoglobin 30.9 pg (27-33); Mean Corpuscular Volume 98.5 fl (85-98); Mean Platelet Volume 8.5 fL (7.4-10.4); Monocytes # 0.6 10^3/uL (0.2-0.9); Monocytes % 10.6 %; Neutrophils # 3.48 10^3/uL (1.8-7.7); Nucleated Red Blood Cells % 0 %; Platelet Count 287 10^3/cmm (157-399); Red Blood Count 3.27 10^6/uL (3.85-5.65); Red Cell Distribution Width 13.5 % (12.1-15.1); White Blood Count 5.19 10^3/uL (3.29-11.43)
[2023-01-01 03:47] LABS: Anion Gap 12.1 (5-19); Blood Urea Nitrogen 11 mg/dL (8-23); Calcium 9.1 mg/dL (8.5-10.5); Carbon Dioxide 28 mmol/L (22-29); Chloride 102 mmol/L (98-107); Glucose 108 mg/dL (65-115); Osmolality Calculated 286 mOsm/kg (285-295); Potassium 4.1 mmol/L (3.5-5.1); Sodium 138 mmol/L (136-145)
[2023-01-01] MEDS: famotidine 20 mg/2 mL INJ IVP (05:50)
[2023-01-01 06:55] VITALS: RESP 13; O2SAT 94
[2023-01-01] MEDS: oxyCODONE 5 mg IR Tab/Cap PO (06:55)
[2023-01-01] MEDS: multivitamin therapeutic Tablet 1 TAB PO (06:56)
[2023-01-01] MEDS: enoxaparin 40 mg/0.4 mL Syringe SUBCUT (06:56)
[2023-01-01 07:50] VITALS: BP 121/74; PULSE 80; RESP 16; TEMP 36.5; O2SAT 97
[2023-01-01] MEDS: ceFAZolin 2,000 MG in sodium chloride 0.9% (plus) 50 ML 100 MG IV (08:37)
[2023-01-01] MEDS: docusate sodium 100 mg Capsule PO (08:37)
[2023-01-01] MEDS: amoxicillin-clav 875-125 mg Tablet 1 TAB PO (08:37)
[2023-01-01] MEDS: doxycycline 100 mg Tablet PO (08:37)
--- NOTE | 2023-01-01 08:56 | P.PN_ITS ---
Subjective Subjective: POD 1 Patient reports back pain much improved. Vitals/I&O/Wt Last Vital Signs Temp 97.7 F 01/01/23 07:50 Pulse 80 01/01/23 07:50 Resp 16 01/01/23 07:50 BP 121/74 01/01/23 07:50 Pulse Ox 97 01/01/23 07:50 O2 Del Method Room Air 01/01/23 03:18 O2 Flow Rate 6 12/31/22 08:20 12/31/22 01/01/23 01/01/23 22:59 06:59 14:59 Intake Total 1200 / 1475 338 / 1813 120 / 120 Balance 1200 / 1465 338 / 1803 120 / 120 Physical Exam Narrative: Patient presents alert and oriented x3 with a good general appearance normal mood and affect. Normal coordination normal stability. Mild tenderness around the incisional site with the incision appear to be healing nicely. No signs of erythema or drainage. No signs of infection. Patient denies any fevers or chi lls. 5/5 motor strength both lower extremities with negative straight leg raise bilaterally. Calves are supple no medial thigh tenderness. Pulses are 2+ at the dorsalis pedis and posterior tibial region. Good capillary refill throughout normal sensation light touch both lower extremities. Data 01/01/23 02:23 01/01/23 02:23 A&P Assessment and plan (1) Closed compression fracture of L4 vertebra: Physical therapy to mobilize. Continue incentive spirometry for pulmonary toilet. Okay from orthopedic standpoint to discharge home. We will have her follow-up in the office in 2 weeks time for suture removal. Qualifiers: Encounter type: initial encounter Qualified Code(s): S32.040A - Wedge compression fracture of fourth lumbar vertebra, initial encounter for closed fracture Attestations Medical Necessity Statement*: Defer to medical team Coding Level of Care Code Acute Code for Chg Fwd Diagnoses Closed compression fracture of L4 vertebra S32.040A Encounter type: initial encounter
[2023-01-01 10:21] VITALS: PULSE 79; RESP 16; O2SAT 98
--- NOTE | 2023-01-01 11:01 | PC.SOCIAL ---
IMM Update pg 2 of IMM updated and reviewed w/ patient. Copy provided and Copy dated, initialed and placed in chart.
--- NOTE | 2023-01-01 11:19 | P.DS_ITS ---
Discharge Providers Date of Admission: 12/29/22 18:47 Date of Discharge: January 01, 2023 Attending Provider at Admission: Dayana Daily MD Attending Provider at Discharge: Piero Obando MD Primary Care Provider: Les Flores MD Diagnoses at Discharge Discharge Diagnosis (1) Closed compression fracture of L4 vertebra: Status: Acute Qualifiers: Encounter type: initial encounter Qualified Code(s): S32.040A - Wedge compression fracture of fourth lumbar vertebra, initial encounter for closed fracture Reason for Visit Reason for Visit: Fractures Pelvis Pain Hospital Course Hospital Course Chelsey Adams is a 67 year old female with history of lichen sclerosis of genitalia, 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 She recently had a right groin abscess which was drained outpatient.? As per the patient her sister was doing dressing and when she tried to move her she heard a pop in her back.? Following that she started h aving pain in her lower back.? She moves around in the house with a walker.? She denies any fever cough cold shortness of breath urinary or bowel complaints or history of fall. 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 Sheikh, received pain control, overall clinically improved. We will discharge her home with close follow-up with Dr. Sheikh as outpatient. In terms of pain control, she has 25 mcg fentanyl patches at home, I have added on a 12 mcg fentanyl patch she received it during her hospitalization and tolerated it well, will discharge a 7-day supply for home. I have also sent her home with instructions about opiate overdose, Narcan if she were to have any opiate overdose symptomatology of morbidity and mortality discussed. For neuropathic pain, I have discharged her on low-dose Lyrica 25 mg once daily, monitor for side effects if so stop taking medication, and come back to the emergency room. She in her right inguinal region, has cellulitis, draining abscess for which she received antibiotics as inpatient, and wound care, discharged with 5 more days of antibiotics with a follow-up with Dr. Rawls as outpatient. Physical Exam Const: COMMON NORMALS: no acute distress and patient oriented x3 Resp: COMMON NORMALS: normal respiratory effort, No retractions, No use of accessory muscles and clear to auscultation bilaterally AUSCULTATION: clear to auscultation bilaterally Cardio: COMMON NORMALS: regular rate, regular rhythm, S1 normal heart sound present and S2 normal heart sound present RATE: regular rate RHYTHM: re gular rhythm HEART SOUNDS: S1 normal heart sound present and S2 normal heart sound present GI: COMMON NORMALS: Normal to inspection, nondistended, normoactive bowel sounds present and non-tender Extremity: COMMON NORMALS: no pedal edema Neuro: COMMON NORMALS: patient oriented x3 Psych: COMMON NORMALS: mental status grossly normal Discharge Data Studies Completed and Pending Completed Studies During Hospitalization Category Date Time Status CT bony pelvis [id number] Stat Cat Scan 12/27/22 23:20 Completed MR lumbar spine wo/w con [id number] Routine MRI 12/28/22 08:40 Completed Pending at discharge Category Date Time Status Basic Metabolic Panel AM LABS Lab 01/02/23 04:00 Ordered Basic Metabolic Panel AM LABS Lab 01/03/23 04:00 Ordered Complete Blood Count w/Auto AM LABS Lab 01/02/23 04:00 Ordered Complete Blood Count w/Auto AM LABS Lab 01/03/23 04:00 Ordered Pathology: Surgical [PTH] Routine Pth 12/31/22 08:03 Received Radiology Impressions Pelvis CT 12/27/22 23:20 IMPRESSION: 1. L4 vertebral body superior endplate compression deformity without retropulsion of bony fragments, not seen with certainty on prior exam, potentially acute. 2. Bilateral sacral insufficiency fractures, similar to prior exam. 3. Right pubic symphysis fracture again seen with involvement of the right pubic symphysis, similar to prior exam. 4. Right ilium fracture just superior to the acetabulum, not as well visualized as on recent MRI exam. Laboratory Results WBC 5.19 10^3/uL (3.29-11.43) 01/01/23 02:23 RBC 3.27 10^6/uL (3.85-5.65) L 01/01/23 02:23 Hgb 10.10 g/dL (11.27-16.99) L 01/01/23 02: Hct 32.2 % (36-47) L 01/01/23 02: MCV 98.5 fl (85-98) H 01/01/23 02: MCH 30.9 pg (27-33) 01/01/23 02: MCHC 31.4 g/dL (30-55) 01/01/23 02: RDW 13.5 % (12.1-15.1) 01/01/23 02: Plt Count 287 10^3/cmm (157-399) 01/01/23 02: MPV 8.5 fL (7.4-10.4) 01/01/23 02: Neut % (Auto) 67.0 % 01/01/23 02: Lymph % (Auto) 21.6 % 01/01/23 02: [place] % (Auto) 10.6 % 01/01/23 02: Eos % (Auto) 0.2 % 01/01/23 02: Baso % (Auto) 0.2 % 01/01/23 02: Neut # (Auto) 3.48 10^3/uL (1.8-7.7) 01/01/23 02: Lymph # (Auto) 1.1 10^3/uL (0.8-4.8) 01/01/23 02: [place] # (Auto) 0.6 10^3/uL (0.2-0.9) 01/01/23 02: Eos # (Auto) 0.0 10^3/uL (0.0-0.8) 01/01/23 02: Baso # (Auto) 0.0 10^3/uL (0.0-0.1) 01/01/23 02: Nucleated RBC % (auto) 0 % 01/01/23 02: Nucleated RBCs # 0.0 /100WBC 01/01/23 02: Sodium 138 mmol/L (136-145) 01/01/23 02:23 Potassium 4.1 mmol/L (3.5-5.1) 01/01/23 02: Chloride 102 mmol/L (98-107) 01/01/23 02: Carbon Dioxide 28 mmol/L (22-29) 01/01/23 02:23 Anion Gap 12.1 (5-19) 01/01/23 02:23 BUN 11 mg/dL (8-23) 01/01/23 02:23 Creatinine 0.8 mg/dL (0.5-0.9) 01/01/23 02:23 GFR Calculation 72.0 mL/min (90-130) L 01/01/23 02:23 Glucose 108 mg/dL (65-115) 01/01/23 02:23 Calculated Osmolality 286 mOsm/kg (285-295) 01/01/23 02:23 Calcium 9.1 mg/dL (8.5-10.5) 01/01/23 02:23 Magnesium 2.1 mg/dL (1.7-2.3) 12/28/22 06:50 Total Bilirubin 0.2 mg/dL (0.15-1.2) 12/28/22 06:50 AST 28 U/L (0-32) 12/28/22 06:50 ALT 28 U/L (0-33) 12/28/22 06:50 Alkaline Phosphatase 215 U/L (35-105) H 12/28/22 06:50 Total Protein 6.8 g/dL (6.6-8.7) 12/28/22 06:50 Albumin 0.2 g/dL (3.5-5.2) L 12/28/22 06:50 Globulin 6.6 g/dL (1.3-4.6) H 12/28/22 06:50 Vitals Last Vital Signs Temp 97.7 F 01/01/23 07:50 Pulse 79 01/01/23 10:21 Resp 16 01/01/23 10:21 BP 121/74 01/01/23 07:50 Pulse Ox 98 01/01/23 10:21 O2 Del Method Room Air 01/01/23 10:21 O2 Flow Rate 6 12/31/22 08:20 Discharge Plan Discharge Patient Disposition: Home Condition: Stable Prescriptions: New fentanyl 12 mcg/hr Patch 72 Hour 1 patch transdermal Q72H 6 Days Qty: 2 0RF pregabalin 25 mg Capsule 25 mg PO Q24H 7 Days Qty: 7 0RF naloxone [Narcan] 4 mg/actuation spray,non-aerosol 4 mg intranasal Q2M PRN (Reason: opioid overdose) Qty: 2 0RF Rx Instructions: 1 dose into ONE nostril, alternate nostrils w each dose until help arrives amoxicillin-pot clavulanate 875-125 mg Tablet 1 tab PO BID 5 Days Qty: 10 0RF doxycycline monohydrate 100 mg Tablet 100 mg PO BID 5 Days Qty: 10 0RF docusate sodium 100 mg Capsule 100 mg PO BID 30 Days Qty: 60 0RF Continued multivitamin Tablet 1 tab PO QAM ondansetron HCl 4 mg tablet 4 mg PO Q6H PRN (Reason: nausea and vomiting) Qty: 30 3RF ipratropium-albuterol 0.5 mg-3 mg(2.5 mg base)/3 mL solution for nebulization 3 ml INHALATION Q12H PRN (Reason: Shortness Of Breath) pantoprazole 20 mg tablet,delayed release (DR/EC) 20 mg PO DAILY PRN (Reason: Acid Reflux) Pulmicort Flexhaler 90 mcg/actuation aerosol powdr breath activated 1 inh INHALATION BID PRN (Reason: unknown) Probiotic Blend 2 billion cell-50 mg Capsule 2 cap PO QAM acetaminophen 500 mg Tablet 500 mg PO Q6H PRN (Reason: Pain) Vitamin C 1,000 mg Tablet 500 mg PO DAILY clobetasol 0.05 % Cream 1 applic TOPICAL BID PRN (Reason: Skin Irritation) Vitamin D3 25 mcg (1,000 unit) Tablet 25 mcg PO DAILY milk thistle See Rx Instructions .ROUTE .COMPLEX Rx Instructions: unknown dose fentanyl See Rx Instructions .ROUTE .COMPLEX Rx Instructions: unknown dose lidocaine See Rx Instructions .ROUTE .COMPLEX Rx Instructions: unknown dose Discontinued ibuprofen 200 mg Tablet 200 - 800 mg PO Q6H PRN (Reason: Pain) Discharge Orders: Discharge Order (Routine); Ordered 01/01/23 Ordered By: Piero Obando Referrals: Ayden Sheikh DO [Physician] - 2 weeks (We have notified your physician's clinic of the need for a follow-up appointment to be scheduled. If you have not heard from them within the next 2 business days, please call them directly. You may also reach out to our manager of compliance at [phone] and she can assist you.) Les Flores MD [Primary Care Provider] - 01/10/23 9:20 am Discharge Diet: Advance as tolerated Discharge Activity: Limit activity as instructed Patient Instructions: Opioid Safety Activity Restrictions/Additional Instructions: -For your pain control, continue 25 mcg fentanyl patch that you have at home, add on 12 mcg fentanyl patch -Please use Lyrica for neuropathic pain -If you feel lightheaded or dizzy or short of breath please go to emergency room or call [phone] -I have sent you home on Narcan for opiate overdose -I sent you home with antibiotics, for right groin wound, continue wound care, follow-up with Dr. Rawls -Follow with Dr. Mackay for biopsy results Thank you for [facility] for your care! The following is a list of instructions, from your provider, to follow upon your discharge to ensure you have the optimal recovery from your recent injury orsurgery. Follow-up care is a hoffman part of your treatment and safety. Be sure to make and go to all appointments, and call your doctor if you are having problems. If you do not already have a follow-up appointment made, call Dr. Sheikh office in the next 1-3 days to make follow up appointment for 2 weeks at [phone]. It is also a good idea to know your test results and keep a list of the medicines you take. Medications will be prescribed for you at your provider's discretion. These medications are to be used as instructed; if they are taken more often that prescribed they will not be refilled early and in most cases will not be refilled at all. > When a refill is needed,you should contact mikael ravi 2-3 business days before your prescription runs out. Medications will NOT be refilled by resource conservation specialist providers after hours! > Many pain medications contain Tylenol (Acetaminophen). Do not consume more than 4,000 mg of Tylenol per day in total with any combination ofmedications. > Pain medications can cause constipation. Please use an over the counter stool softener as directed, while taking pain medications. Consulty our local pharmacist with questions or recommendations on stool softeners. If constipation persists, contact our office or your primary care provider. > While under our care,you are not to receive pain medications or other controlled substances from any other provider unless our office is notified and approves. Any attempts to do so will result in refusal to prescribe any further pain medications and possible dismissal from our practice. ? Your wound and/or dressing should remain clean and dry for 2 days after surgery. On postoperative day 2 (48 hours after your surgery) the dressing (if present) should be removed and it is okay to shower and get the incision wet. Pad dry afterwards. No further dressing should be required from that point on. Do not put any creams or ointments on theincision > It is normal for there to be a small amount of discharge (bloody or blood tinged) present from a surgical wound for the first 1-3days. > The wound should be examined twice a day for signs of infection. Mild redness or bruising is to be expected but indications that an infection maybe starting would include; An increase in redness, swelling, or discharge, a foul odor present around the incision, and/or a fever greater than 101 ?F ? Showering is permitted, however we ask that you do not take a bath, sit in a whirlpool / Jacuzzi, or go swimming for 1 month. For only the first 2 days after surgery, lt wilt be necessary for you to cover your wound/dressing with plastic and tape to keep it dry. ? Walking is essential for the healing process after surgery. We would like you to slowly advance your walking. This should be done on relatively flat clear ground (inside or out) or can be done on a treadmill. Remember this goal does not have to happen all at once, slowly increase your distance and duration. This can be broken into more more than one walk per day as tolerated. Patients who walk as directed after surgery rarely require Physical Therapy. In the unlikely event this issue arises your provider will direct hospital staff to make the appropriate arrangements. ? No lifting over 5 pounds {a gallon of milk) or bending/twisting until further notice. Each of these activities places an unnecessary amount of stress onto the body and can impede the delicate healing process. > Instead of bending at the waist, keep your back straight and bend at the knees. > Instead of twisting your torso, keep your back straight and turn your entire body with your feet. ? You may sleep in any position which makes you comfortable. Many patients find comfort sleeping in a reclining chair. It is not abnormal to have difficulty sleeping for the first several weeks following your surgery. We recommend trying Benadry! or Tylenol PM as directed to help with your sleeping difficulties. Both medications are over the counter and available withoutprescription. ? NO SMOKING!!! Smoking dramatically increases the probability of devel oping postoperative wound infections. ? Common complaints after lumbar and/or thoracic spine surgery include, but are not limited to: numbness and/or tingling in the legs, pain around the incision and surrounding tissues, muscle spasms, or stiffness of the middle to low back. Contact our office if these symptoms persist or if an acute change occurs. ? No driving for the first 3-5days, and not while taking narcotics until seen at your follow-up appointment and cleared. There are no restrictions for riding on short trips, however if you take a longer trip, arrangements should be made to make regular stops to get out of the vehicle and stretch . ? Swelling is an unfortunate event that will take place with any surgery and is the primary source of your postoperative discomfort. While walking and regular approved activities helps control inflammation, there are additional steps you can take to minimizeswelling. > Place ice over the surgical site and surrounding tissue for twenty minutes, followed by applying a low/medium heat (heating pad) for an additional twenty minutes every 1-2 hours as needed for painrelief. > You may use of over the counter anti-inflammatory medications (Ibuprofen, Motrin, Aleve, Advil, etc) as directed on the package label. These types of medicines wm significantly reduce the amount of discomfort you experience after surgery from swelling. It should be noted that if you have and allergy to any of these medications, or a history of ulcers or kidney disease you should consult you primary care provider prior to starting these medications. Discharge Attestations Time Spent in Discharge Care*: greater than 30 min Status at Discharge: Cognitive status at discharge: cognitively intact , Behavioral status at discharge: cooperative , Quality Metrics Clinical Quality Measures [ No reported AMI, CVA or VTE this stay] Coding Level of Care Code 20075 Total time (in minutes) for Discharge: 45 Diagnoses Closed compression fracture of L4 vertebra S32.040A Encounter type: initial encounter
[2023-01-01 11:32] VITALS: PULSE 79; RESP 16; O2SAT 98
== END 2023-01-01 13:12 | disposition home or self-care (01) | DRG 478 ==
LOC: ER 12-28 00:34 → MEDSURG 12-28 04:36
PROVIDERS: Orthopaedic Surgery; Admitting Provider Internal Medicine; Emergency Provider Emergency Medicine; PCP Internal Medicine; Visit Provider Family Medicine
PROC: 0QB03ZX Excision of Lumbar Vertebra, Percutaneous Approach, Diagnostic (ICD-10-PCS; principal; 2022-12-31 07:00)
PROC: 0QB03ZX Excision of Lumbar Vertebra, Percutaneous Approach, Diagnostic (ICD-10-PCS; 2022-12-31 07:00)
DX: M84.58XA Pathological fracture in neoplastic disease, other specified site, initial encounter for fracture (principal); C77.4 Secondary and unspecified malignant neoplasm of inguinal and lower limb lymph nodes; C79.51 Secondary malignant neoplasm of bone; L03.314 Cellulitis of groin; L02.214 Cutaneous abscess of groin; C51.9 Malignant neoplasm of vulva, unspecified; Z92.3 Personal history of irradiation; Z92.21 Personal history of antineoplastic chemotherapy; I10 Essential (primary) hypertension; K21.9 Gastro-esophageal reflux disease without esophagitis; J45.909 Unspecified asthma, uncomplicated; G47.33 Obstructive sleep apnea (adult) (pediatric); G62.9 Polyneuropathy, unspecified; N90.4 Leukoplakia of vulva; M16.11 Unilateral primary osteoarthritis, right hip; Z98.890 Other specified postprocedural states; M84.454D Pathological fracture, pelvis, subsequent encounter for fracture with routine healing; Z87.891 Personal history of nicotine dependence
CPT/HCPCS: 10060; 36415; 72158; 72192; 76000; 80048; 80053; 83735; 85025; 88307; 88311; 88342; 93005; 96372; 96374; 96375; 97110; 97116; 97161; 97760; 99213; 99285; A9577; G0378; J0330; J0690; J1100; J1170; J1200; J1650; J2270; J2371; J2405; J2704; J2765; J3010; J3490; J7030; J7120; L0637

== ENCOUNTER 2023-01-07 09:22 | Emergency (ER) | payer MEDICARE, MEDICAID, SELFPAY ==
[2023-01-07 09:33] VITALS: BP 144/77; PULSE 72; RESP 18; TEMP 36.6; O2SAT 98; BMI 29.7
[2023-01-07 09:45] VITALS: BP 132/67; PULSE 71; RESP 15; O2SAT 97
[2023-01-07 09:46] LABS: Basophils % 0.4 %; Eosinophils # 0.1 10^3/uL (0.0-0.8); Eosinophils % 2.4 %; Hematocrit 33.7 % (36-47); Lymphocytes % 20.6 %; Mean Corpuscular HGB Conc 31.5 g/dL (30-55); Mean Corpuscular Hemoglobin 30.7 pg (27-33); Mean Corpuscular Volume 97.7 fl (85-98); Mean Platelet Volume 8.7 fL (7.4-10.4); Monocytes # 0.5 10^3/uL (0.2-0.9); Monocytes % 9.2 %; Neutrophils # 3.28 10^3/uL (1.8-7.7); Neutrophils % 66.8 %; Nucleated Red Blood Cells % 0 %; Platelet Count 331 10^3/cmm (157-399); Red Blood Count 3.45 10^6/uL (3.85-5.65); Red Cell Distribution Width 13.7 % (12.1-15.1); White Blood Count 4.91 10^3/uL (3.29-11.43)
[2023-01-07 09:47] VITALS: PULSE 80
--- NOTE | 2023-01-07 10:03 | USCV_ITS ---
Bryan Chelsey Age: 67 Gender: F : 1955 Exam Date: 01/07/2023 10:56 Ordering Phys: Vikash Young DO Technologist: Bobby Graham Exam Location: [facility] [place]_ Indication: swelling PROCEDURES: Venous duplex imaging was performed in bilateral lower extremities. The following venous structures were evaluated: common femoral vein, profunda vein, proximal portion of the greater saphenous vein, superficial femoral vein, and the popliteal vein. In addition, the posterior tibial and peroneal trunk were evaluated. Serial compression, augmentation maneuvers, and spectral Doppler flow evaluation were performed. FINDINGS: Normal 2-D Doppler and augmentation and compressibility throughout the lower extremity venous structures. Additional imaging through the proximal calf veins also reveals no thrombus. Limited evaluation of the greater saphenous vein is patent with no thrombus. CONCLUSIONS No evidence of right lower extremity DVT. No evidence of left lower extremity DVT. Andrea Atwood MD (Electronically Signed) Final Date: 07 January 2023 16:36 S
--- NOTE | 2023-01-07 10:03 | XR_ITS ---
WS: [id number] XR chest 1V portable [id number] REASON FOR EXAM: Chest pain FINDINGS: Chemotherapy infusion port of the left chest with trans left subclavian vein catheter with the tip lo cated in the superior vena cava. Mild tortuosity of the thoracic aorta. Normal heart size. Calcified granulomatous disease in both hemithoraces. Several short linear areas of opacity in the left costophrenic angle. Presumed atelectasis versus par enchymal scarring. No other acute pulmonary parenchymal or pleural abnormality is identified. No lung nodule or lung mass. No hilar or mediastinal mass. Mild degenerative spondylosis in the mid and lower thoracic spine. IMPRESSION: Minor left lung changes as above with no other significant abnormality.
--- NOTE | 2023-01-07 10:04 | ECG_ITS ---
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 Measurements Intervals Rudolph Rate: 80 P: 60 NH: 157 QRS: -9 QRSD: 89 T: 60 QT: 394 QTc: 455 Interpretive Statements SINUS RHYTHM Compared to ECG 12/28/2022 06:33:51 No significant changes Electronically Signed On 01-07-2023 19:06:26 CDT by Jada Jimenez M.D. [email or web address]
--- NOTE | 2023-01-07 10:04 | W.ED.EXTPRO ---
HPI - Extremity Problem General: Chief complaint: Extremity Problem,Nontraumatic Stated complaint: swollen feet/tightness in abdomen Time Seen by Provider: 01/07/23 09:32 Source: patient Mode of arrival: ambulatory History of Present Illness: 67-year-old female presents emergency room complaining of swelling in her legs and abdomen. She has a history of vulvar squamous cell CA there is positive lymph nodes in the inguinal region but a recent surgery in her back where there was a concern of a lumbar spread the pathology came back as negative. She had also recently started Lyrica and has noticed some swelling in her legs. She has noted some shortness of breath which she relates to abdominal distention. No fevers sweats or chills no sharp chest pain at this time. MD Complaint: extremity swelling PFSH ED PFSH: Medical History Asthma Chronic migraine GERD (gastroesophageal reflux disease) HTN (hypertension) Lichen sclerosus of female genitalia Diagnosed in 2017 or 2018-states she was told that she just needs to use the clobetasol if needed so she uses it very rarely. Obstructive sleep apnea Osteoarthritis of right hip Rosacea Sacral insufficiency fracture Squamous cell carcinoma of vulva Vertigo Vitamin D deficiency Surgical History H/O esophagogastroduodenoscopy Dilation H/O esophagogastroduodenoscopy (06/24/21) History of bladder surgery 2007-had bladder lift surgery performed and states that about 3 months after surgery her bladder fell down again and she has not done anything about this. S/P hysterectomy 1991----?vaginal hysterectomy for heavy bleeding and pain. Status post arthroscopic surgery of left knee Status post colonoscopy with polypectomy (06/24/21) Status post laparotomy X 2 Thinks that she has had 2 open surgeries for cysts and problems with cysts and feels that this was before her hysterectomy but does not remember. Status post surgery (09/10/20) radical partial vulvectomy, right inguinofemoral lymphadenectomy, and left inguinofemoral sentinel lymph node biopsy Status post surgical removal of malignant neoplasm of skin (07/15/21) Squamous cell carcinoma in situ Family History Family/Other Breast cancer maternal aunt, diagnosed in her 50s or 60s Mother Hypertension Aortic aneurysm Hyperlipidemia Lung disease Father Hypertension Cancer Brother Hypertension Anesthesia complication during surgery d/t too much anesthesia Sister Hypertension Denies family history of Colon cancer Ovarian cancer Diabetes CAD (coronary artery disease) Clotting disorder Dementia Heart disease Chronic kidney disease (CKD) Suicide Bleeding disorder Uterine cancer Thyroid condition Stroke Social History Smoking and tobacco status: former smoker (smoked x 11 years) Quit status (tobacco): has quit using tobacco Year quit tobacco: 1997 Former quit date comment: Hx of 0.5 PPD x 8 Years Second hand smoke exposure: No Smoking risk assessment/counseling performed?: No Alcohol intake: never Counseling given: No Substance/Drug Use: never Counseling given: No Lives independently: Yes Household members: none Marital status: Current occupational status: disabled Do you think of yourself as: Straight/Heterosexual Current gender identity: Female Physical Exam Const: GENERAL APPEARANCE: cooperative and comfortable ORIENTATION/CONSCIOUSNESS: Yes awake, Yes oriented to person, Yes oriented to place and Yes oriented to time HENMT: COMMON NORMALS: normocephalic, atraumatic and hearing grossly normal bilaterally HEAD & SCALP: normocephalic and atraumatic Resp: COMMON NORMALS: normal respiratory effort, No retractions, No use of accessory muscles and clear to auscultation bilaterally AUSCULTATION: clear to auscultation bilaterally Cardio: COMMON NORMALS: regular rate, regular rhythm and No murmurs present (Cardio) RATE: regular rate RHYTHM: regular rhythm GI: COMMON NORMALS: Soft to palpation and No hepatosplenomegaly present AUSCULTATION: Yes normoactive bowel sounds PALPATION: Yes Soft to palpation, No Tenderness to palpation present (GI), No Guarding due to palpation present (GI) and Yes No hepatosplenomegaly present Extremity: COMMON NORMALS: normal to inspection, capillary refill normal, no clubbing, cyanosis or edema, no calf tenderness and no pedal edema Neuro: SENSORIUM/ORIENTATION: Yes oriented to person, Yes oriented to place and Yes oriented to time Skin: COMMON NORMALS: no rashes or lesions noted GENERAL SKIN EXAM: no rashes or lesions noted Course Vital Signs: Vital signs: Vital Signs Temperature 97.8 F 01/07/23 09:33 Pulse Rate 77 01/07/23 11:45 Respiratory Rate 16 01/07/23 11:45 Blood Pressure 145/85 01/07/23 11:45 Pulse Oximetry 94 01/07/23 11:45 Oxygen Delivery Me thod Room Air 01/07/23 09:45 MDM - Extremity (Nontraumatic) Medical Decision Making Ultrasound lower extremities negative. Sat is normal no tachycardia we will discharge patient home suspect it is from her Lyrica if she has worsening change symptoms recheck. She did ask about the recent surgery she had done the pathology on the biopsy done during the time of surgery was negative reviewed that with her at her request as well. Follow-up with oncology and Ortho as previously scheduled. Medical Records I reviewed the patient's medical records. Lab Data I reviewed the patient's lab results. 01/07/23 09:42 01/07/23 09:42 Laboratory Results WBC 4.91 10^3/uL (3.29-11.43) 01/07/23 09:42 RBC 3.45 10^6/uL (3.85-5.65) L 01/07/23 09:42 Hgb 10.60 g/dL (11.27-16.99) L 01/07/23 09:42 Hct 33.7 % (36-47) L 01/07/23 09:42 MCV 97.7 fl (85-98) 01/07/23 09:42 MCH 30.7 pg (27-33) 01/07/23 09:42 MCHC 31.5 g/dL (30-55) 01/07/23 09:42 RDW 13.7 % (12.1-15.1) 01/07/23 09:42 Plt Count 331 10^3/cmm (157-399) 01/07/23 09:42 MPV 8.7 fL (7.4-10.4) 01/07/23 09:42 Neut % (Auto) 66.8 % 01/07/23 09:42 Lymph % (Auto) 20.6 % 01/07/23 09:42 [place] % (Auto) 9.2 % 01/07/23 09:42 Eos % (Auto) 2.4 % 01/07/23 09:42 Baso % (Auto) 0.4 % 01/07/23 09:42 Neut # (Auto) 3.28 10^3/uL (1.8-7.7) 01/07/23 09:42 Lymph # (Auto) 1.0 10^3/uL (0.8-4.8) 01/07/23 09:42 [place] # (Auto) 0.5 10^3/uL (0.2-0.9) 01/07/23 09:42 Eos # (Auto) 0.1 10^3/uL (0.0-0.8) 01/07/23 09:42 Baso # (Auto) 0.0 10^3/uL (0.0-0.1) 01/07/23 09:42 Nucleated RBC % (auto) 0 % 01/07/23 09:42 Nucleated RBCs # 0.0 /100WBC 01/07/23 09:42 Sodium 138 mmol/L (136-145) 01/07/23 09:42 Potassium 4.3 mmol/L (3.5-5.1) 01/07/23 09:42 Chloride 101 mmol/L (98-107) 01/07/23 09:42 Carbon Dioxide 27 mmol/L (22-29) 01/07/23 09:42 Anion Gap 14.3 (5-19) 01/07/23 09:42 BUN 14 mg/dL (8-23) 01/07/23 09:42 Creatinine 0.7 mg/dL (0.5-0.9) 01/07/23 09:42 GFR Calculation 84.0 mL/min (90-130) L 01/07/23 09:42 Glucose 97 mg/dL (65-115) 01/07/23 09:42 Calculated Osmolality 286 mOsm/kg (285-295) 01/07/23 09:42 Calcium 9.5 mg/dL (8.5-10.5) 01/07/23 09:42 Total Bilirubin 0.3 mg/dL (0.15-1.2) 01/07/23 09:42 AST 30 U/L (0-32) 01/07/23 09:42 ALT 24 U/L (0-33) 01/07/23 09:42 Alkaline Phosphatase 246 U/L (35-105) H 01/07/23 09:42 Troponin T Baseline < 6 ng/L (0-10) 01/07/23 09:42 Total Protein 8.0 g/dL (6.6-8.7) 01/07/23 09:42 Albumin 4.1 g/dL (3.5-5.2) 01/07/23 09:42 Globulin 3.9 g/dL (1.3-4.6) 01/07/23 09:42 Lipase 33 U/L (13-60) 01/07/23 09:42 Urine Color Light yellow (Yellow) 01/07/23 10:31 Urine Appearance Clear (CLEAR) 01/07/23 10:31 Urine pH 7 (5-7) 01/07/23 10:31 Ur Specific [place] 1.000 (1.005-1.030) L 01/07/23 10:31 Urine Protein Neg (Negative) 01/07/23 10:31 Urine Glucose (UA) Norm (Normal) 01/07/23 10:31 Urine Ketones Negative (Negative) 01/07/23 10:31 Urine Blood Neg (Negative) 01/07/23 10:31 Urine Nitrate Negative (Negative) 01/07/23 10:31 Urine Bilirubin Neg (Negative) 01/07/23 10:31 Urine Urobilinogen Norm mg/dL (Negative) 01/07/23 10:31 Ur Leukocyte Esterase Negative (Negative) 01/07/23 10:31 All radiology interpretation(s) finalized by discharge Discharge Plan Discharge Patient Disposition: Home Clinical Impression: Squamous cell carcinoma of vulva, Medication side effects, Leg edema Condition: Stable Prescriptions: No Action multivitamin Tablet 1 tab PO QAM fentanyl 75 mcg/hr patch 72 hour 1 patch transdermal Q72H 30 Days Qty: 10 0RF morphine 15 mg tablet 15 - 30 mg PO Q6H PRN (Reason: pain) 30 Days Qty: 120 0RF Rx Instructions: For Breakthrough Pain metoclopramide HCl [Reglan] 10 mg tablet 10 mg PO Q6H PRN (Reason: nausea and vomiting) Qty: 120 0RF pregabalin [Lyrica] 50 mg capsule 50 mg PO BID Qty: 60 0RF ondansetron HCl 4 mg tablet 4 mg PO Q6H PRN (Reason: nausea and vomiting) Qty: 30 3RF ipratropium-albuterol 0.5 mg-3 mg(2.5 mg base)/3 mL solution for nebulization 3 ml INHALATION Q12H PRN (Reason: Shortness Of Breath) pantoprazole 20 mg tablet,delayed release (DR/EC) 20 mg PO DAILY PRN (Reason: Acid Reflux) Pulmicort Flexhaler 90 mcg/actuation aerosol powdr breath activated 1 inh INHALATION BID PRN (Reason: unknown) Probiotic Blend 2 billion cell-50 mg Capsule 1 cap PO DAILY acetaminophen 500 mg Tablet 500 mg PO Q6H PRN (Reason: Pain) clobetasol 0.05 % Cream 1 applic TOPICAL BID PRN (Reason: Skin Irritation) cholecalciferol (vitamin D3) [Vitamin D3] 25 mcg (1,000 unit) Tablet 25 mcg PO DAILY naloxone [Narcan] 4 mg/actuation spray,non-aerosol 4 mg intranasal Q2M PRN (Reason: opioid overdose) Qty: 2 0RF Rx Instructions: 1 dose into ONE nostril, alternate nostrils w each dose until help arrives milk thistle 500 mg Capsule 500 mg PO DAILY Rx Instructions: give with meal/snack lidocaine-prilocaine 2.5-2.5 % cream See Rx Instructions .ROUTE .COMPLEX Rx Instructions: place a quarter size amount over port area ONE hour prior TO being accessed. cover with PLASTIC dressing Vitamin C 500 mg Tablet 500 mg PO DAILY doxycycline monohydrate 100 mg capsule 100 mg PO BID Rx Instructions: for 5 days (rx filled 01/01/23 pt stop taking 01/05/23 had one tab left) amoxicillin-pot clavulanate 875-125 mg tablet 1 tab PO BID Rx Instructions: for 5 days (rx filled 01/01/23 pt stop taking 01/05/23 had one tab left) docusate sodium 100 mg capsule 100 mg PO BID PRN (Reason: Constipation) Discharge Orders: Discharge ED (Routine); Ordered 01/07/23 Ordered By: Vikash Young Referrals: Les Flores MD [Primary Care Provider] - Discharge Diet: Usual diet Discharge Activity: Increase activity as tolerated Patient Instructions: Opioid Safety, Pain Management Activity Restrictions/Additional Instructions: Recommend holding the Lyrica until you follow-up with your primary care doctor. 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
[2023-01-07 10:12] LABS: Alanine Aminotransferase 24 U/L (0-33); Albumin Level 4.1 g/dL (3.5-5.2); Alkaline Phosphatase 246 U/L (35-105); Aspartate Amino Transferase 30 U/L (0-32); Blood Urea Nitrogen 14 mg/dL (8-23); Calcium 9.5 mg/dL (8.5-10.5); Carbon Dioxide 27 mmol/L (22-29); Chloride 101 mmol/L (98-107); Creatinine Clr Calc Pharmacy 79.0602; Globulin 3.9 g/dL (1.3-4.6); Glucose 97 mg/dL (65-115); Lipase 33 U/L (13-60); Osmolality Calculated 286 mOsm/kg (285-295); Sodium 138 mmol/L (136-145); Total Bilirubin 0.3 mg/dL (0.15-1.2)
[2023-01-07 10:16] LABS: Anion Gap 14.3 (5-19); Potassium 4.3 mmol/L (3.5-5.1)
[2023-01-07 10:27] LABS: Troponin(5th) Baseline < 6 ng/L (0-10)
[2023-01-07 10:36] LABS: Add Urine Microscopic? NO; Charge for UA Resulting for Rev
[2023-01-07 10:39] LABS: Bilirubin Urine Neg (Negative); Blood Urine Neg (Negative); Glucose Urine UA Norm (Normal); Ketones Urine Negative (Negative); Leukocyte Esterase Urine Negative (Negative); Nitrate Urine Negative (Negative); Protein Urine Neg (Negative); Urine Appearance Clear (CLEAR); Urine Color Light yellow (Yellow); Urobilinogen Urine Norm (Negative); pH Urine 7 (5-7)
[2023-01-07 11:45] VITALS: BP 145/85; PULSE 77; RESP 16; O2SAT 94
== END 2023-01-07 11:46 | disposition home or self-care (01) ==
PROVIDERS: Emergency Provider Family Medicine; PCP Internal Medicine
DX: R60.0 Localized edema (principal); C51.9 Malignant neoplasm of vulva, unspecified; T88.7XXA Unspecified adverse effect of drug or medicament, initial encounter; T42.6X5A Adverse effect of other antiepileptic and sedative-hypnotic drugs, initial encounter; I10 Essential (primary) hypertension; Z87.891 Personal history of nicotine dependence
CPT/HCPCS: 71045; 80053; 81003; 83690; 84484; 85025; 93005; 93970; 99285

== ENCOUNTER 2023-01-11 07:30 | Oncology outpatient (recurring) (ONCR) | payer MEDICARE, MEDICAID, SELFPAY ==
[2023-01-04 08:16] VITALS: BP 152/82; PULSE 94; RESP 16; TEMP 36.7; O2SAT 96
[2023-01-04 08:29] LABS: Basophils % 0.2 %; Eosinophils # 0.1 10^3/uL (0.0-0.8); Eosinophils % 2.5 %; Hematocrit 31.5 % (36-47); Lymphocytes % 18.1 %; Mean Corpuscular HGB Conc 31.4 g/dL (30-55); Mean Corpuscular Hemoglobin 30.4 pg (27-33); Mean Corpuscular Volume 96.6 fl (85-98); Mean Platelet Volume 8.2 fL (7.4-10.4); Monocytes # 0.6 10^3/uL (0.2-0.9); Monocytes % 11.1 %; Neutrophils # 3.78 10^3/uL (1.8-7.7); Neutrophils % 67.6 %; Nucleated Red Blood Cells % 0 %; Platelet Count 271 10^3/cmm (157-399); Red Blood Count 3.26 10^6/uL (3.85-5.65); Red Cell Distribution Width 13.5 % (12.1-15.1); White Blood Count 5.59 10^3/uL (3.29-11.43)
[2023-01-04 09:07] LABS: Alanine Aminotransferase 25 U/L (0-33); Albumin Level 3.9 g/dL (3.5-5.2); Alkaline Phosphatase 231 U/L (35-105); Anion Gap 11.7 (5-19); Aspartate Amino Transferase 28 U/L (0-32); Blood Urea Nitrogen 14 mg/dL (8-23); Calcium 9.3 mg/dL (8.5-10.5); Carbon Dioxide 26 mmol/L (22-29); Chloride 103 mmol/L (98-107); Globulin 3.4 g/dL (1.3-4.6); Glomerular Filtration Rate 100.3 mL/min (90-130); Glucose 104 mg/dL (65-115); Osmolality Calculated 285 mOsm/kg (285-295); Potassium 3.7 mmol/L (3.5-5.1); Sodium 137 mmol/L (136-145); Thyroid Stimulating Hormone 2.11 uIU/mL (0.27-4.20); Total Bilirubin 0.3 mg/dL (0.15-1.2); Total Protein 7.3 g/dL (6.6-8.7)
[2023-01-11 08:00] VITALS: BMI 29.4
[2023-01-11 08:01] VITALS: BP 120/71; PULSE 80; RESP 17; TEMP 36.7; O2SAT 96
[2023-01-11 08:02] LABS: Basophils % 0.4 %; Eosinophils # 0.1 10^3/uL (0.0-0.8); Eosinophils % 1.8 %; Hematocrit 32.7 % (36-47); Lymphocytes # 0.6 10^3/uL (0.8-4.8); Mean Corpuscular HGB Conc 31.8 g/dL (30-55); Mean Corpuscular Hemoglobin 31.1 pg (27-33); Mean Corpuscular Volume 97.9 fl (85-98); Mean Platelet Volume 8.5 fL (7.4-10.4); Monocytes # 0.5 10^3/uL (0.2-0.9); Monocytes % 8.9 %; Neutrophils # 4.44 10^3/uL (1.8-7.7); Neutrophils % 77.7 %; Nucleated Red Blood Cells % 0 %; Platelet Count 298 10^3/cmm (157-399); Red Blood Count 3.34 10^6/uL (3.85-5.65); Red Cell Distribution Width 13.6 % (12.1-15.1); White Blood Count 5.71 10^3/uL (3.29-11.43)
[2023-01-11 08:24] LABS: Alanine Aminotransferase 29 U/L (0-33); Albumin Level 3.9 g/dL (3.5-5.2); Alkaline Phosphatase 231 U/L (35-105); Anion Gap 11.3 (5-19); Aspartate Amino Transferase 37 U/L (0-32); Blood Urea Nitrogen 13 mg/dL (8-23); Calcium 9.3 mg/dL (8.5-10.5); Carbon Dioxide 29 mmol/L (22-29); Chloride 103 mmol/L (98-107); Globulin 3.7 g/dL (1.3-4.6); Glucose 121 mg/dL (65-115); Osmolality Calculated 289 mOsm/kg (285-295); Potassium 4.3 mmol/L (3.5-5.1); Sodium 139 mmol/L (136-145); Total Bilirubin 0.4 mg/dL (0.15-1.2); Total Protein 7.6 g/dL (6.6-8.7)
[2023-01-11] MEDS: sodium chloride 0.9% 250 ML 75 ML IV (09:59)
[2023-01-11] MEDS: ondansetron 2 mg/ML SDV 2 mL 8 MG IVP (10:03)
[2023-01-11] MEDS: pembrolizumab 200 MG in sodium chloride 0.9% 250 ML 516 MG IV (10:16)
[2023-01-11] MEDS: meclizine 25 mg tablet PO (10:23)
[2023-01-11 11:13] VITALS: BP 147/68; PULSE 70; RESP 17; TEMP 36.3; O2SAT 96
== END 2023-01-15 23:59 | disposition home or self-care (01) ==
PROVIDERS: PCP Internal Medicine Cardiovascular Disease; Visit Provider Internal Medicine Medical Oncology
DX: Z53.9 Procedure and treatment not carried out, unspecified reason; C77.9 Secondary and unspecified malignant neoplasm of lymph node, unspecified; G89.3 Neoplasm related pain (acute) (chronic); Z87.891 Personal history of nicotine dependence; C51.9 Malignant neoplasm of vulva, unspecified
CPT/HCPCS: 80053; 84443; 85025; 96374; 96375; 96413; 99214; J1642; J2405; J7050; J8597; J9271

== ENCOUNTER → 2023-01-13 08:51 | Outpatient (BNVA) | payer MEDICARE, MEDICAID, SELFPAY | PROVIDERS: PCP Internal Medicine; Visit Provider Orthopaedic Surgery | DX: Z47.89 Encounter for other orthopedic aftercare (principal) | CPT/HCPCS: 99024; 99212 ==

== ENCOUNTER → 2023-01-24 09:06 | Outpatient (BNVA) | payer MEDICARE, MEDICAID, SELFPAY | PROVIDERS: PCP Internal Medicine; Visit Provider Thoracic Surgery (Cardiothoracic Vascular Surgery) | DX: L98.492 Non-pressure chronic ulcer of skin of other sites with fat layer exposed (principal) | CPT/HCPCS: 11042; A6212 ==

== ENCOUNTER → 2023-01-31 10:42 | Outpatient (BNVA) | payer MEDICARE, MEDICAID, SELFPAY | PROVIDERS: PCP Internal Medicine; Visit Provider Thoracic Surgery (Cardiothoracic Vascular Surgery) | DX: L97.112 Non-pressure chronic ulcer of right thigh with fat layer exposed (principal); Z53.29 Procedure and treatment not carried out because of patient's decision for other reasons | CPT/HCPCS: 99212 ==

== ENCOUNTER 2023-02-01 07:49 | Oncology outpatient (recurring) (ONCR) | payer MEDICARE, MEDICAID, SELFPAY ==
[2023-02-01 08:15] VITALS: BP 115/72; PULSE 75; RESP 16; TEMP 36.5; O2SAT 99
[2023-02-01 08:38] LABS: Basophils % 0.5 %; Eosinophils # 0.1 10^3/uL (0.0-0.8); Eosinophils % 1.7 %; Hematocrit 33.1 % (36-47); Lymphocytes # 0.9 10^3/uL (0.8-4.8); Lymphocytes % 15.9 %; Mean Corpuscular HGB Conc 31.4 g/dL (30-55); Mean Corpuscular Hemoglobin 30.1 pg (27-33); Mean Corpuscular Volume 95.9 fl (85-98); Mean Platelet Volume 8.2 fL (7.4-10.4); Monocytes # 0.6 10^3/uL (0.2-0.9); Monocytes % 9.6 %; Neutrophils # 4.13 10^3/uL (1.8-7.7); Nucleated Red Blood Cells % 0 %; Platelet Count 276 10^3/cmm (157-399); Red Blood Count 3.45 10^6/uL (3.85-5.65); Red Cell Distribution Width 13.2 % (12.1-15.1); White Blood Count 5.74 10^3/uL (3.29-11.43)
[2023-02-01 09:09] LABS: Alanine Aminotransferase 25 U/L (0-33); Alkaline Phosphatase 223 U/L (35-105); Anion Gap 14.6 (5-19); Aspartate Amino Transferase 30 U/L (0-32); Blood Urea Nitrogen 10 mg/dL (8-23); Calcium 9.4 mg/dL (8.5-10.5); Carbon Dioxide 25 mmol/L (22-29); Chloride 103 mmol/L (98-107); Globulin 3.8 g/dL (1.3-4.6); Glucose 135 mg/dL (65-115); Osmolality Calculated 289 mOsm/kg (285-295); Potassium 3.6 mmol/L (3.5-5.1); Sodium 139 mmol/L (136-145); Thyroid Stimulating Hormone 3.74 uIU/mL (0.27-4.20); Total Bilirubin 0.4 mg/dL (0.15-1.2); Total Protein 7.8 g/dL (6.6-8.7)
--- NOTE | 2023-02-01 11:02 | ECG_ITS ---
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 Measurements Intervals [place] Rate: 71 P: 34 [place]: 149 QRS: 1 QRSD: 86 T: 34 QT: 396 QTc: 433 Interpretive Statements SINUS RHYTHM WITH OCCASIONAL VENTRICULAR PREMATURE COMPLEXES WITH OCCASIONAL SUPRAVENTRICULAR PREMATURE COMPLEXES LOW QRS VOLTAGE IN PRECORDIAL LEADS [QRS DEFLECTION < 1.0 mV IN CHEST LEADS] INTERPRETATION BASED ON A DEFAULT AGE OF 40 YEARS Compared to ECG 01/07/2023 10:09:08 Ventricular premature complex(es) now present Low QRS voltage now present Electronically Signed On 02-01-2023 12:16:54 CDT by Jillian Ramírez M.D. [email or web address]
[2023-02-01] MEDS: sodium chloride 0.9% 250 ML 75 ML IV (12:05)
[2023-02-01] MEDS: pembrolizumab 200 MG in sodium chloride 0.9% 250 ML 516 MG IV (12:33)
[2023-02-01 13:35] VITALS: BP 125/74; PULSE 73; RESP 17; O2SAT 97
== END 2023-02-01 23:59 | disposition home or self-care (01) ==
PROVIDERS: PCP Internal Medicine; Visit Provider Internal Medicine Medical Oncology
DX: C51.9 Malignant neoplasm of vulva, unspecified; Z51.11 Encounter for antineoplastic chemotherapy; C77.4 Secondary and unspecified malignant neoplasm of inguinal and lower limb lymph nodes; R53.0 Neoplastic (malignant) related fatigue; R42 Dizziness and giddiness; Z87.891 Personal history of nicotine dependence
CPT/HCPCS: 80053; 84443; 85025; 93005; 96413; 99214; J1642; J7050; J9271

== ENCOUNTER 2023-02-22 08:50 | Oncology outpatient (recurring) (ONCR) | payer MEDICARE, MEDICAID, SELFPAY ==
[2023-02-22 09:18] VITALS: BP 111/70; PULSE 81; RESP 17; TEMP 36.9; O2SAT 96
[2023-02-22 09:19] VITALS: BMI 27.7
[2023-02-22 09:30] LABS: Basophils % 0.3 %; Eosinophils # 0.1 10^3/uL (0.0-0.8); Eosinophils % 1.3 %; Lymphocytes # 0.9 10^3/uL (0.8-4.8); Lymphocytes % 14.8 %; Mean Corpuscular HGB Conc 32.2 g/dL (30-55); Mean Corpuscular Hemoglobin 30.3 pg (27-33); Mean Corpuscular Volume 94.1 fl (85-98); Mean Platelet Volume 8.6 fL (7.4-10.4); Monocytes # 0.7 10^3/uL (0.2-0.9); Monocytes % 11.6 %; Neutrophils % 71.7 %; Nucleated Red Blood Cells % 0 %; Platelet Count 300 10^3/cmm (157-399); White Blood Count 6.01 10^3/uL (3.29-11.43)
[2023-02-22 10:03] LABS: Alanine Aminotransferase 29 U/L (0-33); Albumin Level 4.1 g/dL (3.5-5.2); Alkaline Phosphatase 220 U/L (35-105); Aspartate Amino Transferase 33 U/L (0-32); Blood Urea Nitrogen 10 mg/dL (8-23); Calcium 9.4 mg/dL (8.5-10.5); Carbon Dioxide 25 mmol/L (22-29); Chloride 102 mmol/L (98-107); Globulin 3.3 g/dL (1.3-4.6); Glomerular Filtration Rate 100.3 mL/min (90-130); Glucose 120 mg/dL (65-115); Osmolality Calculated 284 mOsm/kg (285-295); Sodium 137 mmol/L (136-145); Thyroid Stimulating Hormone 1.25 uIU/mL (0.27-4.20); Total Bilirubin 0.4 mg/dL (0.15-1.2); Total Protein 7.4 g/dL (6.6-8.7)
[2023-02-22] MEDS: pembrolizumab 200 MG in sodium chloride 0.9% 250 ML 516 MG IV (12:49)
[2023-02-22] MEDS: sodium chloride 0.9% 250 ML 50 ML IV (12:49)
[2023-02-22 13:24] VITALS: BP 139/70; PULSE 83; RESP 18; O2SAT 97
== END 2023-02-22 23:59 | disposition home or self-care (01) ==
PROVIDERS: Nurse Practitioner Family; PCP Internal Medicine; Visit Provider Internal Medicine Medical Oncology
DX: Z51.11 Encounter for antineoplastic chemotherapy (principal); C51.9 Malignant neoplasm of vulva, unspecified; S32.10XA Unspecified fracture of sacrum, initial encounter for closed fracture; R11.0 Nausea; M25.551 Pain in right hip; X58.XXXA Exposure to other specified factors, initial encounter; Z79.899 Other long term (current) drug therapy
CPT/HCPCS: 80053; 84443; 85025; 96413; 99215; J1642; J7050; J9271

== ENCOUNTER 2023-03-15 09:15 | Oncology outpatient (recurring) (ONCR) | payer MEDICARE, MEDICAID, SELFPAY ==
[2023-03-15 09:29] VITALS: BP 129/68; PULSE 87; RESP 16; TEMP 36.6; O2SAT 96
[2023-03-15 09:50] LABS: Basophils % 0.4 %; Eosinophils # 0.1 10^3/uL (0.0-0.8); Eosinophils % 0.8 %; Hematocrit 33.4 % (36-47); Lymphocytes # 0.7 10^3/uL (0.8-4.8); Lymphocytes % 9.4 %; Mean Corpuscular HGB Conc 31.4 g/dL (30-55); Mean Corpuscular Hemoglobin 29.4 pg (27-33); Mean Corpuscular Volume 93.6 fl (85-98); Mean Platelet Volume 8.4 fL (7.4-10.4); Monocytes # 0.7 10^3/uL (0.2-0.9); Monocytes % 9.2 %; Neutrophils # 5.71 10^3/uL (1.8-7.7); Neutrophils % 79.9 %; Nucleated Red Blood Cells % 0 %; Platelet Count 308 10^3/cmm (157-399); Red Blood Count 3.57 10^6/uL (3.85-5.65); Red Cell Distribution Width 13.1 % (12.1-15.1); White Blood Count 7.15 10^3/uL (3.29-11.43)
[2023-03-15 10:19] LABS: Alanine Aminotransferase 74 U/L (0-33); Albumin Level 4.2 g/dL (3.5-5.2); Alkaline Phosphatase 218 U/L (35-105); Aspartate Amino Transferase 69 U/L (0-32); Blood Urea Nitrogen 8 mg/dL (8-23); Carbon Dioxide 25 mmol/L (22-29); Chloride 98 mmol/L (98-107); Globulin 3.8 g/dL (1.3-4.6); Glucose 149 mg/dL (65-115); Osmolality Calculated 285 mOsm/kg (285-295); Sodium 137 mmol/L (136-145); Thyroid Stimulating Hormone 1.32 uIU/mL (0.27-4.20); Total Bilirubin 0.4 mg/dL (0.15-1.2)
[2023-03-15] MEDS: sodium chloride 0.9% 250 ML 75 ML IV (12:35)
[2023-03-15] MEDS: pembrolizumab 200 MG in sodium chloride 0.9% 250 ML 516 MG IV (12:59)
[2023-03-15 14:05] VITALS: BP 128/72; PULSE 79; RESP 17; TEMP 36.2; O2SAT 99
== END 2023-03-15 23:59 | disposition home or self-care (01) ==
PROVIDERS: Internal Medicine; PCP Internal Medicine; Visit Provider Internal Medicine Medical Oncology
DX: Z51.11 Encounter for antineoplastic chemotherapy (principal); C51.9 Malignant neoplasm of vulva, unspecified; S32.10XA Unspecified fracture of sacrum, initial encounter for closed fracture; R11.0 Nausea; M25.551 Pain in right hip; X58.XXXA Exposure to other specified factors, initial encounter; Z79.899 Other long term (current) drug therapy
CPT/HCPCS: 80053; 84443; 85025; 96413; 99214; J1642; J7050; J9271

== ENCOUNTER 2023-03-22 14:32 | Outpatient (CLI) | payer MEDICARE, MEDICAID, SELFPAY ==
--- NOTE | 2023-03-22 09:00 | PETR_ITS ---
PROCEDURE INFORMATION: Exam: PET/CT Skull Base to Mid-thigh Exam date and time: 03/22/2023 9:56 AM Age: 67 years old Clinical indication: Condition or disease; Primary cancer: Vulva cancer; Follow-up oncological assessment; Prior surgery; Surgery date: 6+ months; Surgery type: Recent kyphoplasty; HX lymphnode radiation; Additional info: Vulva cancer; Compare to previous. History of chemotherapy July 2022 and radiation therapy July 2022. LABS AND CLINICAL REPORTS: Glucose: 140 mg/dl Treatment strategy for malignancy (PET staging): Restaging (PS) TECHNIQUE: Imaging protocol: Following at least four-hour fasting and following the injection of radiopharmaceutical, low dose CT images were obtained. Then, PET images were obtained. Attenuation corrected images were constructed using the CT scan. Fused images of PET and CT were reviewed. The standardized uptake values (SUV) reported below are maximum values within a region of interest, expressed in gm/ml. Exam includes orbital meatal line to mid-thigh. Radiopharmaceutical: 12.31 mCi F-18 FDG (Fluorodeoxyglucose), IV. Time of imaging post radiopharmaceutical administration: 1 hour Injection site: Left antecubital COMPARISON: CT pelvis 12/27/2022, MRI right hip 12/02/2022, MRI pelvis 12/02/2022, PT PET skulltothigh SUBSEQ [id number] 10/23/2022 10:33 AM FINDINGS: Limitations: The examination is slightly technically suboptimal secondary to the scan to injection time outside of recommended parameters (45-75 minutes). Reported scan to injection time of 41.95 minutes. Injection to scan times outside of recommended parameters can result in decreased PET sensitivity and limit the utility of comparison of SUV values to prior or subsequent exams. Tubes, catheters and devices: A left subclavian central venous port catheter terminates in the distal SVC. Brain: Visualized brain has normal physiologic uptake. Pharynx: Mild, likely inflammatory uptake in region of adenoidal tissue is present, SUV max 3.7 without evidence of a discrete correlating lesion on CT series 3, image 12. Larynx: No abnormal uptake. Lungs, pleura and trachea: No abnormal uptake. Heart: Normal physiologic uptake. Mediastinal space: No abnormal uptake. Liver: No abnormal uptake. Gallbladder and bile ducts: No abnormal uptake. Pancreas: No abnormal uptake. Spleen: No abnormal uptake. Adrenal glands: No abnormal uptake. Kidneys and ureters: Normal physiologic uptake. Stomach and bowel: No abnormal uptake. Reproductive: Uptake in the region of the vulva demonstrates a similar SUV max 3.8 without a well-defined lesion which appears physiologic. Vasculature: No abnormal uptake. Lymph nodes: No abnormal uptake. No lymphadenopathy in the head, neck, chest, abdomen, pelvis, and extremities. Bones/joints: There are bilateral healing, mildly sclerotic vertically oriented fractures of the right and left lateral aspect of the sacrum for example on CT series 3 images 182 through 191 with interval resolution of previously noted uptake in these regions compared with the prior PET-CT. There is mild diffuse vertebral body spondylosis. Similar mild asymmetric sclerotic density compared to the prior CT of 12/27/2022 where there is a healing fracture involving the pubic bone on the right at the level of the symphysis pubis for example on series 3, image 214, SUV max 4.9 (previously SUV max 4.3 without significant sclerosis in this region on the prior PET-CT). Uptake in this region on the prior PET-CT was partially obscured by uptake within the adjacent urinary bladder. Mild similar sclerosis where there is a healed or healing fracture involving the right acetabulum is noted without elevated uptake. Vertebroplasty cement in the L4 vertebral body is present. Soft tissues: There is evidence of postoperative changes in the right inguinal region with surgical clips and overlying thick-walled skin wound containing gas in a region measuring 5.5 x 3.2 cm in the axial plane on series 3, image 198, SUV max 21.0. This region previously measured 4.4 x 1.6 cm in the axial plane on the CT images of 12/27/2022 and contained less gas than on the current PET-CT. A previously noted radiotracer avid soft tissue density nodule or lymph node in this region is no longer identified. METRICS: Mediastinal blood pool: SUV max 2.7 PET/PET skulltothigh SUBSEQ [id number] IMPRESSION: 1. Interval postoperative changes in the region of a previously noted radiotracer avid soft tissue density nodule in the right inguinal region since the prior PET-CT, with a thick-walled apparent skin wound in this region which is increased in size compared with 12/27/2022 containing an increased amount of gas. Packing material within the wound may contribute to this appearance. Correlation with clinical history is recommended. Elevated uptake in this region (SUV max 21.0) is somewhat greater than expected for postoperative inflammatory changes or infection/abscess. Malignancy cannot be excluded. 2. Interval resolution of previously noted uptake in the region of bilateral sacral fractures. Increased sclerosis in the pubic bone at the level of the symphysis pubis on the right where there is decreased uptake within a known healed or healing fracture. Additional known additional healed or healing fracture of the right acetabulum, without elevated uptake. 3. Additional nonurgent findings as detailed above.
== END 2023-03-22 14:33 | disposition home or self-care (01) ==
LOC: RAD 14:33
PROVIDERS: PCP Obstetrics & Gynecology Gynecologic Oncology; Visit Provider Internal Medicine
DX: C51.8 Malignant neoplasm of overlapping sites of vulva (principal)
CPT/HCPCS: 78815; A9552

== ENCOUNTER 2023-04-04 07:59 | Emergency (ER) | payer MEDICARE, MEDICAID, SELFPAY ==
[2023-04-04 08:04] VITALS: BP 155/81; PULSE 83; RESP 18; TEMP 36.7; O2SAT 98; BMI 26.2
--- NOTE | 2023-04-04 08:17 | W.ED.WOUNDLC ---
HPI - Wound/Laceration General: Chief Complaint: Wound/Laceration Stated Complaint: groin pain Time Seen by Provider: 04/04/23 07:59 Source: patient Mode of arrival: ambulatory History of Present Illness: 67-year-old female presents emergency room with complaint of bleeding from a tumor on her right leg. Patient has a history of vulvar squamous cell CA reports increased pain and drainage in the right inguinal region. When she was first diagnosed approximately 2 years ago she had a lymph node dissected from that region recently opened up the good packing the wound. She had a PET scan on March 22 that shows increased activity in that area but it was not definitive for recurrence of malignancy. Wound has been draining clear serous fluid is very foul-smelling. She has had increased fevers and sweats recently. She is not currently receiving any treatment. Associated symptoms: Reports chills and fever(s) Review of Systems Const: Reports: fever(s) and chills Card: Denies: chest pain Resp: Denies: dyspnea GI: Denies: abdominal pain : Denies: dysuria, urinary frequency or urinary urgency Musc: Denies: neck pain or back pain Skin/Breast: Denies: rash PFSH ED PFSH: Medical History Osteoarthritis of right hip Sacral insufficiency fracture Vitamin D deficiency Rosacea Chronic migraine GERD (gastroesophageal reflux disease) Obstructive sleep apnea HTN (hypertension) Squamous cell carcinoma of vulva Lichen sclerosus of female genitalia Diagnosed in 2017 or 2018-states she was told that she just needs to use the clobetasol if needed so she uses it very rarely. Asthma Vertigo Surgical History Hx of kyphoplasty Status post surgical removal of malignant neoplasm of skin (07/15/21) Squamous cell carcinoma in situ Status post arthroscopic surgery of left knee Status post colonoscopy with polypectomy (06/24/21) H/O esophagogastroduodenoscopy (06/24/21) Status post surgery (09/10/20) radical partial vulvectomy, right inguinofemoral lymphadenectomy, and left inguinofemoral sentinel lymph node biopsy H/O esophagogastroduodenoscopy Dilation History of bladder surgery 2007-had bladder lift surgery performed and states that about 3 months after surgery her bladder fell down again and she has not done anything about this. Status post laparotomy X 2 Thinks that she has had 2 open surgeries for cysts and problems with cysts and feels that this was before her hysterectomy but does not remember. S/P hysterectomy 1991----?vaginal hysterectomy for heavy bleeding and pain. Family History Family/Other Breast cancer maternal aunt, diagnosed in her 50s or 60s Mother Hypertension Aortic aneurysm Hyperlipidemia Lung disease Father Hypertension Cancer Brother Hypertension Anesthesia complication during surgery d/t too much anesthesia Sister Hypertension Denies family history of Colon cancer Ovarian cancer Diabetes CAD (coronary artery disease) Clotting disorder Dementia Heart disease Chronic kidney disease (CKD) Suicide Bleeding disorder Uterine cancer Thyroid disease Stroke Social History Smoking and tobacco/nicotine status: former use of tobacco/nicotine (smoked x 11 years) Quit status (tobacco/nicotine): has quit using Year quit tobacco: 1997 Former quit date comment: Hx of 0.5 PPD x 8 Years Second hand smoke exposure: No Alcohol intake: never Substance/Drug Use: never Lives independently: Yes Household members: none Marital status: Current occupational status: disabled Do you think of yourself as: Straight/Heterosexual Current gender identity: Female Physical Exam Const: GENERAL APPEARANCE: cooperative ORIENTATION/CONSCIOUSNESS: Yes awake, Yes oriented to person, Yes oriented to place and Yes oriented to time HENMT: COMMON NORMALS: normocephalic, atraumatic and hearing grossly normal bilaterally HEAD & SCALP: normocephalic and atraumatic Resp: COMMON NORMALS: normal respiratory effort, No retractions, No use of accessory muscles and clear to auscultation bilaterally AUSCULTATION: clear to auscultation bilaterally Cardio: COMMON NORMALS: regular rate, regular rhythm and No murmurs present (Cardio) RATE: regular rate RHYTHM: regular rhythm GI: COMMON NORMALS: Soft to palpation and No hepatosplenomegaly present AUSCULTATION: Yes normoactive bowel sounds PALPATION: Yes Soft to palpation, No Tenderness to palpation present (GI), No Guarding due to palpation present (GI) and Yes No hepatosplenomegaly present OTHER: Midportion of the right inguinal crease there is a wound with some hypertrophic edges small percutaneous fistulas with compression is exquisitely painful admits clear serous fluid which is very foul-smelling. Also extrudes air when palpated. Mild localized erythema. : COMMON NORMALS: Yes no CVA tenderness BLADDER/KIDNEY EXAM: Yes no CVA tenderness Back/Pelvis: COMMON NORMALS: no CVA tenderness Extremity: COMMON NORMALS: normal to inspection, capillary refill normal, no clubbing, cyanosis or edema, no calf tenderness and no pedal edema Neuro: SENSORIUM/ORIENTATION: Yes oriented to person, Yes oriented to place and Yes oriented to time Skin: COMMON NORMALS: no rashes or lesions noted GENERAL SKIN EXAM: no rashes or lesions noted Course Vital Signs: Vital signs: Vital Signs Temperature 98.1 F 04/04/23 08:04 Pulse Rate 83 04/04/23 08:04 Respiratory Rate 16 04/04/23 08:52 Blood Pressure 136/88 04/04/23 12:42 Pulse Oximetry 98 04/04/23 12:42 Oxygen Delivery Me thod Room Air 04/04/23 11:57 MDM - Wound/Laceration Medical Decision Making Discussed with Dr. Mackay with Dr. Womack. Dr. Mackay would like to see her be evaluated for definitive care for the wound in the right inguinal region. She has recently seen Dr. Womack in [place] he previously did surgery in that region PET scan was inconclusive could be recurrence tumor may just be inflammation from necrotic tissue. She Devilbiss foul-smelling drainage her white count is normal. There is no purulent drainage. I called and talked to discussed with Dr. Yanez she was not convinced that a resection or debridement surgically would be appropriate may leave her with a larger defect in the groin and when she currently has it may have even more difficult to manage. Reviewed this with the patient ultimately decided to discharge the patient home she had did note significant improvement discomfort with the Toradol we will give her Celebrex because she has been having stomach upset with ibuprofen to see if that works better for her. Dr. Nelson will see her in her office in the next few days and discussed possible treatment options with her. The images from today's CT were clouded so that [facility] also give the patient a hard copy to take with her in case the cloud imaging does not function properly return if is further problems. Medical Records I reviewed the patient's medical records. Lab Data I reviewed the patient's lab results. 04/04/23 08:32 04/04/23 08:32 Laboratory Results WBC 6.57 10^3/uL (3.29-11.43) 04/04/23 08:32 RBC 4.03 10^6/uL (3.85-5.65) 04/04/23 08:32 Hgb 11.70 g/dL (11.27-16.99) 04/04/23 08:32 Hct 37.2 % (36-47) 04/04/23 08:32 MCV 92.3 fl (85-98) 04/04/23 08:32 MCH 29.0 pg (27-33) 04/04/23 08:32 MCHC 31.5 g/dL (30-55) 04/04/23 08:32 RDW 13.7 % (12.1-15.1) 04/04/23 08:32 Plt Count 326 10^3/cmm (157-399) 04/04/23 08:32 MPV 8.3 fL (7.4-10.4) 04/04/23 08:32 Neut % (Auto) 83.5 % 04/04/23 08:32 Lymph % (Auto) 8.4 % 04/04/23 08:32 [place] % (Auto) 6.4 % 04/04/23 08:32 Eos % (Auto) 0.9 % 04/04/23 08:32 Baso % (Auto) 0.3 % 04/04/23 08:32 Neut # (Auto) 5.49 10^3/uL (1.8-7.7) 04/04/23 08:32 Lymph # (Auto) 0.6 10^3/uL (0.8-4.8) L 04/04/23 08:32 [place] # (Auto) 0.4 10^3/uL (0.2-0.9) 04/04/23 08:32 Eos # (Auto) 0.1 10^3/uL (0.0-0.8) 04/04/23 08:32 Baso # (Auto) 0.0 10^3/uL (0.0-0.1) 04/04/23 08:32 Nucleated RBC % (auto) 0 % 04/04/23 08:32 Nucleated RBCs # 0.0 /100WBC 04/04/23 08:32 Sodium 135 mmol/L (136-145) L 04/04/23 08:32 Potassium 3.8 mmol/L (3.5-5.1) 04/04/23 08:32 Chloride 98 mmol/L (98-107) 04/04/23 08:32 Carbon Dioxide 26 mmol/L (22-29) 04/04/23 08:32 Anion Gap 14.8 (5-19) 04/04/23 08:32 BUN 5 mg/dL (8-23) L 04/04/23 08:32 Creatinine 0.7 mg/dL (0.5-0.9) 04/04/23 08:32 GFR Calculation 84.0 mL/min (90-130) L 04/04/23 08:32 Glucose 108 mg/dL (65-115) 04/04/23 08:32 Calculated Osmolality 278 mOsm/kg (285-295) L 04/04/23 08:32 Calcium 10.0 mg/dL (8.5-10.5) 04/04/23 08:32 Total Bilirubin 0.5 mg/dL (0.15-1.2) 04/04/23 08:32 AST 19 U/L (0-32) 04/04/23 08:32 ALT 19 U/L (0-33) 04/04/23 08:32 Alkaline Phosphatase 168 U/L (35-105) H 04/04/23 08:32 Total Protein 8.3 g/dL (6.6-8.7) 04/04/23 08:32 Albumin 4.3 g/dL (3.5-5.2) 04/04/23 08:32 Globulin 4.0 g/dL (1.3-4.6) 04/04/23 08:32 Procalcitonin 0.06 ng/mL (0-0.5) 04/04/23 08:32 Urine Color Yellow (Yellow) 04/04/23 10:40 Urine Appearance Clear (CLEAR) 04/04/23 10:40 Urine pH 8 (5-7) H 04/04/23 10:40 Ur Specific [place] 1.005 (1.005-1.030) 04/04/23 10:40 Urine Protein Neg (Negative) 04/04/23 10:40 Urine Glucose (UA) Norm (Normal) 04/04/23 10:40 Urine Ketones 1+ (Negative) H 04/04/23 10:40 Urine Blood Neg (Negative) 04/04/23 10:40 Urine Nitrate Negative (Negative) 04/04/23 10:40 Urine Bilirubin Neg (Negative) 04/04/23 10:40 Prot Sulfosalicylic Acd Negative (Negative) 04/04/23 10:40 Urine Urobilinogen Norm mg/dL (Negative) 04/04/23 10:40 Ur Leukocyte Esterase Trace (Negative) H 04/04/23 10:40 Urine RBC 0-4 /hpf (0-2) H 04/04/23 10:40 Urine WBC 5-10 /hpf (0-5) H 04/04/23 10:40 Ur Squamous Epith Cells 0-4 /hpf (0-5) H 04/04/23 10:40 Amorphous Sediment Not Reportable 04/04/23 10:40 Urine Bacteria 1+ /hpf (NONE) H 04/04/23 10:40 All radiology interpretation(s) finalized by discharge Discharge Plan Discharge Patient Disposition: Home Clinical Impression: Squamous cell carcinoma of vulva, Necrotizing inflammation of lymph node Condition: Stable Prescriptions: New Celebrex 200 mg capsule 200 mg PO BID PRN (Reason: pain) Qty: 30 0RF metronidazole 1 % cream 1 applic topical DAILY Qty: 60 0RF No Action multivitamin Tablet 1 tab PO QAM lidocaine 5 % adhesive patch,medicated 1 patch topical DAILY Qty: 30 0RF Rx Instructions: leave on most painful area for up to 12 hrs, then remove for 12 hours sucralfate [Carafate] 1 gram tablet 1 g PO QID Qty: 120 0RF ondansetron HCl 4 mg tablet 4 mg PO Q6H PRN (Reason: nausea and vomiting) Qty: 30 3RF meclizine 25 mg tablet 25 mg PO TID PRN (Reason: vertigo) Qty: 30 2RF fentanyl 50 mcg/hr patch 72 hour 1 patch transdermal Q72H 30 Days Qty: 10 0RF hydromorphone 4 mg tablet 4 mg PO Q4H 20 Days Qty: 120 0RF ipratropium-albuterol 0.5 mg-3 mg(2.5 mg base)/3 mL solution for nebulization 3 ml INHALATION Q12H PRN (Reason: Shortness Of Breath) pantoprazole 20 mg tablet,delayed release (DR/EC) 20 mg PO DAILY clobetasol 0.05 % Cream 1 applic TOPICAL BID PRN (Reason: Skin Irritation) naloxone [Narcan] 4 mg/actuation spray,non-aerosol 4 mg intranasal Q2M PRN (Reason: opioid overdose) Qty: 2 0RF Rx Instructions: 1 dose into ONE nostril, alternate nostrils w each dose until help arrives lidocaine-prilocaine 2.5-2.5 % cream See Rx Instructions .ROUTE .COMPLEX Rx Instructions: place a quarter size amount over port area ONE hour prior TO being accessed. cover with PLASTIC dressing docusate sodium 100 mg capsule 100 mg PO BID PRN (Reason: Constipation) ibuprofen 200 mg Capsule 400 mg PO Q6H PRN (Reason: Pain) Discharge Orders: Discharge ED (Routine); Ordered 04/04/23 Ordered By: Vikash Young Referrals: Lacy Yanez M.D [Primary Care Provider] - Discharge Diet: Advance as tolerated Discharge Activity: Increase activity as tolerated Patient Instructions: Opioid Safety, Pain Management Activity Restrictions/Additional Instructions: Thank you for choosing [facility] for your healthcare needs today. Please realize this is an emergency room and that we are providing you with a medical screening exam and this may not be complete and all inclusive of all the testing and or work up that you may need to determine your ailment or severity of your illness. It is very important that you follow up as instructed or that you return to the Emergency Department should you have concerns or if your condition changes or worsens in any way. You were seen today for drainage from the previous right groin incision with lymph node was removed. Suspected there is necrosis of the tissue underlying that incision as a result of your previous cancer and the treatments. There is no evidence of infection at this time. After discussion with Dr. Mackay and Dr. Womack we are recommending you follow-up with Dr. Womack tomorrow in her office. Contact her office to make arrangements for the appointment. We have sent the images by [employer] and given you a hard copy to take with you that were done today. Recommend trial of Celebrex instead of ibuprofen for the discomfort take this in addition to the narcotic pain medications have been prescribed previously Coding Level of Care Code ED Manager Loan for Angely López
--- NOTE | 2023-04-04 08:23 | CT_ITS ---
WS: [id number] CT ABDOMEN AND PELVIS NONCONTRAST HISTORY: Abscess right inguinal region TECHNIQUE: Imaging performed through the abdomen and pelvis. Coronal and sagittal reformats are submi tted. All CT scans at [facility] use at least one of these dose optimization techniques: auto mated exposure control; mA and/or kV adjustment per patient size (includes targeted exams where dose is matched to clinical indication); or iterative reconstruction. DLP: 644.63 mGy.cm COMPARISON: None available. Lower thorax: Small hiatal hernia. Lung bases are clear. Liver: Normal size liver. No mass or bile duct dilatation. Gallbladder: Normal gallbladder. No pericholecystic fluid or cholelithiasis. No gallbladder wall thic kening. Pancreas: Normal size and attenuation. Normal pancreatic duct. No pancreatitis or mass. Spleen: Normal. Adrenal glands: Normal. No mass. Right kidney: Normal size kidney with no mass or hydronephrosis. Left kidney: Normal size kidney with no mass or hydronephrosis. Aorta: Mild atherosclerosis abdominal aorta with no aneurysm. No free fluid. No free air. GI tract: Normal noncontrast imaging of the stomach, small bowel and colon. No obstruction or wall th ickening. Normal appendix. Abdominal wall: Negative. No hernia. Pelvis: No free fluid in the pelvis. Urinary bladder is normal. There is a complex fluid collection w ith air at the RIGHT inguinal region measuring 2.7 x 5.6 cm and extends over a length of 5.8 cm. Ther e is an associated surgical clip. Patient has a known neoplasm. This may be an abscess or necrotic ne oplasm. As compared to 12/27/2022 there is been increase in size of this collection. Osseous structures: Vertebroplasty at L4. Healing RIGHT symphysis pubis fracture. Sacral insufficienc y fracture is healing. IMPRESSION: 1. Complex collection containing air at the RIGHT inguinal region measures 2.7 x 5.6 x 5.8 cm. Patie nt has a known neoplasm at this location which has been previously biopsied. Necrotic neoplasm versus superimposed associated abscess should be considered. Majority of this collection is solid in appear ance and not liquefied. 2. No additional acute intra-abdominal pelvic abnormalities. 3. Known L4 vertebroplasty, healing RIGHT pubic symphysis fractures and sacral insufficiency fractur e.
[2023-04-04 08:44] LABS: Basophils % 0.3 %; Eosinophils # 0.1 10^3/uL (0.0-0.8); Eosinophils % 0.9 %; Hematocrit 37.2 % (36-47); Lymphocytes # 0.6 10^3/uL (0.8-4.8); Lymphocytes % 8.4 %; Mean Corpuscular HGB Conc 31.5 g/dL (30-55); Mean Corpuscular Volume 92.3 fl (85-98); Mean Platelet Volume 8.3 fL (7.4-10.4); Monocytes # 0.4 10^3/uL (0.2-0.9); Monocytes % 6.4 %; Neutrophils # 5.49 10^3/uL (1.8-7.7); Neutrophils % 83.5 %; Nucleated Red Blood Cells % 0 %; Platelet Count 326 10^3/cmm (157-399); Red Blood Count 4.03 10^6/uL (3.85-5.65); Red Cell Distribution Width 13.7 % (12.1-15.1); White Blood Count 6.57 10^3/uL (3.29-11.43)
[2023-04-04] MEDS: ketorolac 30 mg/mL INJ IVP (08:50)
[2023-04-04 08:52] VITALS: RESP 16; O2SAT 98
[2023-04-04] MEDS: HYDROmorphone 1 mg/mL INJ 1 mL IVP (08:52)
[2023-04-04] MEDS: ondansetron 2 mg/ML SDV 2 mL 4 MG IVP (08:56)
[2023-04-04 09:02] LABS: Alanine Aminotransferase 19 U/L (0-33); Albumin Level 4.3 g/dL (3.5-5.2); Alkaline Phosphatase 168 U/L (35-105); Anion Gap 14.8 (5-19); Aspartate Amino Transferase 19 U/L (0-32); Blood Urea Nitrogen 5 mg/dL (8-23); Carbon Dioxide 26 mmol/L (22-29); Chloride 98 mmol/L (98-107); Glucose 108 mg/dL (65-115); Osmolality Calculated 278 mOsm/kg (285-295); Potassium 3.8 mmol/L (3.5-5.1); Sodium 135 mmol/L (136-145); Total Bilirubin 0.5 mg/dL (0.15-1.2); Total Protein 8.3 g/dL (6.6-8.7)
[2023-04-04 10:09] VITALS: BP 147/83; O2SAT 96
[2023-04-04 11:39] LABS: Procalcitonin 0.06 ng/mL (0-0.5)
[2023-04-04 11:56] LABS: Add Urine Microscopic? YES; Bilirubin Urine Neg (Negative); Blood Urine Neg (Negative); Glucose Urine UA Norm (Normal); Ketones Urine 1+ (Negative); Leukocyte Esterase Urine Trace (Negative); Nitrate Urine Negative (Negative); Protein Urine Neg (Negative); Specific Gravity, Urine 1.005 (1.005-1.030); Sulfosalicylic Acid Urine Negative (Negative); Urine Appearance Clear (CLEAR); Urine Color Yellow (Yellow); Urobilinogen Urine Norm (Negative); pH Urine 8 (5-7)
[2023-04-04 11:57] VITALS: BP 136/88; O2SAT 98
[2023-04-04 11:57] LABS: Bacteria Urine 1+ /hpf; RBC Urine 0-4 /hpf (0-2); Squamous Epithelial Cell Urine 0-4 /hpf (0-5)
[2023-04-04 12:42] VITALS: BP 136/88; O2SAT 98
== END 2023-04-04 12:57 | disposition home or self-care (01) ==
PROVIDERS: Emergency Provider Family Medicine; PCP Obstetrics & Gynecology Gynecologic Oncology
DX: C51.9 Malignant neoplasm of vulva, unspecified (principal); I88.8 Other nonspecific lymphadenitis; Z87.891 Personal history of nicotine dependence; I10 Essential (primary) hypertension
CPT/HCPCS: 36415; 74176; 80053; 81001; 84145; 85025; 87040; 96374; 96375; 99285; J1170; J1885; J2405

== ENCOUNTER 2023-06-07 09:45 | Oncology outpatient (recurring) (ONCR) | payer MEDICARE, MEDICAID, SELFPAY ==
[2023-05-25 13:13] LABS: Basophils % 0.4 %; Eosinophils # 0.2 10^3/uL (0.0-0.8); Eosinophils % 2.6 %; Hematocrit 36.8 % (36-47); Lymphocytes # 1.3 10^3/uL (0.8-4.8); Lymphocytes % 17.4 %; Mean Corpuscular HGB Conc 31.5 g/dL (30-55); Mean Corpuscular Hemoglobin 29.3 pg (27-33); Mean Corpuscular Volume 92.9 fl (85-98); Mean Platelet Volume 8.4 fL (7.4-10.4); Monocytes # 0.6 10^3/uL (0.2-0.9); Monocytes % 8.1 %; Neutrophils # 5.12 10^3/uL (1.8-7.7); Neutrophils % 71.2 %; Nucleated Red Blood Cells % 0 %; Platelet Count 286 10^3/cmm (157-399); Red Blood Count 3.96 10^6/uL (3.85-5.65); White Blood Count 7.19 10^3/uL (3.29-11.43)
[2023-05-25 13:39] LABS: Alanine Aminotransferase 13 U/L (0-33); Albumin Level 3.8 g/dL (3.5-5.2); Alkaline Phosphatase 177 U/L (35-105); Anion Gap 13.2 (5-19); Aspartate Amino Transferase 20 U/L (0-32); Blood Urea Nitrogen 9 mg/dL (8-23); Calcium 9.5 mg/dL (8.5-10.5); Carbon Dioxide 28 mmol/L (22-29); Chloride 96 mmol/L (98-107); Globulin 3.7 g/dL (1.3-4.6); Glomerular Filtration Rate 83.7 mL/min (90-130); Glucose 136 mg/dL (65-115); Osmolality Calculated 277 mOsm/kg (285-295); Potassium 4.2 mmol/L (3.5-5.1); Sodium 133 mmol/L (136-145); Total Bilirubin 0.3 mg/dL (0.15-1.2); Total Protein 7.5 g/dL (6.6-8.7)
[2023-05-25 15:02] LABS: Iron 42 ug/dL (37-145); Percent Saturation 15.7 % (20-50); Thyroid Stimulating Hormone 75.71 uIU/mL (0.27-4.20); Total Iron Binding Capacity 266 mcg/dl; Unsaturated Iron Binding 224 ug/dL (112-347)
[2023-06-07 10:13] LABS: Basophils % 0.1 %; Eosinophils # 0.2 10^3/uL (0.0-0.8); Eosinophils % 2.1 %; Hematocrit 33.6 % (36-47); Lymphocytes # 0.8 10^3/uL (0.8-4.8); Lymphocytes % 11.6 %; Mean Corpuscular HGB Conc 31.8 g/dL (30-55); Mean Corpuscular Hemoglobin 29.5 pg (27-33); Mean Corpuscular Volume 92.6 fl (85-98); Mean Platelet Volume 8.1 fL (7.4-10.4); Monocytes # 0.6 10^3/uL (0.2-0.9); Monocytes % 7.8 %; Neutrophils % 78.1 %; Nucleated Red Blood Cells % 0 %; Platelet Count 272 10^3/cmm (157-399); Red Blood Count 3.63 10^6/uL (3.85-5.65); Red Cell Distribution Width 15.3 % (12.1-15.1); White Blood Count 7.05 10^3/uL (3.29-11.43)
[2023-06-07 10:49] LABS: Alanine Aminotransferase 8 U/L (0-33); Albumin Level 3.6 g/dL (3.5-5.2); Alkaline Phosphatase 148 U/L (35-105); Aspartate Amino Transferase 12 U/L (0-32); Blood Urea Nitrogen 10 mg/dL (8-23); Calcium 8.9 mg/dL (8.5-10.5); Carbon Dioxide 26 mmol/L (22-29); Chloride 99 mmol/L (98-107); Globulin 3.4 g/dL (1.3-4.6); Glomerular Filtration Rate 71.8 mL/min (90-130); Glucose 109 mg/dL (65-115); Osmolality Calculated 282 mOsm/kg (285-295); Sodium 136 mmol/L (136-145); Total Bilirubin 0.3 mg/dL (0.15-1.2)
== END 2023-06-16 23:59 | disposition home or self-care (01) ==
PROVIDERS: Nurse Practitioner Family; PCP Obstetrics & Gynecology Gynecologic Oncology; Visit Provider Internal Medicine Medical Oncology
DX: Z79.899 Other long term (current) drug therapy; Z53.9 Procedure and treatment not carried out, unspecified reason; C51.9 Malignant neoplasm of vulva, unspecified; I10 Essential (primary) hypertension; R53.83 Other fatigue; R53.1 Weakness; Z79.891 Long term (current) use of opiate analgesic; Z79.2 Long term (current) use of antibiotics; Z87.891 Personal history of nicotine dependence; D64.9 Anemia, unspecified; E03.9 Hypothyroidism, unspecified; Z86.19 Personal history of other infectious and parasitic diseases; R10.13 Epigastric pain; T81.49XD Infection following a procedure, other surgical site, subsequent encounter; Y99.9 Unspecified external cause status
CPT/HCPCS: 36591; 80053; 83540; 83550; 84443; 85025; 99214

== ENCOUNTER 2023-07-01 15:07 | Outpatient (CLI) | payer MEDICARE, MEDICAID, SELFPAY | END 2023-07-01 15:08 | disposition home or self-care (01) | LOC: LAB 15:09 | PROVIDERS: PCP Obstetrics & Gynecology Gynecologic Oncology; Visit Provider Nurse Practitioner Family | DX: L02.214 Cutaneous abscess of groin (principal) | CPT/HCPCS: 87070; 87077; 87186 ==

== ENCOUNTER 2023-07-07 08:50 | Oncology outpatient (recurring) (ONCR) | payer MEDICARE, MEDICAID, SELFPAY ==
[2023-07-07 09:28] VITALS: BP 115/66; PULSE 73; RESP 16; TEMP 35.7; O2SAT 95
[2023-07-07 09:34] LABS: Basophils # 0.1 10^3/uL (0.0-0.1); Basophils % 0.6 %; Eosinophils # 0.3 10^3/uL (0.0-0.8); Eosinophils % 2.8 %; Hematocrit 33.9 % (36-47); Lymphocytes # 1.2 10^3/uL (0.8-4.8); Lymphocytes % 11.1 %; Mean Corpuscular HGB Conc 31.6 g/dL (30-55); Mean Platelet Volume 8.3 fL (7.4-10.4); Monocytes # 0.8 10^3/uL (0.2-0.9); Monocytes % 7.9 %; Neutrophils # 8.09 10^3/uL (1.8-7.7); Neutrophils % 77.2 %; Nucleated Red Blood Cells % 0 %; Platelet Count 352 10^3/cmm (157-399); Red Blood Count 3.57 10^6/uL (3.85-5.65); Red Cell Distribution Width 15.9 % (12.1-15.1); White Blood Count 10.47 10^3/uL (3.29-11.43)
[2023-07-07 09:51] LABS: Alanine Aminotransferase 44 U/L (0-33); Alkaline Phosphatase 233 U/L (35-105); Aspartate Amino Transferase 32 U/L (0-32); Blood Urea Nitrogen 21 mg/dL (8-23); C Reactive Protein 31.4 mg/L (0.0-4.9); Calcium 9.2 mg/dL (8.5-10.5); Carbon Dioxide 26 mmol/L (22-29); Chloride 102 mmol/L (98-107); Creatinine Clr Calc Pharmacy 71.4675; Globulin 3.3 g/dL (1.3-4.6); Glomerular Filtration Rate 83.7 mL/min (90-130); Glucose 97 mg/dL (65-115); Osmolality Calculated 289 mOsm/kg (285-295); Sodium 138 mmol/L (136-145); Total Bilirubin 0.2 mg/dL (0.15-1.2); Total Protein 7.3 g/dL (6.6-8.7)
[2023-07-07 10:35] LABS: Erythrocyte Sedimentation Rate 72 mm/hr (0-15)
[2023-07-07 12:39] LABS: Thyroid Stimulating Hormone 82.73 uIU/mL (0.27-4.20)
[2023-07-07] MEDS: pembrolizumab 200 MG in sodium chloride 0.9% 250 ML 516 MG IV (12:51)
[2023-07-07 13:32] VITALS: BP 134/72; PULSE 71; RESP 16; O2SAT 96
== END 2023-07-07 23:59 | disposition home or self-care (01) ==
PROVIDERS: PCP Obstetrics & Gynecology Gynecologic Oncology; Visit Provider Internal Medicine Medical Oncology
DX: C51.9 Malignant neoplasm of vulva, unspecified (principal); Z79.899 Other long term (current) drug therapy; Z87.891 Personal history of nicotine dependence; Z51.12 Encounter for antineoplastic immunotherapy; Z95.828 Presence of other vascular implants and grafts; C77.4 Secondary and unspecified malignant neoplasm of inguinal and lower limb lymph nodes; C79.89 Secondary malignant neoplasm of other specified sites; Z92.3 Personal history of irradiation; I10 Essential (primary) hypertension; Z53.9 Procedure and treatment not carried out, unspecified reason
CPT/HCPCS: 36591; 80053; 84443; 85025; 85651; 86140; 96413; 99214; A4222; J1642; J7050; J9271

== ENCOUNTER 2023-07-14 09:53 | Oncology outpatient (recurring) (ONCR) | payer MEDICARE, MEDICAID, SELFPAY | END 2023-07-17 23:59 | disposition home or self-care (01) | LOC: ONCMED 09:53 | PROVIDERS: PCP Obstetrics & Gynecology Gynecologic Oncology; Visit Provider Internal Medicine Medical Oncology | DX: Z53.9 Procedure and treatment not carried out, unspecified reason (principal); Z79.899 Other long term (current) drug therapy; C51.9 Malignant neoplasm of vulva, unspecified; I10 Essential (primary) hypertension; D64.9 Anemia, unspecified; R53.83 Other fatigue; Z92.3 Personal history of irradiation; C79.89 Secondary malignant neoplasm of other specified sites; R10.13 Epigastric pain; S32.10XA Unspecified fracture of sacrum, initial encounter for closed fracture; R11.0 Nausea; M25.551 Pain in right hip; X58.XXXA Exposure to other specified factors, initial encounter ==

== ENCOUNTER 2023-08-11 08:45 | Oncology outpatient (recurring) (ONCR) | payer MEDICARE, MEDICAID, SELFPAY ==
[2023-07-27 11:13] LABS: Basophils % 0.5 %; Eosinophils # 0.3 10^3/uL (0.0-0.8); Eosinophils % 5.1 %; Hematocrit 30.6 % (36-47); Lymphocytes # 0.8 10^3/uL (0.8-4.8); Lymphocytes % 13.4 %; Mean Corpuscular HGB Conc 31.7 g/dL (30-55); Mean Corpuscular Hemoglobin 30.5 pg (27-33); Mean Corpuscular Volume 96.2 fl (85-98); Monocytes # 0.2 10^3/uL (0.2-0.9); Monocytes % 3.8 %; Neutrophils # 4.48 10^3/uL (1.8-7.7); Neutrophils % 76.9 %; Nucleated Red Blood Cells % 0 %; Platelet Count 152 10^3/cmm (157-399); Red Blood Count 3.18 10^6/uL (3.85-5.65); Red Cell Distribution Width 15.7 % (12.1-15.1); White Blood Count 5.83 10^3/uL (3.29-11.43)
[2023-07-27 11:29] LABS: Alanine Aminotransferase 29 U/L (0-33); Albumin Level 3.9 g/dL (3.5-5.2); Alkaline Phosphatase 147 U/L (35-105); Anion Gap 13.1 (5-19); Aspartate Amino Transferase 26 U/L (0-32); Blood Urea Nitrogen 26 mg/dL (8-23); Calcium 9.2 mg/dL (8.5-10.5); Carbon Dioxide 27 mmol/L (22-29); Chloride 103 mmol/L (98-107); Globulin 3.2 g/dL (1.3-4.6); Glomerular Filtration Rate 83.7 mL/min (90-130); Glucose 98 mg/dL (65-115); Iron 139 ug/dL (37-145); Osmolality Calculated 293 mOsm/kg (285-295); Percent Saturation 62.3 % (20-50); Potassium 4.1 mmol/L (3.5-5.1); Sodium 139 mmol/L (136-145); Total Bilirubin 0.2 mg/dL (0.15-1.2); Total Iron Binding Capacity 223 mcg/dl; Total Protein 7.1 g/dL (6.6-8.7); Unsaturated Iron Binding 84 ug/dL (112-347)
[2023-08-11 08:19] LABS: Basophils % 0.4 %; Eosinophils # 0.3 10^3/uL (0.0-0.8); Eosinophils % 3.8 %; Hematocrit 26.6 % (36-47); Lymphocytes # 0.7 10^3/uL (0.8-4.8); Lymphocytes % 9.7 %; Mean Corpuscular HGB Conc 31.2 g/dL (30-55); Mean Corpuscular Hemoglobin 30.2 pg (27-33); Mean Corpuscular Volume 96.7 fl (85-98); Mean Platelet Volume 7.9 fL (7.4-10.4); Monocytes # 0.8 10^3/uL (0.2-0.9); Monocytes % 10.9 %; Neutrophils # 5.36 10^3/uL (1.8-7.7); Neutrophils % 74.9 %; Nucleated Red Blood Cells % 0 %; Platelet Count 312 10^3/cmm (157-399); Red Blood Count 2.75 10^6/uL (3.85-5.65); Red Cell Distribution Width 16.4 % (12.1-15.1); White Blood Count 7.15 10^3/uL (3.29-11.43)
[2023-08-11 08:49] LABS: Alanine Aminotransferase 27 U/L (0-33); Albumin Level 3.5 g/dL (3.5-5.2); Alkaline Phosphatase 148 U/L (35-105); Anion Gap 12.2 (5-19); Aspartate Amino Transferase 41 U/L (0-32); Blood Urea Nitrogen 15 mg/dL (8-23); Calcium 8.2 mg/dL (8.5-10.5); Carbon Dioxide 27 mmol/L (22-29); Chloride 103 mmol/L (98-107); Glomerular Filtration Rate 83.7 mL/min (90-130); Glucose 116 mg/dL (65-115); Osmolality Calculated 288 mOsm/kg (285-295); Potassium 4.2 mmol/L (3.5-5.1); Sodium 138 mmol/L (136-145); Thyroid Stimulating Hormone 46.38 uIU/mL (0.27-4.20); Total Bilirubin 0.2 mg/dL (0.15-1.2); Total Protein 6.5 g/dL (6.6-8.7)
[2023-08-11] MEDS: pembrolizumab 200 MG in sodium chloride 0.9% 250 ML 516 MG IV (10:53)
[2023-08-11 12:00] VITALS: BP 119/69; PULSE 69; RESP 17; TEMP 36.1; O2SAT 100
== END 2023-08-11 23:59 | disposition home or self-care (01) ==
PROVIDERS: Nurse Practitioner Family; PCP Obstetrics & Gynecology Gynecologic Oncology; Visit Provider Internal Medicine Medical Oncology
DX: C51.9 Malignant neoplasm of vulva, unspecified (principal); Z53.9 Procedure and treatment not carried out, unspecified reason; D64.9 Anemia, unspecified; E03.9 Hypothyroidism, unspecified; Z79.899 Other long term (current) drug therapy
CPT/HCPCS: 36415; 72100; 80053; 83540; 83550; 84443; 85025; 96413; 99214; A4222; J7050; J9271

== ENCOUNTER 2023-08-16 08:15 | Oncology outpatient (recurring) (ONCR) | payer MEDICARE, MEDICAID, SELFPAY ==
[2023-08-16 09:55] LABS: Basophils % 0.3 %; Eosinophils # 0.2 10^3/uL (0.0-0.8); Eosinophils % 2.7 %; Hematocrit 26.5 % (36-47); Lymphocytes # 0.8 10^3/uL (0.8-4.8); Lymphocytes % 11.5 %; Mean Corpuscular HGB Conc 31.3 g/dL (30-55); Mean Corpuscular Hemoglobin 30.6 pg (27-33); Mean Corpuscular Volume 97.8 fl (85-98); Mean Platelet Volume 7.9 fL (7.4-10.4); Monocytes # 0.6 10^3/uL (0.2-0.9); Monocytes % 8.8 %; Neutrophils # 5.37 10^3/uL (1.8-7.7); Neutrophils % 76.6 %; Nucleated Red Blood Cells % 0 %; Platelet Count 276 10^3/cmm (157-399); Red Blood Count 2.71 10^6/uL (3.85-5.65); Red Cell Distribution Width 16.1 % (12.1-15.1); White Blood Count 7.02 10^3/uL (3.29-11.43)
== END 2023-08-16 23:59 | disposition home or self-care (01) ==
LOC: ONCMED 08:15
PROVIDERS: Nurse Practitioner Family; PCP Obstetrics & Gynecology Gynecologic Oncology; Visit Provider Internal Medicine Medical Oncology
DX: D64.9 Anemia, unspecified
CPT/HCPCS: 85025

== ENCOUNTER 2023-08-23 09:22 | Outpatient (CLI) | payer MEDICARE, MEDICAID, SELFPAY ==
--- NOTE | 2023-08-23 09:30 | MR_ITS ---
WS: [id number] MRI LUMBAR SPINE NONCONTRAST TECHNIQUE: Sagittal T1, T2 and STIR imaging. Axial T1 and T2 imaging. CLINICAL INFORMATION: Back Pain COMPARISON: MRI 01/08 FINDINGS: Again seen are bilateral sacral insufficiency fractures partially evaluated. Mild edema. Edema appear s decreased compared to previous. Mild lumbar curve. Post kyphoplasty changes L4 vertebral body with chronic compression superior endpl ate. Minimal trace retropulsion of the posterior super cortex with slight effacement of the ventral t hecal sac. L1-L2: Normal. L2-L3: Mild annular bulging. Mild facet arthropathy. Mild LEFT foraminal narrowing with a small LEFT foraminal protrusion. L3-L4: Mild annular bulging. Mild central canal stenosis with slight impingement on traversing L4 ner ve roots bilaterally slightly progressed. Mild bilateral foraminal narrowing. Moderate facet arthropa thy. L4-L5: Mild annular bulging. Slight narrowing the subarticular recess LEFT greater than RIGHT. Modera te facet arthropathy. Foramen are patent. L5-S1: Mild annular bulging with slight effacement of the ventral thecal sac. Spinal canal and forame n are patent. Moderate facet arthropathy. Small central protrusions in the cervical spine Instructional Interventionist imaging at C4-C5 and C5-C6 with mild central ca nal stenosis. MR/MR lumbar spine wo con* [id number] IMPRESSION: 1. Bilateral sacral insufficiency fractures with persistent fracture clefts an d mild edema. This appears improved but persistent compared to previous. 2. Interval kyphoplasty changes L4 3. Mild central canal stenosis L3-4 with narrowing of the subarticular recess bilaterally appears slightly progressed. Mild bilateral foraminal narrowing at this level with small foraminal protrusions. 4. Small LEFT foraminal protrusion L2-3 with mild LEFT foraminal narrowing. 5. Narrowing of the bilateral subarticular recess L4-5
== END 2023-08-23 09:23 | disposition home or self-care (01) ==
LOC: RAD 09:22
PROVIDERS: PCP Obstetrics & Gynecology Gynecologic Oncology; Visit Provider Orthopaedic Surgery
DX: M54.9 Dorsalgia, unspecified (principal); M48.061 Spinal stenosis, lumbar region without neurogenic claudication; M51.26 Other intervertebral disc displacement, lumbar region
CPT/HCPCS: 72148

== ENCOUNTER 2023-08-26 13:44 | Outpatient (CLI) | payer MEDICARE, MEDICAID, SELFPAY ==
[2023-08-26 15:43] LABS: Urine Appearance Clear (CLEAR); Urine Color Light yellow (Yellow); pH Urine 7 (5-7)
[2023-08-26 15:44] LABS: Add Urine Culture? No; Add Urine Microscopic? YES; Bacteria Urine TRACE /hpf; Bilirubin Urine Neg (Negative); Blood Urine Neg (Negative); Glucose Urine UA Norm (Normal); Ketones Urine Negative (Negative); Leukocyte Esterase Urine 1+ (Negative); Nitrate Urine Negative (Negative); Protein Urine Neg (Negative); RBC Urine 0-4 /hpf (0-2); Urobilinogen Urine Neg (Negative); WBC Urine 0-4 /hpf (0-5)
== END 2023-08-26 13:45 | disposition home or self-care (01) ==
LOC: LAB 13:47
PROVIDERS: PCP Obstetrics & Gynecology Gynecologic Oncology; Visit Provider Nurse Practitioner Family
DX: N39.0 Urinary tract infection, site not specified (principal)
CPT/HCPCS: 81001

== ENCOUNTER 2023-09-01 08:30 | Oncology outpatient (recurring) (ONCR) | payer MEDICARE, MEDICAID, SELFPAY ==
[2023-08-23 11:14] LABS: Basophils % 0.3 %; Eosinophils # 0.2 10^3/uL (0.0-0.8); Eosinophils % 3.6 %; Hematocrit 27.4 % (36-47); Lymphocytes # 0.7 10^3/uL (0.8-4.8); Lymphocytes % 11.4 %; Mean Corpuscular HGB Conc 31.4 g/dL (30-55); Mean Corpuscular Hemoglobin 30.6 pg (27-33); Mean Corpuscular Volume 97.5 fl (85-98); Mean Platelet Volume 8.1 fL (7.4-10.4); Monocytes # 0.7 10^3/uL (0.2-0.9); Monocytes % 11.7 %; Neutrophils # 4.42 10^3/uL (1.8-7.7); Neutrophils % 72.8 %; Nucleated Red Blood Cells % 0 %; Platelet Count 283 10^3/cmm (157-399); Red Blood Count 2.81 10^6/uL (3.85-5.65); Red Cell Distribution Width 15.6 % (12.1-15.1); White Blood Count 6.07 10^3/uL (3.29-11.43)
[2023-08-30 10:50] VITALS: BP 126/72; PULSE 89; RESP 16; TEMP 36.8; O2SAT 98
[2023-09-01 08:50] LABS: Basophils % 0.4 %; Eosinophils # 0.4 10^3/uL (0.0-0.8); Hematocrit 29.2 % (36-47); Lymphocytes # 0.7 10^3/uL (0.8-4.8); Lymphocytes % 9.5 %; Mean Corpuscular HGB Conc 31.2 g/dL (30-55); Mean Corpuscular Hemoglobin 30.3 pg (27-33); Mean Corpuscular Volume 97.3 fl (85-98); Monocytes # 0.9 10^3/uL (0.2-0.9); Monocytes % 12.4 %; Neutrophils # 5.12 10^3/uL (1.8-7.7); Neutrophils % 72.4 %; Nucleated Red Blood Cells % 0 %; Platelet Count 305 10^3/cmm (157-399); Red Cell Distribution Width 14.9 % (12.1-15.1); White Blood Count 7.07 10^3/uL (3.29-11.43)
[2023-09-01 09:16] LABS: Alanine Aminotransferase 15 U/L (0-33); Albumin Level 3.6 g/dL (3.5-5.2); Alkaline Phosphatase 160 U/L (35-105); Anion Gap 12.2 (5-19); Aspartate Amino Transferase 16 U/L (0-32); Blood Urea Nitrogen 14 mg/dL (8-23); Calcium 9.2 mg/dL (8.5-10.5); Carbon Dioxide 28 mmol/L (22-29); Chloride 100 mmol/L (98-107); Globulin 3.5 g/dL (1.3-4.6); Glomerular Filtration Rate 62.6 mL/min (90-130); Glucose 128 mg/dL (65-115); Osmolality Calculated 284 mOsm/kg (285-295); Potassium 4.2 mmol/L (3.5-5.1); Sodium 136 mmol/L (136-145); Thyroid Stimulating Hormone 20.78 uIU/mL (0.27-4.20); Total Bilirubin 0.2 mg/dL (0.15-1.2); Total Protein 7.1 g/dL (6.6-8.7)
[2023-09-01] MEDS: sodium chloride 0.9% 250 ML 75 ML IV (10:30)
[2023-09-01] MEDS: ondansetron 2 mg/ML SDV 2 mL 4 MG IVP (10:33)
[2023-09-01] MEDS: pembrolizumab 200 MG in sodium chloride 0.9% 250 ML 516 MG IV (10:46)
[2023-09-01 11:40] VITALS: BP 114/70; PULSE 72; RESP 17; TEMP 35.9; O2SAT 96
== END 2023-09-01 23:59 | disposition home or self-care (01) ==
PROVIDERS: Nurse Practitioner Family; PCP Obstetrics & Gynecology Gynecologic Oncology; Visit Provider Internal Medicine Medical Oncology
DX: Z79.899 Other long term (current) drug therapy; C51.9 Malignant neoplasm of vulva, unspecified; I10 Essential (primary) hypertension; D64.9 Anemia, unspecified; R53.83 Other fatigue; Z92.3 Personal history of irradiation; C79.89 Secondary malignant neoplasm of other specified sites; R10.13 Epigastric pain; R11.0 Nausea; M25.551 Pain in right hip; Z53.9 Procedure and treatment not carried out, unspecified reason; Z51.12 Encounter for antineoplastic immunotherapy; E03.9 Hypothyroidism, unspecified
CPT/HCPCS: 36415; 80053; 84443; 85025; 86850; 86900; 96375; 96413; 99214; J2405; J7050; J9271

== ENCOUNTER 2023-09-07 10:49 | Emergency (ER) | payer MEDICARE, MEDICAID, SELFPAY ==
[2023-09-07 11:07] VITALS: BP 111/60; PULSE 66; RESP 18; TEMP 36.6; O2SAT 100; BMI 24.3
--- NOTE | 2023-09-07 13:21 | CT_ITS ---
WS: [id number] CT ABDOMEN AND PELVIS WITH CONTRAST HISTORY: wound/vulva ca, evaluate open wound at the RIGHT groin. TECHNIQUE: Imaging performed of the abdomen and pelvis with IV contrast. Single phase imaging of the abdomen. Coronal and sagittal reformats are submitted. All CT scans at [facility] use at [address] [facility] one of these dose optimization techniques: automated exposure control; mA and/or kV adjustment per patient size (includes targeted exams where dose is matched to clinical indication); or iterative re construction. IV CONTRAST: Omnipaque 350; 100 mL IV. Oral contrast: No DLP: 572.38 mGy.cm COMPARISON: 04/04/2023 Lower thorax: Lung bases are clear. Heart is normal size. Small hiatal hernia. Liver/biliary system: Normal size with no intrahepatic dilatation. Gallbladder: Normal. No gallstones or wall thickening. No pericholecystic fluid. Pancreas: Normal size pancreas and pancreatic duct. No adjacent inflammation. Spleen: Normal size spleen. No mass or infarct. Adrenal glands: Normal. Right kidney: Normal. Left kidney: Normal. Aorta: Mild atherosclerosis with no aneurysm. Lymphadenopathy: None. Free fluid: No free fluid in the abdomen. GI tract: Unremarkable. Abdominal wall: Reidentified is the open wound centered in the RIGHT inguinal region which has been p resent on multiple prior examinations. There is packing material within the wound. This fat packing m aterial is new since the prior study. Complex fluid component in the size of the RIGHT groin wound do es appear to have increased. There is more fluid now extending over a length of 6.1 cm medially from the open surface of the wound. This more focal collection was not present on the prior study. There i s very mild wall enhancement. Additional small umbilical hernia. Pelvis: Prior hysterectomy. Negative bladder. Bones: L4 kyphoplasty. CT/CT abdomen pelvis w con* [id number] IMPRESSION: 1. Patient has a known open wound at the RIGHT groin. There is now packing mat erial within the more superficial portion of the open wound. 2. Medial extension of the complex fluid associated with the wound and wall en hancement. New fluid component extends 6.1 cm x 1.7 cm AP along anterior pelvic wall.
[2023-09-07 13:23] LABS: Basophils % 0.4 %; Eosinophils # 0.4 10^3/uL (0.0-0.8); Eosinophils % 3.9 %; Hematocrit 30.3 % (36-47); Lymphocytes # 1.4 10^3/uL (0.8-4.8); Lymphocytes % 14.7 %; Mean Corpuscular HGB Conc 31.4 g/dL (30-55); Mean Corpuscular Hemoglobin 30.2 pg (27-33); Mean Corpuscular Volume 96.2 fl (85-98); Mean Platelet Volume 8.1 fL (7.4-10.4); Monocytes % 10.6 %; Neutrophils # 6.62 10^3/uL (1.8-7.7); Neutrophils % 70.1 %; Nucleated Red Blood Cells % 0 %; Platelet Count 310 10^3/cmm (157-399); Red Blood Count 3.15 10^6/uL (3.85-5.65); Red Cell Distribution Width 14.4 % (12.1-15.1); White Blood Count 9.45 10^3/uL (3.29-11.43)
--- NOTE | 2023-09-07 13:24 | ED_ITS ---
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 She had a chronic open wound to her right groin since this. She sees wound care along with her oncology to have the wound packed she had the oncologist sent over here except for like the wounds enlarged and has some erythema and wanted a CT scan she denies any increased pain she has not had any fevers. Associated symptoms: Denies chills, fever(s), nausea or vomiting Review of Systems 2 Const: Denies: fever(s), chills, body aches or change in appetite ENMT: Denies: throat pain or dental pain Card: Denies: chest pain Resp: Denies: dyspnea GI: Denies: abdominal pain, nausea, vomiting or diarrhea Musc: Denies: neck pain or back pain Skin/Breast: Denies: rash Neuro: Denies: headache(s) PFSH ED 2 PFSH: Medical History Hypothyroidism Osteoarthritis of right hip Sacral insufficiency fracture Vitamin D deficiency Rosacea Chronic migraine GERD (gastroesophageal reflux disease) Obstructive sleep apnea HTN (hypertension) Squamous cell carcinoma of vulva Lichen sclerosus of female genitalia Diagnosed in 2017 or 2018-states she was told that she just needs to use the clobetasol if needed so she uses it very rarely. Asthma Vertigo Surgical History Hx of kyphoplasty Status post surgical removal of malignant neoplasm of skin (07/15/21) Squamous cell carcinoma in situ Status post arthroscopic surgery of left knee Status post colonoscopy with polypectomy (06/24/21) H/O esophagogastroduodenoscopy (06/24/21) Status post surgery (09/10/20) radical partial vulvectomy, right inguinofemoral lymphadenectomy, and left inguinofemoral sentinel lymph node biopsy H/O esophagogastroduodenoscopy Dilation History of bladder surgery 2007-had bladder lift surgery performed and states that about 3 months after surgery her bladder fell down again and she has not done anything about this. Status post laparotomy X 2 Thinks that she has had 2 open surgeries for cysts and problems with cysts and feels that this was before her hysterectomy but does not remember. S/P hysterectomy 1991----?vaginal hysterectomy for heavy bleeding and pain. Family History Family/Other Breast cancer maternal aunt, diagnosed in her 50s or 60s Mother Hypertension Aortic aneurysm Hyperlipidemia Lung disease Father Hypertension Cancer Brother Hypertension Anesthesia complication during surgery d/t too much anesthesia Sister Hypertension Denies family history of Colon cancer Ovarian cancer Diabetes CAD (coronary artery disease) Clotting disorder Dementia Heart disease Chronic kidney disease (CKD) Suicide Bleeding disorder Uterine cancer Thyroid disease Stroke Social History Smoking and tobacco/nicotine status: unknown if used tobacco/nicotine Quit status (tobacco/nicotine): has quit using Year quit tobacco: 1997 Former quit date comment: Hx of 0.5 PPD x 8 Years Second hand smoke exposure: No Alcohol intake: never Substance/Drug Use: never Lives independently: Yes Household members: none Marital status: Current occupational status: disabled Do you think of yourself as: Straight/Heterosexual Current gender identity: Female Physical Exam 2 Const: COMMON NORMALS: no acute distress, patient oriented x3 and healthy appearing HENMT: COMMON NORMALS: normocephalic and atraumatic HEAD & SCALP: n ormocephalic and atraumatic Neck/C-Spine: COMMON NORMALS: full ROM and supple Chest: COMMONS NORMALS: normal inspection of the chest Resp: COMMON NORMALS: normal respiratory effort GI: COMMON NORMALS: Soft to palpation, non-tender and no masses PALPATION: Yes Soft to palpation OTHER: Chronic wound noted in right groin no drainage noted no necrosis Extremity: COMMON NORMALS: normal to inspection and full ROM Neuro: COMMON NORMALS: patient oriented x3, moves all extremities and no focal motor deficits Psych: COMMON NORMALS: mental status grossly normal, Normal thought process present and cooperative THOUGHT PROCESS: Normal thought process present Skin: COMMON NORMALS: no rashes or lesions noted and no wounds GENERAL SKIN EXAM: no rashes or lesions noted Course 2 Vital Signs: Vital signs: Vital Signs Temperature 97.9 F 09/07/23 11:07 Pulse Rate 62 09/07/23 15:30 Respiratory Rate 18 09/07/23 11:07 Blood Pressure 95/55 09/07/23 15:30 Pulse Oximetry 99 09/07/23 15:30 Oxygen Delivery Me thod Room Air 09/07/23 15:30 MDM - Wound/Laceration Medical Decision Making Patient presents here with chronic wound in the right groin patient is afebrile here she has normal white count CT did show some increasing fluid components I did speak to Gun onc at [facility] spoke to Lacy midlevel who knows patient well she asked has an appointment with the [facility] tomorrow patient does not need admission does not need antibiotics at this time I did inform patient she needs to see the oncologist tomorrow and had spoke to them and they will have the images and return if worsening. Lab Data I reviewed the patient's lab results. 09/07/23 13:15 09/07/23 13:15 Radiology Impressions Abdomen/Pelvis CT 09/07/23 13:21 IMPRESSION: 1. Patient has a known open wound at the RIGHT groin. There is now packing material within the more superficial portion of the open wound. 2. Medial extension of the complex fluid associated with the wound and wall enhancement. New fluid component extends 6.1 cm x 1.7 cm AP along anterior pelvic wall. Chest X-Ray 09/07/23 13:33 Impression: Atherosclerosis. Laboratory Results WBC 9.45 10^3/uL (3.29-11.43) 09/07/23 13:15 RBC 3.15 10^6/uL (3.85-5.65) L 09/07/23 13:15 Hgb 9.50 g/dL (11.27-16.99) L 09/07/23 13:15 Hct 30.3 % (36-47) L 09/07/23 13:15 MCV 96.2 fl (85-98) 09/07/23 13:15 MCH 30.2 pg (27-33) 09/07/23 13:15 MCHC 31.4 g/dL (30-55) 09/07/23 13:15 RDW 14.4 % (12.1-15.1) 09/07/23 13:15 Plt Count 310 10^3/cmm (157-399) 09/07/23 13:15 MPV 8.1 fL (7.4-10.4) 09/07/23 13:15 Neut % (Auto) 70.1 % 09/07/23 13:15 Lymph % (Auto) 14.7 % 09/07/23 13:15 [place] % (Auto) 10.6 % 09/07/23 13:15 Eos % (Auto) 3.9 % 09/07/23 13:15 Baso % (Auto) 0.4 % 09/07/23 13:15 Neut # (Auto) 6.62 10^3/uL (1.8-7.7) 09/07/23 13:15 Lymph # (Auto) 1.4 10^3/uL (0.8-4.8) 09/07/23 13:15 [place] # (Auto) 1.0 10^3/uL (0.2-0.9) H 09/07/23 13:15 Eos # (Auto) 0.4 10^3/uL (0.0-0.8) 09/07/23 13:15 Baso # (Auto) 0.0 10^3/uL (0.0-0.1) 09/07/23 13:15 Nucleated RBC % (auto) 0 % 09/07/23 13:15 Nucleated RBCs # 0.0 /100WBC 09/07/23 13:15 Sodium 134 mmol/L (136-145) L 09/07/23 13:15 Potassium 4.4 mmol/L (3.5-5.1) 09/07/23 13:15 Chloride 96 mmol/L (98-107) L 09/07/23 13:15 Carbon Dioxide 28 mmol/L (22-29) 09/07/23 13:15 Anion Gap 14.4 (5-19) 09/07/23 13:15 BUN 17 mg/dL (8-23) 09/07/23 13:15 Creatinine 0.8 mg/dL (0.5-0.9) 09/07/23 13:15 GFR Calculation 71.8 mL/min (90-130) L 09/07/23 13:15 Glucose 98 mg/dL (65-115) 09/07/23 13:15 Calculated Osmolality 280 mOsm/kg (285-295) L 09/07/23 13:15 Calcium 9.5 mg/dL (8.5-10.5) 09/07/23 13:15 Total Bilirubin 0.2 mg/dL (0.15-1.2) 09/07/23 13:15 AST 17 U/L (0-32) 09/07/23 13:15 ALT 12 U/L (0-33) 09/07/23 13:15 Alkaline Phosphatase 149 U/L (35-105) H 09/07/23 13:15 C-Reactive Protein 37.3 mg/L (0.0-4.9) H 09/07/23 13:15 Total Protein 7.7 g/dL (6.6-8.7) 09/07/23 13:15 Albumin 3.7 g/dL (3.5-5.2) 09/07/23 13:15 Globulin 4.0 g/dL (1.3-4.6) 09/07/23 13:15 No radiology studies performed this visit Discharge Plan Discharge Patient Disposition: Home Clinical Impression: Primary vulvar squamous cell carcinoma, Non-healing open wound of right groin Condition: Stable Prescriptions: No Action multivitamin Tablet 1 tab PO QAM pantoprazole 40 mg tablet,delayed release (DR/EC) 40 mg PO BID 14 Days Qty: 28 0RF ondansetron 8 mg tablet,disintegrating 8 mg PO Q8H PRN (Reason: nausea and vomiting) Qty: 30 3RF ondansetron HCl 4 mg tablet 4 - 8 mg PO Q8H PRN (Reason: nausea and vomiting) Qty: 60 3RF prednisone 20 mg tablet 20 mg PO DAILY Qty: 15 0RF Rx Instructions: 60MG for 3 days, 40MG for 2 days, 20MG for 2 days levothyroxine 100 mcg tablet 100 mcg PO DAILY Qty: 30 0RF meclizine 25 mg tablet 25 mg PO TID PRN (Reason: vertigo) Qty: 30 2RF dronabinol [Marinol] 5 mg capsule 5 mg PO BID Qty: 60 0RF Rx Instructions: administer before lunch and evening meal/dinner fentanyl 75 mcg/hr patch 72 hour 1 patch transdermal Q72H 30 Days Qty: 10 0RF diphenoxylate-atropine [Lomotil] 2.5-0.025 mg tablet 1 tab PO TID PRN (Reason: diarrhea) Qty: 30 0RF gabapentin 600 mg tablet 1,800 mg PO TID Qty: 270 0RF sucralfate 100 mg/mL suspension 10 ml PO QID 30 Days Qty: 1200 0RF Rx Instructions: swish in mouth and swallow; use after food/drink furosemide 20 mg tablet 40 mg PO DAILY Qty: 60 1RF potassium chloride 10 mEq tablet extended release 20 meq PO DAILY Qty: 60 2RF Rx Instructions: take with furosemide ipratropium-albuterol 0.5 mg-3 mg(2.5 mg base)/3 mL solution for nebulization 3 ml INHALATION Q12H PRN (Reason: Shortness Of Breath) pantoprazole 20 mg tablet,delayed release (DR/EC) 20 mg PO DAILY clobetasol 0.05 % Cream 1 applic TOPICAL BID PRN (Reason: Skin Irritation) lidocaine-prilocaine 2.5-2.5 % cream See Rx Instructions .ROUTE .COMPLEX Rx Instructions: place a quarter size amount over port area ONE hour prior TO being accessed. 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
[2023-09-07 13:30] VITALS: BP 143/60; PULSE 63; O2SAT 100
--- NOTE | 2023-09-07 13:33 | XR_ITS ---
WS: [id number] Portable AP upright chest, 09/07/2023 Clinical Data: cp Comparison: Portable chest, 01/07/2023 Findings: No nodules, masses or effusions are seen. The heart is normal. The pulmonary vascularity is not increased. No pneumonia or pneumothorax is seen. The left infusion catheter remains in the same position. The aortic arch and descending thoracic aorta show mild tortuosity. XR/XR chest 1V portable [id number] Impression: Atherosclerosis.
[2023-09-07 13:36] LABS: Alanine Aminotransferase 12 U/L (0-33); Albumin Level 3.7 g/dL (3.5-5.2); Alkaline Phosphatase 149 U/L (35-105); Anion Gap 14.4 (5-19); Aspartate Amino Transferase 17 U/L (0-32); Blood Urea Nitrogen 17 mg/dL (8-23); C Reactive Protein 37.3 mg/L (0.0-4.9); Calcium 9.5 mg/dL (8.5-10.5); Carbon Dioxide 28 mmol/L (22-29); Chloride 96 mmol/L (98-107); Creatinine Clr Calc Pharmacy 71.0713; Glomerular Filtration Rate 71.8 mL/min (90-130); Glucose 98 mg/dL (65-115); Osmolality Calculated 280 mOsm/kg (285-295); Potassium 4.4 mmol/L (3.5-5.1); Sodium 134 mmol/L (136-145); Total Bilirubin 0.2 mg/dL (0.15-1.2); Total Protein 7.7 g/dL (6.6-8.7)
[2023-09-07] MEDS: iohexol 350 mg/mL 500 mL Btl (per mL) IV (14:27)
[2023-09-07 15:30] VITALS: BP 95/55; PULSE 62; O2SAT 99
[2023-09-07 16:48] VITALS: BP 138/72; PULSE 61; RESP 16; O2SAT 100
== END 2023-09-07 16:49 | disposition home or self-care (01) ==
PROVIDERS: Emergency Provider Emergency Medicine; PCP Nurse Practitioner Family
DX: T81.89XA Other complications of procedures, not elsewhere classified, initial encounter (principal); C51.9 Malignant neoplasm of vulva, unspecified; Z87.891 Personal history of nicotine dependence; I10 Essential (primary) hypertension
CPT/HCPCS: 71045; 74177; 80053; 85025; 86140; 96374; 99285; J1642; Q9967

== ENCOUNTER 2023-09-15 09:30 | Oncology outpatient (recurring) (ONCR) | payer MEDICARE, MEDICAID, SELFPAY | END 2023-09-16 23:59 | disposition home or self-care (01) | PROVIDERS: PCP Obstetrics & Gynecology Gynecologic Oncology; Visit Provider Internal Medicine Medical Oncology | DX: Z53.9 Procedure and treatment not carried out, unspecified reason (principal); Z79.899 Other long term (current) drug therapy; C51.9 Malignant neoplasm of vulva, unspecified; T14.8XXA Other injury of unspecified body region, initial encounter; I10 Essential (primary) hypertension; D64.9 Anemia, unspecified; R53.83 Other fatigue; Z92.3 Personal history of irradiation; C79.89 Secondary malignant neoplasm of other specified sites; R10.13 Epigastric pain; S32.10XA Unspecified fracture of sacrum, initial encounter for closed fracture; R11.0 Nausea; M25.551 Pain in right hip; X58.XXXA Exposure to other specified factors, initial encounter | CPT/HCPCS: 99214 ==

== ENCOUNTER 2023-09-22 09:30 | Oncology outpatient (recurring) (ONCR) | payer MEDICARE, MEDICAID, SELFPAY ==
[2023-09-22 09:45] LABS: Basophils % 0.2 %; Eosinophils # 0.2 10^3/uL (0.0-0.8); Eosinophils % 2.6 %; Hematocrit 27.3 % (36-47); Lymphocytes # 0.7 10^3/uL (0.8-4.8); Lymphocytes % 8.1 %; Mean Corpuscular HGB Conc 30.4 g/dL (30-55); Mean Corpuscular Hemoglobin 29.1 pg (27-33); Mean Corpuscular Volume 95.8 fl (85-98); Mean Platelet Volume 8.3 fL (7.4-10.4); Monocytes # 0.9 10^3/uL (0.2-0.9); Monocytes % 9.3 %; Neutrophils # 7.26 10^3/uL (1.8-7.7); Neutrophils % 79.5 %; Nucleated Red Blood Cells % 0 %; Platelet Count 360 10^3/cmm (157-399); Red Blood Count 2.85 10^6/uL (3.85-5.65); White Blood Count 9.14 10^3/uL (3.29-11.43)
[2023-09-22 10:08] LABS: Alanine Aminotransferase 6 U/L (0-33); Albumin Level 3.2 g/dL (3.5-5.2); Alkaline Phosphatase 99 U/L (35-105); Anion Gap 16.1 (5-19); Aspartate Amino Transferase 9 U/L (0-32); Blood Urea Nitrogen 17 mg/dL (8-23); Carbon Dioxide 28 mmol/L (22-29); Chloride 100 mmol/L (98-107); Globulin 3.5 g/dL (1.3-4.6); Glomerular Filtration Rate 71.8 mL/min (90-130); Glucose 129 mg/dL (65-115); Osmolality Calculated 293 mOsm/kg (285-295); Potassium 4.1 mmol/L (3.5-5.1); Sodium 140 mmol/L (136-145); Thyroid Stimulating Hormone 14.56 uIU/mL (0.27-4.20); Total Bilirubin 0.2 mg/dL (0.15-1.2); Total Protein 6.7 g/dL (6.6-8.7)
[2023-09-22] MEDS: pembrolizumab 200 MG in sodium chloride 0.9% 250 ML 516 MG IV (12:25)
[2023-09-22 13:15] VITALS: BP 124/72; PULSE 76; RESP 16; TEMP 36.7; O2SAT 99
== END 2023-09-22 23:59 | disposition home or self-care (01) ==
PROVIDERS: Nurse Practitioner Family; PCP Nurse Practitioner Family; Visit Provider Internal Medicine Medical Oncology
DX: Z79.899 Other long term (current) drug therapy; C51.9 Malignant neoplasm of vulva, unspecified; T14.8XXA Other injury of unspecified body region, initial encounter; I10 Essential (primary) hypertension; D64.9 Anemia, unspecified; R53.83 Other fatigue; Z92.3 Personal history of irradiation; C79.89 Secondary malignant neoplasm of other specified sites; R10.13 Epigastric pain; S32.10XA Unspecified fracture of sacrum, initial encounter for closed fracture; R11.0 Nausea; M25.551 Pain in right hip; X58.XXXA Exposure to other specified factors, initial encounter; Z53.9 Procedure and treatment not carried out, unspecified reason; E03.9 Hypothyroidism, unspecified; Z51.12 Encounter for antineoplastic immunotherapy
CPT/HCPCS: 80053; 84443; 85025; 96413; 99214; A4222; J7050; J9271